=== PATIENT | male | born 1940 ===

== ENCOUNTER 2018-02-25 13:17 | Inpatient (IN) | payer MEDICARE ==
[2018-02-25 13:37] VITALS: BMI 25.8
[2018-02-25] MEDS ORDERED: Albuterol-Ipratrop 3 mg / 0.5 (3 ml) UD INH STA (13:43)
[2018-02-25] MEDS ORDERED: Albuterol-Ipratrop 3 mg / 0.5 (3 ml) UD ONE (14:00)
[2018-02-25 14:02] LABS: BASO # 0.1 K/uL (0.0-0.2); BASO % 0.4 % (0.0-2.0); HEMOGLOBIN 11.2 g/dL (12.0-18.0); LYMPH # 0.5 K/uL (1.0-4.3); LYMPH % 3.6 % (20.0-40.0); MEAN CELL VOLUME 93.2 fL (80.0-94.0); MEAN CORPUSCULAR HEMOGLOBIN 32.2 pg (27.0-31.0); MEAN CORPUSCULAR HGB CONC 34.5 g/dL (33.0-37.0); MEAN PLATELET VOLUME 11.2 fL (7.2-11.7); MONO # 0.9 K/uL (0.0-0.8); MONO % 5.8 % (0.0-10.0); NEUT # 13.3 K/uL (1.8-7.0); NEUT % 90.2 % (50.0-75.0); PLATELET COUNT 159 K/uL (130-400); RBC 3.47 Mil/uL (4.40-5.90); RED CELL DISTRIBUTION WIDTH 13.9 % (11.5-14.5); WHITE BLOOD COUNT 14.8 K/uL (4.8-10.8)
[2018-02-25] MEDS ORDERED: cefTRIAXone IV 1 gm in Dextros 50 ML IV ONE (14:08)
[2018-02-25] MEDS ORDERED: Azithromycin 500 MG in Sodium Chloride 0.9% 250 ML IV STA (14:08)
[2018-02-25 14:09] LABS: INR 1.4; PROTHROMBIN TIME 15.1 SECONDS (9.7-12.2)
--- NOTE | 2018-02-25 14:14 | RAD ---
PROCEDURE: CHEST RADIOGRAPH, 1 VIEW HISTORY: SOB COMPARISON: Chest radiograph dated 09/15/2016. FINDINGS: LUNGS: Clear. PLEURA: No pneumothorax or pleural fluid seen. CARDIOVASCULAR: Atherosclerotic aortic calcifications. Cardiomediastinal silhouette within normal it's. OSSEOUS STRUCTURES: Unchanged. VISUALIZED UPPER ABDOMEN: Normal. OTHER FINDINGS: None. IMPRESSION: No active disease.
--- NOTE | 2018-02-25 14:16 | C.PDOC ---
History Of Present Illness 77-year-old male, presents to the emergency department with complaints of cough and lethargy for the past seven days. No shortness of breath, chest pain, vomiting or diarrhea. Time Seen by Provider: 02/25/18 13:39 Chief Complaint (Nursing): Shortness Of Breath History Per: Patient History/Exam Limitations: no limitations Current Symptoms Are (Timing): Still Present Past Medical History Reviewed: Historical Data, Nursing Documentation, Vital Signs Vital Signs: Last Vital Signs Temp 98.0 F 02/25/18 16:32 Pulse 99 H 02/25/18 16:32 Resp 18 02/25/18 16:32 BP 115/50 L 02/25/18 16:32 Pulse Ox 96 02/25/18 16:32 - Medical History PMH: Anemia, Arthritis, HTN, Hyperlipidemia Surgical History: Endoscopy - [facility] Procedures EXCISION OF STOMACH, ENDO, DIAGN (06/02/16) OCCLUSION ESOPHAGEAL VEIN W EXTRALUM DEV, PERC ENDO (06/02/16) Family History: States: No Known Family Hx - Social History Hx Alcohol Use: No Hx Substance Use: No - Immunization History Hx Tetanus Toxoid Vaccination: No Hx Influenza Vaccination: No Hx Pneumococcal Vaccination: No Review Of Systems Constitutional: Positive for: Other (lethargy) Respiratory: Positive for: Cough Gastrointestinal: Positive for: Abdominal Pain Neurological: Negative for: Weakness, Numbness Physical Exam - Physical Exam Appears: Non-toxic, No Acute Distress Skin: Normal Color, Warm, Dry, No Rash Head: Normacephalic Eye(s): bilateral: PERRL Nose: Normal Oral Mucosa: Dry (oropharynx) Lips: Normal Appearing Neck: Normal ROM Cardiovascular: Rhythm Regular, No Murmur Respiratory: No Accessory Muscle Use, Other (increased breath sounds to lower lung areas.) Gastrointestinal/Abdominal: Soft, No Tenderness Extremity: No Pedal Edema, No Deformity, No Swelling Neurological/Psych: Oriented x3, Normal Speech ED Course And Treatment - Laboratory Results Result Diagrams: 02/25/18 13:58 02/25/18 13:58 Lab Interpretation: Abnormal ECG: Interpreted By De ECG Rhythm: Sinus Tachycardia, R BBB ECG Interpretation: Abnormal Rate From EC O2 Sat by Pulse Oximetry: 96 (RA) Pulse Ox Interpretation: Abnormal - Radiology CXR: Interpreted by Me CXR Interpretation: Yes: Infiltrates (+RLL) Progress Note: solumedrol, duoneb, azithro, rocephin Reevaluation Time: 14:15 Reassessment Condition: Improved - Physician Consult Information Outcome Of Conversation: 1415: d/w heriberto Sanchez to admit. Medical Decision Making Medical Decision Making: CAP Disposition Doctor Will See Patient In The: Hospital Counseled Patient/Family Regarding: Studies Performed, Diagnosis - Disposition Disposition: HOSPITALIZED Disposition Time: 14:16 Condition: GOOD - Clinical Impression Clinical Impression: Pneumonia - Scribe Statement The provider has reviewed the documentation as recorded by the Scribe (Addis Lang) All medical record entries made by the Scribe were at my direction and personally dictated by me. I have reviewed the chart and agree that the record accurately reflects my personal performance of the history, physical exam, medical decision making, and the department course for this patient. I have also personally directed, reviewed, and agree with the discharge instructions and disposition.
[2018-02-25] MEDS ORDERED: cefTRIAXone IV 1 gm in Dextros 50 ML IVPB ONE (14:20)
[2018-02-25 14:36] LABS: ALB/GLOB RATIO 0.8 (1.0-2.1); ALBUMIN 3.3 g/dL (3.5-5.0); ALT/SGPT 8 U/L (21-72); AST/SGOT 56 U/L (17-59); BLOOD UREA NITROGEN 18 mg/dL (9-20); CALCIUM 8.1 mg/dl (8.6-10.4); GFR AFRICAN-AMERICAN > 60; GFR NON-AFRICAN AMERICAN > 60
[2018-02-25 14:40] LABS: BANDS 5 % (0-2); LYMPHOCYTE 4 % (20-40); MONOCYTE 6 % (0-10); NEUTROPHIL 85 % (50-75); TOTAL CELLS COUNTED 100
[2018-02-25 14:41] LABS: PLATELET ESTIMATE NORMAL (NORMAL)
[2018-02-25 14:46] LABS: B-TYPE NATRIURETIC PEPTIDE 857 pg/mL (0-900)
[2018-02-25 17:39] VITALS: RESP 20
[2018-02-25] MEDS: (Novolin R) Insulin Human Regular 100 units/ml vial SC SCH (21:47)
[2018-02-25] MEDS: Ceftaroline 600 MG in Sodium Chloride 0.9% 100 ML IVPB SCH (21:48)
--- NOTE | 2018-02-25 23:40 | CP.PCM.CON ---
History of Present Illness - History of Present Illness History of Present Illness: INFECTIOUS DISEASE CONSULT; HPI; 77-year-old male with history of DM TYPE -2, hypertension, hyperlipidemia, anemia, arthritis who was admitted via the emergency room as patient states he has been having cough with scanty Beige colored sputum for the past 1 week or more. Patient states that he also had chills and subjective fevers though he never took his temperature. Patient states the cough is so bad that now he is experiencing abdominal pain on coughing. Patient also complains of diarrhea since last night. Patient denies any recent travel or any sick contacts. Patient is a nonsmoker, nonalcoholic. Patient denies hemoptysis or hematemesis or any melanotic stools. Denies loss of weight or night sweats. In the ER patient was found to have leukocytosis and was appropriately cultured and started on IV Rocephin and Zithromax. INFECTIOUS DISEASE CONSULT REQUESTED BY PMD DR BRIDGES FOR LEUKOCYTOSIS AND CAP. Patient also was found to have abnormal LFTs. Patient denies any nausea or vomiting. CHEST X-RAY ON ADMISSION WAS UNREMARKABLE and did not show acute infiltrates. PMH: Anemia, Arthritis, HTN, Hyperlipidemia Surgical History: Endoscopy - [facility] Procedures EXCISION OF STOMACH, ENDO, DIAGN (06/02/16) OCCLUSION ESOPHAGEAL VEIN W EXTRALUM DEV, PERC ENDO (06/02/16) Family History: States: No Known Family Hx - Social History Hx Alcohol Use: No Hx Substance Use: No - Immunization History Hx Tetanus Toxoid Vaccination: No Hx Influenza Vaccination: No Hx Pneumococcal Vaccination: No ALLERGY; NKA. Review of Systems - Constitutional Constitutional: Chills, Fever. absent: Night Sweats, Weight Loss - EENT Eyes: absent: Change in Vision Nose/Mouth/Throat: absent: Hoarsness, Mouth Lesions, Sore Throat - Cardiovascular Cardiovascular: absent: Chest Pain - Respiratory Respiratory: Cough, Change in Mucous Color, Pain with Coughing. absent: Hemoptysis - Gastrointestinal Gastrointestinal: Abdominal Pain, Diarrhea. absent: Nausea, Vomiting - Genitourinary Genitourinary: absent: Freq UTI, Hx Renal/Bladder Calculi - Musculoskeletal Musculoskeletal: absent: Arthralgias, Myalgias - Neurological Neurological: absent: Headaches - Hematologic/Lymphatic Hematologic: As Per HPI. absent: Lymphadenopathy Past Patient History - Past Medical History & Family History Past Medical History?: Yes - Past Social History Smoking Status: Never Smoked - CARDIAC Hx Cardiac Disorders: Yes Hx Hypercholesterolemia: Yes Hx Hypertension: Yes - PULMONARY Hx Respiratory Disorders: No - NEUROLOGICAL Hx Neurological Disorder: No Hx Transient Ischemic Attacks (TIA): No - HEENT Hx HEENT Problems: Yes Hx Deafness: Yes Other/Comment: left ear [place] - RENAL Hx Chronic Kidney Disease: No - ENDOCRINE/METABOLIC Hx Endocrine Disorders: Yes Hx Diabetes Mellitus Type 2: Yes - HEMATOLOGICAL/ONCOLOGICAL Hx Anemia: Yes - INTEGUMENTARY Hx Dermatological Problems: No - MUSCULOSKELETAL/RHEUMATOLOGICAL Hx Arthritis: Yes Hx Falls: Yes - GASTROINTESTINAL Hx Gastrointestinal Disorders: Yes Hx Esophageal Varices: Yes (BANDING DONE) Hx Ulcer: Yes Other/Comment: HX:IRREGULAR CONTOUR OF LIVER WITH CIRRRHOSIS. HX: H-PYLORI- TREATMENT DONE. HX: MELENA - GENITOURINARY/GYNECOLOGICAL Hx Genitourinary Disorders: Yes Hx Prostate Cancer: Yes - PSYCHIATRIC Hx Psychophysiologic Disorder: No Hx Substance Use: No - SURGICAL HISTORY Hx Surgeries: Yes Other/Comment: HX: ESOPHAGEAL VARICES-BANDING DONE - ANESTHESIA Hx Anesthesia: Yes Hx Anesthesia Reactions: No Hx Malignant Hyperthermia: No Meds Allergies/Adverse Reactions: Allergies Allergy/AdvReac Type Severity Reaction Status Date / Time No Known Allergies Allergy Verified 10/06/16 07:08 - Medications Medications: Current Medications Albuterol/Ipratropium (Duoneb 3 Mg/0.5 Mg (3 Ml) Ud) 3 ml INH RQ6 [facility] Budesonide (Pulmicort Respules) 0.25 mg INH RQ12 [facility] Enoxaparin Sodium (Lovenox) 40 mg SC DAILY [facility] Glipizide (Glucotrol) 5 mg PO DAILY [facility] Azithromycin 500 mg/ Sodium (Chloride) 250 mls @ 250 mls/hr IVPB Q24H [facility] PRN Reason: Protocol Ceftaroline Fosamil 600 mg/ (Sodium Chloride) 100 mls @ 100 mls/hr IVPB Q12 [facility] PRN Reason: Protocol Last Admin: 02/25/18 21:48 Dose: 100 mls/hr Insulin Human Regular (Novolin R) 0 unit SC ACHS [facility] PRN Reason: Protocol Last Admin: 02/25/18 21:47 Dose: 2 unit Lisinopril (Zestril) 10 mg PO DAILY [facility] Metformin HCl (Glucophage) 1,000 mg PO BID [facility] Physical Exam - Constitutional Appears: No Acute Distress - Head Exam Head Exam: NORMAL INSPECTION - Eye Exam Eye Exam: EOMI, PERRL, Scleral icterus - ENT Exam ENT Exam: Normal Oropharynx - Neck Exam Neck exam: Positive for: Normal Inspection. Negative for: Lymphadenopathy - Respiratory Exam Respiratory Exam: Prolonged Expiratory Phase, Rhonchi (BILATERAL RHONCHI) - Cardiovascular Exam Cardiovascular Exam: REGULAR RHYTHM, +S1, +S2 - GI/Abdominal Exam GI & Abdominal Exam: Normal Bowel Sounds, Soft, Tenderness (GENERALIZED). absent: Distended, Guarding - Extremities Exam Extremities exam: Positive for: pedal pulses present. Negative for: calf tenderness, pedal edema - Neurological Exam Neurological exam: Alert, CN II-XII Intact, Oriented x3, Reflexes Normal - Skin Skin Exam: Normal Color, Warm Results - Vital Signs Recent Vital Signs: Last Vital Signs Temp 98.2 F 02/25/18 17:30 Pulse 94 H 02/25/18 17:30 Resp 20 02/25/18 17:30 BP 100/68 02/25/18 17:30 Pulse Ox 96 02/25/18 17:30 - Labs Result Diagrams: 02/25/18 13:58 02/25/18 13:58 Labs: Laboratory Results - last 24 hr 02/25/18 02/25/18 02/25/18 13:58 13:58 13:58 WBC 14.8 H D RBC 3.47 L Hgb 11.2 L Hct 32.4 L MCV 93.2 D MCH 32.2 H MCHC 34.5 RDW 13.9 Plt Count 159 MPV 11.2 Neut % (Auto) 90.2 H Lymph % (Auto) 3.6 L [place] % (Auto) 5.8 Eos % (Auto) 0.0 Baso % (Auto) 0.4 Neut # (Auto) 13.3 H Lymph # (Auto) 0.5 L [place] # (Auto) 0.9 H Eos # (Auto) 0.0 Baso # (Auto) 0.1 Neutrophils % (Manual) 85 H Band Neutrophils % 5 H Lymphocytes % (Manual) 4 L Monocytes % (Manual) 6 Platelet Estimate Normal RBC Morphology Normal PT 15.1 H INR 1.4 APTT 34 Sodium Potassium Chloride Carbon Dioxide Anion Gap BUN Creatinine Est GFR ( Amer) Est GFR (Non-Af Amer) POC Glucose (mg/dL) Random Glucose Calcium Total Bilirubin AST ALT Alkaline Phosphatase Troponin I NT-Pro-B Natriuret Pep Total Protein Albumin Globulin Albumin/Globulin Ratio Influenza Typ A,B (EIA) Negative for flu a/b 02/25/18 02/25/18 02/25/18 13:58 18:49 21:26 WBC RBC Hgb Hct MCV MCH MCHC RDW Plt Count MPV Neut % (Auto) Lymph % (Auto) [place] % (Auto) Eos % (Auto) Baso % (Auto) Neut # (Auto) Lymph # (Auto) [place] # (Auto) Eos # (Auto) Baso # (Auto) Neutrophils % (Manual) Band Neutrophils % Lymphocytes % (Manual) Monocytes % (Manual) Platelet Estimate RBC Morphology PT INR APTT Sodium 132 Potassium 4.7 Chloride 96 L Carbon Dioxide 18 L Anion Gap 23 H BUN 18 Creatinine 0.9 Est GFR ( Amer) > 60 Est GFR (Non-Af Amer) > 60 POC Glucose (mg/dL) 259 H 391 H Random Glucose 281 H Calcium 8.1 L Total Bilirubin 2.9 H AST 56 ALT 8 L D Alkaline Phosphatase 309 H Troponin I < 0.0120 NT-Pro-B Natriuret Pep 857 Total Protein 7.5 Albumin 3.3 L Globulin 4.2 H Albumin/Globulin Ratio 0.8 L Influenza Typ A,B (EIA) - Imaging and Cardiology Chest x-ray Status: Report reviewed by me (no active disease.) Assessment & Plan (1) Leukocytosis (leucocytosis) Assessment and Plan: PANCULTURE ESR CRP ATYPICAL TITERS. COLD AGGLUTININS. SPUTUM GRAM STAIN AND CULTURE DC IV ROCEPHIN IN VIEW OF ABNORMAL LFTS SINCE CEFTRIAXONE HAS A HEPATIC METABOLISM. START IV TEFLARO 600MG IVPB Q 12HRLY 02/25/18. CONTINUE IV ZITHROMAX 500MG IV Q 24HRLY. 02/26/18 F/U CULTURES TO ADJUST ABX Status: Acute (2) Pneumonia Status: Acute (3) Diarrhea Assessment and Plan: stool for occult blood. stool for c.difficile toxin. Status: Acute (4) Cough Assessment and Plan: patient has persistent cough. Scanty expectorant. Complains of pain abdomen on coughing. Will check CT chest rule out endobronchial or pleuritic etiology. Pulmonary consult for evaluation of PFTs. Status: Acute
[2018-02-26] MEDS: Albuterol-Ipratrop 3 mg / 0.5 (3 ml) UD INH SCH ×4 (02:41→20:32)
[2018-02-26] MEDS: Budesonide 0.25 mg/2 ml Inhal Susp UD INH SCH ×2 (08:00→20:32)
[2018-02-26] MEDS: (Novolin R) Insulin Human Regular 100 units/ml vial SC SCH ×4 (08:07→21:10)
[2018-02-26] MEDS: Enoxaparin 40 mg Syringe SC SCH (09:53)
[2018-02-26] MEDS: Ceftaroline 600 MG in Sodium Chloride 0.9% 100 ML IVPB SCH ×2 (09:53→21:10)
[2018-02-26 12:16] LABS: MYCOPLASMA PNEUMONIAE IGM NEGATIVE (NEGATIVE)
[2018-02-26] MEDS: Azithromycin 500 MG in Sodium Chloride 0.9% 250 ML IVPB SCH (13:41)
[2018-02-26] MEDS ORDERED: cefTRIAXone IV 1 gm in Dextros 50 ML IVPB SCH (14:00)
--- NOTE | 2018-02-26 15:12 | CARD ---
APPROVED REPORT EKG Measurement Heart [id number] <Conclusion> Sinus tachycardia Low voltage QRS Incomplete right bundle branch block Borderline ECG
--- NOTE | 2018-02-26 16:53 | CP.PCM.CON ---
History of Present Illness - History of Present Illness History of Present Illness: reason for consultation: shortness of breath and cough 77-year-old male with hypertension, diabetes, hyperlipidemia, anemia who presented to emergency room with cough, shortness of breath and chills. Patient states he is having cough for the past 1 week productive of yellowish phlegm and associated with chills and diarrhea. chest x-ray done in the emergency room showed no infiltrate. PMH: Anemia, Arthritis, HTN, Hyperlipidemia Review of Systems - Review of Systems All systems: reviewed and no additional remarkable complaints except (cough, chills and shortness of breath) Past Patient History - Past Medical History & Family History Past Medical History?: Yes - Past Social History Smoking Status: Never Smoked - CARDIAC Hx Cardiac Disorders: Yes Hx Hypercholesterolemia: Yes Hx Hypertension: Yes - PULMONARY Hx Respiratory Disorders: No - NEUROLOGICAL Hx Neurological Disorder: No Hx Transient Ischemic Attacks (TIA): No - HEENT Hx HEENT Problems: Yes Hx Deafness: Yes Other/Comment: left ear [place] - RENAL Hx Chronic Kidney Disease: No - ENDOCRINE/METABOLIC Hx Diabetes Mellitus Type 2: Yes - HEMATOLOGICAL/ONCOLOGICAL Hx Anemia: Yes - INTEGUMENTARY Hx Dermatological Problems: No - MUSCULOSKELETAL/RHEUMATOLOGICAL Hx Arthritis: Yes (KNEES) - GASTROINTESTINAL Hx Gastrointestinal Disorders: Yes Hx Esophageal Varices: Yes (BANDING DONE) Hx Ulcer: Yes Other/Comment: HX:IRREGULAR CONTOUR OF LIVER WITH CIRRRHOSIS. HX: H-PYLORI- TREATMENT DONE. HX: MELENA - GENITOURINARY/GYNECOLOGICAL Hx Genitourinary Disorders: Yes Hx Prostate Cancer: Yes - PSYCHIATRIC Hx Psychophysiologic Disorder: No Hx Substance Use: No - SURGICAL HISTORY Hx Surgeries: Yes Other/Comment: HX: ESOPHAGEAL VARICES-BANDING DONE - ANESTHESIA Hx Anesthesia: Yes Hx Anesthesia Reactions: No Hx Malignant Hyperthermia: No Meds Allergies/Adverse Reactions: Allergies Allergy/AdvReac Type Severity Reaction Status Date / Time No Known Allergies Allergy Verified 10/06/16 07:08 - Medications Medications: Current Medications Albuterol/Ipratropium (Duoneb 3 Mg/0.5 Mg (3 Ml) Ud) 3 ml INH RQ6 [facility] Last Admin: 02/26/18 13:19 Dose: 3 ml Budesonide (Pulmicort Respules) 0.25 mg INH RQ12 [facility] Last Admin: 02/26/18 08:00 Dose: 0.25 mg Enoxaparin Sodium (Lovenox) 40 mg SC DAILY [facility] Last Admin: 02/26/18 09:53 Dose: 40 mg Glipizide (Glucotrol) 5 mg PO DAILY [facility] Last Admin: 02/26/18 09:53 Dose: 5 mg Azithromycin 500 mg/ Sodium (Chloride) 250 mls @ 250 mls/hr IVPB Q24H [facility] PRN Reason: Protocol Last Admin: 02/26/18 13:41 Dose: 250 mls/hr Ceftaroline Fosamil 600 mg/ (Sodium Chloride) 100 mls @ 100 mls/hr IVPB Q12 [facility] PRN Reason: Protocol Last Admin: 02/26/18 09:53 Dose: 100 mls/hr Insulin Human Regular (Novolin R) 0 unit SC ACHS [facility] PRN Reason: Protocol Last Admin: 02/26/18 11:59 Dose: 6 unit Lisinopril (Zestril) 10 mg PO DAILY [facility] Last Admin: 02/26/18 09:53 Dose: 10 mg Metformin HCl (Glucophage) 1,000 mg PO BID [facility] Last Admin: 02/26/18 09:53 Dose: 1,000 mg Physical Exam - Head Exam Head Exam: ATRAUMATIC, NORMOCEPHALIC - Eye Exam Eye Exam: Normal appearance - ENT Exam ENT Exam: Mucous Membranes Moist - Neck Exam Neck exam: Positive for: Normal Inspection - Respiratory Exam Respiratory Exam: Rhonchi - Cardiovascular Exam Cardiovascular Exam: REGULAR RHYTHM - GI/Abdominal Exam GI & Abdominal Exam: Normal Bowel Sounds, Soft - Extremities Exam Extremities exam: Positive for: normal inspection - Neurological Exam Neurological exam: Alert, Oriented x3 Results - Vital Signs Recent Vital Signs: Last Vital Signs Temp 97.7 F 02/26/18 16:00 Pulse 105 H 02/26/18 16:00 Resp 20 02/26/18 16:00 BP 134/87 02/26/18 07:47 Pulse Ox 96 02/26/18 16:00 - Labs Result Diagrams: 02/27/18 07:19 02/27/18 07:19 Labs: Laboratory Results - last 24 hr 02/25/18 02/25/18 02/25/18 18:49 21:02 21:26 POC Glucose (mg/dL) 259 H 391 H Ur L.pneumophila Ag Negative Mycoplasma pneumon IgM 02/26/18 02/26/18 02/26/18 02:33 07:23 07:29 POC Glucose (mg/dL) 401 H* 368 H Ur L.pneumophila Ag Mycoplasma pneumon IgM Negative 02/26/18 02/26/18 02/26/18 11:02 16:34 16:36 POC Glucose (mg/dL) 491 H* 476 H* 449 H* Ur L.pneumophila Ag Mycoplasma pneumon IgM Assessment & Plan (1) Pneumonia Status: Acute Comment: cough productive of yellowish phlegm associated with chills an elevated white count. CAT scan of the chest showed left lower lung infiltrate. Continue antibiotics. Continue nebulizer treatment (2) Cough Status: Acute (3) Leukocytosis (leucocytosis) Status: Acute
[2018-02-26] MEDS ORDERED: Iodixanol 320 MG/ML 100 ML BOTTLE IV ONE (17:52)
--- NOTE | 2018-02-26 20:35 | CT ---
EXAM: CT Chest With Intravenous Contrast EXAM DATE/TIME: Exam ordered 02/26/2018 4:26 PM CLINICAL HISTORY: 77 years old, male; Signs and symptoms; Cough; Symptoms not specified; Additional info: Chronic cough TECHNIQUE: Axial computed tomography images of the chest with intravenous contrast. All CT scans at this facility use one or more dose reduction techniques, viz.: automated exposure control; ma/kV adjustment per patient size (including targeted exams where dose is matched to indication; i.e. head); or iterative reconstruction technique. Coronal and sagittal reformatted images were created and reviewed. CONTRAST: 100 mL of visipaque 320 administered intravenously. COMPARISON: No relevant prior studies available. FINDINGS: Lungs: Scattered areas of subsegmental atelectasis/consolidation are noted at the right lung base. There is an area of consolidation involving the medial basal segment of the left lower lobe patchy consolidation extending into the superior segment of left lower lobe. Patchy consolidation is also noted in the posterior subsegment of the left upper lobe. There is a small sliding hiatal hernia. There is an air distended esophagus. Pleural space: Unremarkable. No pneumothorax. No significant effusion. Heart: There is coronary artery calcification. No significant pericardial effusion. Bones/joints: Unremarkable. No acute fracture. No dislocation. Soft tissues: There is a recanalized umbilical vein. Vasculature: Azygos vein is distended measuring 2.5 cm in diameter Lymph nodes: Unremarkable. No enlarged lymph nodes. Liver: The liver surface is nodular. Kidneys and ureters: A 2.9 cm cyst is noted posterior to the kidney. Left kidney is not imaged entirely. On previous studies this has been described as a renal cyst. Intraperitoneal space: There is small amount of intra-abdominal ascites. Hazy density is noted in the mesenteric fat. IMPRESSION: 1. 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 2. Consolidation of the medial basal segment of the left lower lobe. Patchy consolidation in the left upper lobe as well. 3. Scattered areas of subsegmental atelectasis in the right lung. 4. Small sliding hiatal hernia. 5. Left renal cyst. See above.
--- NOTE | 2018-02-26 23:29 | CP.PCM.PN ---
Subjective - Date & Time of Evaluation Date of Evaluation: 02/26/18 Time of Evaluation: 23:29 - Subjective Subjective: CHIEF COMPLAINTS TODAY : AFEBRILE, C/O COUGH. SCANTY EXPECTORANT. WENT FOR CT CHEST . ROS. HEENT : N. Resp : No cough, wheezing ,pleuritic CP ,or hemoptysis Cardio : No anginal CP, PND, orthopnea, palpitation GI : No abd.pain, n/v ,diarrhea or GI bleeding . NOISE TESTER : No headache, vertigo, focal deficit. Musculoskel : No joint swelling , Derm : No rash Psych : Normal affect. Ext : No swelling ,calf pain PE. Pt. is alert awake in no distress. V.S As noted in the chart Head ,ear nose,throat and eyes : Normal. Neck : Supple with normal carotids. Lungs: B/L RHONCHI LT > RT. Heart : S1 & S2 normal , SINUS TACHYCARDIA HR 105/MIN. Abd : Soft non tender with normal bowel sounds. Neuro : Moves all ext. with no localized deficit. Ext : No edema with intact pulses.Non tender calves Derm : No rashes or decubitus ulcer. LABS/RADIOLOGY: CXR -VE ASSESSMENT. LEUKOCYTOSIS R/O SEPSIS COUGH PNEUMONIA. NEW ONSET DIARRHOEA ABN LFTS DM -TYPE2 /PLAN : CONTINUE IV ANTIBIOTIC S F/U CT CHEST PULM TOILET. Objective - Vital Signs/Intake and Output Vital Signs (last 24 hours): Temp Pulse Resp BP Pulse Ox 97.7 F 105 H 20 134/87 96 02/26/18 16:00 02/26/18 16:00 02/26/18 16:00 02/26/18 07:47 02/26/18 16:00 Intake and Output: 02/26/18 02/27/18 18:59 06:59 Intake Total 820 400 Output Total 500 Balance 320 400 - Medications Medications: Current Medications Albuterol/Ipratropium (Duoneb 3 Mg/0.5 Mg (3 Ml) Ud) 3 ml INH RQ6 [facility] Last Admin: 02/26/18 20:32 Dose: 3 ml Budesonide (Pulmicort Respules) 0.25 mg INH RQ12 [facility] Last Admin: 02/26/18 20:32 Dose: 0.25 mg Enoxaparin Sodium (Lovenox) 40 mg SC DAILY [facility] Last Admin: 02/26/18 09:53 Dose: 40 mg Glipizide (Glucotrol) 5 mg PO DAILY [facility] Last Admin: 02/26/18 09:53 Dose: 5 mg Azithromycin 500 mg/ Sodium (Chloride) 250 mls @ 250 mls/hr IVPB Q24H [facility] PRN Reason: Protocol Last Admin: 02/26/18 13:41 Dose: 250 mls/hr Ceftaroline Fosamil 600 mg/ (Sodium Chloride) 100 mls @ 100 mls/hr IVPB Q12 [facility] PRN Reason: Protocol Last Admin: 02/26/18 21:10 Dose: 100 mls/hr Insulin Human Regular (Novolin R) 0 unit SC ACHS [facility] PRN Reason: Protocol Last Admin: 02/26/18 21:10 Dose: 2 unit Lisinopril (Zestril) 10 mg PO DAILY [facility] Last Admin: 02/26/18 09:53 Dose: 10 mg Metformin HCl (Glucophage) 1,000 mg PO BID [facility] Last Admin: 02/26/18 17:09 Dose: 1,000 mg - Labs Labs: 02/25/18 13:58 02/25/18 13:58 PT 15.1 SECONDS (9.7-12.2) H 02/25/18 13:58 INR 1.4 02/25/18 13:58 APTT 34 SECONDS (21-34) 02/25/18 13:58 Assessment and Plan (1) Pneumonia Status: Acute (2) Cough Status: Acute (3) Leukocytosis (leucocytosis) Status: Acute (4) Diarrhea Status: Acute
[2018-02-27] MEDS: Albuterol-Ipratrop 3 mg / 0.5 (3 ml) UD INH SCH ×4 (01:27→20:10)
[2018-02-27 07:31] LABS: HEMOGLOBIN 9.3 g/dL (12.0-18.0); MEAN CELL VOLUME 92.5 fL (80.0-94.0); MEAN CORPUSCULAR HEMOGLOBIN 31.9 pg (27.0-31.0); MEAN CORPUSCULAR HGB CONC 34.5 g/dL (33.0-37.0); RBC 2.91 Mil/uL (4.40-5.90); RED CELL DISTRIBUTION WIDTH 13.8 % (11.5-14.5); WHITE BLOOD COUNT 12.4 K/uL (4.8-10.8)
[2018-02-27] MEDS: Budesonide 0.25 mg/2 ml Inhal Susp UD INH SCH (07:40)
[2018-02-27 07:47] LABS: ALB/GLOB RATIO 0.7 (1.0-2.1); ALBUMIN 2.6 g/dL (3.5-5.0); ALT/SGPT 8 U/L (21-72); AST/SGOT 38 U/L (17-59); BILIRUBIN,DIRECT 0.8 mg/dL (0.0-0.4); BLOOD UREA NITROGEN 39 mg/dL (9-20); CALCIUM 8.1 mg/dl (8.6-10.4); GFR AFRICAN-AMERICAN > 60; GFR NON-AFRICAN AMERICAN 59
[2018-02-27] MEDS: (Novolin R) Insulin Human Regular 100 units/ml vial SC SCH ×4 (07:50→21:28)
[2018-02-27 09:31] LABS: COLD AGGLUTININ NEGATIVE (NEGATIVE)
[2018-02-27] MEDS: Ceftaroline 600 MG in Sodium Chloride 0.9% 100 ML IVPB SCH ×2 (10:11→21:21)
[2018-02-27] MEDS: Enoxaparin 40 mg Syringe SC SCH (10:11)
--- NOTE | 2018-02-27 10:56 | HP ---
CHIEF COMPLAINT: Coughing, shortness of breath, and feeling lethargic. HISTORY OF PRESENT ILLNESS: Mr. Rickey Ochoa is a 77-year-old male who came to the emergency room department complaining of cough, lethargy, shortness of breath from the past 7 days. No chest pain. No nausea, vomiting, or diarrhea. No fever. No chills. No headache or dizziness. PAST MEDICAL HISTORY: Anemia, arthritis, hypertension, hypercholesterolemia, and history of endoscopy. FAMILY HISTORY: Father and mother, noncontributory. HABITS: No smoking. No drugs. No ethanol. ALLERGIES: THE PATIENT IS NOT ALLERGIC WITH ANY MEDICATIONS. REVIEW OF SYSTEMS: The patient seen and examined at the bedside in his room. was standing on the bedside also. No nausea, vomiting, or diarrhea. No hematuria or hematochezia. No swelling of the legs. No chest pain. No palpitation. Coughing is better. Shortness of breath is better. PHYSICAL EXAMINATION: VITAL SIGNS: Temperature 97.7, pulse 105, respiratory rate 20, and blood pressure 137/87. HEENT: Head: Normocephalic, atraumatic. Eyes: PERRLA, extraocular movements intact, conjunctivae clear. Nose: Patent. Mucous membranes moist. NECK: Supple. No carotid bruits. No JVD or thyromegaly. CHEST: Bilaterally symmetrical. HEART: S1 and S2 positive. LUNGS: Clear to auscultation. ABDOMEN: Soft. Bowel sounds positive. No organomegaly. EXTREMITIES: No edema, no cyanosis. NEUROLOGIC: The patient is awake and alert, moving all 4 extremities. No focal deficits. LABORATORY DATA: White blood cells 14.8, hemoglobin 11.3, hematocrit 32.4, platelets 159. Glucose 397, 438, 449. Sodium 132, potassium 4.7, BUN 18, creatinine 0.9, glucose 281, calcium 8.1. ASSESSMENT AND PLAN: Mr. Rickey Ochoa is a 77-year-old male with leukocytosis, anemia, uncontrolled diabetes mellitus, hyperglycemia, hypocalcemia, abnormal liver function test. Influenza type A and B is negative. Urine Legionella pneumophila antigen, mycoplasma pneumoniae, immunoglobulin M negative. Patient is seen by Dr. Nicole Schuler of Infectious Disease. Leukocytosis, pneumonia, diarrhea, cough, seen by Dr. Twin Fields, textile engineer. CAT scan of the chest and chest x-ray done, reviewed by me. The patient has a history of hypertension, hypercholesterolemia, arthritis. The patient has abnormal liver function test. cultures were done. Sputum Gram stain and cultures were done. Because of abnormal liver function tests, Dr. Nicole Schuler discontinued Rocephin. Since ceftriaxone has hepatic metabolism, started on 600 IV every 8 hours on 02/25/2018. Continue Zithromax. Follow up culture to adjust the antibiotics. Now cough is getting better with scanty expectorants. We will check CT to rule out endobronchial and pleuritic etiology. Discussion done with the and patient. Continue present treatment. We will repeat labs. Alysia Colon MD [facility]
--- NOTE | 2018-02-27 14:30 | CP.PCM.PN ---
Subjective - Date & Time of Evaluation Date of Evaluation: 02/27/18 Time of Evaluation: 13:00 - Subjective Subjective: patient seen and examined Patient states cough is much better Afebrile No chest pain Objective - Vital Signs/Intake and Output Vital Signs (last 24 hours): Temp Pulse Resp BP Pulse Ox 98.4 F 97 H 20 160/72 H 97 02/27/18 07:44 02/27/18 07:44 02/27/18 07:44 02/27/18 07:44 02/27/18 07:44 Intake and Output: 02/27/18 02/27/18 06:59 18:59 Intake Total 400 Balance 400 - Medications Medications: Current Medications Albuterol/Ipratropium (Duoneb 3 Mg/0.5 Mg (3 Ml) Ud) 3 ml INH RQ6 [facility] Last Admin: 02/27/18 13:56 Dose: 3 ml Budesonide (Pulmicort Respules) 0.25 mg INH RQ12 [facility] Last Admin: 02/27/18 07:40 Dose: 0.25 mg Enoxaparin Sodium (Lovenox) 40 mg SC DAILY [facility] Last Admin: 02/27/18 10:11 Dose: 40 mg Famotidine (Pepcid) 40 mg PO DAILY [facility] Last Admin: 02/27/18 10:14 Dose: Not Given Glipizide (Glucotrol) 5 mg PO DAILY [facility] Last Admin: 02/27/18 10:10 Dose: 5 mg Azithromycin 500 mg/ Sodium (Chloride) 250 mls @ 250 mls/hr IVPB Q24H [facility] PRN Reason: Protocol Last Admin: 02/26/18 13:41 Dose: 250 mls/hr Ceftaroline Fosamil 600 mg/ (Sodium Chloride) 100 mls @ 100 mls/hr IVPB Q12 [facility] PRN Reason: Protocol Last Admin: 02/27/18 10:11 Dose: 100 mls/hr Sodium Chloride (Sodium Chloride 0.9%) 1,000 mls @ 100 mls/hr IV .Q10H [facility] Insulin Human Regular (Novolin R) 0 unit SC ACHS [facility] PRN Reason: Protocol Last Admin: 02/27/18 12:03 Dose: 5 unit Lisinopril (Zestril) 10 mg PO DAILY [facility] Last Admin: 02/27/18 10:10 Dose: 10 mg Metformin HCl (Glucophage) 1,000 mg PO BID [facility] Last Admin: 02/27/18 10:11 Dose: 1,000 mg Sitagliptin Phosphate (Januvia) 100 mg PO DAILY [facility] Last Admin: 02/27/18 10:10 Dose: 100 mg - Labs Labs: 02/27/18 07:19 02/27/18 07:19 PT 15.1 SECONDS (9.7-12.2) H 02/25/18 13:58 INR 1.4 02/25/18 13:58 APTT 34 SECONDS (21-34) 02/25/18 13:58 - Head Exam Head Exam: ATRAUMATIC, NORMOCEPHALIC - Eye Exam Eye Exam: Normal appearance - ENT Exam ENT Exam: Mucous Membranes Moist - Neck Exam Neck Exam: Normal Inspection - Respiratory Exam Respiratory Exam: Rales - Cardiovascular Exam Cardiovascular Exam: REGULAR RHYTHM - GI/Abdominal Exam GI & Abdominal Exam: Soft, Normal Bowel Sounds - Extremities Exam Extremities Exam: Full ROM, Normal Inspection - Neurological Exam Neurological Exam: Alert, Oriented x3 Assessment and Plan (1) Pneumonia Assessment & Plan: continue antibiotics per infectious disease Follow-up culture and sensitivity clinically much improved Status: Acute (2) Cough Status: Acute (3) Leukocytosis (leucocytosis) Status: Acute
[2018-02-27] MEDS: Azithromycin 500 MG in Sodium Chloride 0.9% 250 ML IVPB SCH (15:00)
--- NOTE | 2018-02-27 19:38 | CP.PCM.PN ---
Subjective - Date & Time of Evaluation Date of Evaluation: 02/27/18 Time of Evaluation: 19:38 - Subjective Subjective: CHIEF COMPLAINTS TODAY : AFEBRILE, FEELING BETTER SCANTY EXPECTORANT. ROS. HEENT : N. Resp : +VE COUGH, NO wheezing ,pleuritic CP ,or hemoptysis Cardio : No anginal CP, PND, orthopnea, palpitation GI : No abd.pain, n/v ,diarrhea or GI bleeding . GLAZIER MET[employer] FURNITURE : No headache, vertigo, focal deficit. Musculoskel : No joint swelling , Derm : No rash Psych : Normal affect. Ext : No swelling ,calf pain PE. Pt. is alert awake in no distress. V.S As noted in the chart Head ,ear nose,throat and eyes : Normal. Neck : Supple with normal carotids. Lungs: B/L RHONCHI LT > RT. Heart : S1 & S2 normal , SINUS TACHYCARDIA HR 105/MIN. Abd : Soft non tender with normal bowel sounds. Neuro : Moves all ext. with no localized deficit. Ext : No edema with intact pulses.Non tender calves Derm : No rashes or decubitus ulcer. LABS/RADIOLOGY: CXR -VE CT CHESTWITH iv CONTRAST +VE consolidation left lower lobe/patchy consolidation left upper lobe. Cirrhosis/+ve ascites/ mesenteric varices. ( see full report ) STOOLS c. DIFFICILE NEGATIVE. ASSESSMENT. ELIZABETH/LLL PNEUMONIA LEUKOCYTOSIS R/O SEPSIS NEW ONSET DIARRHOEA ABN LFTS - CIRRHOSIS AND ASCITES DM -TYPE2 /PLAN : CONTINUE IV tEFLARO 600 MG iv PIGGYBACK EVERY 12 HOURLY. CONTINUE IVZITHROMAX 500MG iv PIGGYBACK ONCE A DAY DAILY SEEN BY PULMONARY AND NOTED. HEPATITIS A,B C SCREEN. PULM TOILET. Objective - Vital Signs/Intake and Output Vital Signs (last 24 hours): Temp Pulse Resp BP Pulse Ox 98.2 F 97 H 20 115/63 96 02/27/18 15:00 02/27/18 15:00 02/27/18 15:00 02/27/18 15:00 02/27/18 15:00 - Medications Medications: Current Medications Albuterol/Ipratropium (Duoneb 3 Mg/0.5 Mg (3 Ml) Ud) 3 ml INH RQ6 [facility] Last Admin: 02/27/18 13:56 Dose: 3 ml Enoxaparin Sodium (Lovenox) 40 mg SC DAILY [facility] Last Admin: 02/27/18 10:11 Dose: 40 mg Famotidine (Pepcid) 40 mg PO DAILY [facility] Last Admin: 02/27/18 10:14 Dose: Not Given Glipizide (Glucotrol) 5 mg PO DAILY [facility] Last Admin: 02/27/18 10:10 Dose: 5 mg Azithromycin 500 mg/ Sodium (Chloride) 250 mls @ 250 mls/hr IVPB Q24H [facility] PRN Reason: Protocol Last Admin: 02/27/18 15:00 Dose: 250 mls/hr Ceftaroline Fosamil 600 mg/ (Sodium Chloride) 100 mls @ 100 mls/hr IVPB Q12 [facility] PRN Reason: Protocol Last Admin: 02/27/18 10:11 Dose: 100 mls/hr Sodium Chloride (Sodium Chloride 0.9%) 1,000 mls @ 100 mls/hr IV .Q10H [facility] Insulin Human Regular (Novolin R) 0 unit SC ACHS [facility] PRN Reason: Protocol Last Admin: 02/27/18 17:34 Dose: 3 unit Lisinopril (Zestril) 10 mg PO DAILY [facility] Last Admin: 02/27/18 10:10 Dose: 10 mg Metformin HCl (Glucophage) 1,000 mg PO BID [facility] Last Admin: 02/27/18 17:34 Dose: 1,000 mg Sitagliptin Phosphate (Januvia) 100 mg PO DAILY [facility] Last Admin: 02/27/18 10:10 Dose: 100 mg - Labs Labs: 02/27/18 07:19 02/27/18 07:19 PT 15.1 SECONDS (9.7-12.2) H 02/25/18 13:58 INR 1.4 02/25/18 13:58 APTT 34 SECONDS (21-34) 02/25/18 13:58 Assessment and Plan (1) Pneumonia Status: Acute (2) Cough Status: Acute (3) Leukocytosis (leucocytosis) Status: Acute (4) Diarrhea Status: Acute
[2018-02-27 21:04] LABS: IRON 41 ug/dL (49-181)
[2018-02-27 21:13] LABS: % IRON SATURATION 16 (20-55); TOTAL IRON BINDING CAPACITY 262 ug/dL (250-450)
[2018-02-27] MEDS: Sodium Chloride 0.9% 1,000 ML IV SCH (21:22)
[2018-02-28] MEDS: Albuterol-Ipratrop 3 mg / 0.5 (3 ml) UD INH SCH ×4 (01:12→20:13)
[2018-02-28] MEDS: Sodium Chloride 0.9% 1,000 ML IV SCH ×3 (04:07→17:38)
--- NOTE | 2018-02-28 04:35 | PN ---
DATE: SUBJECTIVE: The patient is a 77-year-old male. The patient is seen and examined at the bedside, looking comfortable. No nausea, vomiting or diarrhea. No hematuria or hematochezia. No swelling of the legs. No chest pain, no palpitation. No headache or dizziness. Shortness of breath is better. Daughter and son-in-law are on the bedside. Getting IV fluids, sodium was low. Afebrile. PHYSICAL EXAMINATION: VITAL SIGNS: Temperature 98.4, pulse 97, respiratory rate 20, blood pressure 115/74, pulse oximetry 97. HEENT: Head normocephalic, atraumatic. Eyes, PERRLA. Extraocular muscles intact. Conjunctivae clear. Nose patent. Mucous membranes moist. NECK: Supple. No carotid bruits. No JVD or thyromegaly. CHEST: Bilaterally symmetrical. HEART: S1 and S2 positive. LUNGS: Clear to auscultation. ABDOMEN: Soft. Bowel sounds present. No organomegaly. EXTREMITIES: No edema, no cyanosis. NEUROLOGICAL: The patient is awake and alert, moving all 4 extremities. No focal deficits. MEDICATIONS: DuoNeb, Pulmicort, Lovenox, Pepcid, Glucotrol, sodium chloride, insulin, Zestril, Glucophage, Januvia. LABORATORY DATA: White blood cell 12.4, hemoglobin 9.3, hematocrit 26.9, platelets 151, sodium 130, potassium 4, BUN 39, creatinine 1, glucose 328. ASSESSMENT AND PLAN: Mr. Don Lang is a 77 years old male with leukocytosis, anemia, hyponatremia, increased BUN, hyperglycemia, came with cough, shortness of breath, found to have pneumonia. Antibiotics given. Continue antibiotics as per Infectious Disease. Follow up culture and sensitivity. Clinically, the patient is improving and is stable. Cough is getting better and leukocytosis is improving. Hyponatremia, started the patient on IV fluid. Out of bed, physical therapy. Discussion done with the patient's daughter and son-in-law. All questions answered. The patient had left upper lobe/left lower lobe pneumonia, new onset of diarrhea, history of cirrhosis and ascites. Continue Teflaro piggy bag as per Infectious Disease and Zithromax. Hepatitis B, C and A screening ordered. We will follow up. Alysia Colon MD
[2018-02-28 07:53] LABS: HEPATITIS B SURFACE AG Negative (NEGATIVE)
[2018-02-28 07:59] LABS: HEPATITIS B CORE AB NEGATIVE (NEGATIVE)
[2018-02-28] MEDS: (Novolin R) Insulin Human Regular 100 units/ml vial SC SCH ×4 (07:59→22:47)
[2018-02-28 08:10] LABS: HEPATITIS C ANTIBODY NEGATIVE (NEGATIVE)
[2018-02-28 08:58] LABS: HEPATITIS A IGM NEGATIVE (NEGATIVE)
[2018-02-28] MEDS: Ceftaroline 600 MG in Sodium Chloride 0.9% 100 ML IVPB SCH ×2 (10:30→21:33)
[2018-02-28] MEDS: Enoxaparin 40 mg Syringe SC SCH (10:37)
--- NOTE | 2018-02-28 12:29 | CP.PCM.PN ---
Subjective - Date & Time of Evaluation Date of Evaluation: 02/28/18 Time of Evaluation: 10:00 - Subjective Subjective: The patient seen and examined Complaining of productive cough Less shortness of breath Afebrile Objective - Vital Signs/Intake and Output Vital Signs (last 24 hours): Temp Pulse Resp BP Pulse Ox 98.8 F 92 H 20 138/74 95 02/28/18 07:44 02/28/18 07:44 02/28/18 07:44 02/28/18 07:44 02/28/18 07:44 Intake and Output: 02/28/18 02/28/18 06:59 18:59 Intake Total 1000 1040 Balance 1000 1040 - Medications Medications: Current Medications Albuterol/Ipratropium (Duoneb 3 Mg/0.5 Mg (3 Ml) Ud) 3 ml INH RQ6 [facility] Last Admin: 02/28/18 08:08 Dose: 3 ml Enoxaparin Sodium (Lovenox) 40 mg SC DAILY [facility] Last Admin: 02/28/18 10:37 Dose: 40 mg Famotidine (Pepcid) 20 mg PO DAILY [facility] Last Admin: 02/28/18 11:39 Dose: 20 mg Glipizide (Glucotrol) 5 mg PO DAILY [facility] Last Admin: 02/28/18 10:36 Dose: 5 mg Azithromycin 500 mg/ Sodium (Chloride) 250 mls @ 250 mls/hr IVPB Q24H [facility] PRN Reason: Protocol Last Admin: 02/27/18 15:00 Dose: 250 mls/hr Ceftaroline Fosamil 600 mg/ (Sodium Chloride) 100 mls @ 100 mls/hr IVPB Q12 [facility] PRN Reason: Protocol Last Admin: 02/28/18 10:30 Dose: 100 mls/hr Sodium Chloride (Sodium Chloride 0.9%) 1,000 mls @ 100 mls/hr IV .Q10H [facility] Last Admin: 02/28/18 08:00 Dose: Not Given Insulin Human Regular (Novolin R) 0 unit SC ACHS [facility] PRN Reason: Protocol Last Admin: 02/28/18 07:59 Dose: Not Given Lisinopril (Zestril) 10 mg PO DAILY [facility] Last Admin: 02/28/18 10:35 Dose: 10 mg Metformin HCl (Glucophage) 1,000 mg PO BID [facility] Last Admin: 02/28/18 10:35 Dose: 1,000 mg Sitagliptin Phosphate (Januvia) 100 mg PO DAILY [facility] Last Admin: 02/28/18 10:36 Dose: Not Given - Labs Labs: 02/27/18 07:19 02/27/18 07:19 PT 15.1 SECONDS (9.7-12.2) H 02/25/18 13:58 INR 1.4 02/25/18 13:58 APTT 34 SECONDS (21-34) 02/25/18 13:58 - Head Exam Head Exam: ATRAUMATIC, NORMOCEPHALIC - Eye Exam Eye Exam: Normal appearance - ENT Exam ENT Exam: Mucous Membranes Moist - Neck Exam Neck Exam: Normal Inspection - Respiratory Exam Respiratory Exam: Rales - Cardiovascular Exam Cardiovascular Exam: REGULAR RHYTHM - GI/Abdominal Exam GI & Abdominal Exam: Soft, Normal Bowel Sounds - Extremities Exam Extremities Exam: Full ROM - Neurological Exam Neurological Exam: Alert, Oriented x3 Assessment and Plan (1) Pneumonia Assessment & Plan: Continue antibiotics for now Antitussive Followup chest x-ray Status: Acute (2) Cough Status: Acute (3) Leukocytosis (leucocytosis) Status: Acute
[2018-02-28] MEDS: Azithromycin 500 MG in Sodium Chloride 0.9% 250 ML IVPB SCH (14:09)
--- NOTE | 2018-02-28 17:11 | CP.PCM.PN ---
Subjective - Date & Time of Evaluation Date of Evaluation: 02/28/18 Time of Evaluation: 17:10 Objective - Vital Signs/Intake and Output Vital Signs (last 24 hours): Temp Pulse Resp BP Pulse Ox 98.8 F 92 H 20 138/74 95 02/28/18 07:44 02/28/18 07:44 02/28/18 07:44 02/28/18 07:44 02/28/18 07:44 Intake and Output: 02/28/18 02/28/18 06:59 18:59 Intake Total 1000 2190 Output Total 2 Balance 1000 2188 - Medications Medications: Current Medications Albuterol/Ipratropium (Duoneb 3 Mg/0.5 Mg (3 Ml) Ud) 3 ml INH RQ6 [facility] Last Admin: 02/28/18 13:31 Dose: Not Given Enoxaparin Sodium (Lovenox) 40 mg SC DAILY [facility] Last Admin: 02/28/18 10:37 Dose: 40 mg Famotidine (Pepcid) 20 mg PO DAILY [facility] Last Admin: 02/28/18 11:39 Dose: 20 mg Glipizide (Glucotrol) 5 mg PO DAILY [facility] Last Admin: 02/28/18 10:36 Dose: 5 mg Azithromycin 500 mg/ Sodium (Chloride) 250 mls @ 250 mls/hr IVPB Q24H [facility] PRN Reason: Protocol Last Admin: 02/28/18 14:09 Dose: 250 mls/hr Ceftaroline Fosamil 600 mg/ (Sodium Chloride) 100 mls @ 100 mls/hr IVPB Q12 [facility] PRN Reason: Protocol Last Admin: 02/28/18 10:30 Dose: 100 mls/hr Sodium Chloride (Sodium Chloride 0.9%) 1,000 mls @ 100 mls/hr IV .Q10H [facility] Last Admin: 02/28/18 08:00 Dose: Not Given Insulin Human Regular (Novolin R) 0 unit SC ACHS [facility] PRN Reason: Protocol Last Admin: 02/28/18 17:10 Dose: Not Given Lisinopril (Zestril) 10 mg PO DAILY [facility] Last Admin: 02/28/18 10:35 Dose: 10 mg Metformin HCl (Glucophage) 1,000 mg PO BID [facility] Last Admin: 02/28/18 10:35 Dose: 1,000 mg Sitagliptin Phosphate (Januvia) 100 mg PO DAILY [facility] Last Admin: 02/28/18 10:36 Dose: Not Given - Labs Labs: 02/27/18 07:19 02/27/18 07:19 PT 15.1 SECONDS (9.7-12.2) H 02/25/18 13:58 INR 1.4 02/25/18 13:58 APTT 34 SECONDS (21-34) 02/25/18 13:58 Assessment and Plan (1) Pneumonia Status: Acute (2) Cough Status: Acute (3) Leukocytosis (leucocytosis) Status: Acute (4) Diarrhea Status: Acute
[2018-03-01] MEDS: Albuterol-Ipratrop 3 mg / 0.5 (3 ml) UD INH SCH ×3 (01:35→14:45)
--- NOTE | 2018-03-01 01:53 | PN ---
DATE: SUBJECTIVE: The patient was seen and examined at the bedside. Looking comfortable. No nausea, vomiting, diarrhea. No hematuria or hematochezia. No swelling of the legs. No chest pain. No palpitation. No headache. No dizziness. PHYSICAL EXAMINATION: VITAL SIGNS: Temperature 98.6, pulse 92, respiratory rate 20, blood pressure 138/74, pulse oximetry 95. HEENT: Head: Normocephalic, atraumatic. Eyes: PERRLA. Extraocular muscles intact. Conjunctivae clear. Nose patent. Mucous membranes moist. NECK: Supple. No carotid bruits. No JVD or thyromegaly. CHEST: Bilaterally symmetrical. HEART: S1 and S2 positive. LUNGS: Clear to auscultation. ABDOMEN: Soft. Bowel sounds present. No organomegaly. EXTREMITIES: No edema, no cyanosis. NEUROLOGICAL: The patient is awake and alert, moving all 4 extremities. No focal deficits. MEDICATIONS: DuoNeb, Lovenox, Pepcid, Glucotrol, azithromycin, ceftriaxone, sodium chloride, insulin, Zestril, Glucophage, Januvia. LABORATORY DATA: White blood cell 12.4, hemoglobin 9.3, hematocrit 26.9, platelets 151, sodium 130, potassium 4, BUN 39, creatinine 1.2, glucose 328. ASSESSMENT AND PLAN: Mr. Rickey Ochoa is a 77-year-old male with leukocytosis, anemia, hyponatremia, renal insufficiency, hyperglycemia, pneumonia. Coughing is improving. Diarrhea is improving. ID is on the case. Getting antibiotics as per Infectious Disease. Dr. Donnie Murcia, vault clerk, is on the case also. Continue IV inhaled bronchodilators. Shortness of breath and cough are improving. Patient was given antitussive. Gastrointestinal and deep venous thrombosis prophylaxis. Repeat labs. We will follow up. Alysia Colon MD
[2018-03-01] MEDS: Sodium Chloride 0.9% 1,000 ML IV SCH (03:17)
[2018-03-01] MEDS: (Novolin R) Insulin Human Regular 100 units/ml vial SC SCH ×2 (08:03→12:22)
[2018-03-01] MEDS: Ceftaroline 600 MG in Sodium Chloride 0.9% 100 ML IVPB SCH (10:56)
[2018-03-01] MEDS: Enoxaparin 40 mg Syringe SC SCH (10:56)
[2018-03-01] MEDS ORDERED: guaiFENesin 200 mg/10 ml Syrup UD PO PRN (11:03)
--- NOTE | 2018-03-01 14:02 | CP.PCM.PN ---
Subjective - Date & Time of Evaluation Date of Evaluation: 03/01/18 Time of Evaluation: 14:01 - Subjective Subjective: PATIENT IS AAOX3/ DENIES ANY SOB / NAUSEA OR VOMITING ON ROOM AIR O2 AND NO SIGN OF DISTRESS NOTED Objective - Vital Signs/Intake and Output Vital Signs (last 24 hours): Temp Pulse Resp BP Pulse Ox 98.4 F 83 20 163/81 H 97 03/01/18 08:00 03/01/18 08:00 03/01/18 08:00 03/01/18 08:00 03/01/18 08:00 Intake and Output: 03/01/18 03/01/18 06:59 18:59 Intake Total 960 Balance 960 - Medications Medications: Current Medications Albuterol/Ipratropium (Duoneb 3 Mg/0.5 Mg (3 Ml) Ud) 3 ml INH RQ6 [facility] Last Admin: 03/01/18 08:42 Dose: 3 ml Enoxaparin Sodium (Lovenox) 40 mg SC DAILY [facility] Last Admin: 03/01/18 10:56 Dose: 40 mg Famotidine (Pepcid) 20 mg PO DAILY [facility] Last Admin: 03/01/18 10:55 Dose: 20 mg Glipizide (Glucotrol) 5 mg PO DAILY [facility] Last Admin: 03/01/18 10:55 Dose: 5 mg Guaifenesin (Robitussin) 200 mg PO Q4H [facility] PRN Reason: Cough and congestion Last Admin: 03/01/18 12:26 Dose: 200 mg Azithromycin 500 mg/ Sodium (Chloride) 250 mls @ 250 mls/hr IVPB Q24H [facility] PRN Reason: Protocol Last Admin: 02/28/18 14:09 Dose: 250 mls/hr Ceftaroline Fosamil 600 mg/ (Sodium Chloride) 100 mls @ 100 mls/hr IVPB Q12 [facility] PRN Reason: Protocol Last Admin: 03/01/18 10:56 Dose: 100 mls/hr Insulin Human Regular (Novolin R) 0 unit SC ACHS [facility] PRN Reason: Protocol Last Admin: 03/01/18 12:22 Dose: 1 unit Lisinopril (Zestril) 10 mg PO DAILY [facility] Last Admin: 03/01/18 10:55 Dose: 10 mg Metformin HCl (Glucophage) 1,000 mg PO BID [facility] Last Admin: 03/01/18 10:56 Dose: 1,000 mg Sitagliptin Phosphate (Januvia) 100 mg PO DAILY [facility] Last Admin: 03/01/18 10:57 Dose: Not Given - Labs Labs: 02/27/18 07:19 02/27/18 07:19 PT 15.1 SECONDS (9.7-12.2) H 02/25/18 13:58 INR 1.4 02/25/18 13:58 APTT 34 SECONDS (21-34) 02/25/18 13:58 Assessment and Plan - Assessment and Plan (Free Text) Assessment: PATIENT SEEN AND EXAMINED AT THE BEDSIDE LUNG SOUND IMPROVE BEING TX FOR PNA ON PO ABX AFEBRILE/ WBC IS WNL DISCUSS WITH PMD WHO CLEAR FOR DC FOLLOW UP WITH DR BRIDGES IN 1 WEEK AT HER OFFICE --CALL FOR APPOINTMENT CONTINUE ALL YOUR HOME MEDICATION NEW PRESCRIPTION GIVEN ZITHROMAX 500 MG PO DIALY FOR 5 DAYS ACTIVITY TOLERATED HOME PHYSICAL THERAPY RAJ CALL DR BRIDGES OR GO TO THE EMERGENCY ROOM IF SYMPTOMS RETURN OR WORSENING DISCUSS WITH PATIENT WHO AGREE AND VERBALIZED UNDERSTANDING
--- NOTE | 2018-03-01 14:49 | CP.PCM.PN ---
Subjective - Date & Time of Evaluation Date of Evaluation: 03/01/18 Time of Evaluation: 10:30 - Subjective Subjective: Patient seen and examined still complaining of cough but feeling much better Afebrile Denies shortness of breath Being treated for pneumonia Objective - Vital Signs/Intake and Output Vital Signs (last 24 hours): Temp Pulse Resp BP Pulse Ox 98.4 F 83 20 163/81 H 97 03/01/18 08:00 03/01/18 08:00 03/01/18 08:00 03/01/18 08:00 03/01/18 08:00 Intake and Output: 03/01/18 03/01/18 06:59 18:59 Intake Total 960 Balance 960 - Medications Medications: Current Medications Albuterol/Ipratropium (Duoneb 3 Mg/0.5 Mg (3 Ml) Ud) 3 ml INH RQ6 [facility] Last Admin: 03/01/18 14:45 Dose: 3 ml Enoxaparin Sodium (Lovenox) 40 mg SC DAILY [facility] Last Admin: 03/01/18 10:56 Dose: 40 mg Famotidine (Pepcid) 20 mg PO DAILY [facility] Last Admin: 03/01/18 10:55 Dose: 20 mg Glipizide (Glucotrol) 5 mg PO DAILY [facility] Last Admin: 03/01/18 10:55 Dose: 5 mg Guaifenesin (Robitussin) 200 mg PO Q4H PRN PRN Reason: Cough and congestion Last Admin: 03/01/18 12:26 Dose: 200 mg Azithromycin 500 mg/ Sodium (Chloride) 250 mls @ 250 mls/hr IVPB Q24H [facility] PRN Reason: Protocol Last Admin: 02/28/18 14:09 Dose: 250 mls/hr Ceftaroline Fosamil 600 mg/ (Sodium Chloride) 100 mls @ 100 mls/hr IVPB Q12 [facility] PRN Reason: Protocol Last Admin: 03/01/18 10:56 Dose: 100 mls/hr Insulin Human Regular (Novolin R) 0 unit SC ACHS [facility] PRN Reason: Protocol Last Admin: 03/01/18 12:22 Dose: 1 unit Lisinopril (Zestril) 10 mg PO DAILY [facility] Last Admin: 03/01/18 10:55 Dose: 10 mg Metformin HCl (Glucophage) 1,000 mg PO BID [facility] Last Admin: 03/01/18 10:56 Dose: 1,000 mg Sitagliptin Phosphate (Januvia) 100 mg PO DAILY [facility] Last Admin: 03/01/18 10:57 Dose: Not Given - Labs Labs: 02/27/18 07:19 02/27/18 07:19 PT 15.1 SECONDS (9.7-12.2) H 02/25/18 13:58 INR 1.4 02/25/18 13:58 APTT 34 SECONDS (21-34) 02/25/18 13:58 - Head Exam Head Exam: ATRAUMATIC, NORMOCEPHALIC - Eye Exam Eye Exam: Normal appearance - ENT Exam ENT Exam: Mucous Membranes Moist - Neck Exam Neck Exam: Normal Inspection - Respiratory Exam Respiratory Exam: Rales - Cardiovascular Exam Cardiovascular Exam: REGULAR RHYTHM - GI/Abdominal Exam GI & Abdominal Exam: Soft Assessment and Plan (1) Pneumonia Assessment & Plan: Switch to by mouth antibiotics Continue nebulizer treatment Status: Acute (2) Cough Status: Acute (3) Leukocytosis (leucocytosis) Status: Acute
[2018-03-01] MEDS: Azithromycin 500 MG in Sodium Chloride 0.9% 250 ML IVPB SCH (15:10)
[2018-03-01 15:54] VITALS: BP 155/71; PULSE 91; TEMP 98; O2SAT 95
[2018-03-03 20:29] LABS: FHA IGA 225 IU/mL; FHA IGG 156 IU/mL; PT IGG 74 IU/mL
== END 2018-03-01 18:15 | disposition home or self-care (01) | DRG 194 ==
LOC: C.ER 13:17 → C.9E 14:10 → C.3T 16:27
PROVIDERS: ADMIT Internal Medicine; ATTEND Internal Medicine
DX: J18.9 Pneumonia, unspecified organism (principal); E87.1 Hypo-osmolality and hyponatremia; I10 Essential (primary) hypertension; E83.51 Hypocalcemia; E11.65 Type 2 diabetes mellitus with hyperglycemia; D64.9 Anemia, unspecified; K74.60 Unspecified cirrhosis of liver; N28.9 Disorder of kidney and ureter, unspecified; D72.829 Elevated white blood cell count, unspecified; E78.5 Hyperlipidemia, unspecified; E78.00 Pure hypercholesterolemia, unspecified; H91.90 Unspecified hearing loss, unspecified ear; Z85.46 Personal history of malignant neoplasm of prostate

== ENCOUNTER 2018-05-22 06:50 | Inpatient (IN) | payer MEDICARE ==
[2018-05-22 06:51] VITALS: BMI 25.8
[2018-05-22 07:56] LABS: BASO % 0.2 % (0.0-2.0); EOS % 0.1 % (0.0-4.0); HEMOGLOBIN 9.4 g/dL (12.0-18.0); LYMPH # 0.9 K/uL (1.0-4.3); LYMPH % 7.6 % (20.0-40.0); MEAN CELL VOLUME 94.1 fL (80.0-94.0); MEAN CORPUSCULAR HEMOGLOBIN 31.3 pg (27.0-31.0); MEAN CORPUSCULAR HGB CONC 33.2 g/dL (33.0-37.0); MEAN PLATELET VOLUME 12.8 fL (7.2-11.7); MONO # 0.8 K/uL (0.0-0.8); MONO % 6.8 % (0.0-10.0); NEUT # 9.6 K/uL (1.8-7.0); NEUT % 85.3 % (50.0-75.0); NRBC % 0.3 % (0.0-2.0); PLATELET COUNT 179 K/uL (130-400); RBC 3.01 Mil/uL (4.40-5.90); RED CELL DISTRIBUTION WIDTH 13.9 % (11.5-14.5); WHITE BLOOD COUNT 11.3 K/uL (4.8-10.8)
[2018-05-22 08:11] LABS: INR 1.2; PROTHROMBIN TIME 13.1 SECONDS (9.7-12.2)
[2018-05-22 08:22] LABS: ALB/GLOB RATIO 1.1 (1.0-2.1); ALBUMIN 3.3 g/dL (3.5-5.0); ALT/SGPT 25 U/L (21-72); BLOOD UREA NITROGEN 29 mg/dL (9-20); CALCIUM 8.5 mg/dl (8.6-10.4); GFR AFRICAN-AMERICAN 51; GFR NON-AFRICAN AMERICAN 42
[2018-05-22 08:39] LABS: BANDS 1 % (0-2); LYMPHOCYTE 2 % (20-40); MONOCYTE 7 % (0-10); NEUTROPHIL 90 % (50-75); TOTAL CELLS COUNTED 100
[2018-05-22 08:40] LABS: PLATELET ESTIMATE NORMAL (NORMAL)
--- NOTE | 2018-05-22 08:41 | C.PDOC ---
History Of Present Illness 77 y/o male presents to ED s/p fall yesterday from ladder with complaints of left hip and left shoulder pain. Patient states he has been able to ambulate since injury and denies loc, chest pain,sob, head injury or any other complaints at this time. - HPI Time Seen by Provider: 05/22/18 07:28 Chief Complaint (Nursing): Trauma History Per: Patient History/Exam Limitations: no limitations Onset/Duration Of Symptoms: Days Past Medical History Reviewed: Historical Data, Nursing Documentation, Vital Signs Vital Signs: Last Vital Signs Temp 98.1 F 05/22/18 06:55 Pulse 88 05/22/18 07:39 Resp 17 05/22/18 07:39 BP 102/49 L 05/22/18 07:39 Pulse Ox 100 05/22/18 08:41 - Medical History PMH: Anemia, Arthritis (KNEES), HTN, Hypercholesterolemia, Hyperlipidemia Surgical History: Endoscopy - [facility] Procedures EXCISION OF STOMACH, ENDO, DIAGN (06/02/16) OCCLUSION ESOPHAGEAL VEIN W EXTRALUM DEV, PERC ENDO (06/02/16) Family History: States: No Known Family Hx - Social History Hx Alcohol Use: No Hx Substance Use: No - Immunization History Hx Tetanus Toxoid Vaccination: No Hx Influenza Vaccination: No Hx Pneumococcal Vaccination: No Review Of Systems Except As Marked, All Systems Reviewed And Found Negative. Musculoskeletal: Positive for: Shoulder Pain, Other (hip pain) Physical Exam - Physical Exam Appears: Non-toxic, No Acute Distress Skin: Warm, Dry Head: Atraumatic, Normacephalic Oral Mucosa: Moist Neck: Supple Cardiovascular: Rhythm Regular Respiratory: Normal Breath Sounds, No Rales, No Rhonchi, No Wheezing Gastrointestinal/Abdominal: Soft, No Tenderness, No Guarding, No Rebound Extremity: Tenderness (to left anterior shoulder), Swelling (to left anterior shoulder), Other (left leg externally rotated and short) Pulses: Left Radial: Normal, Left Dorsalis Pedis: Normal Neurological/Psych: Oriented x3, Normal Motor, Normal Sensation ED Course And Treatment - Laboratory Results Result Diagrams: 05/22/18 07:48 05/22/18 07:48 ECG: Interpreted By Me, Viewed By Me ECG Rhythm: Sinus Rhythm ECG Interpretation: Normal Rate From EC (BPM) O2 Sat by Pulse Oximetry: 100 (RA) Pulse Ox Interpretation: Normal Medical Decision Making Medical Decision Making: Assessment: Shoulder and hip pain Progress: Admitted to Dr. Colon with Dr. Evans as consult Disposition Discussed With .: Alysia Colon Doctor Will See Patient In The: Hospital Counseled Patient/Family Regarding: Studies Performed, Diagnosis - Disposition Referrals: Ce Evans MD [Staff Provider] - Disposition: HOSPITALIZED Disposition Time: 08:40 Condition: FAIR Forms: [facility] (Kazakh) - Clinical Impression Clinical Impression: Hip fracture, Shoulder fracture, left - Scribe Statement The provider has reviewed the documentation as recorded by the Stephyibkaya May All medical record entries made by the Stephyibkaya were at my direction and personally dictated by me. I have reviewed the chart and agree that the record accurately reflects my personal performance of the history, physical exam, medical decision making, and the department course for this patient. I have also personally directed, reviewed, and agree with the discharge instructions and disposition.
[2018-05-22 08:48] LABS: AST/SGOT 73 U/L (17-59)
--- NOTE | 2018-05-22 10:01 | RAD ---
Date of service: 05/22/2018 PROCEDURE: Bilateral femur HISTORY: fall COMPARISON: Not available TECHNIQUE: Multiple views of the right and left femur are submitted FINDINGS: Multiple views of the right and left femur indicate comminuted oblique displaced fracture of the proximal left femur including an intertrochanteric fracture as well as minimally displaced fracture of the lesser trochanter. There is no femoral neck fracture appreciated. There is no other fracture identified in either the left or right femur. There is no pelvic fracture appreciated. IMPRESSION: Comminuted oblique displaced fracture of the proximal left femur.
--- NOTE | 2018-05-22 10:06 | RAD ---
PROCEDURE: Left Hip X-ray Radiographs. HISTORY: fall COMPARISON: None. FINDINGS: BONES: Comminuted displaced proximal left femoral fracture including an intertrochanteric component as well as fracture of the lesser trochanter. No sharita pelvic fracture identified. JOINTS: Normal. SOFT TISSUES: Normal. OTHER FINDINGS: None. IMPRESSION: Comminuted displaced fracture proximal left femur. Otherwise unremarkable.
--- NOTE | 2018-05-22 10:08 | RAD ---
Date of service: 05/22/2018 PROCEDURE: CHEST RADIOGRAPH, 1 VIEW HISTORY: fall COMPARISON: Chest radiograph 02/25/2018. FINDINGS: LUNGS: No acute infiltrate bilaterally. Limited calcified granulomata are seen the bilateral apices once again PLEURA: . Diaphragm diaphragm elevation appears minimal. CARDIOVASCULAR: Normal. OSSEOUS STRUCTURES: No significant abnormalities. VISUALIZED UPPER ABDOMEN: Normal. OTHER FINDINGS: None. IMPRESSION: Minimal left hemidiaphragm elevation. No acute infiltrate pleural effusion or pneumothorax.
--- NOTE | 2018-05-22 10:10 | RAD ---
Date of service: 05/22/2018 PROCEDURE: Radiographs of the Left Shoulder HISTORY: fall COMPARISON: No prior. FINDINGS: BONES: Comminuted nondisplaced mildly impacted left femoral neck fracture with nondisplaced fracture of the greater tuberosity. There is angulation at the fracture. There is no other fracture identified. JOINTS: Normal. Glenohumeral and acromioclavicular joints preserved. No osteoarthritis. SOFT TISSUES: Normal. OTHER FINDINGS: None. IMPRESSION: Comminuted nondisplaced mildly impacted angulated left humeral neck fracture with nondisplaced fracture of the greater tuberosity.
--- NOTE | 2018-05-22 15:20 | CP.PCM.CON ---
History of Present Illness - History of Present Illness History of Present Illness: Orthopedic Consult Patient is a 77 y/o RHD male with PMH of NIDDM, HTN, esophageal varices and prostate CA who c/o left shoulder and left hip pain. Dr. Evans was consulted for orthopedic evaluation, Dr. Kuo is currently covering for him. He describes falling off a ladder last night in his home while trying to put up curtains, landing on his left side. He immediately experienced pain in her left shoulder and left hip. He denies LOC or dizziness. Currently his pain is moderate to both body parts and is described as dull and intermittent. The pain is worsened with activity and alleviated with rest. The pain is associated with swelling to both hip and shoulder and there is deformity of his LLE. He denies radiation of pain, numbness and tingling. He also denies CP/SOB/N/V/D/fever/ALDRIDGE/ dysuria/melena. Review of Systems - Review of Systems All systems: reviewed and no additional remarkable complaints except Review of Systems: as per HPI Past Patient History - Infectious Disease Hx of Infectious Diseases: None - Past Medical History & Family History Past Medical History?: Yes Past Family History: Reviewed and not pertinent - Past Social History Smoking Status: Never Smoked Alcohol: None Drugs: Denies - CARDIAC Hx Hypercholesterolemia: Yes Hx Hypertension: Yes - PULMONARY Hx Respiratory Disorders: No - NEUROLOGICAL Hx Transient Ischemic Attacks (TIA): No - HEENT Hx HEENT Problems: Yes Hx Deafness: Yes Other/Comment: left ear [place] - RENAL Hx Chronic Kidney Disease: No - ENDOCRINE/METABOLIC Hx Diabetes Mellitus Type 2: Yes - HEMATOLOGICAL/ONCOLOGICAL Hx Anemia: Yes - INTEGUMENTARY Hx Dermatological Problems: No - MUSCULOSKELETAL/RHEUMATOLOGICAL Hx Arthritis: Yes (KNEES) - GASTROINTESTINAL Hx Gastrointestinal Disorders: Yes Hx Esophageal Varices: Yes (BANDING DONE) Hx Ulcer: Yes Other/Comment: HX:IRREGULAR CONTOUR OF LIVER WITH CIRRRHOSIS. HX: H-PYLORI- TREATMENT DONE. HX: MELENA - GENITOURINARY/GYNECOLOGICAL Hx Genitourinary Disorders: Yes Hx Prostate Cancer: Yes - PSYCHIATRIC Hx Substance Use: No - SURGICAL HISTORY Hx Surgeries: Yes Other/Comment: HX: ESOPHAGEAL VARICES-BANDING DONE - ANESTHESIA Hx Anesthesia: Yes Hx Anesthesia Reactions: No Hx Malignant Hyperthermia: No Meds Allergies/Adverse Reactions: Allergies Allergy/AdvReac Type Severity Reaction Status Date / Time No Known Allergies Allergy Verified 05/22/18 07:32 - Medications Medications: Current Medications Acetaminophen (Tylenol 325mg Tab) 650 mg PO Q4H PRN PRN Reason: pain fever Famotidine (Pepcid) 20 mg PO DAILY [facility] Last Admin: 05/22/18 11:22 Dose: 20 mg Furosemide (Lasix) 40 mg PO DAILY [facility] Last Admin: 05/22/18 11:22 Dose: 40 mg Glipizide (Glucotrol) 5 mg PO DAILY [facility] Last Admin: 05/22/18 11:22 Dose: 5 mg Hydromorphone HCl (Dilaudid) 0.5 mg IVP Q4H PRN PRN Reason: Pain, Mild (1-3) Lisinopril (Zestril) 10 mg PO DAILY [facility] Last Admin: 05/22/18 11:22 Dose: 10 mg Loratadine (Claritin) 10 mg PO DAILY PRN PRN Reason: ALLERGY SYMPTOMS Metformin HCl (Glucophage) 1,000 mg PO BID [facility] Last Admin: 05/22/18 11:22 Dose: 1,000 mg Thiamine HCl (Vitamin B1 Tab) 100 mg PO DAILY [facility] Last Admin: 05/22/18 11:22 Dose: 100 mg Physical Exam - Constitutional Appears: Well, No Acute Distress - Head Exam Head Exam: ATRAUMATIC, NORMOCEPHALIC - Eye Exam Eye Exam: EOMI, Normal appearance, PERRL - ENT Exam ENT Exam: Mucous Membranes Moist - Respiratory Exam Respiratory Exam: Clear to Auscultation Bilateral, NORMAL BREATHING PATTERN - Cardiovascular Exam Cardiovascular Exam: +S1, +S2 - GI/Abdominal Exam GI & Abdominal Exam: Normal Bowel Sounds, Soft - Extremities Exam Additional comments: L shoulder: + swelling, + diffuse tenderness, no lesion ROM restricted due to fracture sensation intact AXN/MN/UN/RN motor intact MN/UN/RN radial pulse intact R shoulder: no swelling, no tenderness, no lesions FROM sensation intact AXN/MN/UN/RN motor intact MN/UN/RN radial pulse intact LLE: + externally rotated and shortened, + swelling at hip tenderness lateral hip and groin ROM restricted sensation intact SP/DP/TN motor intact EHl/FHL/TA/G pedal pulses intact comps soft NT RLE: no deformity no tenderness sensation intact SP/DP/TN motor intact EHl/FHL/TA/G pedal pulses intact comps soft NT - Neurological Exam Neurological exam: Alert, Oriented x3 - Psychiatric Exam Psychiatric exam: Normal Affect, Normal Mood - Skin Skin Exam: Normal Color, Warm Results - Vital Signs Recent Vital Signs: Last Vital Signs Temp 98.1 F 05/22/18 06:55 Pulse 99 H 05/22/18 11:11 Resp 17 05/22/18 11:11 BP 130/54 L 05/22/18 11:22 Pulse Ox 99 05/22/18 11:11 - Labs Result Diagrams: 05/22/18 07:48 05/22/18 07:48 Labs: Laboratory Results - last 24 hr 05/22/18 05/22/18 05/22/18 07:48 07:48 07:48 WBC 11.3 H RBC 3.01 L Hgb 9.4 L Hct 28.3 L MCV 94.1 H MCH 31.3 H MCHC 33.2 RDW 13.9 Plt Count 179 MPV 12.8 H Neut % (Auto) 85.3 H Lymph % (Auto) 7.6 L Chase % (Auto) 6.8 Eos % (Auto) 0.1 Baso % (Auto) 0.2 Neut # (Auto) 9.6 H Lymph # (Auto) 0.9 L Chase # (Auto) 0.8 Eos # (Auto) 0.0 Baso # (Auto) 0.0 Neutrophils % (Manual) 90 H Band Neutrophils % 1 Lymphocytes % (Manual) 2 L Monocytes % (Manual) 7 Platelet Estimate Normal RBC Morphology Normal PT 13.1 H INR 1.2 APTT 34 Sodium 134 Potassium 6.1 H Chloride 104 Carbon Dioxide 14 L Anion Gap 22 H BUN 29 H Creatinine 1.6 H Est GFR ( Amer) 51 Est GFR (Non-Af Amer) 42 POC Glucose (mg/dL) Random Glucose 373 H Calcium 8.5 L Total Bilirubin 1.1 AST 73 H D ALT 25 Alkaline Phosphatase 237 H Total Creatine Kinase 737 H Troponin I < 0.0120 Total Protein 6.4 Albumin 3.3 L D Globulin 3.1 Albumin/Globulin Ratio 1.1 05/22/18 11:17 WBC RBC Hgb Hct MCV MCH MCHC RDW Plt Count MPV Neut % (Auto) Lymph % (Auto) Chase % (Auto) Eos % (Auto) Baso % (Auto) Neut # (Auto) Lymph # (Auto) Chase # (Auto) Eos # (Auto) Baso # (Auto) Neutrophils % (Manual) Band Neutrophils % Lymphocytes % (Manual) Monocytes % (Manual) Platelet Estimate RBC Morphology PT INR APTT Sodium Potassium Chloride Carbon Dioxide Anion Gap BUN Creatinine Est GFR ( Amer) Est GFR (Non-Af Amer) POC Glucose (mg/dL) 358 H Random Glucose Calcium Total Bilirubin AST ALT Alkaline Phosphatase Total Creatine Kinase Troponin I Total Protein Albumin Globulin Albumin/Globulin Ratio Assessment & Plan (1) Fracture, intertrochanteric, left femur Assessment and Plan: -Dr. Dilshad Kuo recommends surgical management with L hip ORIF with intermedullary nail for tomorrow -medical/cardiac clearance -CT L hip -NPO pMN -T&S -above d/w Dr. Kuo in agreement Status: Acute (2) Closed fracture of left proximal humerus Assessment and Plan: Left humeral neck and greater tuberosity fracture -Dr. Kuo recommends non-operative management for now with sling immobilization -pain control -NWB LUE, no ROM -Ice frequently -above d/w Dr. Kuo in agreement Status: Acute Radiology Interpretation - Notes: Notes:: Accession No. : [id number] Patient Name / ID : JESSICA GALLEGOS / [id number] Exam Date : 05/22/2018 08:16:15 ( Approved ) Study Comment : Sex / Age : M / 77Y Creator : Brad Rand MD Dictator : Brad Rand MD [employer] : Salvage Worker : Brad Rand MD Approver2 : Report Date : 05/22/2018 10:04:19 My Comment : PROCEDURE: Left Hip X-ray Radiographs. HISTORY: fall COMPARISON: None. FINDINGS: BONES: Comminuted displaced proximal left femoral fracture including an intertrochanteric component as well as fracture of the lesser trochanter. No sharita pelvic fracture identified. JOINTS: Normal. SOFT TISSUES: Normal. OTHER FINDINGS: None. IMPRESSION: Comminuted displaced fracture proximal left femur. Otherwise unremarkable. - Radiology Interpretation #2 Interpretation: Accession No. : [id number] Patient Name / ID : JESSICA GALLEGOS / [id number] Exam Date : 05/22/2018 08:10:33 ( Approved ) Study Comment : Sex / Age : M / 77Y Creator : Brad Rand MD Dictator : Brad Rand MD [employer] : Salvage Worker : Brad Rand MD Approver2 : Report Date : 05/22/2018 10:09:04 My Comment : Date of service: 05/22/2018 PROCEDURE: Radiographs of the Left Shoulder HISTORY: fall COMPARISON: No prior. FINDINGS: BONES: Comminuted nondisplaced mildly impacted left femoral neck fracture with nondisplaced fracture of the greater tuberosity. There is angulation at the fracture. There is no other fracture identified. JOINTS: Normal. Glenohumeral and acromioclavicular joints preserved. No osteoarthritis. SOFT TISSUES: Normal. OTHER FINDINGS: None. IMPRESSION: Comminuted nondisplaced mildly impacted angulated left humeral neck fracture with nondisplaced fracture of the greater tuberosity. - Radiology Interpretation #3 Interpretation: Accession No. : [id number] Patient Name / ID : JESSICA GALLEGOS / [id number] Exam Date : 05/22/2018 16:19:06 ( Approved ) Study Comment : Sex / Age : M / 77Y Creator : Sada Flores Dictator : Brad aRnd MD [employer] : Salvage Worker : Brad Rand MD Approver2 : Report Date : 05/22/2018 16:33:33 My Comment : Date of service: 05/22/2018 PROCEDURE: CT left hip HISTORY: Left hip fracture COMPARISON: Not available TECHNIQUE: 2.5 mm contiguous axial sections were acquired through the left hip. Sagittal and coronal images were reformatted from the axial scan. FINDINGS: There is a comminuted, impacted oblique fracture of the proximal left femur including a greater trochanteric fracture and lesser trochanteric fracture. There is no angulation. The oblique fracture extends just beneath the intertrochanteric aspect of the femur. The femoral neck is intact. There is no intra-articular fracture. The acetabulum is intact. No other fracture is seen throughout the visualized portions of the left hemipelvis. There is no appreciable hematoma seen about the fracture. Soft tissue structures of the pelvis are grossly unremarkable. Radiation seed implants are seen in the prostate bed. There is no evidence of ascites. IMPRESSION: Comminuted oblique fracture of the proximal left femur with impaction. Fracture of the greater and lesser trochanters.
[2018-05-22] MEDS: HYDROmorphone 0.5 mg/0.5 ml ISec IVP PRN (15:21)
[2018-05-22 16:19] LABS: URINE BACTERIA RARE (<OCC); URINE BILIRUBIN NEGATIVE (NEGATIVE); URINE BLOOD NEGATIVE (NEGATIVE); URINE CLARITY Hazy (Clear); URINE COLOR Amber (YELLOW); URINE GLUCOSE (UA) 2+ mg/dL (Normal); URINE LEUKOCYTE ESTERASE NEG Leu/uL (Negative); URINE PROTEIN 1+ mg/dL (NEGATIVE); URINE UROBILINOGEN NORMAL mg/dL (0.2-1.0)
--- NOTE | 2018-05-22 16:52 | CT ---
Date of service: 05/22/2018 PROCEDURE: CT left hip HISTORY: Left hip fracture COMPARISON: Not available TECHNIQUE: 2.5 mm contiguous axial sections were acquired through the left hip. Sagittal and coronal images were reformatted from the axial scan. FINDINGS: There is a comminuted, impacted oblique fracture of the proximal left femur including a greater trochanteric fracture and lesser trochanteric fracture. There is no angulation. The oblique fracture extends just beneath the intertrochanteric aspect of the femur. The femoral neck is intact. There is no intra-articular fracture. The acetabulum is intact. No other fracture is seen throughout the visualized portions of the left hemipelvis. There is no appreciable hematoma seen about the fracture. Soft tissue structures of the pelvis are grossly unremarkable. Radiation seed implants are seen in the prostate bed. There is no evidence of ascites. IMPRESSION: Comminuted oblique fracture of the proximal left femur with impaction. Fracture of the greater and lesser trochanters.
[2018-05-22] MEDS ORDERED: (Novolin R) Insulin Human Regular 100 units/ml vial SC ONE (18:41)
[2018-05-22] MEDS ORDERED: (Novolin R) Insulin Human Regular 100 units/ml vial ONE (18:48)
[2018-05-22] MEDS: (Novolin R) Insulin Human Regular 100 units/ml vial SC SCH (22:31)
[2018-05-23] MEDS ORDERED: Sodium Chloride 0.9% 500 ML IV ONE ×2 (01:10→02:28)
[2018-05-23] MEDS ORDERED: Sodium Chloride 0.9% 1,000 ML IV SCH (02:00)
[2018-05-23] MEDS ORDERED: Vancomycin 1 gm/NS 200 ml 1 GM/200 ML BAG IVPB STA (03:08)
[2018-05-23] MEDS ORDERED: Piperacill/Tazo 2.25gm in Dex 2.25 GM/50 ML BAG IVPB ONE (04:00)
[2018-05-23] MEDS: Sodium Chloride 0.9% 1,000 ML IV SCH ×3 (04:27→13:53)
[2018-05-23 05:20] LABS: BASO % 0.5 % (0.0-2.0); EOS # 0.2 K/uL (0.0-0.7); EOS % 2.2 % (0.0-4.0); HEMOGLOBIN 7.2 g/dL (12.0-18.0); LYMPH % 23.1 % (20.0-40.0); MEAN CELL VOLUME 93.4 fL (80.0-94.0); MEAN CORPUSCULAR HEMOGLOBIN 30.9 pg (27.0-31.0); MEAN CORPUSCULAR HGB CONC 33.1 g/dL (33.0-37.0); MEAN PLATELET VOLUME 10.9 fL (7.2-11.7); MONO # 1.2 K/uL (0.0-0.8); MONO % 14.5 % (0.0-10.0); NEUT # 5.1 K/uL (1.8-7.0); NEUT % 59.7 % (50.0-75.0); RBC 2.32 Mil/uL (4.40-5.90); RED CELL DISTRIBUTION WIDTH 13.9 % (11.5-14.5); WHITE BLOOD COUNT 8.6 K/uL (4.8-10.8)
[2018-05-23 05:39] LABS: INR 1.2; PROTHROMBIN TIME 13.4 SECONDS (9.7-12.2)
[2018-05-23 05:42] LABS: ALB/GLOB RATIO 0.9 (1.0-2.1); ALBUMIN 2.5 g/dL (3.5-5.0); ALT/SGPT 31 U/L (21-72); AST/SGOT 49 U/L (17-59); BLOOD UREA NITROGEN 39 mg/dL (9-20); CALCIUM 7.4 mg/dl (8.6-10.4); GFR AFRICAN-AMERICAN > 60; GFR NON-AFRICAN AMERICAN 54
--- NOTE | 2018-05-23 07:02 | CP.PCM.PN ---
Subjective - Date & Time of Evaluation Date of Evaluation: 05/23/18 Time of Evaluation: 05:30 - Subjective Subjective: Evaluated patient upon request of nurse and resident, patient with femur shaft fracture, shoulder fracture with hypotension around mid night, had elevated lactate, later labs ddimer also elevated. Upon evaluation confirmed above, patient alert and oriented, spo2 100% on RA, not sob. On exam significant swelling in left thigh and left shoulder, all ext warm, peripheral pulses felt b /l, chest clear b/l, abd soft, nt. At this time patient has finished 2 lit boluses. BP 80/45, hr 90/min, RR 18/min, repeat lactate has improved, patient voided 400ml urine. PMD has been notified by nursing and resident from mid night to my eval. Clinical impression was of blood loss in the thigh. CBC showed hemoglobin 7.2 form 9.4 and albumin 2.4, maintained PT/PTT. Spoke to the nurse to transfuse prbc 1st unit as rapid, and second as standard, bolus fluid mean while. D/w nursing to inform the primary physician including ortho and pmd. Objective - Vital Signs/Intake and Output Vital Signs (last 24 hours): Temp Pulse Resp BP Pulse Ox 97.7 F 93 H 20 84/56 L 95 05/22/18 20:15 05/23/18 04:30 05/22/18 20:15 05/23/18 04:30 05/23/18 03:30 - Medications Medications: Current Medications Acetaminophen (Tylenol 325mg Tab) 650 mg PO Q4H PRN PRN Reason: pain fever Last Admin: 05/22/18 22:26 Dose: 650 mg Famotidine (Pepcid) 20 mg PO DAILY [facility] Last Admin: 05/22/18 11:22 Dose: 20 mg Furosemide (Lasix) 40 mg PO DAILY [facility] Last Admin: 05/22/18 11:22 Dose: 40 mg Glipizide (Glucotrol) 5 mg PO DAILY [facility] Last Admin: 05/22/18 11:22 Dose: 5 mg Hydromorphone HCl (Dilaudid) 0.5 mg IVP Q4H PRN PRN Reason: Pain, Mild (1-3) Last Admin: 05/22/18 15:21 Dose: 0.5 mg Sodium Chloride (Sodium Chloride 0.9%) 1,000 mls @ 1,000 mls/hr IV .Q1H [facility] Last Admin: 05/23/18 05:42 Dose: 1,000 mls/hr Insulin Human Regular (Novolin R) 0 unit SC ACHS [facility] PRN Reason: Protocol Last Admin: 05/22/18 22:31 Dose: Not Given Lisinopril (Zestril) 10 mg PO DAILY [facility] Last Admin: 05/22/18 11:22 Dose: 10 mg Loratadine (Claritin) 10 mg PO DAILY PRN PRN Reason: ALLERGY SYMPTOMS Metformin HCl (Glucophage) 1,000 mg PO BID [facility] Last Admin: 05/22/18 19:24 Dose: 1,000 mg Thiamine HCl (Vitamin B1 Tab) 100 mg PO DAILY [facility] Last Admin: 05/22/18 11:22 Dose: 100 mg - Labs Labs: 05/23/18 05:17 05/23/18 05:17 PT 13.4 SECONDS (9.7-12.2) H 05/23/18 05:17 INR 1.2 05/23/18 05:17 APTT 30 SECONDS (21-34) 05/23/18 05:17
[2018-05-23] MEDS: (Novolin R) Insulin Human Regular 100 units/ml vial SC SCH ×4 (08:27→22:12)
[2018-05-23] MEDS ORDERED: Sod Polystyrene Sulf 15 gm/60 ml Susp PO ONE (10:00)
--- NOTE | 2018-05-23 10:47 | HP ---
Copied To: Alysia Colon MD Attending MD: Alysia Colon MD CHIEF COMPLAINT: Fall, left hip pain and left shoulder pain. HISTORY OF PRESENT ILLNESS: Mr. Don Lang is a 77-year-old male, came to the [facility] Emergency Room status post fall yesterday from ladder with complaints of left hip and left shoulder pain. Ambulance brought the patient to the emergency room. No chest pain. No shortness of breath. No head injury or any other complaints at this time. The patient has history of trauma. GI and DVT prophylaxis, repeat labs. We will follow up. PAST MEDICAL HISTORY: History of anemia, arthritis, hypertension, hypercholesteremia, hyperlipidemia, and endoscopy. HABITS: No smoking. No drug. No ethanol. ALLERGIES: THE PATIENT IS NOT ALLERGIC WITH ANY MEDICATIONS. HOME MEDICATIONS: Reviewed by me. REVIEW OF SYSTEMS: The patient was seen and examined at the bedside, looking comfortable. Daughter and the son were present around. I saw the patient in the emergency room. PHYSICAL EXAMINATION: VITAL SIGNS: Temperature 98.6, pulse 80, respiratory rate 18, blood pressure 120/80. HEENT: Head normocephalic and atraumatic. Eyes, PERRLA. Extraocular muscles intact. Conjunctivae clear. Nose patent. Mucous membrane moist. NECK: Supple. No carotid bruits. No JVD or thyromegaly. CHEST: Bilaterally symmetrical. HEART: S1 and S2 positive. LUNGS: Clear to auscultation. ABDOMEN: Soft. Bowel sounds present. No organomegaly. EXTREMITIES: No edema. No cyanosis. NEUROLOGIC: Range of motion decreased of left upper extremity and left lower extremity. LABORATORY DATA: White blood cell is 11.3, hemoglobin 9.5, hematocrit 28.3, and platelets 179. Sodium 134, potassium 6.1, BUN 25, creatinine 1, glucose 317. ASSESSMENT AND PLAN: Mr. Don Lang is a 77-year-old male with leukocytosis, anemia, hypokalemia, hyperchloremia and hyperglycemia. Gastrointestinal and deep venous thrombosis prophylaxis. Repeat labs. We will follow up. Alysia Colon MD [facility] # [id number]
--- NOTE | 2018-05-23 12:41 | CP.PCM.CON ---
History of Present Illness - History of Present Illness History of Present Illness: 77-year-old gentleman with prior history of type 2 diabetes and hypertension. 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 He was admitted after he sustained a fall with closed fracture of the hip and humerus. After he was seen by the orthopedic service, it's decided for open reduction and internal fixation for the hip in addition to conservative management for the humerus. His EKGs and normal sinus rhythm and was on Lasix. He developed asymptomatic hypotension that responded to IV fluid. The echocardiogram was with normal left ventricular contractility, no aortic stenosis and no pericardial disease. He carries an acceptable risk for cardiac complication from the surgery that is rather urgent for early ambulation. Review of Systems - Review of Systems Systems not reviewed;Unavailable: Acuity of Condition - Constitutional Constitutional: Anorexia, Weakness - EENT Eyes: absent: Discharge Ears: absent: Ear Discharge, Dizziness Nose/Mouth/Throat: absent: Epistaxis, Mouth Pain - Cardiovascular Cardiovascular: absent: Acrocyanosis, Chest Pain, Claudication, Diaphoresis, Dyspnea, Palpitations, Pedal Edema - Respiratory Respiratory: Hemoptysis. absent: Cough, Dyspnea - Gastrointestinal Gastrointestinal: absent: Abdominal Pain, Diarrhea, Vomiting - Genitourinary Genitourinary: absent: Change in Urinary Stream Past Patient History - Infectious Disease Hx of Infectious Diseases: None - Past Medical History & Family History Past Medical History?: Yes - Past Social History Smoking Status: Never Smoked - CARDIAC Hx Hypercholesterolemia: Yes Hx Hypertension: Yes - PULMONARY Hx Respiratory Disorders: No - NEUROLOGICAL Hx Transient Ischemic Attacks (TIA): No - HEENT Hx HEENT Problems: Yes Hx Deafness: Yes Other/Comment: left ear [place] - RENAL Hx Chronic Kidney Disease: No - ENDOCRINE/METABOLIC Hx Diabetes Mellitus Type 2: Yes - HEMATOLOGICAL/ONCOLOGICAL Hx Anemia: Yes - INTEGUMENTARY Hx Dermatological Problems: No - MUSCULOSKELETAL/RHEUMATOLOGICAL Hx Arthritis: Yes (KNEES) Hx Falls: No - GASTROINTESTINAL Hx Gastrointestinal Disorders: Yes Hx Esophageal Varices: Yes (BANDING DONE) Hx Ulcer: Yes Other/Comment: HX:IRREGULAR CONTOUR OF LIVER WITH CIRRRHOSIS. HX: H-PYLORI- TREATMENT DONE. HX: MELENA - GENITOURINARY/GYNECOLOGICAL Hx Genitourinary Disorders: Yes Hx Prostate Cancer: Yes - PSYCHIATRIC Hx Substance Use: No - SURGICAL HISTORY Hx Surgeries: Yes Other/Comment: HX: ESOPHAGEAL VARICES-BANDING DONE - ANESTHESIA Hx Anesthesia: Yes Hx Anesthesia Reactions: No Hx Malignant Hyperthermia: No Meds Allergies/Adverse Reactions: Allergies Allergy/AdvReac Type Severity Reaction Status Date / Time No Known Allergies Allergy Verified 05/22/18 07:32 - Medications Medications: Current Medications Acetaminophen (Tylenol 325mg Tab) 650 mg PO Q4H PRN PRN Reason: pain fever Last Admin: 05/23/18 08:18 Dose: 650 mg Famotidine (Pepcid) 20 mg PO DAILY [facility] Last Admin: 05/23/18 12:26 Dose: 20 mg Glipizide (Glucotrol) 5 mg PO DAILY [facility] Last Admin: 05/23/18 10:35 Dose: 5 mg Hydromorphone HCl (Dilaudid) 0.5 mg IVP Q4H PRN PRN Reason: Pain, Mild (1-3) Last Admin: 05/22/18 15:21 Dose: 0.5 mg Sodium Chloride (Sodium Chloride 0.9%) 1,000 mls @ 1,000 mls/hr IV .Q1H [facility] Last Admin: 05/23/18 05:42 Dose: 1,000 mls/hr Insulin Human Regular (Novolin R) 0 unit SC ACHS [facility] PRN Reason: Protocol Last Admin: 05/23/18 12:26 Dose: 2 unit Lisinopril (Zestril) 10 mg PO DAILY [facility] Last Admin: 05/22/18 11:22 Dose: 10 mg Loratadine (Claritin) 10 mg PO DAILY PRN PRN Reason: ALLERGY SYMPTOMS Metformin HCl (Glucophage) 1,000 mg PO BID [facility] Last Admin: 05/22/18 19:24 Dose: 1,000 mg Thiamine HCl (Vitamin B1 Tab) 100 mg PO DAILY [facility] Last Admin: 05/23/18 10:35 Dose: 100 mg Physical Exam - Constitutional Appears: Non-toxic - Head Exam Head Exam: ATRAUMATIC - Eye Exam Eye Exam: EOMI - ENT Exam ENT Exam: Mucous Membranes Moist - Neck Exam Neck exam: Negative for: Lymphadenopathy, Thyromegaly - Respiratory Exam Respiratory Exam: Clear to Auscultation Bilateral. absent: Rales - Cardiovascular Exam Cardiovascular Exam: REGULAR RHYTHM, Systolic Murmur - GI/Abdominal Exam GI & Abdominal Exam: Normal Bowel Sounds. absent: Organomegaly - Rectal Exam Rectal Exam: Deferred - Extremities Exam Extremities exam: Negative for: calf tenderness Additional comments: deformity of L thigh and arm, with pain - Neurological Exam Neurological exam: Alert, Oriented x3 - Psychiatric Exam Psychiatric exam: Anxious - Skin Skin Exam: Dry Results - Vital Signs Recent Vital Signs: Last Vital Signs Temp 98.0 F 05/23/18 10:30 Pulse 99 H 05/23/18 10:30 Resp 20 05/23/18 10:30 BP 78/55 L 05/23/18 10:30 Pulse Ox 99 05/23/18 08:45 - Labs Result Diagrams: 05/23/18 05:17 05/23/18 05:17 Labs: Laboratory Results - last 24 hr 05/22/18 05/22/18 05/22/18 16:05 16:59 17:05 WBC RBC Hgb Hct MCV MCH MCHC RDW Plt Count MPV Neut % (Auto) Lymph % (Auto) [place] % (Auto) Eos % (Auto) Baso % (Auto) Neut # (Auto) Lymph # (Auto) [place] # (Auto) Eos # (Auto) Baso # (Auto) PT INR APTT D-Dimer, Quantitative Sodium Potassium Chloride Carbon Dioxide Anion Gap BUN Creatinine Est GFR ( Amer) Est GFR (Non-Af Amer) POC Glucose (mg/dL) 324 H Random Glucose Lactic Acid Calcium Phosphorus Magnesium Total Bilirubin AST ALT Alkaline Phosphatase Total Protein Albumin Globulin Albumin/Globulin Ratio Urine Color [place]ell Urine Clarity Hazy Urine pH 5.0 Ur Specific [place] 1.018 Urine Protein 1+ H Urine Glucose (UA) 2+ H Urine Ketones Negative Urine Blood Negative Urine Nitrate Negative Urine Bilirubin Negative Urine Urobilinogen Normal Ur Leukocyte Esterase Neg Urine WBC (Auto) < 1 Urine Bacteria Rare Blood Type O POSITIVE Antibody Screen Negative 05/22/18 05/22/18 05/23/18 18:40 21:34 01:13 WBC RBC Hgb Hct MCV MCH MCHC RDW Plt Count MPV Neut % (Auto) Lymph % (Auto) [place] % (Auto) Eos % (Auto) Baso % (Auto) Neut # (Auto) Lymph # (Auto) [place] # (Auto) Eos # (Auto) Baso # (Auto) PT INR APTT D-Dimer, Quantitative Sodium Potassium Chloride Carbon Dioxide Anion Gap BUN Creatinine Est GFR ( Amer) Est GFR (Non-Af Amer) POC Glucose (mg/dL) 310 H 346 H Random Glucose Lactic Acid 6.5 H* Calcium Phosphorus Magnesium Total Bilirubin AST ALT Alkaline Phosphatase Total Protein Albumin Globulin Albumin/Globulin Ratio Urine Color Urine Clarity Urine pH Ur Specific [place] Urine Protein Urine Glucose (UA) Urine Ketones Urine Blood Urine Nitrate Urine Bilirubin Urine Urobilinogen Ur Leukocyte Esterase Urine WBC (Auto) Urine Bacteria Blood Type Antibody Screen 05/23/18 05/23/18 05/23/18 03:21 04:25 05:17 WBC 8.6 RBC 2.32 L Hgb 7.2 L D Hct 21.7 L MCV 93.4 MCH 30.9 MCHC 33.1 RDW 13.9 Plt Count 129 L D MPV 10.9 Neut % (Auto) 59.7 Lymph % (Auto) 23.1 [place] % (Auto) 14.5 H Eos % (Auto) 2.2 Baso % (Auto) 0.5 Neut # (Auto) 5.1 Lymph # (Auto) 2.0 [place] # (Auto) 1.2 H Eos # (Auto) 0.2 Baso # (Auto) 0.0 PT INR APTT D-Dimer, Quantitative 2493 H Sodium Potassium Chloride Carbon Dioxide Anion Gap BUN Creatinine Est GFR ( Amer) Est GFR (Non-Af Amer) POC Glucose (mg/dL) Random Glucose Lactic Acid 3.9 H Calcium Phosphorus Magnesium Total Bilirubin AST ALT Alkaline Phosphatase Total Protein Albumin Globulin Albumin/Globulin Ratio Urine Color Urine Clarity Urine pH Ur Specific [place] Urine Protein Urine Glucose (UA) Urine Ketones Urine Blood Urine Nitrate Urine Bilirubin Urine Urobilinogen Ur Leukocyte Esterase Urine WBC (Auto) Urine Bacteria Blood Type Antibody Screen 05/23/18 05/23/18 05/23/18 05:17 05:17 06:26 WBC RBC Hgb Hct MCV MCH MCHC RDW Plt Count MPV Neut % (Auto) Lymph % (Auto) [place] % (Auto) Eos % (Auto) Baso % (Auto) Neut # (Auto) Lymph # (Auto) [place] # (Auto) Eos # (Auto) Baso # (Auto) PT 13.4 H INR 1.2 APTT 30 D-Dimer, Quantitative Sodium 136 Potassium 5.3 H Chloride 109 H Carbon Dioxide 16 L Anion Gap 17 BUN 39 H Creatinine 1.3 Est GFR ( Amer) > 60 Est GFR (Non-Af Amer) 54 POC Glucose (mg/dL) 269 H Random Glucose 270 H Lactic Acid Calcium 7.4 L Phosphorus 3.4 Magnesium 1.7 Total Bilirubin 0.7 AST 49 ALT 31 Alkaline Phosphatase 163 H D Total Protein 5.4 L Albumin 2.5 L D Globulin 2.8 Albumin/Globulin Ratio 0.9 L Urine Color Urine Clarity Urine pH Ur Specific [place] Urine Protein Urine Glucose (UA) Urine Ketones Urine Blood Urine Nitrate Urine Bilirubin Urine Urobilinogen Ur Leukocyte Esterase Urine WBC (Auto) Urine Bacteria Blood Type Antibody Screen 05/23/18 11:47 WBC RBC Hgb Hct MCV MCH MCHC RDW Plt Count MPV Neut % (Auto) Lymph % (Auto) [place] % (Auto) Eos % (Auto) Baso % (Auto) Neut # (Auto) Lymph # (Auto) [place] # (Auto) Eos # (Auto) Baso # (Auto) PT INR APTT D-Dimer, Quantitative Sodium Potassium Chloride Carbon Dioxide Anion Gap BUN Creatinine Est GFR ( Amer) Est GFR (Non-Af Amer) POC Glucose (mg/dL) 245 H Random Glucose Lactic Acid Calcium Phosphorus Magnesium Total Bilirubin AST ALT Alkaline Phosphatase Total Protein Albumin Globulin Albumin/Globulin Ratio Urine Color Urine Clarity Urine pH Ur Specific [place] Urine Protein Urine Glucose (UA) Urine Ketones Urine Blood Urine Nitrate Urine Bilirubin Urine Urobilinogen Ur Leukocyte Esterase Urine WBC (Auto) Urine Bacteria Blood Type Antibody Screen Assessment & Plan (1) Pre-procedural laboratory examination Status: Acute Comment: Acceptable risk for cardiac complication from surgery, the surgery is a rather urgent for early ambulation (2) Cirrhosis of liver Status: Acute (3) Diabetes 1.5, managed as type 2 Status: Acute (4) Hypertension Status: Acute (5) Fracture, intertrochanteric, left femur Status: Acute
--- NOTE | 2018-05-23 13:38 | CP.PCM.PN ---
Subjective - Date & Time of Evaluation Date of Evaluation: 05/23/18 Time of Evaluation: 13:30 - Subjective Subjective: Patient seen and examined at bedside comfortable. Pain is well controlled. Anemic this AM, receiving 2nd unit PRBC's. No acute events overnight. Objective - Vital Signs/Intake and Output Vital Signs (last 24 hours): Temp Pulse Resp BP Pulse Ox 98.7 F 87 20 104/71 99 05/23/18 13:03 05/23/18 13:03 05/23/18 13:03 05/23/18 13:03 05/23/18 08:45 Intake and Output: 05/23/18 05/23/18 06:59 18:59 Intake Total 325 Balance 325 - Medications Medications: Current Medications Acetaminophen (Tylenol 325mg Tab) 650 mg PO Q4H PRN PRN Reason: pain fever Last Admin: 05/23/18 08:18 Dose: 650 mg Famotidine (Pepcid) 20 mg PO DAILY [facility] Last Admin: 05/23/18 12:26 Dose: 20 mg Glipizide (Glucotrol) 5 mg PO DAILY [facility] Last Admin: 05/23/18 10:35 Dose: 5 mg Hydromorphone HCl (Dilaudid) 0.5 mg IVP Q4H PRN PRN Reason: Pain, Mild (1-3) Last Admin: 05/22/18 15:21 Dose: 0.5 mg Sodium Chloride (Sodium Chloride 0.9%) 1,000 mls @ 1,000 mls/hr IV .Q1H [facility] Last Admin: 05/23/18 05:42 Dose: 1,000 mls/hr Insulin Human Regular (Novolin R) 0 unit SC ACHS [facility] PRN Reason: Protocol Last Admin: 05/23/18 12:26 Dose: 2 unit Lisinopril (Zestril) 10 mg PO DAILY [facility] Last Admin: 05/22/18 11:22 Dose: 10 mg Loratadine (Claritin) 10 mg PO DAILY PRN PRN Reason: ALLERGY SYMPTOMS Metformin HCl (Glucophage) 1,000 mg PO BID [facility] Last Admin: 05/22/18 19:24 Dose: 1,000 mg Thiamine HCl (Vitamin B1 Tab) 100 mg PO DAILY [facility] Last Admin: 05/23/18 10:35 Dose: 100 mg - Labs Labs: 05/23/18 05:17 05/23/18 05:17 PT 13.4 SECONDS (9.7-12.2) H 05/23/18 05:17 INR 1.2 05/23/18 05:17 APTT 30 SECONDS (21-34) 05/23/18 05:17 - Extremities Exam Additional comments: L shoulder: + swelling, + diffuse tenderness, no lesion Sling intact, ROM restricted due to fracture sensation intact AXN/MN/UN/RN motor intact MN/UN/RN radial pulse intact LLE: + externally rotated and shortened, + swelling at hip tenderness lateral hip and groin ROM restricted sensation intact SP/DP/TN motor intact EHl/FHL/TA/G pedal pulses intact comps soft NT Assessment and Plan (1) Fracture, intertrochanteric, left femur Assessment & Plan: -Surgical management with L hip ORIF with intermedullary nail for tomorrow -Cardiac clearance obtained, medical pending -NPO pMN -above d/w Dr. Kuo in agreement Status: Acute (2) Closed fracture of left proximal humerus Assessment & Plan: -Continue non-operative management with sling immobilization -pain control -NWB LUE, no ROM -Ice frequently -above d/w Dr. Kuo in agreement Status: Acute
[2018-05-23] MEDS ORDERED: Sodium Chloride 0.9% 1,000 ML IV ONE (13:43)
[2018-05-23] MEDS: HYDROmorphone 0.5 mg/0.5 ml ISec IVP PRN (13:53)
[2018-05-24] MEDS: Sodium Chloride 0.9% 1,000 ML IV SCH ×2 (01:44→11:17)
[2018-05-24] MEDS: HYDROmorphone 0.5 mg/0.5 ml ISec IVP PRN ×3 (06:23→22:25)
--- NOTE | 2018-05-24 06:35 | PN ---
Copied To: Alysia Colon MD Attending MD: Alysia Colon MD DATE: 05/23/2018 SUBJECTIVE: The patient is seen and examined at bedside, looking comfortable. He still has pain in the left shoulder and left hip. Morning event noted. Receiving second unit of packed RBC, that moment not in acute distress. Trying to eat food. No fever. No chills. No hematuria. No hematochezia. PHYSICAL EXAMINATION: VITAL SIGNS: Temperature 98.7, pulse 87, respiratory rate 20, blood pressure 104/71, pulse oximetry 99%. HEENT: Head is normocephalic and atraumatic. Eyes, PERRLA. Extraocular muscles intact. Conjunctivae clear. Nose patent. Mucous membrane moist. NECK: Supple. No carotid bruit. No JVD or thyromegaly. CHEST: Bilaterally symmetrical. HEART: S1 and S2 positive. LUNGS: Clear to auscultation. ABDOMEN: Soft. Bowel sounds present. No organomegaly. EXTREMITIES: Right upper and lower extremity: No edema. No cyanosis. Left upper and lower extremity: Range of motion is 0. NEUROLOGIC: The patient is awake, alert. Follows simple commands. Oriented x3. MEDICATIONS: Pepcid, Glucotrol, Dilaudid, insulin, Zestril, Claritin, Glucophage, vitamin B1. LABORATORY DATA: White blood cell 8.6, hemoglobin 7.2, hematocrit 21.7, platelets 129. Sodium 136, potassium 5.3, BUN 39, creatinine 1.2, glucose 270. ASSESSMENT AND PLAN: Don Lang is a 77-year-old male with anemia, now status post two units of packed red blood cells, thrombocytopenia, hyperkalemia, renal insufficiency, hyperglycemia, hyperchloremia, history of hypotension, left shoulder and left hip fractures, intertrochanteric and left femur fracture. Surgical management with left hip open reduction and internal fixation with intramedullary nail for tomorrow. Cardiac clearance obtained. Medically pt is cleare with modrate risks, n.p.o. after midnight. proximal humerus. Continue nonoperative management with sling immobilization, pain management. The patient is seen by the Orthopedics. [employer], Maryann Krishna on the case. History of cirrhosis of the liver, diabetes mellitus, hypertension. According to Dr. Moussa acceptable risk for cardiac complications from surgery. Surgery is rather urgent for early mobilization and to prevent the complications. GI and DVT prophylaxis. Repeat labs. Discussion done with the patient's nurse and on-call team. police detective, there was rapid response for this patient for hypotension. The patient got dose of vancomycin and Zosyn, and due to the elevated lactate, 2 L of fluid given, then blood pressure got controlled. Continue present treatment. We will follow up. Alysia Colon MD MTDTrino
[2018-05-24 07:50] LABS: MEAN CELL VOLUME 92.5 fL (80.0-94.0); MEAN CORPUSCULAR HGB CONC 34.6 g/dL (33.0-37.0); MEAN PLATELET VOLUME 10.5 fL (7.2-11.7); RBC 2.93 Mil/uL (4.40-5.90); RED CELL DISTRIBUTION WIDTH 14.2 % (11.5-14.5); WHITE BLOOD COUNT 7.1 K/uL (4.8-10.8)
[2018-05-24 08:03] LABS: BLOOD UREA NITROGEN 20 mg/dL (9-20); CALCIUM 6.8 mg/dl (8.6-10.4); GFR AFRICAN-AMERICAN > 60; GFR NON-AFRICAN AMERICAN > 60
[2018-05-24 08:07] LABS: HEMOGLOBIN 9.4 g/dL (12.0-18.0)
[2018-05-24] MEDS: (Novolin R) Insulin Human Regular 100 units/ml vial SC SCH ×4 (08:41→22:09)
--- NOTE | 2018-05-24 13:15 | CP.PCM.PN ---
Subjective - Date & Time of Evaluation Date of Evaluation: 05/24/18 Time of Evaluation: 12:00 - Subjective Subjective: In bed with pain, blood pressure is stable now after blood transfusion and off Lasix. Acceptable risk for cardiac complication from the proposed surgery. Objective - Vital Signs/Intake and Output Vital Signs (last 24 hours): Temp Pulse Resp BP Pulse Ox 98.1 F 94 H 20 151/77 H 98 05/24/18 07:00 05/24/18 07:00 05/24/18 07:00 05/24/18 07:00 05/24/18 07:00 Intake and Output: 05/24/18 05/24/18 06:59 18:59 Intake Total 1880 Output Total 1800 Balance 80 - Medications Medications: Current Medications Acetaminophen (Tylenol 325mg Tab) 650 mg PO Q4H PRN PRN Reason: pain fever Last Admin: 05/23/18 08:18 Dose: 650 mg Albuterol/Ipratropium (Duoneb 3 Mg/0.5 Mg (3 Ml) Ud) 3 ml INH RQ6 PRN PRN Reason: Cough and congestion Famotidine (Pepcid) 20 mg PO DAILY [facility] Last Admin: 05/24/18 09:57 Dose: Not Given Glipizide (Glucotrol) 5 mg PO DAILY [facility] Last Admin: 05/24/18 09:57 Dose: Not Given Hydromorphone HCl (Dilaudid) 0.5 mg IVP Q4H PRN PRN Reason: Pain, Mild (1-3) Last Admin: 05/24/18 06:23 Dose: 0.5 mg Sodium Chloride (Sodium Chloride 0.9%) 1,000 mls @ 100 mls/hr IV .Q10H [facility] Last Admin: 05/24/18 11:17 Dose: 100 mls/hr Insulin Human Regular (Novolin R) 0 unit SC ACHS [facility] PRN Reason: Protocol Last Admin: 05/24/18 08:41 Dose: Not Given Lisinopril (Zestril) 10 mg PO DAILY [facility] Last Admin: 05/22/18 11:22 Dose: 10 mg Loratadine (Claritin) 10 mg PO DAILY PRN PRN Reason: ALLERGY SYMPTOMS Metformin HCl (Glucophage) 1,000 mg PO BID [facility] Last Admin: 05/22/18 19:24 Dose: 1,000 mg Thiamine HCl (Vitamin B1 Tab) 100 mg PO DAILY [facility] Last Admin: 05/24/18 09:57 Dose: Not Given - Labs Labs: 05/24/18 07:41 05/24/18 07:41 PT 13.4 SECONDS (9.7-12.2) H 05/23/18 05:17 INR 1.2 05/23/18 05:17 APTT 30 SECONDS (21-34) 05/23/18 05:17 - Constitutional Appears: Non-toxic - Head Exam Head Exam: ATRAUMATIC - Eye Exam Eye Exam: EOMI - ENT Exam ENT Exam: Mucous Membranes Moist - Neck Exam Neck Exam: absent: Lymphadenopathy, Thyromegaly - Respiratory Exam Respiratory Exam: Clear to Ausculation Bilateral. absent: Rales - Cardiovascular Exam Cardiovascular Exam: REGULAR RHYTHM, Murmur - GI/Abdominal Exam GI & Abdominal Exam: Normal Bowel Sounds. absent: Organomegaly - Rectal Exam Rectal Exam: Deferred - Extremities Exam Extremities Exam: Normal Capillary Refill. absent: Calf Tenderness - Neurological Exam Neurological Exam: Alert, Oriented x3 - Psychiatric Exam Psychiatric exam: Normal Mood - Skin Skin Exam: Dry Assessment and Plan (1) Pre-procedural laboratory examination Status: Acute (2) Cirrhosis of liver Status: Acute (3) Diabetes 1.5, managed as type 2 Status: Acute (4) Hypertension Status: Acute (5) Fracture, intertrochanteric, left femur Status: Acute
[2018-05-24] MEDS ORDERED: Succinylcholine Chloride 20 mg/ml Syr (5 ml) IV ONE (17:49)
[2018-05-24] MEDS ORDERED: Rocuronium 10 mg/ml (5 ml) ONE ×2 (17:49→19:37)
[2018-05-24] MEDS ORDERED: ceFAZolin 1 gm FROZEN Premix 2 GM/100 ML ML IVPB ONE (17:52)
[2018-05-24] MEDS ORDERED: Etomidate 20 mg/10ml Inj IV ONE (17:54)
[2018-05-24] MEDS ORDERED: Propofol 10 mg/ml Inj (20 ML) ONE ×2 (17:57→21:00)
[2018-05-24] MEDS ORDERED: ePHEDrine 50 mg/ml Inj ONE (19:31)
[2018-05-24] MEDS ORDERED: Esmolol 100 mg/10ml Inj IV ONE (19:35)
[2018-05-24] MEDS ORDERED: Neostigmine Methylsulfate 3mg/3ml Syringe IV ONE (20:02)
[2018-05-24] MEDS ORDERED: Lidocaine Hydrochloride 20 ML INJ ONE (21:06)
[2018-05-24] MEDS ORDERED: Bupivacaine 0.25% 20 ML INJ IJ ONE (21:07)
--- NOTE | 2018-05-24 21:22 | PCM.SURG1 ---
Surgeon's Initial Post Op Note - Surgeon's Notes Surgeon: bambi Counter Attendant: pod Type of Anesthesia: General Endo Pre-Operative Diagnosis: left femur fx Operative Findings: see dictation Post-Operative Diagnosis: same Operation Performed: open reduction, IM nail fixation Specimen/Specimens Removed: none Estimated Blood Loss: EBL {In ML}: 500 Date of Surgery/Procedure: 05/24/18 Time of Surgery/Procedure: 18:30
[2018-05-24] MEDS ORDERED: Sodium Chloride 0.9% 500 ML IV ONE (21:27)
[2018-05-24] MEDS: Albuterol-Ipratrop 3 mg / 0.5 (3 ml) UD INH PRN (22:10)
[2018-05-24] MEDS ORDERED: Lactated Ringer's 1,000 ML IV ONE (22:50)
--- NOTE | 2018-05-25 06:19 | PN ---
Copied To: Alysia Colon MD Attending MD: Alysia Colon MD DATE: 05/24/2018 SUBJECTIVE: The patient is a 77-year-old male. The patient is seen and examined at the bedside early in the morning, 05/24/2018. The patient is seen on the bedside, looking comfortable. Status post blood transfusion. Off the Lasix. No nausea, vomiting, or diarrhea. No hematuria or hematochezia. No headache or dizziness. The patient is cleared for surgery by the exercise physiologist. According to the exercise physiologist, there is acceptable risk per cardiac complication from the proposed surgery. PHYSICAL EXAMINATION: VITAL SIGNS: Temperature 98.1, pulse 94, respiratory rate 20, blood pressure 150/77, pulse oximetry 98. HEENT: Head is normocephalic and atraumatic. Eyes PERRLA. Extraocular muscles are intact. Conjunctivae clear. Nose patent. NECK: Supple. No carotid bruits, JVD, or thyromegaly. CHEST: Bilaterally symmetrical. HEART: S1 and S2 are positive. LUNGS: Clear to auscultation. ABDOMEN: Soft. Bowel sounds present. No organomegaly. EXTREMITIES: No edema. No cyanosis. NEUROLOGIC: The patient is awake, alert. Moving all four extremities. No focal deficits. MEDICATIONS: DuoNeb, Pepcid, Glucotrol, Dilaudid, NS, Novolin, Zestril, Claritin, Glucophage, vitamins. LABORATORY DATA: White blood cells 7.1, hemoglobin 9.4, hematocrit 27.1, platelets 97. Sodium 140, potassium 3.6, BUN 20, creatinine 0.7, glucose 239. ASSESSMENT AND PLAN: Mr. Don Lang is a 77-year-old male with anemia, thrombocytopenia, hyperchloremia, hyperglycemia, preprocedural laboratory examination, cirrhosis of the liver, diabetes type 2, hypertension, fracture of the intertrochanteric and left femur. Going for surgery. Cleared by Dr. Maryann Peña. Gastrointestinal and deep venous thrombosis prophylaxis. Repeat labs. We will follow up. Alysia Colon MD [facility] # [id number]
[2018-05-25] MEDS: Sodium Chloride 0.9% 1,000 ML IV SCH ×2 (06:46→16:38)
[2018-05-25] MEDS: (Novolin R) Insulin Human Regular 100 units/ml vial SC SCH ×4 (08:10→21:42)
[2018-05-25] MEDS: HYDROmorphone 0.5 mg/0.5 ml ISec IVP PRN ×2 (08:10→21:09)
[2018-05-25 08:48] LABS: HEMOGLOBIN 8.3 g/dL (12.0-18.0); MEAN CELL VOLUME 93.5 fL (80.0-94.0); MEAN CORPUSCULAR HEMOGLOBIN 31.8 pg (27.0-31.0); MEAN PLATELET VOLUME 10.2 fL (7.2-11.7); RBC 2.59 Mil/uL (4.40-5.90); RED CELL DISTRIBUTION WIDTH 14.2 % (11.5-14.5); WHITE BLOOD COUNT 9.3 K/uL (4.8-10.8)
[2018-05-25 09:06] LABS: BLOOD UREA NITROGEN 24 mg/dL (9-20); GFR AFRICAN-AMERICAN > 60; GFR NON-AFRICAN AMERICAN > 60
--- NOTE | 2018-05-25 20:24 | CP.PCM.PN ---
Subjective - Date & Time of Evaluation Date of Evaluation: 05/25/18 Time of Evaluation: 18:00 - Subjective Subjective: had surgery did well, observe with ortho Objective - Vital Signs/Intake and Output Vital Signs (last 24 hours): Temp Pulse Resp BP Pulse Ox 98.8 F 93 H 20 99/66 L 98 05/25/18 15:26 05/25/18 16:53 05/25/18 15:26 05/25/18 15:26 05/25/18 15:26 Intake and Output: 05/25/18 05/26/18 18:59 06:59 Intake Total 1200 Output Total 700 Balance 500 - Medications Medications: Current Medications Acetaminophen (Tylenol 325mg Tab) 650 mg PO Q4H PRN PRN Reason: pain fever Last Admin: 05/25/18 12:40 Dose: 650 mg Albuterol/Ipratropium (Duoneb 3 Mg/0.5 Mg (3 Ml) Ud) 3 ml INH RQ6 PRN PRN Reason: Cough and congestion Last Admin: 05/24/18 22:10 Dose: 3 ml Famotidine (Pepcid) 20 mg PO DAILY [facility] Last Admin: 05/25/18 10:07 Dose: 20 mg Glipizide (Glucotrol) 5 mg PO DAILY [facility] Last Admin: 05/25/18 10:07 Dose: 5 mg Hydromorphone HCl (Dilaudid) 0.5 mg IVP Q4H PRN PRN Reason: Pain, Mild (1-3) Last Admin: 05/25/18 08:10 Dose: 0.5 mg Sodium Chloride (Sodium Chloride 0.9%) 1,000 mls @ 100 mls/hr IV .Q10H [facility] Last Admin: 05/25/18 16:38 Dose: 100 mls/hr Insulin Human Regular (Novolin R) 0 unit SC ACHS [facility] PRN Reason: Protocol Last Admin: 05/25/18 17:54 Dose: 6 unit Lisinopril (Zestril) 10 mg PO DAILY [facility] Last Admin: 05/22/18 11:22 Dose: 10 mg Loratadine (Claritin) 10 mg PO DAILY PRN PRN Reason: ALLERGY SYMPTOMS Metformin HCl (Glucophage) 1,000 mg PO BID [facility] Last Admin: 05/22/18 19:24 Dose: 1,000 mg Thiamine HCl (Vitamin B1 Tab) 100 mg PO DAILY [facility] Last Admin: 05/25/18 10:07 Dose: 100 mg - Labs Labs: 05/25/18 08:43 05/25/18 08:43 PT 13.4 SECONDS (9.7-12.2) H 05/23/18 05:17 INR 1.2 05/23/18 05:17 APTT 30 SECONDS (21-34) 05/23/18 05:17 - Constitutional Appears: Well - Head Exam Head Exam: ATRAUMATIC - Eye Exam Eye Exam: EOMI - ENT Exam ENT Exam: Mucous Membranes Moist - Neck Exam Neck Exam: absent: Lymphadenopathy, Thyromegaly - Respiratory Exam Respiratory Exam: Clear to Ausculation Bilateral. absent: Rales - Cardiovascular Exam Cardiovascular Exam: REGULAR RHYTHM, Murmur - GI/Abdominal Exam GI & Abdominal Exam: Normal Bowel Sounds. absent: Organomegaly - Rectal Exam Rectal Exam: Deferred - Extremities Exam Extremities Exam: Normal Capillary Refill. absent: Calf Tenderness - Neurological Exam Neurological Exam: Alert, Oriented x3 - Psychiatric Exam Psychiatric exam: Normal Mood - Skin Skin Exam: Dry Assessment and Plan (1) Pre-procedural laboratory examination Status: Acute (2) Cirrhosis of liver Status: Acute (3) Diabetes 1.5, managed as type 2 Status: Acute (4) Hypertension Status: Acute (5) Fracture, intertrochanteric, left femur Status: Deleted
--- NOTE | 2018-05-25 22:12 | RAD ---
Date of service: 05/24/2018 PROCEDURE: X-ray of the left femur HISTORY: post op COMPARISON: Comparison is made to the previous study dated 05/22/2018 TECHNIQUE: AP view of the left femur and hip was obtained. FINDINGS: Status post internal fixation of the previously seen left femur fracture there is normal alignment of the left femur at the site of the fracture. The hardware is seen at appropriate position. IMPRESSION: Status post internal fixation of the previously seen left femur fracture.
--- NOTE | 2018-05-26 01:21 | OP ---
Copied To: Dilshad Kuo MD Attending MD: Dilshad Kuo MD PROCEDURE DATE: 05/24/2018 PREOPERATIVE DIAGNOSIS: Displaced left subtrochanteric femoral shaft fracture. POSTOPERATIVE DIAGNOSIS: Displaced left subtrochanteric femoral shaft fracture. PROCEDURE: Left femur open reduction and internal fixation with intramedullary long TFN nail (synthes). [id number] SURGEON: Dilshad Kuo MD ANESTHESIA: General. ESTIMATED BLOOD LOSS: 500 mL COMPLICATIONS: None. DISPOSITION: Stable to recovery room. INDICATION: This is a 77-year-old male with multiple medical comorbidities who sustained a slip and fall and was diagnosed with a displaced left subtrochanteric femoral shaft fracture. He is indicated for the above surgery. The patient was seen in the [facility], admitted for preoperative clearance and surgery. DESCRIPTION OF PROCEDURE: The patient was brought to the operating room and placed supine on operating room traction table. After general anesthesia was given, the left lower extremity was placed into a traction. The left lower extremity was then prepped and draped in a standard surgical fashion. A time-out was performed. Closed reduction was attempted with traction adduction internal rotation. Fluoroscopic images of closed reduction was seen and reviewed and showed still displaced subtrochanteric reverse oblique fracture. At this time, we decided to do an open reduction. An incision over the lateral subtrochanteric femur was drawn out. Incision was made through the skin only. All superficial veins were cauterized. Dissection was carried down to identify the IT band which was incised longitudinally. The vastus lateralis was then elevated off the bone and the fracture fragments were identified. There was a long oblique spike fracture of the proximal femur. This was openly reduced with traction and rotation and held in place by reduction clamp. Fluoroscopic images confirmed the anatomic alignment and reduction of the femur fracture. Next work was begun on placing the intramedullary nail. A 3-cm incision was outlined over the proximal greater trochanteric area. The incision was made through the skin only, carried down to identify the gluteus muscle and split in line with tendons. Dissection was then carried down to identify the starting point of the greater trochanter. A guidewire was placed over the starting point and confirmed both on AP and lateral fluoroscopic images. Guidewire was advanced after which an opening reamer was placed over the guidewire opening the medullary canal. Next, a long-tip guidewire was placed into the medullary canal and advanced through the traction site and down to the epiphyseal fold of the knee. The guidewire was measured for appropriate size nail. Next, sequential reaming was done over the guidewire to 13 mm reamer for a 11-mm nail. The long Synthes TFN nail was selected and assembled on the back table. Next the nail was advanced into the medullary canal of the femur and seated. Fluoroscopic images confirmed both well aligned and reduced femur fracture with good placement of the nail. Next work was begun on placing a Helical locking blade. The trocar for the blade was placed into the aiming guide on the lateral side of the femur. The guidewire was advanced. Prior to this, the long-tip guidewire was removed. The femoral neck guidewire was then placed in appropriate position and measured for an appropriate size Helical blade. Opening reamer was used to open the medullary canal, and the correct Helical blade was selected, assembled, and placed into the femoral neck. The blade was locked proximally to the nail. The aiming guide was then removed. Work was then begun on locking the nail distally. Perfect tunica-biloxi technique with fluoroscopic image was used to place two cortical screws of appropriate size into the distal locking holes. Fluoroscopic images confirmed well aligned and good placement of hardware. The wounds were then copiously irrigated. Deep layers of IT band was closed with 0 Vicryl followed by 2-0 Vicryl for subcuticular layer followed by joe for skin. Sterile dressing was applied. The patient tolerated the procedure well and was taken out of traction, extubated, and returned to the recovery room in excellent condition. Dilshad Kuo MD KAVITA
[2018-05-26] MEDS: Sodium Chloride 0.9% 1,000 ML IV SCH (02:42)
[2018-05-26 07:41] LABS: HEMOGLOBIN 7.5 g/dL (12.0-18.0); MEAN CELL VOLUME 93.6 fL (80.0-94.0); MEAN CORPUSCULAR HEMOGLOBIN 32.4 pg (27.0-31.0); MEAN CORPUSCULAR HGB CONC 34.6 g/dL (33.0-37.0); MEAN PLATELET VOLUME 10.6 fL (7.2-11.7); RBC 2.31 Mil/uL (4.40-5.90); RED CELL DISTRIBUTION WIDTH 14.4 % (11.5-14.5); WHITE BLOOD COUNT 7.5 K/uL (4.8-10.8)
[2018-05-26 07:59] LABS: BLOOD UREA NITROGEN 26 mg/dL (9-20); GFR AFRICAN-AMERICAN > 60; GFR NON-AFRICAN AMERICAN > 60
[2018-05-26] MEDS: (Novolin R) Insulin Human Regular 100 units/ml vial SC SCH ×4 (08:10→21:32)
[2018-05-26] MEDS: HYDROmorphone 0.5 mg/0.5 ml ISec IVP PRN ×2 (08:10→17:26)
[2018-05-26] MEDS: Oxycodone/Acetaminophen 5/325 mg Tab PO PRN ×2 (12:59→19:04)
[2018-05-26] MEDS: Albuterol-Ipratrop 3 mg / 0.5 (3 ml) UD INH PRN (13:12)
--- NOTE | 2018-05-26 17:33 | RAD ---
Date of service: 05/24/2018 PROCEDURE: Fluoroscopic guidance during internal fixation of left hip fracture HISTORY: LT. HIP FX. COMPARISON: Comparison is made with the previous x-ray of the left hip TECHNIQUE: Fluoroscopic guidance was provided Ing in the OR during internal fixation of previously noted left hip fracture P FINDINGS: Fluoroscopic guidance. Total dose is of radiation is 29.4 mGy IMPRESSION: Fluoroscopic guidance was provided.
--- NOTE | 2018-05-26 22:30 | CARD ---
APPROVED REPORT Date of service: 05/23/2018 EXAM: Two-dimensional and M-mode echocardiogram with Doppler and color Doppler. INDICATION LV Function:SystolicDiastolic 2D DIMENSIONS IVSd1.0 (0.7-1.1cm)LVDd3.4 (3.9-5.9cm) PWd1.2 (0.7-1.1cm)LVDs2.0 (2.5-4.0cm) FS (%) 41.9 %LVEF (%)74.1 (>50%) M-Mode DIMENSIONS Left Atrium (MM)3.77 (2.5-4.0cm)IVSd1.24 (0.7-1.1cm) Aortic Root3.09 (2.2-3.7cm)LVDd5.24 (4.0-5.6cm) Aortic Cusp Exc.1.79 (1.5-2.0cm)PWd1.17 (0.7-1.1cm) FS (%) 40 %LVDs3.12 (2.0-3.8cm) LVEF (%)71 (>50%) Mitral Valve MV E Yuvqczyn45.2cm/sMV A Hbdsmelx951.0cm/sE/A ratio0.6 TDI E/Lateral E'0.0E/Medial E'0.0 Tricuspid Valve TR Peak [id number]/sTR Peak Gr.99rzZbYDRE78ocMg <Conclusion> Suboptimal study Left ventricle: thickness: normal; size: normal; overall ejection fraction: 65%: diastolic filling pressures: normal Mitral valve: annulus: normal: leaflets: normal: excursion: normal; no significant trans-mitral gradient: no significant incompetence: left atrium: normal Aortic valve: leaflets: normal: excursion: normal; no significant trans-aortic gradient: No significant incompetence: aortic root: normal Right sided Structures: Pulmonary valve: normal; no significant incompetence; Tricuspid valve: normal; no significant incompetence: Intra-cardiac hemodynamics: pulmonary systolic pressures: normal; central venous pressures: normal No pericardial effusion
--- NOTE | 2018-05-26 22:46 | CP.PCM.PN ---
Subjective - Date & Time of Evaluation Date of Evaluation: 05/26/18 Time of Evaluation: 15:00 - Subjective Subjective: stable vitals, with PT for PT Objective - Vital Signs/Intake and Output Vital Signs (last 24 hours): Temp Pulse Resp BP Pulse Ox 98.6 F 86 20 116/78 98 05/26/18 21:08 05/26/18 21:08 05/26/18 21:08 05/26/18 21:08 05/26/18 15:54 Intake and Output: 05/26/18 05/27/18 18:59 06:59 Intake Total 1125 625 Output Total 300 Balance 825 625 - Medications Medications: Current Medications Acetaminophen (Tylenol 325mg Tab) 650 mg PO Q4H PRN PRN Reason: pain fever Last Admin: 05/25/18 12:40 Dose: 650 mg Albuterol/Ipratropium (Duoneb 3 Mg/0.5 Mg (3 Ml) Ud) 3 ml INH RQ6 PRN PRN Reason: Cough and congestion Last Admin: 05/26/18 13:12 Dose: 3 ml Docusate Sodium (Colace) 100 mg PO DAILY [facility] Last Admin: 05/26/18 12:58 Dose: 100 mg Famotidine (Pepcid) 20 mg PO DAILY [facility] Last Admin: 05/26/18 10:47 Dose: 20 mg Glipizide (Glucotrol) 5 mg PO DAILY [facility] Last Admin: 05/26/18 10:47 Dose: 5 mg Hydromorphone HCl (Dilaudid) 0.5 mg IVP Q4H PRN PRN Reason: Pain, severe (8-10) Last Admin: 05/26/18 17:26 Dose: 0.5 mg Insulin Human Regular (Novolin R) 0 unit SC ACHS [facility] PRN Reason: Protocol Last Admin: 05/26/18 21:32 Dose: Not Given Loratadine (Claritin) 10 mg PO DAILY PRN PRN Reason: ALLERGY SYMPTOMS Metformin HCl (Glucophage) 1,000 mg PO BID [facility] Last Admin: 05/22/18 19:24 Dose: 1,000 mg Oxycodone/Acetaminophen (Percocet 5/325 Mg Tab) 1 tab PO Q6H PRN PRN Reason: Pain, Mild (1-3) Stop: 05/29/18 12:19 Last Admin: 05/26/18 19:04 Dose: 1 tab Thiamine HCl (Vitamin B1 Tab) 100 mg PO DAILY [facility] Last Admin: 05/26/18 10:47 Dose: 100 mg - Labs Labs: 05/26/18 07:27 05/26/18 07:27 PT 13.4 SECONDS (9.7-12.2) H 05/23/18 05:17 INR 1.2 05/23/18 05:17 APTT 30 SECONDS (21-34) 05/23/18 05:17 - Constitutional Appears: Non-toxic - Head Exam Head Exam: ATRAUMATIC - Eye Exam Eye Exam: EOMI - ENT Exam ENT Exam: Mucous Membranes Moist - Neck Exam Neck Exam: absent: Lymphadenopathy, Thyromegaly - Cardiovascular Exam Cardiovascular Exam: REGULAR RHYTHM, Murmur - GI/Abdominal Exam GI & Abdominal Exam: Normal Bowel Sounds. absent: Organomegaly - Rectal Exam Rectal Exam: Deferred - Extremities Exam Extremities Exam: Normal Capillary Refill. absent: Calf Tenderness - Neurological Exam Neurological Exam: Alert, Oriented x3 - Psychiatric Exam Psychiatric exam: Normal Mood - Skin Skin Exam: Dry Assessment and Plan (1) Pre-procedural laboratory examination Status: Acute (2) Cirrhosis of liver Status: Acute (3) Diabetes 1.5, managed as type 2 Status: Acute (4) Hypertension Status: Acute (5) Fracture, intertrochanteric, left femur Status: Deleted
--- NOTE | 2018-05-26 23:36 | PN ---
Copied To: Alysia Colon MD Attending MD: Alysia Colon MD DATE: 05/26/2018 SUBJECTIVE: The patient is a 77-year-old male. The patient is seen and examined at the bedside. Daughter and son-in-law were on the bedside, and the patient's nurse was also there. The patient is complaining of generalized swelling of the body, retaining water. No bowel movements since admission. Still has pain in the left upper extremity and lower extremity. No fever. No chills. No nausea, vomiting or diarrhea. PHYSICAL EXAMINATION: VITAL SIGNS: Temperature 98.1, pulse 86, blood pressure 120/80, respiratory rate 20. HEENT: Head is normocephalic and atraumatic. Eyes PERRLA. Extraocular muscles are intact. Conjunctivae clear. Nose patent. Mucous membranes moist. NECK: Supple. No carotid bruits, JVD, or thyromegaly. CHEST: Bilaterally symmetrical. HEART: S1 and S2 are positive. LUNGS: Clear to auscultation. ABDOMEN: Soft. Bowel sounds present. No organomegaly. EXTREMITIES: Positive edema. NEUROLOGIC: The patient is awake, alert. Follows simple commands. Cannot move left upper and lower extremities. MEDICATIONS: Claritin, Colace, Dilaudid, DuoNeb, Glucophage, Glucotrol, insulin, Pepcid, thiamine. LABORATORY DATA: White blood cells 7.5, hemoglobin 7.5, hematocrit 21.6, platelets 116. Sodium 135, potassium 4, BUN 26, creatinine 0.8, glucose 317. ASSESSMENT AND PLAN: Mr. Don Lang is a 77-year-old male with anemia. I gave order of two units of packed red blood cells transfusion, type and crossmatch. Hyperchloremia, hyperglycemia, hypocalcemia, proteinuria, glucosuria. Discontinue Slater catheter. One dose of Colace given. If it will not work, then we will give Dulcolax suppositories. History of uncontrolled diabetes mellitus. Gave one dose of Lasix, but blood pressure is not very high, cannot give too much Lasix. Preprocedural laboratory examination, cirrhosis of the liver, hypertension, fracture of intertrochanteric and left femur, status post surgery by Dr. Dilshad uKo. Out of bed. Physical therapy. Pain management. Discussion done with the patient's daughter and patient's nurse. Orders given. According to the patient, only Dilaudid is not holding pain. For breakthrough pain, I gave Percocet. We will follow up. Alysia Colon MD [facility]ITA
--- NOTE | 2018-05-27 00:24 | CARD ---
APPROVED REPORT Date of service: 05/22/2018 EKG Measurement Heart [id number] [place] P-5 [id number] <Conclusion> Atrial flutter with variable AV block with premature ventricular or aberrantly conducted complexes Low voltage QRS Incomplete right bundle branch block Nonspecific T wave abnormality Abnormal ECG
[2018-05-27] MEDS: Oxycodone/Acetaminophen 5/325 mg Tab PO PRN ×2 (01:53→19:02)
[2018-05-27 07:32] LABS: MEAN CORPUSCULAR HEMOGLOBIN 31.7 pg (27.0-31.0); MEAN CORPUSCULAR HGB CONC 34.9 g/dL (33.0-37.0); MEAN PLATELET VOLUME 9.6 fL (7.2-11.7); RED CELL DISTRIBUTION WIDTH 15.2 % (11.5-14.5); WHITE BLOOD COUNT 6.3 K/uL (4.8-10.8)
[2018-05-27 07:46] LABS: HEMOGLOBIN 9.5 g/dL (12.0-18.0); MEAN CELL VOLUME 90.7 fL (80.0-94.0)
[2018-05-27 07:52] LABS: BLOOD UREA NITROGEN 22 mg/dL (9-20); CALCIUM 6.9 mg/dl (8.6-10.4); GFR AFRICAN-AMERICAN > 60; GFR NON-AFRICAN AMERICAN > 60
[2018-05-27] MEDS: (Novolin R) Insulin Human Regular 100 units/ml vial SC SCH ×4 (08:09→21:24)
--- NOTE | 2018-05-27 08:58 | PN ---
Copied To: Alysia Colon MD Attending MD: Alysia Colon MD DATE: 05/25/2018 SUBJECTIVE: Patient is a 77-year-old male. Patient is seen and examined on the bedside. Had surgery, did well. His family is around. No fever. No chills. No nausea, vomiting, or diarrhea. No headache. No dizziness. PHYSICAL EXAMINATION: VITAL SIGNS: Temperature 98.8, pulse 93, respiratory rate 20, blood pressure 99/66, pulse oximetry 98%. HEENT: Head: Normocephalic, atraumatic. Eyes: PERRLA. Extraocular muscles intact. Conjunctivae clear. Nose patent. Mucous membrane moist. NECK: Supple. No carotid bruit. No JVD or thyromegaly. CHEST: Bilaterally symmetrical. HEART: S1 and S2 positive. LUNGS: Clear to auscultation. ABDOMEN: Soft. Bowel sounds present. No organomegaly. EXTREMITIES: Positive edema. No cyanosis. NEUROLOGIC: Patient is awake, alert, oriented x3. MEDICATIONS: Pepcid, Glucotrol, Dilaudid, sodium chloride, Novolin, Zestril, Claritin, Glucophage, vitamin B1. LABORATORY DATA: White blood cells 9.3, hemoglobin 8.3, hematocrit 24.3, platelets 122. Sodium 139, potassium 4.3, BUN 24, creatinine 0.8, glucose 335. ASSESSMENT AND PLAN: a 77-year-old male with anemia; thrombocytopenia; hyperchloremia; renal insufficiency; hyperglycemia; has cirrhosis of the liver; diabetes mellitus type 2, insulin requiring; hypertension; fracture of intertrochanteric and left femur, status post surgery. Doing well. We will continue present treatment. GI and deep vein thrombosis prophylaxis. Repeat labs. We will follow up. Alysia Colon MD KAVITA
[2018-05-27] MEDS: HYDROmorphone 0.5 mg/0.5 ml ISec IVP PRN ×2 (09:39→14:46)
[2018-05-27] MEDS: Ergocalciferol 50,000 Intl Units Cap PO SCH (16:25)
--- NOTE | 2018-05-27 16:25 | CP.PCM.PN ---
Subjective - Date & Time of Evaluation Date of Evaluation: 05/27/18 Time of Evaluation: 16:21 - Subjective Subjective: Patient states he has pain in left shoulder> hip. He has not been out of bed and he says he isn't moving because of his injuries. Explained to patient he will be starting PT/OT and his expected ot be out of bed daily,a nd that he needs to move his wrist/fingers and ankle/toes all the time. Denies CP/SOB/ dizziness/palpitations. Objective - Vital Signs/Intake and Output Vital Signs (last 24 hours): Temp Pulse Resp BP Pulse Ox 97.6 F 84 20 109/67 95 05/27/18 07:00 05/27/18 07:00 05/27/18 07:00 05/27/18 07:00 05/27/18 07:00 Intake and Output: 05/27/18 05/27/18 06:59 18:59 Intake Total 625 Balance 625 - Medications Medications: Current Medications Acetaminophen (Tylenol 325mg Tab) 650 mg PO Q4H PRN PRN Reason: pain fever Last Admin: 05/25/18 12:40 Dose: 650 mg Albuterol/Ipratropium (Duoneb 3 Mg/0.5 Mg (3 Ml) Ud) 3 ml INH RQ6 PRN PRN Reason: Cough and congestion Last Admin: 05/26/18 13:12 Dose: 3 ml Calcium Carbonate (Oscal) 500 mg PO DAILY [facility] Docusate Sodium (Colace) 100 mg PO DAILY [facility] Last Admin: 05/27/18 09:38 Dose: 100 mg Enoxaparin Sodium (Lovenox) 40 mg SC Q24H [facility] Ergocalciferol (Drisdol 50,000 Intl Units Cap) 1 cap PO Q7D [facility] Famotidine (Pepcid) 20 mg PO DAILY [facility] Last Admin: 05/27/18 09:38 Dose: 20 mg Furosemide (Lasix) 40 mg PO DAILY [facility] Glipizide (Glucotrol) 5 mg PO DAILY [facility] Last Admin: 05/27/18 09:38 Dose: 5 mg Hydromorphone HCl (Dilaudid) 0.5 mg IVP Q4H PRN PRN Reason: Pain, severe (8-10) Last Admin: 05/27/18 14:46 Dose: 0.5 mg Insulin Human Regular (Novolin R) 0 unit SC ACHS [facility] PRN Reason: Protocol Last Admin: 05/27/18 12:30 Dose: 2 unit Loratadine (Claritin) 10 mg PO DAILY PRN PRN Reason: ALLERGY SYMPTOMS Metformin HCl (Glucophage) 1,000 mg PO BID [facility] Last Admin: 05/22/18 19:24 Dose: 1,000 mg Oxycodone/Acetaminophen (Percocet 5/325 Mg Tab) 1 tab PO Q6H PRN PRN Reason: Pain, Mild (1-3) Stop: 05/29/18 12:19 Last Admin: 05/27/18 01:53 Dose: 1 tab Thiamine HCl (Vitamin B1 Tab) 100 mg PO DAILY [facility] Last Admin: 05/27/18 09:38 Dose: 100 mg - Labs Labs: 05/27/18 07:28 05/27/18 07:28 PT 13.4 SECONDS (9.7-12.2) H 05/23/18 05:17 INR 1.2 05/23/18 05:17 APTT 30 SECONDS (21-34) 05/23/18 05:17 - Constitutional Appears: Well, No Acute Distress - Respiratory Exam Respiratory Exam: NORMAL BREATHING PATTERN - Cardiovascular Exam Additional comments: +Dp/PT pulses +radial pulse - Extremities Exam Additional comments: left LE: 3+pitting edema to LLE. Large amount of serous drainage from incision sites, likely due to edema. Noted lesser edema to right leg. +ROM guerita/toes, but reluctant to move. Sensation intact, calves swollen, NT neg homans. Dressings changed. LUE: sling off. APplied and adjusted. Hand elevated. noted edema to left arm as well. Sensation intact, +ROM fingers, wrist. Assessment and Plan (1) Closed left subtrochanteric femur fracture Assessment & Plan: POD#2 s/p long IM nailing significant peripheral edema, s/p one dose lasix yesterday restart lasix ancef due to increased risk of infection with large amount of drainage stat dopplers, advised RN to call to have dopplers done today lovenox ordered PT/OT ordered encourage AROM ice elevation dressing changes to keep dry krishnamurthy/urology consultation pending I&Os d/w Dr. Kuo, agrees with above labs in am Status: Acute (2) Closed fracture of left proximal humerus Assessment & Plan: non op sling ice pain meds Status: Acute (3) Vitamin D deficiency Assessment & Plan: supp ordered Status: Acute (4) Acute blood loss anemia Assessment & Plan: stable Status: Acute
[2018-05-27] MEDS: Enoxaparin 40 mg Syringe SC SCH (17:11)
--- NOTE | 2018-05-27 17:13 | CP.PCM.PN ---
Subjective - Date & Time of Evaluation Date of Evaluation: 05/27/18 Time of Evaluation: 13:00 - Subjective Subjective: Arm pain, cough, moved his bowel, stable hemodynamically Objective - Vital Signs/Intake and Output Vital Signs (last 24 hours): Temp Pulse Resp BP Pulse Ox 98.2 F 84 22 100/67 97 05/27/18 16:00 05/27/18 16:00 05/27/18 16:00 05/27/18 16:26 05/27/18 16:00 Intake and Output: 05/27/18 05/27/18 06:59 18:59 Intake Total 625 Balance 625 - Medications Medications: Current Medications Acetaminophen (Tylenol 325mg Tab) 650 mg PO Q4H PRN PRN Reason: pain fever Last Admin: 05/25/18 12:40 Dose: 650 mg Albuterol/Ipratropium (Duoneb 3 Mg/0.5 Mg (3 Ml) Ud) 3 ml INH RQ6 PRN PRN Reason: Cough and congestion Last Admin: 05/26/18 13:12 Dose: 3 ml Calcium Carbonate (Oscal) 500 mg PO DAILY [facility] Last Admin: 05/27/18 16:25 Dose: 500 mg Docusate Sodium (Colace) 100 mg PO DAILY [facility] Last Admin: 05/27/18 09:38 Dose: 100 mg Enoxaparin Sodium (Lovenox) 40 mg SC Q24H [facility] Ergocalciferol (Drisdol 50,000 Intl Units Cap) 1 cap PO Q7D [facility] Last Admin: 05/27/18 16:25 Dose: 1 cap Famotidine (Pepcid) 20 mg PO DAILY [facility] Last Admin: 05/27/18 09:38 Dose: 20 mg Furosemide (Lasix) 40 mg PO DAILY [facility] Glipizide (Glucotrol) 5 mg PO DAILY [facility] Last Admin: 05/27/18 09:38 Dose: 5 mg Hydromorphone HCl (Dilaudid) 0.5 mg IVP Q4H PRN PRN Reason: Pain, severe (8-10) Last Admin: 05/27/18 14:46 Dose: 0.5 mg Insulin Human Regular (Novolin R) 0 unit SC ACHS [facility] PRN Reason: Protocol Last Admin: 05/27/18 12:30 Dose: 2 unit Loratadine (Claritin) 10 mg PO DAILY PRN PRN Reason: ALLERGY SYMPTOMS Metformin HCl (Glucophage) 1,000 mg PO BID [facility] Last Admin: 05/22/18 19:24 Dose: 1,000 mg Oxycodone/Acetaminophen (Percocet 5/325 Mg Tab) 1 tab PO Q6H PRN PRN Reason: Pain, Mild (1-3) Stop: 05/29/18 12:19 Last Admin: 05/27/18 01:53 Dose: 1 tab Thiamine HCl (Vitamin B1 Tab) 100 mg PO DAILY [facility] Last Admin: 05/27/18 09:38 Dose: 100 mg - Labs Labs: 05/27/18 07:28 05/27/18 07:28 PT 13.4 SECONDS (9.7-12.2) H 05/23/18 05:17 INR 1.2 05/23/18 05:17 APTT 30 SECONDS (21-34) 05/23/18 05:17 - Constitutional Appears: Non-toxic - Head Exam Head Exam: ATRAUMATIC - Eye Exam Eye Exam: EOMI - ENT Exam ENT Exam: Mucous Membranes Moist - Neck Exam Neck Exam: absent: Lymphadenopathy, Thyromegaly - Respiratory Exam Respiratory Exam: Clear to Ausculation Bilateral. absent: Rales - Cardiovascular Exam Cardiovascular Exam: REGULAR RHYTHM, Murmur - GI/Abdominal Exam GI & Abdominal Exam: Normal Bowel Sounds. absent: Organomegaly - Rectal Exam Rectal Exam: Deferred - Extremities Exam Extremities Exam: Normal Capillary Refill. absent: Calf Tenderness - Neurological Exam Neurological Exam: Alert, Oriented x3 - Psychiatric Exam Psychiatric exam: Normal Mood Assessment and Plan (1) Pre-procedural laboratory examination Status: Acute (2) Cirrhosis of liver Status: Acute (3) Diabetes 1.5, managed as type 2 Status: Acute (4) Hypertension Status: Acute (5) Fracture, intertrochanteric, left femur Status: Deleted
[2018-05-28] MEDS: ceFAZolin IV 1 gm in Dextrose 1 GM/50 ML BAG IVPB SCH ×3 (01:49→18:10)
[2018-05-28] MEDS: Oxycodone/Acetaminophen 5/325 mg Tab PO PRN ×2 (06:32→20:05)
--- NOTE | 2018-05-28 06:33 | CP.PCM.PN ---
Subjective - Date & Time of Evaluation Date of Evaluation: 05/28/18 Time of Evaluation: 06:31 - Subjective Subjective: Patient complaining of left shoulder pain and left leg pain. V oided overnight. Complaining of left knee pain during dressing change Objective - Vital Signs/Intake and Output Vital Signs (last 24 hours): Temp Pulse Resp BP Pulse Ox 98.5 F 76 20 90/63 L 97 05/27/18 23:40 05/28/18 03:30 05/27/18 23:40 05/27/18 23:40 05/27/18 23:40 Intake and Output: 05/27/18 05/28/18 18:59 06:59 Intake Total 300 Balance 300 - Medications Medications: Current Medications Acetaminophen (Tylenol 325mg Tab) 650 mg PO Q4H PRN PRN Reason: pain fever Last Admin: 05/25/18 12:40 Dose: 650 mg Albuterol/Ipratropium (Duoneb 3 Mg/0.5 Mg (3 Ml) Ud) 3 ml INH RQ6 PRN PRN Reason: Cough and congestion Last Admin: 05/26/18 13:12 Dose: 3 ml Calcium Carbonate (Oscal) 500 mg PO DAILY [facility] Last Admin: 05/27/18 16:25 Dose: 500 mg Docusate Sodium (Colace) 100 mg PO DAILY [facility] Last Admin: 05/27/18 09:38 Dose: 100 mg Enoxaparin Sodium (Lovenox) 40 mg SC Q24H [facility] Last Admin: 05/27/18 17:11 Dose: 40 mg Ergocalciferol (Drisdol 50,000 Intl Units Cap) 1 cap PO Q7D [facility] Last Admin: 05/27/18 16:25 Dose: 1 cap Famotidine (Pepcid) 20 mg PO DAILY [facility] Last Admin: 05/27/18 09:38 Dose: 20 mg Furosemide (Lasix) 40 mg PO DAILY [facility] Glipizide (Glucotrol) 5 mg PO DAILY [facility] Last Admin: 05/27/18 09:38 Dose: 5 mg Hydromorphone HCl (Dilaudid) 0.5 mg IVP Q4H PRN PRN Reason: Pain, severe (8-10) Last Admin: 05/27/18 14:46 Dose: 0.5 mg Cefazolin Sodium/Dextrose (Ancef Iv 1 Gm Duplex) 1 gm in 50 mls @ 100 mls/hr IVPB Q8H [facility] PRN Reason: Protocol Last Admin: 05/28/18 01:49 Dose: 100 mls/hr Insulin Human Regular (Novolin R) 0 unit SC ACHS [facility] PRN Reason: Protocol Last Admin: 05/27/18 21:24 Dose: Not Given Loratadine (Claritin) 10 mg PO DAILY PRN PRN Reason: ALLERGY SYMPTOMS Metformin HCl (Glucophage) 1,000 mg PO BID [facility] Last Admin: 05/22/18 19:24 Dose: 1,000 mg Oxycodone/Acetaminophen (Percocet 5/325 Mg Tab) 1 tab PO Q6H PRN PRN Reason: Pain, Mild (1-3) Stop: 05/29/18 12:19 Last Admin: 05/27/18 19:02 Dose: 1 tab Thiamine HCl (Vitamin B1 Tab) 100 mg PO DAILY [facility] Last Admin: 05/27/18 09:38 Dose: 100 mg - Labs Labs: 05/27/18 07:28 05/27/18 07:28 PT 13.4 SECONDS (9.7-12.2) H 05/23/18 05:17 INR 1.2 05/23/18 05:17 APTT 30 SECONDS (21-34) 05/23/18 05:17 - Extremities Exam Additional comments: Left hip: dressings changed. moderate serous drainage. No erythema. Incisions intact. noted mild ecchymosis to knee. all extremities edematous, left leg still most edematous, no worsening overnight. +ROM ankle/toes, sensation intact , calves swollen, neg neg homans TTP to knee, no laxity to varus/valgus/ventura LUE: sling adjusted, hand elevated, swelling slightly improved, encourage ROM, fingers, NVID Assessment and Plan (1) Closed left subtrochanteric femur fracture Assessment & Plan: POD#3 s/p IM nailing elevate legs encourage AROM PT/OT today edema likely due to fluid overload, tricia transfusion f/u labs dopplers to be done this am (not completed yesterday) cont diuresis d/w Dr. Kuo, agrees with above will continue ancef until drainage slows Status: Acute (2) Closed fracture of left proximal humerus Assessment & Plan: non operative sling ice NWB PT/OT Status: Acute (3) Vitamin D deficiency Status: Acute (4) Acute blood loss anemia Assessment & Plan: f/u labs Status: Acute
--- NOTE | 2018-05-28 08:06 | PN ---
Copied To: Alysia Colon MD Attending MD: Alysia Colon MD DATE: 05/27/2018 SUBJECTIVE: The patient is seen and examined at the bedside. Looking comfortable. Complaining about pain in the left shoulder and left hip. Range of motion is 0 on those extremities. Had swelling of the legs and retaining urine. I ordered Slater catheter, and for the urology consult. No nausea or vomiting. Denies chest pain, shortness of breath, dizziness, or palpitations. PHYSICAL EXAMINATION: VITAL SIGNS: Temperature 97.6, pulse 84, respiratory rate 20, blood pressure 109/67, pulse oximetry 95%. HEENT: Head is normocephalic and atraumatic. Eyes PERRLA. Extraocular muscles are intact. Conjunctivae clear. Nose patent. Mucous membranes moist. NECK: Supple. No carotid bruits or thyromegaly. CHEST: Bilaterally symmetrical. HEART: S1 and S2 positive. LUNGS: Clear to auscultation. ABDOMEN: Soft. Bowel sounds present. No organomegaly. EXTREMITIES: Positive edema. No cyanosis. NEUROLOGIC: The patient is awake, alert. Follow simple commands. MEDICATIONS: Tylenol, DuoNeb, Os-Chetan, Colace, Lovenox, Pepcid, Lasix, Glucotrol, Dilaudid, Novolin, Claritin, Glucophage, Percocet, thiamine. LABORATORY DATA: White blood cell 6.3, hemoglobin 9.5, hematocrit 27.2, platelets 92. Sodium 135, potassium 3.8, BUN 22, creatinine 0.7, glucose 172. ASSESSMENT AND PLAN: Mr. Rickey Ochoa is a 77-year-old female with anemia, thrombocytopenia, hyperglycemia, renal insufficiency, closed femur fracture, recent peripheral edema as one dose of Lasix yesterday given, but now started on regular Lasix because the patient's body is swollen, but on the other hand, blood pressure is not very high. Ancef due to increased risk of infection and due to large amount of drainage. ____ Doppler. Lovenox was started also but physical therapy and current range of motion. Ice, elevation of the extremities, dressing change to keep it dry. The patient has urinary retention, a Slater catheter ordered. Urology consult called and is pending. I appreciated Dr. Peña's input. There was fracture of the left proximal humerus, nonoperative sling, ice, pain medicines; vitamin D deficiency, replaced that; acute blood loss, anemia, got 2 units of packed RBC. Seen by the machine lacer Dr. Peña. Cirrhosis of the liver, diabetes mellitus, hypertension, gastrointestinal and deep venous thrombosis prophylaxis and repeat labs. We will follow up. Alysia Colon MD
[2018-05-28] MEDS: (Novolin R) Insulin Human Regular 100 units/ml vial SC SCH ×4 (08:14→21:53)
[2018-05-28 08:20] LABS: HEMOGLOBIN 10.4 g/dL (12.0-18.0); MEAN CELL VOLUME 91.3 fL (80.0-94.0); MEAN CORPUSCULAR HEMOGLOBIN 31.7 pg (27.0-31.0); MEAN CORPUSCULAR HGB CONC 34.7 g/dL (33.0-37.0); MEAN PLATELET VOLUME 9.8 fL (7.2-11.7); RBC 3.28 Mil/uL (4.40-5.90); RED CELL DISTRIBUTION WIDTH 15.2 % (11.5-14.5); WHITE BLOOD COUNT 7.9 K/uL (4.8-10.8)
[2018-05-28 08:44] LABS: BLOOD UREA NITROGEN 19 mg/dL (9-20); CALCIUM 7.3 mg/dl (8.6-10.4); GFR AFRICAN-AMERICAN > 60; GFR NON-AFRICAN AMERICAN > 60
--- NOTE | 2018-05-28 09:41 | RAD ---
Date of service: 05/28/2018 PROCEDURE: Left Knee Radiographs. HISTORY: Pain. COMPARISON: None. FINDINGS: BONES: No acute fracture appreciated. A femoral intramedullary corey with distal to horizontal screws are present -the proximal the intramedullary corey is not visualized. The horizontal screws project beyond the medial femoral cortex. JOINTS: Advanced osteoarthritis. JOINT EFFUSION: Present OTHER FINDINGS: Vascular calcifications posterior medial thigh IMPRESSION: Lateral skin sutures suggested. Circumferential subcutaneous reticulated edema Intramedullary corey with distal screws as detailed above. Advanced osteoarthrosis medial femoral tibial compartment most notable. Atherosclerotic vascular calcifications.
[2018-05-28] MEDS: HYDROmorphone 0.5 mg/0.5 ml ISec IVP PRN (10:00)
--- NOTE | 2018-05-28 13:11 | VASCLAB ---
Date of service: 05/28/2018 PROCEDURE: Lower Extremity Venous Duplex Exam. HISTORY: BLE swelling r/o DVT PRIORS: None. TECHNIQUE: Bilateral common femoral, femoral, popliteal and posterior tibial, peroneal and great saphenous veins were evaluated. Flow was assessed with color Doppler, compressibility, assessment of phasic flow and augmentation response. Report prepared by Vladimir Paulino, BS, RVT FINDINGS: RIGHT: 1. Common Femoral Vein: 1.1. Compressibility - Fully compressible: Thrombus - None : Flow - Phasic: Augmentation -Normal: Reflux - None. 2. Femoral Vein: 2.1. Compressibility - Fully compressible: Thrombus - None : Flow - Phasic: Augmentation -Normal: Reflux - None. 3. Popliteal Vein: 3.1. Compressibility - Fully compressible: Thrombus - None : Flow - Phasic: Augmentation -Normal: Reflux - None. 4. Posterior Tibial Vein: 4.1. Compressibility - Fully compressible: Thrombus - None: Flow - Phasic: Augmentation -Normal: Reflux - None. 5. Peroneal Vein: 5.1. Compressibility - Fully compressible: Thrombus - None: Flow - Phasic: Augmentation -Normal: Reflux - None. 6. Great Saphenous Vein: 6.1. Compressibility - Fully compressible: Thrombus - None: Flow - Phasic: Augmentation - Normal: Reflux - None. LEFT: 1. Common Femoral Vein: 1.1. Compressibility - Fully compressible: Thrombus - None: Flow - Phasic: Augmentation -Normal: Reflux - None. 2. Femoral Vein: 2.1. Compressibility - Fully compressible: Thrombus - None: Flow - Phasic: Augmentation -Normal: Reflux - None. 3. Popliteal Vein: 3.1. Compressibility - Fully compressible: Thrombus - None : Flow - Phasic: Augmentation -Normal: Reflux - None. 4. Posterior Tibial Vein: 4.1. Compressibility - Fully compressible: Thrombus - None: Flow - Phasic: Augmentation -Normal: Reflux - None. 5. Peroneal Vein: 5.1. Compressibility - Fully compressible: Thrombus - None: Flow - Phasic: Augmentation -Normal: Reflux - None. 6. Great Saphenous Vein: 6.1. Compressibility - Fully compressible: Thrombus - None: Flow - Phasic: Augmentation - Normal: Reflux - None. OTHER FINDINGS: Technically difficult study due to severe swelling. IMPRESSION: Right: No evidence of deep or superficial vein thrombosis of the right lower extremity. Normal valve function noted of the right side. Left: No evidence of deep or superficial vein thrombosis of the left lower extremity. Normal valve function noted of the left side.
[2018-05-28] MEDS: Enoxaparin 40 mg Syringe SC SCH (16:27)
--- NOTE | 2018-05-28 19:21 | CP.PCM.PN ---
Subjective - Date & Time of Evaluation Date of Evaluation: 05/28/18 Time of Evaluation: 12:00 - Subjective Subjective: was on telemetry, was stopped with pain for ambulation Objective - Vital Signs/Intake and Output Vital Signs (last 24 hours): Temp Pulse Resp BP Pulse Ox 98.2 F 88 20 96/60 L 99 05/28/18 15:55 05/28/18 15:55 05/28/18 15:55 05/28/18 15:55 05/28/18 15:55 Intake and Output: 05/28/18 05/29/18 18:59 06:59 Intake Total 450 Output Total 600 Balance -150 - Medications Medications: Current Medications Acetaminophen (Tylenol 325mg Tab) 650 mg PO Q4H PRN PRN Reason: pain fever Last Admin: 05/25/18 12:40 Dose: 650 mg Albuterol/Ipratropium (Duoneb 3 Mg/0.5 Mg (3 Ml) Ud) 3 ml INH RQ6 PRN PRN Reason: Cough and congestion Last Admin: 05/26/18 13:12 Dose: 3 ml Calcium Carbonate (Oscal) 500 mg PO DAILY [facility] Last Admin: 05/28/18 09:50 Dose: 500 mg Docusate Sodium (Colace) 100 mg PO DAILY [facility] Last Admin: 05/28/18 09:50 Dose: 100 mg Enoxaparin Sodium (Lovenox) 40 mg SC Q24H [facility] Last Admin: 05/28/18 16:27 Dose: 40 mg Ergocalciferol (Drisdol 50,000 Intl Units Cap) 1 cap PO Q7D [facility] Last Admin: 05/27/18 16:25 Dose: 1 cap Famotidine (Pepcid) 20 mg PO DAILY [facility] Last Admin: 05/28/18 09:50 Dose: 20 mg Furosemide (Lasix) 40 mg PO DAILY [facility] Last Admin: 05/28/18 09:50 Dose: 40 mg Glipizide (Glucotrol) 5 mg PO DAILY [facility] Last Admin: 05/28/18 09:50 Dose: 5 mg Hydromorphone HCl (Dilaudid) 0.5 mg IVP Q4H PRN PRN Reason: Pain, severe (8-10) Last Admin: 05/28/18 10:00 Dose: 0.5 mg Cefazolin Sodium/Dextrose (Ancef Iv 1 Gm Duplex) 1 gm in 50 mls @ 100 mls/hr IVPB Q8H [facility] PRN Reason: Protocol Last Admin: 05/28/18 18:10 Dose: 100 mls/hr Insulin Human Regular (Novolin R) 0 unit SC ACHS [facility] PRN Reason: Protocol Last Admin: 05/28/18 17:30 Dose: 2 unit Loratadine (Claritin) 10 mg PO DAILY PRN PRN Reason: ALLERGY SYMPTOMS Metformin HCl (Glucophage) 1,000 mg PO BID [facility] Last Admin: 05/22/18 19:24 Dose: 1,000 mg Oxycodone/Acetaminophen (Percocet 5/325 Mg Tab) 1 tab PO Q6H PRN PRN Reason: Pain, Mild (1-3) Stop: 05/29/18 12:19 Last Admin: 05/28/18 06:32 Dose: 1 tab Thiamine HCl (Vitamin B1 Tab) 100 mg PO DAILY [facility] Last Admin: 05/28/18 09:50 Dose: 100 mg - Labs Labs: 05/28/18 08:15 05/28/18 08:15 PT 13.4 SECONDS (9.7-12.2) H 05/23/18 05:17 INR 1.2 05/23/18 05:17 APTT 30 SECONDS (21-34) 05/23/18 05:17 - Constitutional Appears: Non-toxic - Head Exam Head Exam: ATRAUMATIC - Eye Exam Eye Exam: EOMI - ENT Exam ENT Exam: Mucous Membranes Moist - Neck Exam Neck Exam: absent: Lymphadenopathy, Thyromegaly - Respiratory Exam Respiratory Exam: Clear to Ausculation Bilateral. absent: Rales - Cardiovascular Exam Cardiovascular Exam: REGULAR RHYTHM, Murmur - GI/Abdominal Exam GI & Abdominal Exam: Normal Bowel Sounds. absent: Organomegaly - Rectal Exam Rectal Exam: Deferred - Extremities Exam Extremities Exam: Normal Capillary Refill. absent: Calf Tenderness - Neurological Exam Neurological Exam: Alert, Oriented x3 - Psychiatric Exam Psychiatric exam: Normal Mood - Skin Skin Exam: Dry Assessment and Plan (1) Pre-procedural laboratory examination Status: Acute (2) Cirrhosis of liver Status: Acute (3) Diabetes 1.5, managed as type 2 Status: Acute (4) Hypertension Status: Acute (5) Fracture, intertrochanteric, left femur Status: Deleted
[2018-05-29] MEDS: ceFAZolin IV 1 gm in Dextrose 1 GM/50 ML BAG IVPB SCH (02:21)
--- NOTE | 2018-05-29 02:56 | PN ---
Copied To: Alysia Colon MD Attending MD: Alysia Colon MD DATE: 05/28/2018 SUBJECTIVE: The patient was sitting on the chair, was sitting on the bedside. Still complaining of pain in the left shoulder and left leg having urinating, complaining of left knee, especially during the dressing change. Right upper extremity has also bruises with IV lines. The patient had bowel movement two days ago. PHYSICAL EXAMINATION: VITAL SIGNS: Temperature 98.5, pulse 76, respirations 20, blood pressure 90/66, pulse oximetry 97. HEENT: Head normocephalic and atraumatic. Eyes PERRLA. Extraocular muscles intact. Conjunctivae clear. Nose patent. Mucous membrane moist. NECK: Supple. No carotid bruits, JVD, or thyromegaly. CHEST: Bilaterally symmetrical. HEART: S1, S2 positive. LUNGS: Clear to auscultation. ABDOMEN: Soft. Bowel sounds present. No organomegaly. EXTREMITIES: Left upper and lower extremity movement is 0. Right upper extremity has bruises. Left lower extremity has swelling. MEDICATIONS: DuoNeb, Os-Chetan, Colace, Lovenox, vitamin D, Pepcid, Lasix, Dilaudid, Ancef, Novolin, Claritin, Glucophage, Percocet, thiamine. LABORATORY DATA: White blood cells 6.3, hemoglobin 9.5, hematocrit 27.2, platelets 92. Sodium 135, potassium 3.8, BUN 22, creatinine 0.7, glucose 172. ASSESSMENT AND PLAN: Mr. Rickey Ochoa is a 77-year-old male with renal insufficiency, hyperglycemia, anemia, thrombocytopenia, has a closed left subtrochanteric femur fracture. ____ nailing, elevate legs, encouraged range of motion, physical therapy and occupational therapy, edema due to fluid overload, status post blood transfusions, ____ is done. Closed fracture of the left proximal humerus, vitamin D deficiency, acute blood loss, status post blood transfusion, two pack RBCs, seen by test and turn up technician. Duplex scan lower extremity done. Gastrointestinal and deep venous thrombosis prophylaxis. Continue pain medication. Out of bed physical therapy. We will follow. Alysia Colon MD
[2018-05-29] MEDS: Oxycodone/Acetaminophen 5/325 mg Tab PO PRN (06:58)
[2018-05-29] MEDS: (Novolin R) Insulin Human Regular 100 units/ml vial SC SCH ×4 (08:33→21:31)
[2018-05-29] MEDS: Calcium-Vit D 250 mg-125 Units Tab UD PO SCH (10:01)
--- NOTE | 2018-05-29 11:34 | CP.PCM.PN ---
Subjective - Date & Time of Evaluation Date of Evaluation: 05/29/18 Time of Evaluation: 11:31 - Subjective Subjective: Patient states he is having pain in his arm and leg. Denies CP/SOB/dizziness. Objective - Vital Signs/Intake and Output Vital Signs (last 24 hours): Temp Pulse Resp BP Pulse Ox 98.3 F 89 20 92/60 L 97 05/29/18 07:00 05/29/18 10:00 05/29/18 07:00 05/29/18 10:58 05/29/18 07:00 Intake and Output: 05/29/18 05/29/18 06:59 18:59 Intake Total 410 250 Output Total 750 Balance -340 250 - Medications Medications: Current Medications Acetaminophen (Tylenol 325mg Tab) 650 mg PO Q4H PRN PRN Reason: pain fever Last Admin: 05/25/18 12:40 Dose: 650 mg Albuterol/Ipratropium (Duoneb 3 Mg/0.5 Mg (3 Ml) Ud) 3 ml INH RQ6 PRN PRN Reason: Cough and congestion Last Admin: 05/26/18 13:12 Dose: 3 ml Calcium/Vitamin D (Oscal-D 250 Mg-125 Units Tab) 1 tab PO DAILY [facility] Last Admin: 05/29/18 10:01 Dose: 1 tab Docusate Sodium (Colace) 100 mg PO DAILY [facility] Last Admin: 05/29/18 10:02 Dose: 100 mg Enoxaparin Sodium (Lovenox) 40 mg SC Q24H [facility] Last Admin: 05/28/18 16:27 Dose: 40 mg Ergocalciferol (Drisdol 50,000 Intl Units Cap) 1 cap PO Q7D [facility] Last Admin: 05/27/18 16:25 Dose: 1 cap Famotidine (Pepcid) 20 mg PO DAILY [facility] Last Admin: 05/29/18 10:01 Dose: 20 mg Furosemide (Lasix) 40 mg PO DAILY [facility] Last Admin: 05/29/18 10:58 Dose: Not Given Glipizide (Glucotrol) 5 mg PO DAILY [facility] Last Admin: 05/29/18 10:02 Dose: 5 mg Hydromorphone HCl (Dilaudid) 0.5 mg IVP Q4H PRN PRN Reason: Pain, severe (8-10) Last Admin: 05/28/18 10:00 Dose: 0.5 mg Insulin Human Regular (Novolin R) 0 unit SC ACHS [facility] PRN Reason: Protocol Last Admin: 05/29/18 08:33 Dose: 1 unit Loratadine (Claritin) 10 mg PO DAILY PRN PRN Reason: ALLERGY SYMPTOMS Metformin HCl (Glucophage) 1,000 mg PO BID [facility] Last Admin: 05/22/18 19:24 Dose: 1,000 mg Oxycodone/Acetaminophen (Percocet 5/325 Mg Tab) 1 tab PO Q6H PRN PRN Reason: Pain, Mild (1-3) Stop: 05/29/18 12:19 Last Admin: 05/29/18 06:58 Dose: 1 tab Thiamine HCl (Vitamin B1 Tab) 100 mg PO DAILY [facility] Last Admin: 05/29/18 10:02 Dose: 100 mg - Labs Labs: 05/28/18 08:15 05/28/18 08:15 PT 13.4 SECONDS (9.7-12.2) H 05/23/18 05:17 INR 1.2 05/23/18 05:17 APTT 30 SECONDS (21-34) 05/23/18 05:17 - Extremities Exam Additional comments: Left hip: moderate drainage from all incisions sites. Still with BLE pitting edema. +ROM ankle/toes, sensation intact, calves NT neg homans dopplers neg for DVT LUE: removes sling, readjusted and encouraged, encourage ROM fingers/toes, sensationintact, +radial pulse no change in swelling overnight Assessment and Plan (1) Closed left subtrochanteric femur fracture Assessment & Plan: POD#4 s/p ORIF left hip PT/OT OOB AROM needs continued diuresis, still remarkable edema to extremities (and scrotum as well) as per Dr. Jorgensen for further mgmt elevation d/c planning continue ancef while significant drainage Status: Acute (2) Closed fracture of left proximal humerus Assessment & Plan: non op sling NWB Status: Acute (3) Vitamin D deficiency Status: Acute (4) Acute blood loss anemia Status: Acute
--- NOTE | 2018-05-29 13:45 | CP.PCM.CON ---
Past Patient History - Infectious Disease Hx of Infectious Diseases: None - Past Medical History & Family History Past Medical History?: Yes - Past Social History Smoking Status: Never Smoked - CARDIAC Hx Hypercholesterolemia: Yes Hx Hypertension: Yes - PULMONARY Hx Respiratory Disorders: No - NEUROLOGICAL Hx Transient Ischemic Attacks (TIA): No - HEENT Hx HEENT Problems: Yes Hx Deafness: Yes Other/Comment: left ear MINTO - RENAL Hx Chronic Kidney Disease: No - ENDOCRINE/METABOLIC Hx Diabetes Mellitus Type 2: Yes - HEMATOLOGICAL/ONCOLOGICAL Hx Anemia: Yes - INTEGUMENTARY Hx Dermatological Problems: No - MUSCULOSKELETAL/RHEUMATOLOGICAL Hx Arthritis: Yes - GASTROINTESTINAL Hx Gastrointestinal Disorders: Yes Hx Esophageal Varices: Yes (BANDING DONE) Hx Ulcer: Yes Other/Comment: HX:IRREGULAR CONTOUR OF LIVER WITH CIRRRHOSIS. HX: H-PYLORI- TREATMENT DONE. HX: MELENA - GENITOURINARY/GYNECOLOGICAL Hx Genitourinary Disorders: Yes Hx Prostate Cancer: Yes - PSYCHIATRIC Hx Substance Use: No - SURGICAL HISTORY Hx Surgeries: Yes Other/Comment: HX: ESOPHAGEAL VARICES-BANDING DONE - ANESTHESIA Hx Anesthesia: Yes Hx Anesthesia Reactions: No Hx Malignant Hyperthermia: No Meds Allergies/Adverse Reactions: Allergies Allergy/AdvReac Type Severity Reaction Status Date / Time No Known Allergies Allergy Verified 05/22/18 07:32 - Medications Medications: Current Medications Acetaminophen (Tylenol 325mg Tab) 650 mg PO Q4H PRN PRN Reason: pain fever Last Admin: 05/25/18 12:40 Dose: 650 mg Albuterol/Ipratropium (Duoneb 3 Mg/0.5 Mg (3 Ml) Ud) 3 ml INH RQ6 PRN PRN Reason: Cough and congestion Last Admin: 05/26/18 13:12 Dose: 3 ml Calcium/Vitamin D (Oscal-D 250 Mg-125 Units Tab) 1 tab PO DAILY [facility] Last Admin: 05/29/18 10:01 Dose: 1 tab Docusate Sodium (Colace) 100 mg PO DAILY [facility] Last Admin: 05/29/18 10:02 Dose: 100 mg Enoxaparin Sodium (Lovenox) 40 mg SC Q24H [facility] Last Admin: 05/28/18 16:27 Dose: 40 mg Ergocalciferol (Drisdol 50,000 Intl Units Cap) 1 cap PO Q7D [facility] Last Admin: 05/27/18 16:25 Dose: 1 cap Famotidine (Pepcid) 20 mg PO DAILY [facility] Last Admin: 05/29/18 10:01 Dose: 20 mg Furosemide (Lasix) 40 mg PO DAILY [facility] Last Admin: 05/29/18 10:58 Dose: Not Given Glipizide (Glucotrol) 5 mg PO DAILY [facility] Last Admin: 05/29/18 10:02 Dose: 5 mg Hydromorphone HCl (Dilaudid) 0.5 mg IVP Q4H PRN PRN Reason: Pain, severe (8-10) Last Admin: 05/28/18 10:00 Dose: 0.5 mg Insulin Human Regular (Novolin R) 0 unit SC ACHS [facility] PRN Reason: Protocol Last Admin: 05/29/18 12:24 Dose: 1 unit Loratadine (Claritin) 10 mg PO DAILY PRN PRN Reason: ALLERGY SYMPTOMS Metformin HCl (Glucophage) 1,000 mg PO BID [facility] Last Admin: 05/22/18 19:24 Dose: 1,000 mg Thiamine HCl (Vitamin B1 Tab) 100 mg PO DAILY [facility] Last Admin: 05/29/18 10:02 Dose: 100 mg Results - Vital Signs Recent Vital Signs: Last Vital Signs Temp 98.3 F 05/29/18 07:00 Pulse 89 05/29/18 10:00 Resp 20 05/29/18 07:00 BP 92/60 L 05/29/18 10:58 Pulse Ox 97 05/29/18 07:00 - Labs Result Diagrams: 05/28/18 08:15 05/28/18 08:15 Labs: Laboratory Results - last 24 hr 05/28/18 05/28/18 05/29/18 16:49 21:24 06:21 POC Glucose (mg/dL) 231 H 172 H 164 H 05/29/18 11:44 POC Glucose (mg/dL) 170 H Assessment & Plan - Assessment and Plan (Free Text) Assessment: Imp: Edema of genitalia Fx of LLE/hip Fx of L shoulder Full note tbd YS - Date & Time Date: 05/29/18 Time: 13:45
[2018-05-29] MEDS: HYDROmorphone 0.5 mg/0.5 ml ISec IVP PRN ×2 (15:07→21:07)
[2018-05-29] MEDS: Enoxaparin 40 mg Syringe SC SCH (16:21)
[2018-05-30] MEDS: HYDROmorphone 0.5 mg/0.5 ml ISec IVP PRN (05:57)
[2018-05-30 06:24] LABS: MEAN CELL VOLUME 92.1 fL (80.0-94.0); MEAN CORPUSCULAR HEMOGLOBIN 31.7 pg (27.0-31.0); MEAN CORPUSCULAR HGB CONC 34.5 g/dL (33.0-37.0); MEAN PLATELET VOLUME 10.4 fL (7.2-11.7); RBC 3.17 Mil/uL (4.40-5.90); RED CELL DISTRIBUTION WIDTH 15.8 % (11.5-14.5); WHITE BLOOD COUNT 8.3 K/uL (4.8-10.8)
[2018-05-30 06:48] LABS: BLOOD UREA NITROGEN 20 mg/dL (9-20); CALCIUM 7.3 mg/dl (8.6-10.4); GFR AFRICAN-AMERICAN > 60; GFR NON-AFRICAN AMERICAN > 60
--- NOTE | 2018-05-30 07:42 | CP.PCM.PN ---
Subjective - Date & Time of Evaluation Date of Evaluation: 05/30/18 Time of Evaluation: 07:39 - Subjective Subjective: Patient with poor PT participation. No new complaints. Encouraged ROM ankles/ fingers/wrist at all times while in bed. Objective - Vital Signs/Intake and Output Vital Signs (last 24 hours): Temp Pulse Resp BP Pulse Ox 98.4 F 88 18 108/75 98 05/29/18 23:40 05/29/18 23:40 05/29/18 23:40 05/29/18 23:40 05/29/18 23:40 - Medications Medications: Current Medications Acetaminophen (Tylenol 325mg Tab) 650 mg PO Q4H PRN PRN Reason: pain fever Last Admin: 05/25/18 12:40 Dose: 650 mg Albuterol/Ipratropium (Duoneb 3 Mg/0.5 Mg (3 Ml) Ud) 3 ml INH RQ6 PRN PRN Reason: Cough and congestion Last Admin: 05/26/18 13:12 Dose: 3 ml Calcium/Vitamin D (Oscal-D 250 Mg-125 Units Tab) 1 tab PO DAILY [facility] Last Admin: 05/29/18 10:01 Dose: 1 tab Docusate Sodium (Colace) 100 mg PO DAILY [facility] Last Admin: 05/29/18 10:02 Dose: 100 mg Enoxaparin Sodium (Lovenox) 40 mg SC Q24H [facility] Last Admin: 05/29/18 16:21 Dose: 40 mg Ergocalciferol (Drisdol 50,000 Intl Units Cap) 1 cap PO Q7D [facility] Last Admin: 05/27/18 16:25 Dose: 1 cap Famotidine (Pepcid) 20 mg PO DAILY [facility] Last Admin: 05/29/18 10:01 Dose: 20 mg Furosemide (Lasix) 40 mg PO DAILY [facility] Last Admin: 05/29/18 10:58 Dose: Not Given Glipizide (Glucotrol) 5 mg PO DAILY [facility] Last Admin: 05/29/18 10:02 Dose: 5 mg Hydromorphone HCl (Dilaudid) 0.5 mg IVP Q4H PRN PRN Reason: Pain, severe (8-10) Last Admin: 05/30/18 05:57 Dose: 0.5 mg Insulin Human Regular (Novolin R) 0 unit SC ACHS [facility] PRN Reason: Protocol Last Admin: 05/29/18 21:31 Dose: Not Given Loratadine (Claritin) 10 mg PO DAILY PRN PRN Reason: ALLERGY SYMPTOMS Metformin HCl (Glucophage) 1,000 mg PO BID [facility] Last Admin: 05/22/18 19:24 Dose: 1,000 mg Thiamine HCl (Vitamin B1 Tab) 100 mg PO DAILY [facility] Last Admin: 05/29/18 10:02 Dose: 100 mg - Labs Labs: 05/30/18 06:13 05/30/18 06:13 PT 13.4 SECONDS (9.7-12.2) H 05/23/18 05:17 INR 1.2 05/23/18 05:17 APTT 30 SECONDS (21-34) 05/23/18 05:17 - Extremities Exam Additional comments: Left hip: dressing changed by RN, prior dressing with somewhat less serous drainage.. Still noted swelling to BLE, L>R. sensation intact, calves NT neg homans, still swollen. +ROM ankle/toes, reluctant to move knee or hip LUE: sling intact, +ROM wrist, fingers, sensation intact +radial pulse, still swelling to hand/upper extremity Assessment and Plan (1) Closed left subtrochanteric femur fracture Assessment & Plan: dressing changes legs elevated lasix not given yesterday due to hypotension still significant peripheral swelling, defer to Dr. Colon PT/OT cont ancef until drainage slows d/w Dr. Kuo, agrees with above Status: Acute (2) Closed fracture of left proximal humerus Assessment & Plan: non op sling NWB PT/OT Status: Acute (3) Vitamin D deficiency Status: Acute (4) Acute blood loss anemia Status: Acute
[2018-05-30] MEDS: (Novolin R) Insulin Human Regular 100 units/ml vial SC SCH ×4 (08:10→21:37)
[2018-05-30] MEDS: Calcium-Vit D 250 mg-125 Units Tab UD PO SCH (10:00)
[2018-05-30] MEDS: Albumin Human 25% (12.5 gm/50 ml) IV SCH ×2 (11:13→11:36)
[2018-05-30 11:43] LABS: IRON 27 ug/dL (49-181)
[2018-05-30 11:52] LABS: % IRON SATURATION 11 (20-55); TOTAL IRON BINDING CAPACITY 245 ug/dL (250-450)
[2018-05-30] MEDS ORDERED: Albumin Human 25% (12.5 gm/50 ml) IV SCH (12:00)
[2018-05-30 14:05] LABS: FOLATE 7.7 ng/mL
--- NOTE | 2018-05-30 14:26 | PN ---
Copied To: Alysia Colon MD Attending MD: Alysia Colon MD DATE: 05/29/2018 SUBJECTIVE: The patient is a 77-year-old male. The patient is complaining about pain in his left upper extremity and left lower extremity. Body is swollen but getting hypotension. Credit Analyst is on the case to rule out congestive heart failure. No hematuria. No hematochezia. Genitalia is swollen. Urologist is on the case. Orthopedic is taking care of fracture. PHYSICAL EXAMINATION: VITAL SIGNS: Temperature 98.3, pulse 89, respiratory rate 20, blood pressure 92/60, pulse oximetry 97%. HEENT: Head: Normocephalic and atraumatic. Eyes: PERRLA. Extraocular muscles are intact. Conjunctivae clear. Nose patent. Mucous membranes moist. NECK: Supple. No carotid bruits, JVD, or thyromegaly. CHEST: Bilaterally symmetric. HEART: S1 and S2 are positive. LUNGS: Clear to auscultation. ABDOMEN: Soft. Bowel sounds present. No organomegaly. EXTREMITIES: Positive edema. Range of motion on the left upper and lower extremity is zero. NEUROLOGIC: The patient is awake, alert. Follows simple commands. Oriented x3. MEDICATIONS: Tylenol, DuoNeb, Os-Chetan, Colace, Lovenox, vitamin D, Pepcid, Lasix, Glucotrol, Dilaudid, Novolin, Claritin, Glucophage, oxycodone, and vitamin D1. LABORATORY DATA: White blood cell 7.9, hemoglobin 10.4, hematocrit 30, platelets 101,000. Sodium 131, potassium 4.1, BUN 19, creatinine 0.7, glucose 180. ASSESSMENT AND PLAN: Mr. Don Lang is a 77-year-old male with anemia, thrombocytopenia, hyponatremia, hyperglycemia, left hip moderate drainage from all incision sites, still with pitting edema, positive range of ankle and toes, sensation intact. Calf is not tender. Doppler negative for deep venous thrombosis. Left upper extremity, removed sling, readjusted, and encouraged range of motion. Fingers' sensorium intact. No change in the swelling overnight. Closed left subtrochanteric femur fracture. Postoperative day 4, status post open reduction and internal fixation left hip, need good physical therapy, out of bed. We will continue diuresis, but the patient has hypotension. Closed fracture of left proximal humerus. No operation sling. Medical treatment as per orthopedic. Vitamin D deficiency replaced. Anemia of acute blood loss mainly due to fracture. We will call Nephrology consult to manage electrolytes. Dr. Peña is government guard, rule out congestive heart failure. We will do BNP, repeat labs. We will follow up. Alysia Colon MD MTDTrino
--- NOTE | 2018-05-30 14:55 | CP.PCM.CON ---
History of Present Illness - History of Present Illness History of Present Illness: Nephrology Consultation Note: Assessment: stable KRISS: resolved Hyponatremia edema with scrotal edema ? ascites and due to Cirrhosis DM, HTN, cirrhosis with portal HTN and esophageal varices, hypoalbuminemia anemia of acute blood loss Vit D def Fall s/p left femur fracture and ORIF Plan no acute need for renal replacement therapy. Maintain hemodynamics stable. Avoid hypotension. Patient not on ACEI/ARB due to low BP. will give IV albumin and add aldactone. Monitor Input/Output, daily weights and renal function with basic metabolic panel supplement lytes as needed continue with weekly Vit D. added iron supplement and MVI avoid correction in serum Na >6-8 meq/24 hrs work up for hyponatremia as ordered check CT abdomen/pelvis as well Dose meds/antibiotics for improved GFR>60. Avoid nephrotoxins/NSAIDs Glycemic control Further work up/management as per primary team Thanks for allowing me to participate in care of your patient. Will follow patient with you. Please call if any Qs. had d/w team and with pt permission. Dr Kp Romo Office: [phone] Reason for consult: Hyponatremia CC: abdomen and scrotal swelling HPI: Pt is a 77 M with hx of diabetes Mellitus hypertension, cirrhosis with portal HTN and esophageal varices, ex smoker and ex etoh presented with complaints of fall and found to have left femur fracture s/o ORIF. also with anemia s/p PRBC. renal consult for hyponatremia. pt with leg swelling, being diuresed. also with scrotal swelling. had KRISS initially which had resolved. Denies OTC/herbal meds or NSAIDs No recent IV iodinated contrast exposure. Noted obvious episodes of low BP. ROS: Cardiovascular: No chest pain. Pulmonary: No shortness of breath Gastrointestinal: denies abdominal pain no nausea.no vomiting. c/o abdomen distension Genitourinary: No pain while urinating. Denies blood in urine. now urinating All other negative except as mentioned in HPI. c/o left thigh pain Physical Examination: General Appearance: comfortable, in no acute respiratory distress, co- operative. ill appearing Vitals reviewed and noted as below Head; Atraumatic, normocephalic ENT: no ulcers no thrush. Tongue is midline. Oropharynx: no rash or ulcers. hard of hearing EYES: Pupils are equal, round and reactive to light accommodation. Eye muscles and extraocular movement intact. Sclera is anicteric. Neck; supple no lymphadenopathy, no thyromegaly or bruit Lungs: Normal respiratory rate/effort. Breath sounds bilateral equal and clear anteriorly Heart: Normal rate. s1s2 normal. No rub or gallop. Extremities: 2+ edema. No varicose veins Neurological: Patient is alert, awake and oriented to person, place and time. No focal deficit. Strength bilateral appropriate and equal. Skin: Warm and dry. Normal turgor. No rash. Palpitation: Normal elasticity for age. echymoses uper b/l upper extremity Abdomen: Abdomen is soft. Bowel sounds +. There is no abdominal tenderness, no guarding/rigidity no organomegaly. distended, somewhat tense to palpate Psych: normal insight and normal affect/mood MSK: Digits and nails normal, no deformity : kidney or bladder not palpable. scrotal edema + with superficial echymose + Labs/imaging reviewed. Past medical history, past surgical history, family history, social history, allergy reviewed and noted as below Family hx: no hx of CKD. Rest non-contributory normal LVEF n echo Past Patient History - Infectious Disease Hx of Infectious Diseases: None - Past Medical History & Family History Past Medical History?: Yes - Past Social History Smoking Status: Never Smoked - CARDIAC Hx Hypercholesterolemia: Yes Hx Hypertension: Yes - PULMONARY Hx Respiratory Disorders: No - NEUROLOGICAL Hx Transient Ischemic Attacks (TIA): No - HEENT Hx HEENT Problems: Yes Hx Deafness: Yes Other/Comment: left ear [place] - RENAL Hx Chronic Kidney Disease: No - ENDOCRINE/METABOLIC Hx Diabetes Mellitus Type 2: Yes - HEMATOLOGICAL/ONCOLOGICAL Hx Anemia: Yes - INTEGUMENTARY Hx Dermatological Problems: No - MUSCULOSKELETAL/RHEUMATOLOGICAL Hx Arthritis: Yes - GASTROINTESTINAL Hx Gastrointestinal Disorders: Yes Hx Esophageal Varices: Yes (BANDING DONE) Hx Ulcer: Yes Other/Comment: HX:IRREGULAR CONTOUR OF LIVER WITH CIRRRHOSIS. HX: H-PYLORI- TREATMENT DONE. HX: MELENA - GENITOURINARY/GYNECOLOGICAL Hx Genitourinary Disorders: Yes Hx Prostate Cancer: Yes - PSYCHIATRIC Hx Substance Use: No - SURGICAL HISTORY Hx Surgeries: Yes Other/Comment: HX: ESOPHAGEAL VARICES-BANDING DONE - ANESTHESIA Hx Anesthesia: Yes Hx Anesthesia Reactions: No Hx Malignant Hyperthermia: No Meds Allergies/Adverse Reactions: Allergies Allergy/AdvReac Type Severity Reaction Status Date / Time No Known Allergies Allergy Verified 05/22/18 07:32 - Medications Medications: Current Medications Acetaminophen (Tylenol 325mg Tab) 650 mg PO Q4H PRN PRN Reason: pain fever Last Admin: 05/25/18 12:40 Dose: 650 mg Albumin Human (Albumin Human 25% (12.5 Gm/50 Ml)) 12.5 gm IV Q6 [facility] Stop: 05/30/18 18:01 Albuterol/Ipratropium (Duoneb 3 Mg/0.5 Mg (3 Ml) Ud) 3 ml INH RQ6 PRN PRN Reason: Cough and congestion Last Admin: 05/26/18 13:12 Dose: 3 ml Calcium/Vitamin D (Oscal-D 250 Mg-125 Units Tab) 1 tab PO DAILY [facility] Last Admin: 05/30/18 10:00 Dose: 1 tab Docusate Sodium (Colace) 100 mg PO DAILY [facility] Last Admin: 05/30/18 10:00 Dose: 100 mg Enoxaparin Sodium (Lovenox) 40 mg SC Q24H [facility] Last Admin: 05/29/18 16:21 Dose: 40 mg Ergocalciferol (Drisdol 50,000 Intl Units Cap) 1 cap PO Q7D [facility] Last Admin: 05/27/18 16:25 Dose: 1 cap Famotidine (Pepcid) 20 mg PO DAILY [facility] Last Admin: 05/30/18 10:00 Dose: 20 mg Ferrous Gluconate (Fergon) 324 mg PO TID [facility] Last Admin: 05/30/18 11:11 Dose: 324 mg Furosemide (Lasix) 40 mg PO DAILY [facility] Last Admin: 05/30/18 10:37 Dose: Not Given Glipizide (Glucotrol) 5 mg PO DAILY [facility] Last Admin: 05/30/18 10:00 Dose: 5 mg Hydromorphone HCl (Dilaudid) 0.5 mg IVP Q4H PRN PRN Reason: Pain, severe (8-10) Last Admin: 05/30/18 05:57 Dose: 0.5 mg Insulin Human Regular (Novolin R) 0 unit SC ACHS [facility] PRN Reason: Protocol Last Admin: 05/30/18 12:06 Dose: 1 unit Loratadine (Claritin) 10 mg PO DAILY PRN PRN Reason: ALLERGY SYMPTOMS Metformin HCl (Glucophage) 1,000 mg PO BID [facility] Last Admin: 05/22/18 19:24 Dose: 1,000 mg Spironolactone (Aldactone) 50 mg PO DAILY [facility] Last Admin: 05/30/18 11:11 Dose: 50 mg Thiamine HCl (Vitamin B1 Tab) 100 mg PO DAILY [facility] Last Admin: 05/30/18 10:00 Dose: 100 mg Vitamin B Complex/Vit C/Folic Acid (Nephro-Mai) 1 tab PO 0800 [facility] Results - Vital Signs Recent Vital Signs: Last Vital Signs Temp 98.6 F 05/30/18 07:35 Pulse 88 05/30/18 11:35 Resp 20 05/30/18 07:35 BP 84/61 L 05/30/18 11:35 Pulse Ox 96 05/30/18 07:35 - Labs Result Diagrams: 05/30/18 06:13 05/30/18 06:13 Labs: Laboratory Results - last 24 hr 05/29/18 05/29/18 05/30/18 16:59 21:14 06:13 WBC 8.3 RBC 3.17 L Hgb 10.0 L Hct 29.1 L MCV 92.1 MCH 31.7 H MCHC 34.5 RDW 15.8 H Plt Count 122 L D MPV 10.4 Sodium Potassium Chloride Carbon Dioxide Anion Gap BUN Creatinine Est GFR ( Amer) Est GFR (Non-Af Amer) POC Glucose (mg/dL) 178 H 154 H Random Glucose Serum Osmolality Calcium Iron TIBC % Saturation NT-Pro-B Natriuret Pep Vitamin B12 Folate 05/30/18 05/30/18 05/30/18 06:13 06:23 11:27 WBC RBC Hgb Hct MCV MCH MCHC RDW Plt Count MPV Sodium 131 L Potassium 4.0 Chloride 101 Carbon Dioxide 22 Anion Gap 12 BUN 20 Creatinine 0.7 L Est GFR ( Amer) > 60 Est GFR (Non-Af Amer) > 60 POC Glucose (mg/dL) 140 H Random Glucose 141 H Serum Osmolality Calcium 7.3 L Iron TIBC % Saturation NT-Pro-B Natriuret Pep 128 Vitamin B12 613 Folate 7.7 05/30/18 05/30/18 05/30/18 11:27 11:30 11:51 WBC RBC Hgb Hct MCV MCH MCHC RDW Plt Count MPV Sodium Potassium Chloride Carbon Dioxide Anion Gap BUN Creatinine Est GFR ( Amer) Est GFR (Non-Af Amer) POC Glucose (mg/dL) 176 H Random Glucose Serum Osmolality 285 Calcium Iron 27 L TIBC 245 L % Saturation 11 L NT-Pro-B Natriuret Pep Vitamin B12 Folate
[2018-05-30 16:31] LABS: SQUAMOUS EPITHIAL < 1 /hpf (0-5); URINE BILIRUBIN NEGATIVE (NEGATIVE); URINE BLOOD NEGATIVE (NEGATIVE); URINE CLARITY Clear (Clear); URINE COLOR Yellow (YELLOW); URINE GLUCOSE (UA) NORMAL (Normal); URINE LEUKOCYTE ESTERASE NEG Leu/uL (Negative); URINE PROTEIN NEGATIVE (NEGATIVE); URINE UROBILINOGEN NORMAL mg/dL (0.2-1.0)
[2018-05-30 16:33] LABS: OSMOLALITY,URINE 450 mosm/kg (300-1000)
[2018-05-30] MEDS: Enoxaparin 40 mg Syringe SC SCH (17:15)
--- NOTE | 2018-05-30 17:15 | CT ---
Date of service: 05/30/2018 PROCEDURE: CT Abdomen and Pelvis without intravenous contrast HISTORY: abdomen distension, scrotal swelling fall re- cannulization cirrhosis COMPARISON: Comparison made with prior CT scan of the abdomen pelvis dated 08/08/2016. TECHNIQUE: Contiguous helical/ transaxial sections of the abdomen pelvis performed without oral or intravenous contrast material. Radiation dose: Total exam DLP = 1148.90 mGy-cm. This CT exam was performed using one or more of the following dose reduction techniques: Automated exposure control, adjustment of the mA and/or kV according to patient size, and/or use of iterative reconstruction technique. FINDINGS: LOWER THORAX: Heart appears enlarged. No significant pericardial effusion. There is a tiny hiatal hernia. Mild passive/dependent type atelectasis both posterior lung alarcon. There also appears to be some mild linear atelectasis and or scarring middle lobe and lingular regions. LIVER: Liver is diminutive in overall size with nodular surface contour. Abdominal ascites is present most notably surrounding liver with small amount of pelvic ascites as well. Suspect of re- cannulization of the umbilical vein. GALLBLADDER AND BILE DUCTS: Gallbladder is physiologically distended. No evidence of intraluminal gallbladder calculi. PANCREAS: Unremarkable. No gross lesion or ductal dilatation. SPLEEN: Spleen exhibits relatively normal size. No splenic mass or collection. ADRENALS: No adrenal lesions KIDNEYS AND URETERS: Kidneys demonstrate relatively symmetric size. There is a complex appearing cyst anterior mid to lower pole left kidney with incomplete linear peripheral calcification. There are also noted at least 2 with 3 partially exophytic cysts posterior aspect midpole left kidney. VASCULATURE: Unremarkable. No aortic aneurysm. BOWEL: Evaluation of the bowel is somewhat limited due to the lack of oral contrast material. The stomach is incompletely distended with some food debris liquid and air. There is secondary on wall thickening of the stomach which is likely due to incomplete distention however gastritis or other intrinsic/ invasive wall lesion not excluded. Visualized loops of small bowel exhibit normal contour and caliber. No evidence of acute mechanical small bowel obstruction. Stool and air seen throughout the large bowel suggesting mild fecal retention/ constipation. APPENDIX: Normal-appearing appendix of best seen on axial image number [id number]. PERITONEUM: As above. No free air. There appears to be mild infiltration -edema changes within the subcutaneous tissues suggesting mild anasarca. . In the subcutaneous infiltration extends into the upper thighs bilaterally left greater than right LYMPH NODES: Unremarkable. No enlarged lymph nodes. BLADDER: Urinary bladder is physiologically distended. Small amount of air is present within the urinary bladder which could be secondary to recent instrumentation however correlation with urinalysis recommended to exclude the possibility of infection with gas-forming organism. REPRODUCTIVE: Two tiny on linear metallic densities are seen in the prostate gland of uncertain etiology. Rule out on radiation implant seeds. BONES: Mild multilevel degenerative spondylosis of the lower thoracic and lumbar spine. Chronic appearing anterior wedge deformity of the L3 segment. ORIF changes left hip OTHER FINDINGS: The scrotum is enlarged -distended apparently with fluid (possibly representing ascites fluid) however the possibility of a cellulitis or other inflammatory process not excluded. IMPRESSION: Findings consistent with cirrhosis and portal hypertension with suspected recanalization of the umbilical vein. Abdominal ascites. Left renal cysts 1 of which is complex in appearance. Followup interval recommended. Air is present within the urinary bladder possibly due to recent instrumentation however correlation with urinalysis to exclude infection with gas-forming organism. Markedly enlarged fluid-filled apparent fluid-filled scrotum on possibly due to ascites fluid however cellulitis or other inflammatory process not excluded. Findings consistent with anasarca. See above discussion for additional details and findings.
[2018-05-30 17:27] LABS: ALBUMIN 2.3 g/dL (3.5-5.0); URIC ACID 4.7 mg/dL (3.5-8.5)
[2018-05-30 18:03] LABS: FERRITIN 99.9 ng/mL
--- NOTE | 2018-05-31 07:45 | CON ---
Copied To: Romi Genao MD Attending MD: Romi Genao MD DATE: 05/30/2018 UROLOGY CONSULTATION REQUESTED BY: Alysia Colon MD. Urology consultation is filled by Dr. Romi Genao. REASON FOR CONSULTATION: Edema of genitalia. The patient is 77-year-old male with edema of genitalia. The patient is in otherwise fair health. The patient fell from the bottom step of a ladder last week. The patient sustained a fracture to his left hip and to his left shoulder. The patient underwent left hip surgery during his hospitalization. The patient had a Slater catheter perioperatively. Slater catheter has been subsequently removed. The patient has been voiding with good stream and good control. The patient reports no hematuria. For the past several days, the patient has had progressive edema of the genitalia. The patient has had edema of the penis and scrotum. The patient also has had edema of lower extremities. The patient reports that he is having shoulder pain. He reports that his hip feels comfortable. There has been no hematuria. No flank pain. No history of urolithiasis. The patient reports good appetite. The patient reports normal bowel movements. PHYSICAL EXAMINATION: GENERAL: The patient is a well-developed, well-nourished elderly male. The patient is awake and alert. Family is in attendance. ABDOMEN: Soft, nontender, mildly distended. BACK: No CVA tenderness. GENITALIA: The patient has marked edema of the penis and scrotum. The patient is uncircumcised. There was ecchymosis of the scrotum and perineum as well. IMPRESSION: Edema of genitalia. Etiology edema may be due to fluid overload, as the patient also has edema of the lower extremities. There was apparently no trauma to the scrotum. According to the patient's history, he did not develop the edema of the scrotum until the past 2 days while in the hospital. RECOMMENDATIONS AND PLAN: Elevation of the genitalia. Monitor clinical course. Further therapy to follow according to the patient's clinical course. Thank you for recommending this patient for urology consultation. Romi Genao MD cc: Alysia Colon MD
[2018-05-31] MEDS: (Novolin R) Insulin Human Regular 100 units/ml vial SC SCH ×4 (08:19→21:54)
[2018-05-31] MEDS: Multivitamin Vitamin B Complex (Nephro-Vite) Tab PO SCH (08:19)
[2018-05-31] MEDS: HYDROmorphone 0.5 mg/0.5 ml ISec IVP PRN (08:20)
[2018-05-31 08:32] LABS: HEMOGLOBIN 10.4 g/dL (12.0-18.0); MEAN CORPUSCULAR HEMOGLOBIN 31.9 pg (27.0-31.0); MEAN CORPUSCULAR HGB CONC 34.7 g/dL (33.0-37.0); MEAN PLATELET VOLUME 9.9 fL (7.2-11.7); RBC 3.24 Mil/uL (4.40-5.90); RED CELL DISTRIBUTION WIDTH 15.5 % (11.5-14.5); WHITE BLOOD COUNT 8.4 K/uL (4.8-10.8)
[2018-05-31 08:47] LABS: ALB/GLOB RATIO 0.9 (1.0-2.1); ALBUMIN 2.7 g/dL (3.5-5.0); ALT/SGPT 31 U/L (21-72); AST/SGOT 45 U/L (17-59); BLOOD UREA NITROGEN 18 mg/dL (9-20); GFR AFRICAN-AMERICAN > 60; GFR NON-AFRICAN AMERICAN > 60
[2018-05-31] MEDS: Calcium-Vit D 250 mg-125 Units Tab UD PO SCH (10:18)
--- NOTE | 2018-05-31 10:48 | CP.PCM.PN ---
Subjective - Date & Time of Evaluation Date of Evaluation: 05/31/18 Time of Evaluation: 10:45 - Subjective Subjective: Patient states he has too much pain and can't move around. Dneies CP/SOB/ dizzines Objective - Vital Signs/Intake and Output Vital Signs (last 24 hours): Temp Pulse Resp BP Pulse Ox 98.4 F 80 20 108/73 94 L 05/31/18 07:25 05/31/18 07:25 05/31/18 07:25 05/31/18 10:18 05/31/18 07:25 Intake and Output: 05/31/18 05/31/18 06:59 18:59 Intake Total 300 Balance 300 - Medications Medications: Current Medications Acetaminophen (Tylenol 325mg Tab) 650 mg PO Q4H PRN PRN Reason: pain fever Last Admin: 05/25/18 12:40 Dose: 650 mg Albuterol/Ipratropium (Duoneb 3 Mg/0.5 Mg (3 Ml) Ud) 3 ml INH RQ6 PRN PRN Reason: Cough and congestion Last Admin: 05/26/18 13:12 Dose: 3 ml Calcium/Vitamin D (Oscal-D 250 Mg-125 Units Tab) 1 tab PO DAILY [facility] Last Admin: 05/31/18 10:18 Dose: 1 tab Docusate Sodium (Colace) 100 mg PO DAILY [facility] Last Admin: 05/31/18 10:18 Dose: 100 mg Enoxaparin Sodium (Lovenox) 40 mg SC Q24H [facility] Last Admin: 05/30/18 17:15 Dose: 40 mg Ergocalciferol (Drisdol 50,000 Intl Units Cap) 1 cap PO Q7D [facility] Last Admin: 05/27/18 16:25 Dose: 1 cap Famotidine (Pepcid) 20 mg PO DAILY [facility] Last Admin: 05/31/18 10:18 Dose: 20 mg Ferrous Gluconate (Fergon) 324 mg PO TID [facility] Last Admin: 05/31/18 10:22 Dose: 324 mg Furosemide (Lasix) 40 mg PO DAILY [facility] Last Admin: 05/31/18 10:18 Dose: 40 mg Glipizide (Glucotrol) 5 mg PO DAILY [facility] Last Admin: 05/31/18 10:18 Dose: 5 mg Hydromorphone HCl (Dilaudid) 0.5 mg IVP Q4H PRN PRN Reason: Pain, severe (8-10) Last Admin: 05/31/18 08:20 Dose: 0.5 mg Insulin Human Regular (Novolin R) 0 unit SC ACHS [facility] PRN Reason: Protocol Last Admin: 05/31/18 08:19 Dose: 1 unit Loratadine (Claritin) 10 mg PO DAILY PRN PRN Reason: ALLERGY SYMPTOMS Metformin HCl (Glucophage) 1,000 mg PO BID [facility] Last Admin: 05/22/18 19:24 Dose: 1,000 mg Spironolactone (Aldactone) 50 mg PO DAILY [facility] Last Admin: 05/31/18 10:19 Dose: 50 mg Thiamine HCl (Vitamin B1 Tab) 100 mg PO DAILY [facility] Last Admin: 05/31/18 10:18 Dose: 100 mg Vitamin B Complex/Vit C/Folic Acid (Nephro-Mai) 1 tab PO 0800 [facility] Last Admin: 05/31/18 08:19 Dose: 1 tab - Labs Labs: 05/31/18 08:18 05/31/18 08:18 PT 13.4 SECONDS (9.7-12.2) H 05/23/18 05:17 INR 1.2 05/23/18 05:17 APTT 30 SECONDS (21-34) 05/23/18 05:17 - Extremities Exam Additional comments: severe left hip drainage. Not changed overnight. Prevena dressing applied increased peripheral swelling +ROM ankle/toes, sensation intact calves NT neg homans Assessment and Plan (1) Closed left subtrochanteric femur fracture Assessment & Plan: PO#6 s/p left hip IM nail ORIF severe wound serous drainage due to peripheral edema GI consult appreciated incrased risk of infection due to wound drainage, will try wound vac dressing ancef continued hypotension d/w Dr. Kuo, agrees with above needs out of bed elevate legs Status: Acute (2) Vitamin D deficiency Assessment & Plan: non op sling encourage ROM fingers Status: Acute (3) Closed fracture of left proximal humerus Status: Acute (4) Acute blood loss anemia Status: Acute
[2018-05-31] MEDS ORDERED: Lidocaine 2% Jelly (Uro-Jet) TOP ONE (10:51)
--- NOTE | 2018-05-31 14:13 | CP.PCM.PN ---
Subjective - Date & Time of Evaluation Date of Evaluation: 05/31/18 Time of Evaluation: 14:12 - Subjective Subjective: Nephrology Consultation Note: Assessment: stable KRISS: resolved Hyponatremia edema with scrotal edema ? ascites and due to Cirrhosis DM, HTN, cirrhosis with portal HTN and esophageal varices, hypoalbuminemia anemia of acute blood loss Vit D def Fall s/p left femur fracture and ORIF Plan no acute need for renal replacement therapy. Maintain hemodynamics stable. Avoid hypotension. Patient not on ACEI/ARB due to low BP. s/p IV albumin and added aldactone. continue with lasix as tolerated by BP Monitor Input/Output, daily weights and renal function with basic metabolic panel supplement lytes as needed continue with weekly Vit D. added iron supplement and MVI avoid correction in serum Na >6-8 meq/24 hrs consider GI eval for cirrhosis and portal HTN management. Dose meds/antibiotics for improved GFR>60. Avoid nephrotoxins/NSAIDs Glycemic control Further work up/management as per primary team Thanks for allowing me to participate in care of your patient. Will follow patient with you. Please call if any Qs. had d/w team and with pt permission. Dr Kp Romo Office: [phone] Reason for consult: Hyponatremia CC: abdomen and scrotal swelling HPI: Pt is a 77 M with hx of diabetes Mellitus hypertension, cirrhosis with portal HTN and esophageal varices, ex smoker and ex etoh presented with complaints of fall and found to have left femur fracture s/o ORIF. also with anemia s/p PRBC. renal consult for hyponatremia. pt with leg swelling, being diuresed. also with scrotal swelling. had KRISS initially which had resolved. Denies OTC/herbal meds or NSAIDs No recent IV iodinated contrast exposure. Noted obvious episodes of low BP. ROS: Cardiovascular: No chest pain. Pulmonary: No shortness of breath Gastrointestinal: denies abdominal pain no nausea.no vomiting. c/o abdomen distension Genitourinary: No pain while urinating. Denies blood in urine. now urinating All other negative except as mentioned in HPI. c/o left thigh pain Physical Examination: General Appearance: comfortable, in no acute respiratory distress, co- operative. stable appearing Vitals reviewed and noted as below Head; Atraumatic, normocephalic ENT: no ulcers no thrush. Tongue is midline. Oropharynx: no rash or ulcers. hard of hearing EYES: Pupils are equal, round and reactive to light accommodation. Eye muscles and extraocular movement intact. Sclera is anicteric. Neck; supple no lymphadenopathy, no thyromegaly or bruit Lungs: Normal respiratory rate/effort. Breath sounds bilateral equal and clear anteriorly Heart: Normal rate. s1s2 normal. No rub or gallop. Extremities: 2+ edema. No varicose veins Neurological: Patient is alert, awake and oriented to person, place and time. No focal deficit. Strength bilateral appropriate and equal. Skin: Warm and dry. Normal turgor. No rash. Palpitation: Normal elasticity for age. echymoses uper b/l upper extremity Abdomen: Abdomen is soft. Bowel sounds +. There is no abdominal tenderness, no guarding/rigidity no organomegaly. distended, Psych: normal insight and normal affect/mood MSK: Digits and nails normal, no deformity : kidney or bladder not palpable. scrotal edema + with superficial echymose + Labs/imaging reviewed. Past medical history, past surgical history, family history, social history, allergy reviewed and noted as below Family hx: no hx of CKD. Rest non-contributory normal LVEF n echo Objective - Vital Signs/Intake and Output Vital Signs (last 24 hours): Temp Pulse Resp BP Pulse Ox 98.4 F 86 20 105/69 94 L 05/31/18 07:25 05/31/18 12:02 05/31/18 07:25 05/31/18 12:02 05/31/18 07:25 Intake and Output: 05/31/18 05/31/18 06:59 18:59 Intake Total 300 Balance 300 - Medications Medications: Current Medications Acetaminophen (Tylenol 325mg Tab) 650 mg PO Q4H PRN PRN Reason: pain fever Last Admin: 05/25/18 12:40 Dose: 650 mg Albuterol/Ipratropium (Duoneb 3 Mg/0.5 Mg (3 Ml) Ud) 3 ml INH RQ6 PRN PRN Reason: Cough and congestion Last Admin: 05/26/18 13:12 Dose: 3 ml Calcium/Vitamin D (Oscal-D 250 Mg-125 Units Tab) 1 tab PO DAILY [facility] Last Admin: 05/31/18 10:18 Dose: 1 tab Docusate Sodium (Colace) 100 mg PO DAILY [facility] Last Admin: 05/31/18 10:18 Dose: 100 mg Enoxaparin Sodium (Lovenox) 40 mg SC Q24H [facility] Last Admin: 05/30/18 17:15 Dose: 40 mg Ergocalciferol (Drisdol 50,000 Intl Units Cap) 1 cap PO Q7D [facility] Last Admin: 05/27/18 16:25 Dose: 1 cap Famotidine (Pepcid) 20 mg PO DAILY [facility] Last Admin: 05/31/18 10:18 Dose: 20 mg Ferrous Gluconate (Fergon) 324 mg PO TID [facility] Last Admin: 05/31/18 13:41 Dose: 324 mg Furosemide (Lasix) 40 mg PO DAILY [facility] Last Admin: 05/31/18 10:18 Dose: 40 mg Glipizide (Glucotrol) 5 mg PO DAILY [facility] Last Admin: 05/31/18 10:18 Dose: 5 mg Hydromorphone HCl (Dilaudid) 0.5 mg IVP Q4H PRN PRN Reason: Pain, severe (8-10) Last Admin: 05/31/18 08:20 Dose: 0.5 mg Insulin Human Regular (Novolin R) 0 unit SC ACHS [facility] PRN Reason: Protocol Last Admin: 05/31/18 12:05 Dose: 1 unit Loratadine (Claritin) 10 mg PO DAILY PRN PRN Reason: ALLERGY SYMPTOMS Metformin HCl (Glucophage) 1,000 mg PO BID [facility] Last Admin: 05/22/18 19:24 Dose: 1,000 mg Sodium Phosphate (Fleet Enema) 135 ml [place] ONCE PRN PRN Reason: Constipation Spironolactone (Aldactone) 50 mg PO DAILY [facility] Last Admin: 05/31/18 10:19 Dose: 50 mg Thiamine HCl (Vitamin B1 Tab) 100 mg PO DAILY [facility] Last Admin: 05/31/18 10:18 Dose: 100 mg Vitamin B Complex/Vit C/Folic Acid (Nephro-Mai) 1 tab PO 0800 [facility] Last Admin: 05/31/18 08:19 Dose: 1 tab - Labs Labs: 05/31/18 08:18 05/31/18 08:18 PT 13.4 SECONDS (9.7-12.2) H 05/23/18 05:17 INR 1.2 05/23/18 05:17 APTT 30 SECONDS (21-34) 05/23/18 05:17
[2018-05-31] MEDS: Enoxaparin 40 mg Syringe SC SCH (16:25)
[2018-05-31 21:01] LABS: URINE BILIRUBIN NEGATIVE (NEGATIVE); URINE BLOOD NEGATIVE (NEGATIVE); URINE CLARITY Clear (Clear); URINE COLOR Yellow (YELLOW); URINE GLUCOSE (UA) 1+ mg/dL (Normal); URINE LEUKOCYTE ESTERASE NEG Leu/uL (Negative); URINE PROTEIN NEGATIVE (NEGATIVE)
--- NOTE | 2018-06-01 05:08 | PN ---
Copied To: Alysia Colon MD Attending MD: Alysia Colon MD DATE: 05/31/2018 SUBJECTIVE: The patient is a 77-year-old male. The patient was seen and examined at bedside. The patient was sleepy. and grandson were sitting on the bedside. No chest pain or shortness of breath. No fever. No chills. No nausea, vomiting, or diarrhea. The patient has not had bowel movement from three days and needed more laxatives. Swelling of the legs are getting better. Seen by after school coordinator who suggested albumin infusion and GI consult for cirrhosis of the liver. PHYSICAL EXAMINATION: VITAL SIGNS: Temperature 98.4, pulse 80, respiratory rate 20, blood pressure 108/73, pulse oximetry 94. HEENT: Head is normocephalic and atraumatic. Eyes PERRLA. Extraocular movements intact. Conjunctivae clear. Nose patent. Mucous membranes moist. NECK: Supple. No carotid bruits, JVD, or thyromegaly. CHEST: Bilaterally symmetrical. HEART: S1 and S2 positive. LUNGS: Clear to auscultation. ABDOMEN: Soft. Bowel sounds present. No organomegaly. EXTREMITIES: Positive edema. NEUROLOGIC: The patient is awake, alert, oriented x3. MEDICATIONS: Tylenol, DuoNeb, Os-Chetan, Colace, Lovenox, Pepcid, iron, Lasix, Glucotrol, Dilaudid, Novolin, Claritin, Glucophage, Aldactone, vitamin B1, B complex. LABORATORY DATA: White blood cell is 8.4, hemoglobin 10.4, hematocrit 29.8, platelets 138. Sodium 134, potassium 4.4, BUN 18, creatinine 0.7, glucose 180. ASSESSMENT AND PLAN: Mr. Rickey Ochoa is a 77-year-old male with anemia, hyponatremia, hyperglycemia, has closed left subtrochanteric femur fracture, postoperative day 6 after left hip intramedullary nail open reduction and internal fixation, severe wound and severe discharge due to peripheral edema, increased drain suction due to wound drainage. We will try wound vacuum-assisted closure dressing and [place]. Continue treatment for hypertension. Vitamin B deficiency, replaced. Closed fracture of the left proximal humerus, medical treatment. Acute blood loss. Constipation. Seen by Dr. Kp Romo, after school coordinator. Hypoalbuminemia. He was transfused two units of albumin. Cirrhosis of the liver. We will call oncology consult and gastroenterology consult. Acute kidney injury, resolved.Sacral edema and ascites due to cirrhosis. Hypertension associated with portal hypertension associated with hypoalbuminemia. Anemia of acute blood loss. Fall. No acute need for renal replacement therapy. Maintain hemodynamically stable. Avoid hypotension medications. The patient is not on angiotensin-converting enzyme inhibitor or angiotensin receptor sukhdeep due to low blood pressure. Aldactone. Continue with Lasix. Monitor the blood pressure. Monitor input and output, supplement electrolytes as needed. Continue weekly vitamin D. Gastrointestinal and deep venous thrombosis prophylaxis. Repeat labs. We will followup. Alysia Colon MD MTDTrino
--- NOTE | 2018-06-01 05:17 | PN ---
Copied To: Alysia Colon MD Attending MD: Alysia Colon MD DATE: 05/30/2018 SUBJECTIVE: The patient is a 77-year-old male. The patient is seen and examined at the bedside. Having swelling of the legs and body. He is in pain even he is getting pain medication. No nausea or vomiting. Still has constipation. No fevers. No chills. Denied any dizziness. PHYSICAL EXAMINATION: VITAL SIGNS: Temperature 98.6, pulse 88, respiratory rate 20, blood pressure 84/61, pulse oximetry 96%. HEENT: Head is normocephalic and atraumatic. Eyes: PERRLA. Extraocular muscles are intact. Conjunctivae clear. Nose patent. NECK: Supple. No carotid bruits. No JVD or thyromegaly. CHEST: Bilaterally symmetrical. HEART: S1 and S2 positive. LUNGS: Clear to auscultation. ABDOMEN: Soft. Bowel sounds present. No organomegaly. EXTREMITIES: Positive edema. No cyanosis. NEUROLOGIC: The patient is awake and alert. Follows simple commands. LABORATORY DATA: White blood cell 8.3, hemoglobin 10.1, hematocrit 30.1, platelets 122. Sodium 131, potassium 4, BUN 20, creatinine 0.7, glucose 117. MEDICATIONS: Vitamin D, Pepcid, iron, Lasix, Glucotrol, Dilaudid, insulin, Claritin, Glucophage, Aldactone, and B1. ASSESSMENT AND PLAN: Mr. Don Lang is a 77-year-old male with anemia; thrombocytopenia; hyponatremia; hyperglycemia; acute kidney injury, resolving; hyponatremia, edema with scrotal swelling, ascites due to cirrhosis, diabetes mellitus, h/o hypertension , hyperglycemia, anemia of acute blood loss, vitamin D deficiency, fall with left femur fracture and open reduction and internal fixation, and left shoulder fracture and on medical treatment. PLAN: We will maintain hemodynamically stable. Avoid hypotension. Discussion done with Dr. Kp Romo and the patient's family. IV albumin and add Aldactone. Monitoring input and output. Daily weight with renal function , metabolic panel. Supplement electrolytes as needed. GI and DVT prophylaxis. Repeat labs. We will follow up. Alysia Colon MD MTDTrino
[2018-06-01 07:07] LABS: HEMOGLOBIN 9.6 g/dL (12.0-18.0); MEAN CELL VOLUME 92.7 fL (80.0-94.0); MEAN CORPUSCULAR HEMOGLOBIN 31.5 pg (27.0-31.0); MEAN CORPUSCULAR HGB CONC 33.9 g/dL (33.0-37.0); MEAN PLATELET VOLUME 11.1 fL (7.2-11.7); RBC 3.06 Mil/uL (4.40-5.90); RED CELL DISTRIBUTION WIDTH 15.8 % (11.5-14.5)
[2018-06-01 07:33] LABS: BLOOD UREA NITROGEN 18 mg/dL (9-20); CALCIUM 7.6 mg/dl (8.6-10.4); GFR AFRICAN-AMERICAN > 60; GFR NON-AFRICAN AMERICAN > 60
[2018-06-01] MEDS: Multivitamin Vitamin B Complex (Nephro-Vite) Tab PO SCH (07:52)
[2018-06-01] MEDS: (Novolin R) Insulin Human Regular 100 units/ml vial SC SCH ×4 (08:06→21:43)
[2018-06-01] MEDS: Calcium-Vit D 250 mg-125 Units Tab UD PO SCH (10:02)
[2018-06-01] MEDS: HYDROmorphone 0.5 mg/0.5 ml ISec IVP PRN (12:33)
--- NOTE | 2018-06-01 13:30 | CP.PCM.PN ---
Subjective - Date & Time of Evaluation Date of Evaluation: 06/01/18 Time of Evaluation: 13:28 - Subjective Subjective: Nephrology Consultation Note: Assessment: stable KRISS: resolved Hyponatremia edema with scrotal edema ? ascites and due to Cirrhosis DM, HTN, cirrhosis with portal HTN and esophageal varices, hypoalbuminemia anemia of acute blood loss Vit D def Fall s/p left femur fracture and ORIF Plan no acute need for renal replacement therapy. Maintain hemodynamics stable. Avoid hypotension. Avoiding Gaston/arb on enio continue with lasix as tolerated by BP Monitor Input/Output, daily weights and renal function with basic metabolic panel lytes stable continue with weekly Vit D. added iron supplement and MVI avoid correction in serum Na >6-8 meq/24 hrs na stable today consider GI eval for cirrhosis and portal HTN management. S: seen and examined no complaints today Physical Examination: General Appearance: comfortable, in no acute respiratory distress, co- operative. stable appearing Vitals reviewed and noted as below Head; Atraumatic, normocephalic ENT: no ulcers no thrush. Tongue is midline. Oropharynx: no rash or ulcers. hard of hearing EYES: Pupils are equal, round and reactive to light accommodation. Eye muscles and extraocular movement intact. Sclera is anicteric. Neck; supple no lymphadenopathy, no thyromegaly or bruit Lungs: Normal respiratory rate/effort. Breath sounds bilateral equal and clear anteriorly Heart: Normal rate. s1s2 normal. No rub or gallop. Extremities: 2+ edema. No varicose veins Neurological: Patient is alert, awake and oriented to person, place and time. No focal deficit. Strength bilateral appropriate and equal. Skin: Warm and dry. Normal turgor. No rash. Palpitation: Normal elasticity for age. scattered bruising Abdomen: Abdomen is soft. Bowel sounds +. There is no abdominal tenderness, no guarding/rigidity no organomegaly. distended, Psych: normal insight and normal affect/mood MSK: Digits and nails normal, no deformity : kidney or bladder not palpable. scrotal edema + with superficial ecchymoses+ Objective - Vital Signs/Intake and Output Vital Signs (last 24 hours): Temp Pulse Resp BP Pulse Ox 97.3 F L 80 20 90/60 L 97 06/01/18 07:35 06/01/18 07:35 06/01/18 07:35 06/01/18 10:04 06/01/18 07:35 Intake and Output: 06/01/18 06/01/18 06:59 18:59 Output Total 1300 Balance -1300 - Medications Medications: Current Medications Acetaminophen (Tylenol 325mg Tab) 650 mg PO Q4H PRN PRN Reason: pain fever Last Admin: 05/25/18 12:40 Dose: 650 mg Albuterol/Ipratropium (Duoneb 3 Mg/0.5 Mg (3 Ml) Ud) 3 ml INH RQ6 PRN PRN Reason: Cough and congestion Last Admin: 05/26/18 13:12 Dose: 3 ml Calcium/Vitamin D (Oscal-D 250 Mg-125 Units Tab) 1 tab PO DAILY [facility] Last Admin: 06/01/18 10:02 Dose: 1 tab Docusate Sodium (Colace) 200 mg PO DAILY [facility] Last Admin: 06/01/18 10:03 Dose: 200 mg Enoxaparin Sodium (Lovenox) 40 mg SC Q24H [facility] Last Admin: 05/31/18 16:25 Dose: 40 mg Ergocalciferol (Drisdol 50,000 Intl Units Cap) 1 cap PO Q7D [facility] Last Admin: 05/27/18 16:25 Dose: 1 cap Famotidine (Pepcid) 20 mg PO DAILY [facility] Last Admin: 06/01/18 10:02 Dose: 20 mg Ferrous Gluconate (Fergon) 324 mg PO TID [facility] Last Admin: 06/01/18 10:03 Dose: 324 mg Furosemide (Lasix) 40 mg PO DAILY [facility] Last Admin: 06/01/18 10:04 Dose: Not Given Glipizide (Glucotrol) 5 mg PO DAILY [facility] Last Admin: 06/01/18 10:03 Dose: 5 mg Hydromorphone HCl (Dilaudid) 0.5 mg IVP Q4H PRN PRN Reason: Pain, severe (8-10) Last Admin: 06/01/18 12:33 Dose: 0.5 mg Insulin Human Regular (Novolin R) 0 unit SC ACHS [facility] PRN Reason: Protocol Last Admin: 06/01/18 12:30 Dose: 1 unit Lactulose (Enulose) 30 gm PO DAILY [facility] Last Admin: 06/01/18 10:02 Dose: 30 gm Loratadine (Claritin) 10 mg PO DAILY PRN PRN Reason: ALLERGY SYMPTOMS Metformin HCl (Glucophage) 1,000 mg PO BID [facility] Last Admin: 05/22/18 19:24 Dose: 1,000 mg Sodium Phosphate (Fleet Enema) 135 ml [place] ONCE PRN PRN Reason: Constipation Spironolactone (Aldactone) 50 mg PO DAILY [facility] Last Admin: 06/01/18 10:03 Dose: 50 mg Thiamine HCl (Vitamin B1 Tab) 100 mg PO DAILY [facility] Last Admin: 06/01/18 10:02 Dose: 100 mg Vitamin B Complex/Vit C/Folic Acid (Nephro-Mai) 1 tab PO 0800 [facility] Last Admin: 06/01/18 07:52 Dose: 1 tab - Labs Labs: 06/01/18 06:59 06/01/18 06:59 PT 13.4 SECONDS (9.7-12.2) H 05/23/18 05:17 INR 1.2 05/23/18 05:17 APTT 30 SECONDS (21-34) 05/23/18 05:17
[2018-06-01] MEDS ORDERED: Albumin Human 5% (12.5 gm/250 ml) IV ONE (16:55)
--- NOTE | 2018-06-01 16:58 | CP.PCM.CON ---
<Augusta Gordon - Last Filed: 06/01/18 17:33> History of Present Illness - History of Present Illness History of Present Illness: GI FEllow pGy5 Consult Note This is a 75 year old male with h/o HTN, HL, prostate ca s/p seeds with radiation therapy, cirrhosis from etoh abuse in the past who presents to hospital s/p fall and hip fracture. Pt underwent surgical repair of hip fracture and received blood transfusions. Pt has otherwise been stable but complaining of constipation and rectal pain. He had a colonosocpy in 2015 and found to have diverticulosis, polyp in descending colon and internal hemorrhoids. He had an initial EGD 05/2016 and found to have a ulcer and large varices s/p banding. Repeat EGD 07/30 with varices and banding. EGD 08/30 with no further varices, gastritis, and duodenitis. GI was consulted during tis admission for low albumin. CT imaging 05/30/18 without contrast showed cirrhosis with recannulization of umbilical vein and ascites. CT Liver from 2015 showed cirrhosis, neg HCC, patent PV. ROS: A 12pt ROS was negative except as above PmHx: As stated above PSHx: Hip surgery s/p repair FHx: Neg for colon cancer SHx: Prior etoh abuse, neg tobacco, drugs Past Patient History - Infectious Disease Hx of Infectious Diseases: None - Past Medical History & Family History Past Medical History?: Yes - Past Social History Smoking Status: Never Smoked - CARDIAC Hx Hypercholesterolemia: Yes Hx Hypertension: Yes - PULMONARY Hx Respiratory Disorders: No - NEUROLOGICAL Hx Transient Ischemic Attacks (TIA): No - HEENT Hx HEENT Problems: Yes Hx Deafness: Yes Other/Comment: left ear [place] - RENAL Hx Chronic Kidney Disease: No - ENDOCRINE/METABOLIC Hx Diabetes Mellitus Type 2: Yes - HEMATOLOGICAL/ONCOLOGICAL Hx Anemia: Yes - INTEGUMENTARY Hx Dermatological Problems: No - MUSCULOSKELETAL/RHEUMATOLOGICAL Hx Arthritis: Yes - GASTROINTESTINAL Hx Gastrointestinal Disorders: Yes Hx Esophageal Varices: Yes (BANDING DONE) Hx Ulcer: Yes Other/Comment: HX:IRREGULAR CONTOUR OF LIVER WITH CIRRRHOSIS. HX: H-PYLORI- TREATMENT DONE. HX: MELENA - GENITOURINARY/GYNECOLOGICAL Hx Genitourinary Disorders: Yes Hx Prostate Cancer: Yes - PSYCHIATRIC Hx Substance Use: No - SURGICAL HISTORY Hx Surgeries: Yes Other/Comment: HX: ESOPHAGEAL VARICES-BANDING DONE - ANESTHESIA Hx Anesthesia: Yes Hx Anesthesia Reactions: No Hx Malignant Hyperthermia: No Meds Allergies/Adverse Reactions: Allergies Allergy/AdvReac Type Severity Reaction Status Date / Time No Known Allergies Allergy Verified 05/22/18 07:32 - Medications Medications: Current Medications Acetaminophen (Tylenol 325mg Tab) 650 mg PO Q4H PRN PRN Reason: pain fever Last Admin: 05/25/18 12:40 Dose: 650 mg Albumin Human (Albumin Human 5% (12.5 Gm/250 Ml)) 12.5 gm IV ONCE ONE Stop: 06/01/18 16:56 Albuterol/Ipratropium (Duoneb 3 Mg/0.5 Mg (3 Ml) Ud) 3 ml INH RQ6 PRN PRN Reason: Cough and congestion Last Admin: 05/26/18 13:12 Dose: 3 ml Calcium/Vitamin D (Oscal-D 250 Mg-125 Units Tab) 1 tab PO DAILY [facility] Last Admin: 06/01/18 10:02 Dose: 1 tab Docusate Sodium (Colace) 200 mg PO DAILY [facility] Last Admin: 06/01/18 10:03 Dose: 200 mg Enoxaparin Sodium (Lovenox) 40 mg SC Q24H [facility] Last Admin: 05/31/18 16:25 Dose: 40 mg Ergocalciferol (Drisdol 50,000 Intl Units Cap) 1 cap PO Q7D [facility] Last Admin: 05/27/18 16:25 Dose: 1 cap Famotidine (Pepcid) 20 mg PO DAILY [facility] Last Admin: 06/01/18 10:02 Dose: 20 mg Ferrous Gluconate (Fergon) 324 mg PO TID [facility] Last Admin: 06/01/18 13:43 Dose: 324 mg Furosemide (Lasix) 40 mg PO DAILY [facility] Last Admin: 06/01/18 10:04 Dose: Not Given Glipizide (Glucotrol) 5 mg PO DAILY [facility] Last Admin: 06/01/18 10:03 Dose: 5 mg Hydromorphone HCl (Dilaudid) 0.5 mg IVP Q4H PRN PRN Reason: Pain, severe (8-10) Last Admin: 06/01/18 12:33 Dose: 0.5 mg Insulin Human Regular (Novolin R) 0 unit SC ACHS [facility] PRN Reason: Protocol Last Admin: 06/01/18 12:30 Dose: 1 unit Lactulose (Enulose) 30 gm PO DAILY [facility] Last Admin: 06/01/18 10:02 Dose: 30 gm Loratadine (Claritin) 10 mg PO DAILY PRN PRN Reason: ALLERGY SYMPTOMS Metformin HCl (Glucophage) 1,000 mg PO BID [facility] Last Admin: 05/22/18 19:24 Dose: 1,000 mg Sodium Phosphate (Fleet Enema) 135 ml [place] ONCE PRN PRN Reason: Constipation Spironolactone (Aldactone) 50 mg PO DAILY [facility] Last Admin: 06/01/18 10:03 Dose: 50 mg Thiamine HCl (Vitamin B1 Tab) 100 mg PO DAILY [facility] Last Admin: 06/01/18 10:02 Dose: 100 mg Vitamin B Complex/Vit C/Folic Acid (Nephro-Mai) 1 tab PO 0800 [facility] Last Admin: 06/01/18 07:52 Dose: 1 tab Physical Exam - Constitutional Appears: Non-toxic, No Acute Distress - Head Exam Head Exam: ATRAUMATIC, NORMAL INSPECTION, NORMOCEPHALIC - Eye Exam Eye Exam: EOMI, Normal appearance, PERRL Pupil Exam: PERRL - ENT Exam ENT Exam: Mucous Membranes Moist - Neck Exam Neck exam: Positive for: Full Rom, Normal Inspection - Respiratory Exam Respiratory Exam: Clear to Auscultation Bilateral, NORMAL BREATHING PATTERN - Cardiovascular Exam Cardiovascular Exam: RRR, +S1, +S2 - GI/Abdominal Exam GI & Abdominal Exam: Normal Bowel Sounds, Soft. absent: Distended, Guarding, Organomegaly, Rigid, Tenderness - Rectal Exam Rectal Exam: absent: Deferred - Extremities Exam Extremities exam: Positive for: full ROM, pedal edema - Neurological Exam Neurological exam: Alert, Oriented x3 - Psychiatric Exam Psychiatric exam: Flat Affect - Skin Skin Exam: Dry, Intact, Normal Color, Warm Results - Vital Signs Recent Vital Signs: Last Vital Signs Temp 97.3 F L 06/01/18 07:35 Pulse 87 06/01/18 14:02 Resp 20 06/01/18 07:35 BP 103/73 06/01/18 14:02 Pulse Ox 97 06/01/18 07:35 - Labs Result Diagrams: 06/01/18 06:59 06/01/18 06:59 Labs: Laboratory Results - last 24 hr 08/05/30/18 05/31/18 16:19 16:19 20:39 WBC RBC Hgb Hct MCV MCH MCHC RDW Plt Count MPV Sodium Potassium Chloride Carbon Dioxide Anion Gap BUN Creatinine Est GFR ( Amer) Est GFR (Non-Af Amer) Random Glucose Calcium Urine Color Yellow Urine Clarity Clear Urine pH 5.0 Ur Specific [place] 1.011 Urine Protein Negative Urine Glucose (UA) 1+ H Urine Ketones Negative Urine Blood Negative Urine Nitrate Negative Urine Bilirubin Negative Urine Urobilinogen 2.0 Ur Leukocyte Esterase Neg Urine WBC (Auto) 1 Urine RBC (Auto) 4 H Ur Random Creatinine 108 U Random Total Protein 96 Urine Total Volume 0.9 Microalb/Creat Ratio 8 06/01/18 06/01/18 06:59 06:59 WBC 8.0 RBC 3.06 L Hgb 9.6 L Hct 28.4 L MCV 92.7 MCH 31.5 H MCHC 33.9 RDW 15.8 H Plt Count 123 L MPV 11.1 Sodium 130 L Potassium 4.4 Chloride 103 Carbon Dioxide 23 Anion Gap 8 L BUN 18 Creatinine 0.7 L Est GFR ( Amer) > 60 Est GFR (Non-Af Amer) > 60 Random Glucose 141 H Calcium 7.6 L Urine Color Urine Clarity Urine pH Ur Specific [place] Urine Protein Urine Glucose (UA) Urine Ketones Urine Blood Urine Nitrate Urine Bilirubin Urine Urobilinogen Ur Leukocyte Esterase Urine WBC (Auto) Urine RBC (Auto) Ur Random Creatinine U Random Total Protein Urine Total Volume Microalb/Creat Ratio Assessment & Plan - Assessment and Plan (Free Text) Assessment: This is a 77yM s/p fall and hip fracture. 1. Cirrhosis 2. Ascites 3. Hip fracture s/p repair 4. KRISS 5. Hypoalbuminemia 6. Constipation Plan: -Continue supportive care -Pt stable, H/H stable with no overt GI bleeding -No plan for endoscopic evaluation -Continue diuretics per nephro -Increase lactulose for BM -CT imaging with ascites and Umbilical vein recannulization -Order Abd US with doppler to evaluate portal vein patency -IR cs for paracentesis, fluid analysis ordered -IV albumin one time dose -Order nutritional cs -Will need oupt EGD for variceal screening and further workup on cirrhosis <Obi Butler - Last Filed: 06/01/18 18:02> Meds - Medications Medications: Current Medications Acetaminophen (Tylenol 325mg Tab) 650 mg PO Q4H PRN PRN Reason: pain fever Last Admin: 05/25/18 12:40 Dose: 650 mg Albuterol/Ipratropium (Duoneb 3 Mg/0.5 Mg (3 Ml) Ud) 3 ml INH RQ6 PRN PRN Reason: Cough and congestion Last Admin: 05/26/18 13:12 Dose: 3 ml Calcium/Vitamin D (Oscal-D 250 Mg-125 Units Tab) 1 tab PO DAILY [facility] Last Admin: 06/01/18 10:02 Dose: 1 tab Docusate Sodium (Colace) 200 mg PO DAILY [facility] Last Admin: 06/01/18 10:03 Dose: 200 mg Enoxaparin Sodium (Lovenox) 40 mg SC Q24H [facility] Last Admin: 06/01/18 17:52 Dose: 40 mg Ergocalciferol (Drisdol 50,000 Intl Units Cap) 1 cap PO Q7D [facility] Last Admin: 05/27/18 16:25 Dose: 1 cap Famotidine (Pepcid) 20 mg PO DAILY [facility] Last Admin: 06/01/18 10:02 Dose: 20 mg Ferrous Gluconate (Fergon) 324 mg PO TID [facility] Last Admin: 06/01/18 13:43 Dose: 324 mg Furosemide (Lasix) 40 mg PO DAILY [facility] Last Admin: 06/01/18 10:04 Dose: Not Given Glipizide (Glucotrol) 5 mg PO DAILY [facility] Last Admin: 06/01/18 10:03 Dose: 5 mg Hydromorphone HCl (Dilaudid) 0.5 mg IVP Q4H PRN PRN Reason: Pain, severe (8-10) Last Admin: 06/01/18 12:33 Dose: 0.5 mg Insulin Human Regular (Novolin R) 0 unit SC ACHS [facility] PRN Reason: Protocol Last Admin: 06/01/18 17:54 Dose: 1 unit Lactulose (Enulose) 30 gm PO BID [facility] Loratadine (Claritin) 10 mg PO DAILY PRN PRN Reason: ALLERGY SYMPTOMS Metformin HCl (Glucophage) 1,000 mg PO BID [facility] Last Admin: 05/22/18 19:24 Dose: 1,000 mg Sodium Phosphate (Fleet Enema) 135 ml [place] ONCE PRN PRN Reason: Constipation Spironolactone (Aldactone) 50 mg PO DAILY [facility] Last Admin: 06/01/18 10:03 Dose: 50 mg Thiamine HCl (Vitamin B1 Tab) 100 mg PO DAILY [facility] Last Admin: 06/01/18 10:02 Dose: 100 mg Vitamin B Complex/Vit C/Folic Acid (Nephro-Mai) 1 tab PO 0800 [facility] Last Admin: 06/01/18 07:52 Dose: 1 tab Results - Vital Signs Recent Vital Signs: Last Vital Signs Temp 98.4 F 06/01/18 15:00 Pulse 91 H 06/01/18 15:00 Resp 20 06/01/18 15:00 BP 94/61 L 06/01/18 15:00 Pulse Ox 96 06/01/18 15:00 - Labs Result Diagrams: 06/01/18 06:59 06/01/18 06:59 Labs: Laboratory Results - last 24 hr 05/30/18 05/30/18 05/31/18 16:19 16:19 20:39 WBC RBC Hgb Hct MCV MCH MCHC RDW Plt Count MPV Sodium Potassium Chloride Carbon Dioxide Anion Gap BUN Creatinine Est GFR ( Amer) Est GFR (Non-Af Amer) Random Glucose Calcium Urine Color Yellow Urine Clarity Clear Urine pH 5.0 Ur Specific [place] 1.011 Urine Protein Negative Urine Glucose (UA) 1+ H Urine Ketones Negative Urine Blood Negative Urine Nitrate Negative Urine Bilirubin Negative Urine Urobilinogen 2.0 Ur Leukocyte Esterase Neg Urine WBC (Auto) 1 Urine RBC (Auto) 4 H Ur Random Creatinine 108 U Random Total Protein 96 Urine Total Volume 0.9 Microalb/Creat Ratio 8 06/01/18 06/01/18 06:59 06:59 WBC 8.0 RBC 3.06 L Hgb 9.6 L Hct 28.4 L MCV 92.7 MCH 31.5 H MCHC 33.9 RDW 15.8 H Plt Count 123 L MPV 11.1 Sodium 130 L Potassium 4.4 Chloride 103 Carbon Dioxide 23 Anion Gap 8 L BUN 18 Creatinine 0.7 L Est GFR ( Amer) > 60 Est GFR (Non-Af Amer) > 60 Random Glucose 141 H Calcium 7.6 L Urine Color Urine Clarity Urine pH Ur Specific [place] Urine Protein Urine Glucose (UA) Urine Ketones Urine Blood Urine Nitrate Urine Bilirubin Urine Urobilinogen Ur Leukocyte Esterase Urine WBC (Auto) Urine RBC (Auto) Ur Random Creatinine U Random Total Protein Urine Total Volume Microalb/Creat Ratio Attending/Attestation - Attestation I have personally seen and examined this patient.: Yes I have fully participated in the care of the patient.: Yes I have reviewed all pertinent clinical information: Yes Notes (Text): 06/01/18 18:01 The case was discussed with Dr. Dey. Agree with the assessment and plan as outlined above. Titrate lactulose to 2-3 bms/day.
[2018-06-01] MEDS: Enoxaparin 40 mg Syringe SC SCH (17:52)
--- NOTE | 2018-06-02 00:51 | PN ---
Copied To: Alysia Colon MD Attending MD: Alysia Colon MD DATE: 06/01/2018 SUBJECTIVE: The patient is a 77-year-old male. The patient was seen and examined at the bedside. Looking comfortable. Family was around. No nausea or vomiting. No headache or dizziness. No chest pain or palpitations. Still has pain in the left lower and upper extremities. PHYSICAL EXAMINATION: VITAL SIGNS: Temperature 97.3, pulse 80, respiratory rate 20, blood pressure 90/50, pulse oximetry 97. HEENT: Head is normocephalic and atraumatic. Eyes PERRLA. Extraocular muscles are intact. Conjunctivae clear. Nose patent. Mucous membranes moist. NECK: Supple. No carotid bruits, JVD, or thyromegaly. CHEST: Bilaterally symmetrical. HEART: S1 and S2 positive. LUNGS: Clear to auscultation. ABDOMEN: Soft. Bowel sounds present. No organomegaly. EXTREMITIES: Left upper and lower extremities, the patient cannot move, but no cyanosis. NEUROLOGIC: The patient is awake, alert, oriented x3. MEDICATIONS: Tylenol, DuoNeb, Os-Chetan, Lovenox, Pepcid, Fergon, Lasix, Glucotrol, Novolin, Claritin, Aldactone, vitamin B1. LABORATORY DATA: White blood cell is 8, hemoglobin 9.6, hematocrit 28.9, platelets 123. Sodium 130, potassium 4.4, BUN 18, creatinine 0.7, glucose 141. ASSESSMENT AND PLAN: Mr. Don Lang is a 77-year-old male with anemia; thrombocytopenia; hyponatremia; diabetes mellitus; acute kidney injury, resolved; edema with scrotal and body swelling; ascites due to cirrhosis; hypertension; cirrhosis with portal hypertension and associated varices; hypoalbuminemia; anemia of acute blood loss; vitamin D deficiency; fall; left femur fracture, open reduction and internal fixation; and left shoulder fracture. No acute need of renal replacement therapy. Maintain hemodynamically stable. Avoid hypotension. Continue with the Lasix. Continue with weekly vitamin D. Gastroenterology consult called. Waiting for the input. Seen by urologist and security guard supervisor. Repeat labs. Need good physical therapy. . We will follow. Alysia Colon MD [facility] # [phone]
[2018-06-02] MEDS: HYDROmorphone 0.5 mg/0.5 ml ISec IVP PRN (06:00)
[2018-06-02] MEDS: (Novolin R) Insulin Human Regular 100 units/ml vial SC SCH ×4 (07:54→22:45)
[2018-06-02] MEDS: Multivitamin Vitamin B Complex (Nephro-Vite) Tab PO SCH (07:54)
[2018-06-02 08:11] LABS: HEMOGLOBIN 10.2 g/dL (12.0-18.0); MEAN CELL VOLUME 93.2 fL (80.0-94.0); MEAN CORPUSCULAR HGB CONC 34.4 g/dL (33.0-37.0); MEAN PLATELET VOLUME 10.1 fL (7.2-11.7); RBC 3.19 Mil/uL (4.40-5.90); RED CELL DISTRIBUTION WIDTH 16.2 % (11.5-14.5); WHITE BLOOD COUNT 7.7 K/uL (4.8-10.8)
[2018-06-02 08:13] LABS: INR 1.2
[2018-06-02 08:26] LABS: ALB/GLOB RATIO 0.8 (1.0-2.1); ALBUMIN 2.3 g/dL (3.5-5.0); ALT/SGPT 29 U/L (21-72); AST/SGOT 46 U/L (17-59); BLOOD UREA NITROGEN 18 mg/dL (9-20); CALCIUM 7.8 mg/dl (8.6-10.4); GFR AFRICAN-AMERICAN > 60; GFR NON-AFRICAN AMERICAN > 60
[2018-06-02] MEDS: Calcium-Vit D 250 mg-125 Units Tab UD PO SCH (10:54)
--- NOTE | 2018-06-02 12:09 | CP.PCM.PN ---
<Augusta Gordon - Last Filed: 06/02/18 12:06> Subjective - Date & Time of Evaluation Date of Evaluation: 06/02/18 Time of Evaluation: 10:30 - Subjective Subjective: GI Fellow PGY5 Progress Note Pt seen and evaluated at bedside, pt doing well with no complaints. Tolerating diet and no abdominal pain. +BM yesterday small. ROS: A 12pt ROS was negative except above. Objective - Vital Signs/Intake and Output Vital Signs (last 24 hours): Temp Pulse Resp BP Pulse Ox 98.5 F 88 20 114/73 96 06/02/18 08:54 06/02/18 12:02 06/02/18 08:54 06/02/18 12:02 06/02/18 08:54 Intake and Output: 06/02/18 06/02/18 06:59 18:59 Intake Total 750 Output Total 350 50 Balance 400 -50 - Medications Medications: Current Medications Acetaminophen (Tylenol 325mg Tab) 650 mg PO Q4H PRN PRN Reason: pain fever Last Admin: 05/25/18 12:40 Dose: 650 mg Albuterol/Ipratropium (Duoneb 3 Mg/0.5 Mg (3 Ml) Ud) 3 ml INH RQ6 PRN PRN Reason: Cough and congestion Last Admin: 05/26/18 13:12 Dose: 3 ml Calcium/Vitamin D (Oscal-D 250 Mg-125 Units Tab) 1 tab PO DAILY [facility] Last Admin: 06/02/18 10:54 Dose: 1 tab Docusate Sodium (Colace) 200 mg PO DAILY [facility] Last Admin: 06/02/18 10:54 Dose: 200 mg Enoxaparin Sodium (Lovenox) 40 mg SC Q24H [facility] Last Admin: 06/01/18 17:52 Dose: 40 mg Ergocalciferol (Drisdol 50,000 Intl Units Cap) 1 cap PO Q7D [facility] Last Admin: 05/27/18 16:25 Dose: 1 cap Famotidine (Pepcid) 20 mg PO DAILY [facility] Last Admin: 06/02/18 10:55 Dose: 20 mg Ferrous Gluconate (Fergon) 324 mg PO TID [facility] Last Admin: 06/02/18 10:54 Dose: 324 mg Furosemide (Lasix) 40 mg PO DAILY [facility] Last Admin: 06/02/18 10:57 Dose: Not Given Glipizide (Glucotrol) 5 mg PO DAILY [facility] Last Admin: 06/02/18 10:55 Dose: 5 mg Hydromorphone HCl (Dilaudid) 0.5 mg IVP Q4H PRN PRN Reason: Pain, severe (8-10) Last Admin: 06/02/18 06:00 Dose: 0.5 mg Insulin Human Regular (Novolin R) 0 unit SC ACHS [facility] PRN Reason: Protocol Last Admin: 06/02/18 12:01 Dose: 1 unit Lactulose (Enulose) 30 gm PO BID [facility] Last Admin: 06/02/18 10:54 Dose: 30 gm Loratadine (Claritin) 10 mg PO DAILY PRN PRN Reason: ALLERGY SYMPTOMS Metformin HCl (Glucophage) 1,000 mg PO BID [facility] Last Admin: 05/22/18 19:24 Dose: 1,000 mg Sodium Phosphate (Fleet Enema) 135 ml [place] ONCE PRN PRN Reason: Constipation Spironolactone (Aldactone) 50 mg PO DAILY [facility] Last Admin: 06/02/18 10:54 Dose: 50 mg Thiamine HCl (Vitamin B1 Tab) 100 mg PO DAILY [facility] Last Admin: 06/02/18 10:58 Dose: 100 mg Vitamin B Complex/Vit C/Folic Acid (Nephro-Mai) 1 tab PO 0800 [facility] Last Admin: 06/02/18 07:54 Dose: 1 tab - Labs Labs: 06/02/18 07:58 06/02/18 07:58 PT 13.0 SECONDS (9.7-12.2) H 06/02/18 07:58 INR 1.2 06/02/18 07:58 APTT 30 SECONDS (21-34) 05/23/18 05:17 - Constitutional Appears: Non-toxic, No Acute Distress - Head Exam Head Exam: ATRAUMATIC, NORMAL INSPECTION, NORMOCEPHALIC - Eye Exam Eye Exam: EOMI, Normal appearance, PERRL Pupil Exam: PERRL - ENT Exam ENT Exam: Mucous Membranes Moist - Neck Exam Neck Exam: Full ROM - Respiratory Exam Respiratory Exam: Clear to Ausculation Bilateral, NORMAL BREATHING PATTERN - Cardiovascular Exam Cardiovascular Exam: RRR, +S1, +S2 - GI/Abdominal Exam GI & Abdominal Exam: Soft, Normal Bowel Sounds. absent: Distended, Firm, Guarding, Tenderness, Organomegaly - Extremities Exam Extremities Exam: Full ROM, Pedal Edema - Neurological Exam Neurological Exam: Alert, Awake, Oriented x3 - Psychiatric Exam Psychiatric exam: Normal Affect, Normal Mood - Skin Skin Exam: Dry, Intact, Normal Color, Warm Assessment and Plan - Assessment and Plan (Free Text) Assessment: This is a 77yM s/p fall and hip fracture. 1. Cirrhosis 2. Ascites 3. Hip fracture s/p repair 4. KRISS 5. Hypoalbuminemia 6. Constipation Plan: -Continue supportive care -Pt stable, H/H stable with no overt GI bleeding -No plan for endoscopic evaluation -Continue diuretics per nephro -Increase lactulose for 2-3BM daily -CT imaging with ascites and Umbilical vein recannulization -Order Abd US with doppler to evaluate portal vein patency -IR cs for paracentesis, fluid analysis ordered -Ordered nutritional cs -Will need oupt EGD for variceal screening and further workup on cirrhosis -Will continue to follow closely <Obi Butler - Last Filed: 06/02/18 19:00> Objective - Vital Signs/Intake and Output Vital Signs (last 24 hours): Temp Pulse Resp BP Pulse Ox 98.1 F 79 20 95/60 L 97 06/02/18 16:00 06/02/18 16:00 06/02/18 16:00 06/02/18 16:00 06/02/18 16:00 Intake and Output: 06/02/18 06/02/18 06:59 18:59 Intake Total 750 Output Total 350 50 Balance 400 -50 - Medications Medications: Current Medications Acetaminophen (Tylenol 325mg Tab) 650 mg PO Q4H PRN PRN Reason: pain fever Last Admin: 05/25/18 12:40 Dose: 650 mg Albuterol/Ipratropium (Duoneb 3 Mg/0.5 Mg (3 Ml) Ud) 3 ml INH RQ6 PRN PRN Reason: Cough and congestion Last Admin: 05/26/18 13:12 Dose: 3 ml Calcium/Vitamin D (Oscal-D 250 Mg-125 Units Tab) 1 tab PO DAILY [facility] Last Admin: 06/02/18 10:54 Dose: 1 tab Docusate Sodium (Colace) 200 mg PO DAILY [facility] Last Admin: 06/02/18 10:54 Dose: 200 mg Enoxaparin Sodium (Lovenox) 40 mg SC Q24H [facility] Last Admin: 06/02/18 18:10 Dose: 40 mg Ergocalciferol (Drisdol 50,000 Intl Units Cap) 1 cap PO Q7D [facility] Last Admin: 05/27/18 16:25 Dose: 1 cap Famotidine (Pepcid) 20 mg PO DAILY [facility] Last Admin: 06/02/18 10:55 Dose: 20 mg Ferrous Gluconate (Fergon) 324 mg PO TID [facility] Last Admin: 06/02/18 18:10 Dose: 324 mg Furosemide (Lasix) 40 mg PO DAILY [facility] Last Admin: 06/02/18 10:57 Dose: Not Given Glipizide (Glucotrol) 5 mg PO DAILY [facility] Last Admin: 06/02/18 10:55 Dose: 5 mg Hydromorphone HCl (Dilaudid) 0.5 mg IVP Q4H PRN PRN Reason: Pain, severe (8-10) Last Admin: 06/02/18 06:00 Dose: 0.5 mg Insulin Human Regular (Novolin R) [address] [facility] PRN Reason: Protocol Last Admin: 06/02/18 18:10 Dose: 2 unit Lactulose (Enulose) 30 gm PO Q8H [facility] Loratadine (Claritin) 10 mg PO DAILY PRN PRN Reason: ALLERGY SYMPTOMS Metformin HCl (Glucophage) 1,000 mg PO BID [facility] Last Admin: 05/22/18 19:24 Dose: 1,000 mg Sodium Phosphate (Fleet Enema) 135 ml [place] ONCE PRN PRN Reason: Constipation Spironolactone (Aldactone) 50 mg PO DAILY [facility] Last Admin: 06/02/18 10:54 Dose: 50 mg Thiamine HCl (Vitamin B1 Tab) 100 mg PO DAILY [facility] Last Admin: 06/02/18 10:58 Dose: 100 mg Vitamin B Complex/Vit C/Folic Acid (Nephro-Mai) 1 tab PO 0800 [facility] Last Admin: 06/02/18 07:54 Dose: 1 tab - Labs Labs: 06/02/18 07:58 06/02/18 07:58 PT 13.0 SECONDS (9.7-12.2) H 06/02/18 07:58 INR 1.2 06/02/18 07:58 APTT 30 SECONDS (21-34) 05/23/18 05:17 Attending/Attestation - Attestation I have personally seen and examined this patient.: Yes I have fully participated in the care of the patient.: Yes I have reviewed all pertinent clinical information, including history, physical exam and plan: Yes Notes (Text): 06/02/18 19:00 Chart reviewed. Events noted. Discussed with Dr. Smart and pt's nurse, and pt's family. Agree with the assessment and plan as outlined above.
--- NOTE | 2018-06-02 16:24 | US ---
Abdominal ultrasound History: Cirrhosis. Portal vein patency. Comparison: CT dated 05/30/2018 Technique: Real-time sonography was performed through the abdomen. Findings: Liver: 14.9 centimeters in length. Increased echogenicity of the hepatic parenchymal cortex suggestive for fatty infiltration versus hepatic parenchymal disease. Nodular and cirrhotic contour of the liver. Perihepatic ascites. Gallbladder: No calculi or sludge. Normal wall thickness of 2.7 millimeters. Negative sonographic Weber's sign. Common bile duct measures 4.0 millimeters, within normal limits. Pancreas not well visualized. Perisplenic ascites noted. Prominent spleen measuring up to 12.8 centimeters. Limited visualization of the aorta and IVC. Right kidney: 11.0 x 4.8 x 5.8 centimeters. No calculi or hydronephrosis. Left kidney: 13.3 x 6.3 x 5.9 centimeters. No calculi or hydronephrosis. Lower pole hypoechoic lesion measuring 4.5 x 3.9 x 4.7 centimeters with associated internal cystic foci as well as additional curvilinear foci of increased echogenicity. Additional lower pole hypoechoic cyst measuring 3.5 x 2.2 x 3.0 centimeters. Impression: 1. Nodular and cirrhotic contour of the liver with associated diffuse increased echogenicity of the hepatic parenchymal cortex suggestive for fatty infiltration versus hepatic parenchymal disease. Clinical correlation. 2. Portal vein appears patent demonstrating hepatopetal flow. Perihepatic ascites. 3. Pancreas not well visualized. 4. Perisplenic ascites. Prominent spleen. 5. Aorta and IVC not well visualized. 6. 4.7 centimeter complex cystic lesion in the left kidney. Correlation with contrast-enhanced multiphasic CT or MR for further evaluation maybe helpful if clinically indicated. Additional adjacent left renal lower pole cyst measuring up 3.5 centimeters.
[2018-06-02] MEDS: Enoxaparin 40 mg Syringe SC SCH (18:10)
--- NOTE | 2018-06-03 07:04 | PN ---
Copied To: Alysia Colon MD Attending MD: Alysia Colon MD DATE: 06/02/2018 SUBJECTIVE: The patient is a 77-year-old male. The patient was seen in his room. His daughter and son-in-law were sitting in the room. No nausea, vomiting, or diarrhea. Swelling of the leg is getting better. The patient got albumin. Still has Slater catheter. No fever. No chills. No headaches. No dizziness. Range of motion of left upper and lower extremities was zero. PHYSICAL EXAMINATION: VITAL SIGNS: Temperature 98.5, pulse 80, respiratory rate 20, blood pressure 114/73. . HEENT: Head is normocephalic and atraumatic. Eyes PERRLA. Extraocular movements are intact. Conjunctivae clear. Nose patent. NECK: Supple. No carotid bruits, JVD, or thyromegaly. CHEST: Bilaterally symmetrical. HEART: S1 and S2 positive. LUNGS: Clear to auscultation. ABDOMEN: Soft. Bowel sounds present. No organomegaly. EXTREMITIES: Left upper and lower extremity range of motion is zero. NEUROLOGIC: The patient is awake, alert, oriented x3. Follows simple commands. MEDICATIONS: Tylenol, DuoNeb, Os-Chetan, Colace, Lovenox, vitamin D, Pepcid, ferrous sulphate, Lasix, Glucotrol, Dilaudid, NovoLog, lactulose, Claritin, Glucophage, Aldactone. LABORATORY DATA: White blood cell 7.7, hemoglobin 10.2, hematocrit 29.8, platelets 108. Sodium 130, potassium 4.5, BUN 18, creatinine 0.8, and glucose 155. ASSESSMENT AND PLAN: Mr. Don Lang is a 77-year-old male with anemia, hyponatremia, hyperglycemia. Has cirrhosis of the liver, ascites. Needs paracentesis. Hip fracture as we repaired. Acute kidney injury, hypoalbuminemia, constipation, left shoulder fracture. Medical treatment as per Orthopedic. Continue supportive care. The patient is stable. The patient is seen by Gastroenterology. No plan of endoscopic evaluation. Continue diuretic as per Nephrology. lactulose, two to three bowel movements daily. CT images with ascites and umbilical vein recanalization. Order abdominal ultrasound with a Doppler to evaluate portal vein . Need outpatient esophagogastroduodenoscopy to see further workup on cirrhosis. Appreciate Gastroenterology input. The patient is seen by the Orthopedic also and dental coordinator. Out of bed. Physical therapy. Repeat laboratories. Alysia Colon MD
--- NOTE | 2018-06-03 08:20 | CP.PCM.PN ---
<RoyceGraeme hooksagus - Last Filed: 06/03/18 15:15> Subjective - Date & Time of Evaluation Date of Evaluation: 06/03/18 Time of Evaluation: 07:00 - Subjective Subjective: PGY-4 GI Fellow Prog Note Pt lying in bed, at bedside when seen this AM. States that had another BM overnight which was "normal." Denied abd pain, n/v. 5 point ROS negative other than stated above Objective - Vital Signs/Intake and Output Vital Signs (last 24 hours): Temp Pulse Resp BP Pulse Ox 98.1 F 84 20 105/66 96 06/03/18 04:12 06/03/18 04:12 06/03/18 04:12 06/03/18 04:12 06/03/18 04:12 Intake and Output: 06/03/18 06/03/18 06:59 18:59 Intake Total 600 Output Total 1750 Balance -1150 - Medications Medications: Current Medications Acetaminophen (Tylenol 325mg Tab) 650 mg PO Q4H PRN PRN Reason: pain fever Last Admin: 05/25/18 12:40 Dose: 650 mg Albuterol/Ipratropium (Duoneb 3 Mg/0.5 Mg (3 Ml) Ud) 3 ml INH RQ6 PRN PRN Reason: Cough and congestion Last Admin: 05/26/18 13:12 Dose: 3 ml Calcium/Vitamin D (Oscal-D 250 Mg-125 Units Tab) 1 tab PO DAILY COUNTS [facility]CLUDE 234 BEDS AT [facility] Last Admin: 06/02/18 10:54 Dose: 1 tab Docusate Sodium (Colace) 200 mg PO DAILY COUNTS INCLUDE 234 BEDS AT [facility] Last Admin: 06/02/18 10:54 Dose: 200 mg Enoxaparin Sodium (Lovenox) 40 mg SC Q24H COUNTS INCLUDE 234 BEDS AT THE [facility] Last Admin: 06/02/18 18:10 Dose: 40 mg Ergocalciferol (Drisdol 50,000 Intl Units Cap) 1 cap PO Q7D COUNTS INCLUDE 234 BEDS AT THE [facility] Last Admin: 05/27/18 16:25 Dose: 1 cap Famotidine (Pepcid) 20 mg PO DAILY COUNTS INCLUDE 234 BEDS AT [facility] Last Admin: 06/02/18 10:55 Dose: 20 mg Ferrous Gluconate (Fergon) 324 mg PO TID COUNTS INCLUDE 234 BEDS AT THE [facility] Last Admin: 06/02/18 18:10 Dose: 324 mg Furosemide (Lasix) 40 mg PO DAILY COUNTS INCLUDE 234 BEDS AT [facility] Last Admin: 06/02/18 10:57 Dose: Not Given Glipizide (Glucotrol) 5 mg PO DAILY COUNTS INCLUDE 234 BEDS AT [facility] Last Admin: 06/02/18 10:55 Dose: 5 mg Hydromorphone HCl (Dilaudid) 0.5 mg IVP Q4H PRN PRN Reason: Pain, severe (8-10) Last Admin: 06/02/18 06:00 Dose: 0.5 mg Insulin Human Regular (Novolin R) 0 unit SC ACHS COUNTS INCLUDE 234 BEDS AT [facility] PRN Reason: Protocol Last Admin: 06/02/18 22:45 Dose: Not Given Lactulose (Enulose) 30 gm PO Q8H COUNTS INCLUDE 234 BEDS AT [facility] Last Admin: 06/03/18 00:33 Dose: 30 gm Loratadine (Claritin) 10 mg PO DAILY PRN PRN Reason: ALLERGY SYMPTOMS Metformin HCl (Glucophage) 1,000 mg PO BID COUNTS INCLUDE 234 BEDS AT [facility] Last Admin: 05/22/18 19:24 Dose: 1,000 mg Sodium Phosphate (Fleet Enema) 135 ml [place] ONCE PRN PRN Reason: Constipation Spironolactone (Aldactone) 50 mg PO DAILY COUNTS INCLUDE 234 BEDS AT [facility] Last Admin: 06/02/18 10:54 Dose: 50 mg Thiamine HCl (Vitamin B1 Tab) 100 mg PO DAILY COUNTS INCLUDE 234 BEDS AT [facility] Last Admin: 06/02/18 10:58 Dose: 100 mg Vitamin B Complex/Vit C/Folic Acid (Nephro-Mai) 1 tab PO 0800 COUNTS INCLUDE 234 BEDS AT [facility] Last Admin: 06/02/18 07:54 Dose: 1 tab - Labs Labs: 06/02/18 07:58 06/02/18 07:58 PT 13.0 SECONDS (9.7-12.2) H 06/02/18 07:58 INR 1.2 06/02/18 07:58 APTT 30 SECONDS (21-34) 05/23/18 05:17 - Constitutional Appears: No Acute Distress, Chronically Ill - Head Exam Head Exam: ATRAUMATIC, NORMAL INSPECTION - Eye Exam Eye Exam: Conjunctival injection, EOMI. absent: Scleral icterus - ENT Exam ENT Exam: Mucous Membranes Dry, Normal External Ear Exam. absent: Mucous Membranes Moist - Respiratory Exam Respiratory Exam: Clear to Ausculation Bilateral, NORMAL BREATHING PATTERN. absent: Accessory Muscle Use, Wheezes - Cardiovascular Exam Cardiovascular Exam: REGULAR RHYTHM, RRR - GI/Abdominal Exam GI & Abdominal Exam: Distended (mildly), Soft, Normal Bowel Sounds. absent: Firm, Guarding, Rigid, Tenderness, Mass Assessment and Plan - Assessment and Plan (Free Text) Assessment: 77yM s/p fall and hip fracture. # Cirrhosis: Due to h/o EtOH abuse. Sober since . - Ascites: Abd US with Para ordered. Diuretics per Nephro. CT imaging with ascites and Umbilical vein recannulization. Abd Doppler Negative for PVT - EV: Needs EGD as OP - HCC: Needs screening - HE: None overt, but started on lactulose to help move bowels # Hip fracture s/p repair: Original presenting complaint # KRISS, Hypoalb: Resolved, Due to hypovolemia, cirrhosis and some component of malnutrion in elderly? # Constipation: Resolved. Plan: -Continue supportive care -Pt stable, H/H stable with no overt GI bleeding -No plan for endoscopic evaluation -Continue diuretics per Nephro -Lactulose for 2-3BM daily -No Paracentesis due to minimal/lack of fluid -Ordered nutritional Consult -Will need OP EGD for variceal screening and further workup on cirrhosis -AFP in AM Pt seen and examined with Dr. Foss. <Walter Foss - Last Filed: 06/03/18 15:47> Objective - Vital Signs/Intake and Output Vital Signs (last 24 hours): Temp Pulse Resp BP Pulse Ox 98.7 F 78 18 95/63 L 97 06/03/18 07:40 06/03/18 07:40 06/03/18 07:40 06/03/18 09:57 06/03/18 07:40 Intake and Output: 06/03/18 06/03/18 06:59 18:59 Intake Total 600 Output Total 1750 Balance -1150 - Medications Medications: Current Medications Acetaminophen (Tylenol 325mg Tab) 650 mg PO Q4H PRN PRN Reason: pain fever Last Admin: 05/25/18 12:40 Dose: 650 mg Albuterol/Ipratropium (Duoneb 3 Mg/0.5 Mg (3 Ml) Ud) 3 ml INH RQ6 PRN PRN Reason: Cough and congestion Last Admin: 05/26/18 13:12 Dose: 3 ml Calcium/Vitamin D (Oscal-D 250 Mg-125 Units Tab) 1 tab PO DAILY [facility] Last Admin: 08/20/18 09:56 Dose: 1 tab Docusate Sodium (Colace) 200 mg PO DAILY COUNTS INCLUDE 234 BEDS AT [facility] Last Admin: 06/03/18 09:56 Dose: 200 mg Enoxaparin Sodium (Lovenox) 40 mg SC Q24H COUNTS INCLUDE 234 BEDS AT [facility] Last Admin: 06/02/18 18:10 Dose: 40 mg Ergocalciferol (Drisdol 50,000 Intl Units Cap) 1 cap PO Q7D COUNTS INCLUDE 234 BEDS AT [facility] Last Admin: 05/27/18 16:25 Dose: 1 cap Famotidine (Pepcid) 20 mg PO DAILY COUNTS INCLUDE 234 BEDS AT [facility] Last Admin: 06/03/18 09:56 Dose: 20 mg Ferrous Gluconate (Fergon) 324 mg PO TID COUNTS INCLUDE 234 BEDS AT [facility] Last Admin: 06/03/18 13:30 Dose: 324 mg Furosemide (Lasix) 40 mg PO DAILY COUNTS INCLUDE 234 BEDS AT [facility] Last Admin: 06/03/18 09:57 Dose: Not Given Glipizide (Glucotrol) 5 mg PO DAILY COUNTS INCLUDE 234 BEDS AT [facility] Last Admin: 06/03/18 09:56 Dose: 5 mg Hydromorphone HCl (Dilaudid) 0.5 mg IVP Q4H PRN PRN Reason: Pain, severe (8-10) Last Admin: 06/02/18 06:00 Dose: 0.5 mg Insulin Human Regular (Novolin R) 0 unit SC ACHS COUNTS INCLUDE 234 BEDS AT [facility] PRN Reason: Protocol Last Admin: 06/03/18 12:22 Dose: 1 unit Lactulose (Enulose) 30 gm PO Q8H COUNTS INCLUDE 234 BEDS AT [facility] Last Admin: 06/03/18 11:50 Dose: Not Given Loratadine (Claritin) 10 mg PO DAILY PRN PRN Reason: ALLERGY SYMPTOMS Metformin HCl (Glucophage) 1,000 mg PO BID COUNTS INCLUDE 234 BEDS AT [facility] Last Admin: 05/22/18 19:24 Dose: 1,000 mg Sodium Phosphate (Fleet Enema) 135 ml [place] ONCE PRN PRN Reason: Constipation Spironolactone (Aldactone) 50 mg PO DAILY COUNTS INCLUDE 234 BEDS AT [facility] Last Admin: 06/03/18 09:56 Dose: 50 mg Thiamine HCl (Vitamin B1 Tab) 100 mg PO DAILY COUNTS INCLUDE 234 BEDS AT [facility] Last Admin: 06/03/18 09:56 Dose: 100 mg Vitamin B Complex/Vit C/Folic Acid (Nephro-Mai) 1 tab PO 0800 COUNTS INCLUDE 234 BEDS AT [facility] Last Admin: 06/03/18 09:56 Dose: 1 tab - Labs Labs: 06/02/18 07:58 06/02/18 07:58 PT 13.0 SECONDS (9.7-12.2) H 06/02/18 07:58 INR 1.2 06/02/18 07:58 APTT 30 SECONDS (21-34) 05/23/18 05:17 Attending/Attestation - Attestation I have personally seen and examined this patient.: Yes I have fully participated in the care of the patient.: Yes I have reviewed all pertinent clinical information, including history, physical exam and plan: Yes Notes (Text): 06/03/18 15:44 I have seen and examined patient with GI fellow. No acute events overnight, he is seen resting in bed comfortably. He denies abdominal pain, nausea, vomiting , fever/chills. Tolerating PO diet without difficulty. Review of vitals from today are normal. Decompensated ETOH cirrhosis s/p recent fall with hip fracture - Low sodium diet as tolerated - Abdominal US reviewed by me, insufficient ascitic fluid for paracentesis - Continue with diuretics, monitor electrolytes - Continue with lactulose for HE prevention - Obtain AFP - Patient would benefit from elective outpatient EGD evaluation for variceal screening and additional liver follow up with consideration of referral to transplant center, though patient advanced age would likely preclude consideration of OLT. No further planned GI intervention, will sign off case. Please reconsult as necessary, thank you.
--- NOTE | 2018-06-03 09:24 | PCM.IRP ---
Chief Complaint: US performed for paracentesis. There is insufficient fluid for paracenteiss. Objective - Vital Signs/Intake and Output Vital Signs (last 24 hours): Vital Signs - 24 hr 06/02/18 06/02/18 06/02/18 10:57 12:02 16:00 Temperature 98.1 F Pulse Rate 88 79 Respiratory 20 Rate Blood Pressure 87/61 L 114/73 95/60 L O2 Sat by Pulse 97 Oximetry 06/02/18 06/03/18 06/03/18 23:35 04:12 07:40 Temperature 98.4 F 98.1 F 98.7 F Pulse Rate 88 84 78 Respiratory 20 20 18 Rate Blood Pressure 154/68 H 105/66 96/65 L O2 Sat by Pulse 96 96 97 Oximetry Intake and Output (last 12 hours): Intake & Output 06/02/18 06/03/18 06/03/18 18:59 06:59 18:59 Intake Total 600 Output Total 50 1750 Balance -50 -1150 Intake: Oral 600 Output: Drainage 50 50 left upper thigh 50 50 Urine 1700 Urethral (Slater) 1400 Urine, Voided 300 - Medications Medications: Current Medications Acetaminophen (Tylenol 325mg Tab) 650 mg PO Q4H PRN PRN Reason: pain fever Last Admin: 05/25/18 12:40 Dose: 650 mg Albuterol/Ipratropium (Duoneb 3 Mg/0.5 Mg (3 Ml) Ud) 3 ml INH RQ6 PRN PRN Reason: Cough and congestion Last Admin: 05/26/18 13:12 Dose: 3 ml Calcium/Vitamin D (Oscal-D 250 Mg-125 Units Tab) 1 tab PO DAILY [facility] Last Admin: 06/02/18 10:54 Dose: 1 tab Docusate Sodium (Colace) 200 mg PO DAILY [facility] Last Admin: 06/02/18 10:54 Dose: 200 mg Enoxaparin Sodium (Lovenox) 40 mg SC Q24H [facility] Last Admin: 06/02/18 18:10 Dose: 40 mg Ergocalciferol (Drisdol 50,000 Intl Units Cap) 1 cap PO Q7D [facility] Last Admin: 05/27/18 16:25 Dose: 1 cap Famotidine (Pepcid) 20 mg PO DAILY [facility] Last Admin: 06/02/18 10:55 Dose: 20 mg Ferrous Gluconate (Fergon) 324 mg PO TID [facility] Last Admin: 06/02/18 18:10 Dose: 324 mg Furosemide (Lasix) 40 mg PO DAILY [facility] Last Admin: 06/02/18 10:57 Dose: Not Given Glipizide (Glucotrol) 5 mg PO DAILY [facility] Last Admin: 06/02/18 10:55 Dose: 5 mg Hydromorphone HCl (Dilaudid) 0.5 mg IVP Q4H PRN PRN Reason: Pain, severe (8-10) Last Admin: 06/02/18 06:00 Dose: 0.5 mg Insulin Human Regular (Novolin R) 0 unit SC [facility] PRN Reason: Protocol Last Admin: 06/02/18 22:45 Dose: Not Given Lactulose (Enulose) 30 gm PO Q8H [facility] Last Admin: 06/03/18 00:33 Dose: 30 gm Loratadine (Claritin) 10 mg PO DAILY PRN PRN Reason: ALLERGY SYMPTOMS Metformin HCl (Glucophage) 1,000 mg PO BID [facility] Last Admin: 05/22/18 19:24 Dose: 1,000 mg Sodium Phosphate (Fleet Enema) 135 ml [place] ONCE PRN PRN Reason: Constipation Spironolactone (Aldactone) 50 mg PO DAILY [facility] Last Admin: 06/02/18 10:54 Dose: 50 mg Thiamine HCl (Vitamin B1 Tab) 100 mg PO DAILY [facility] Last Admin: 06/02/18 10:58 Dose: 100 mg Vitamin B Complex/Vit C/Folic Acid (Nephro-Mai) 1 tab PO 0800 [facility] Last Admin: 06/02/18 07:54 Dose: 1 tab
[2018-06-03] MEDS: Multivitamin Vitamin B Complex (Nephro-Vite) Tab PO SCH (09:56)
[2018-06-03] MEDS: Calcium-Vit D 250 mg-125 Units Tab UD PO SCH (09:56)
[2018-06-03] MEDS: (Novolin R) Insulin Human Regular 100 units/ml vial SC SCH ×3 (09:57→17:28)
--- NOTE | 2018-06-03 10:51 | CP.PCM.PN ---
Subjective - Date & Time of Evaluation Date of Evaluation: 06/03/18 Time of Evaluation: 10:48 - Subjective Subjective: Patient offers no new complaints, still with hip and shoulder pain. Doesn't know where his sling is. Denies numbness/tingling. Objective - Vital Signs/Intake and Output Vital Signs (last 24 hours): Temp Pulse Resp BP Pulse Ox 98.7 F 78 18 95/63 L 97 06/03/18 07:40 06/03/18 07:40 06/03/18 07:40 06/03/18 09:57 06/03/18 07:40 Intake and Output: 06/03/18 06/03/18 06:59 18:59 Intake Total 600 Output Total 1750 Balance -1150 - Medications Medications: Current Medications Acetaminophen (Tylenol 325mg Tab) 650 mg PO Q4H PRN PRN Reason: pain fever Last Admin: 05/25/18 12:40 Dose: 650 mg Albuterol/Ipratropium (Duoneb 3 Mg/0.5 Mg (3 Ml) Ud) 3 ml INH RQ6 PRN PRN Reason: Cough and congestion Last Admin: 05/26/18 13:12 Dose: 3 ml Calcium/Vitamin D (Oscal-D 250 Mg-125 Units Tab) 1 tab PO DAILY [facility] Last Admin: 06/03/18 09:56 Dose: 1 tab Docusate Sodium (Colace) 200 mg PO DAILY [facility] Last Admin: 06/03/18 09:56 Dose: 200 mg Enoxaparin Sodium (Lovenox) 40 mg SC Q24H [facility] Last Admin: 06/02/18 18:10 Dose: 40 mg Ergocalciferol (Drisdol 50,000 Intl Units Cap) 1 cap PO Q7D [facility] Last Admin: 05/27/18 16:25 Dose: 1 cap Famotidine (Pepcid) 20 mg PO DAILY [facility] Last Admin: 06/03/18 09:56 Dose: 20 mg Ferrous Gluconate (Fergon) 324 mg PO TID [facility] Last Admin: 06/03/18 09:56 Dose: 324 mg Furosemide (Lasix) 40 mg PO DAILY [facility] Last Admin: 06/03/18 09:57 Dose: Not Given Glipizide (Glucotrol) 5 mg PO DAILY [facility] Last Admin: 06/03/18 09:56 Dose: 5 mg Hydromorphone HCl (Dilaudid) 0.5 mg IVP Q4H PRN PRN Reason: Pain, severe (8-10) Last Admin: 06/02/18 06:00 Dose: 0.5 mg Insulin Human Regular (Novolin R) 0 unit SC ACHS [facility] PRN Reason: Protocol Last Admin: 06/03/18 09:57 Dose: 1 unit Lactulose (Enulose) 30 gm PO Q8H [facility] Last Admin: 06/03/18 00:33 Dose: 30 gm Loratadine (Claritin) 10 mg PO DAILY PRN PRN Reason: ALLERGY SYMPTOMS Metformin HCl (Glucophage) 1,000 mg PO BID [facility] Last Admin: 05/22/18 19:24 Dose: 1,000 mg Sodium Phosphate (Fleet Enema) 135 ml [place] ONCE PRN PRN Reason: Constipation Spironolactone (Aldactone) 50 mg PO DAILY [facility] Last Admin: 06/03/18 09:56 Dose: 50 mg Thiamine HCl (Vitamin B1 Tab) 100 mg PO DAILY [facility] Last Admin: 06/03/18 09:56 Dose: 100 mg Vitamin B Complex/Vit C/Folic Acid (Nephro-Mai) 1 tab PO 0800 [facility] Last Admin: 06/03/18 09:56 Dose: 1 tab - Labs Labs: 06/02/18 07:58 06/02/18 07:58 PT 13.0 SECONDS (9.7-12.2) H 06/02/18 07:58 INR 1.2 06/02/18 07:58 APTT 30 SECONDS (21-34) 05/23/18 05:17 - Extremities Exam Additional comments: left leg: distal incision dressing saturated with serous drainage, unclear if changed over weekend as was ordered prevena dressing intact, 250cc in canister from sunday when applied swelling to extremities stable, no obvious change +ROM ankle/toes, sensation intact, +DF/PF ankle, +DP pulse Left hand swelling slightly improved, sling applied +Radial pulse, sensatio nintact +ROM fingers/wrist Assessment and Plan (1) Closed left subtrochanteric femur fracture Assessment & Plan: POD#10 s/p left hip ORIF prevena dressing for now, will monitor daily drainage dressing change to distal wound that is outsde of prevena q8h ancef until drainage slows PT/OT encourage OOB daily IR note appreciated, insufficient fluid for paracentesis d/w Dr. Kuo, agrees with above VTE proph encourage AROM ankle/toes/hand Status: Acute (2) Vitamin D deficiency Status: Acute (3) Closed fracture of left proximal humerus Assessment & Plan: non op sling NWB Status: Acute (4) Acute blood loss anemia Status: Acute
--- NOTE | 2018-06-03 13:55 | US ---
Date of Procedure: 06/03/2018 PROCEDURE: Limited abdominal ultrasound for paracentesis HISTORY: Ascites, TECHNIQUE: Limited abdominal ultrasound was performed in all 4 quadrants. There is trace free fluid. Insufficient ascites is present for paracentesis. IMPRESSION: Ultrasound of abdomen showed insufficient ascites for paracentesis.
--- NOTE | 2018-06-03 16:16 | CP.PCM.PN ---
Subjective - Date & Time of Evaluation Date of Evaluation: 06/03/18 Time of Evaluation: 16:15 - Subjective Subjective: Nephrology Consultation Note: Assessment: stable KRISS: resolved Hyponatremia edema with scrotal edema ? ascites and due to Cirrhosis DM, HTN, cirrhosis with portal HTN and esophageal varices, hypoalbuminemia anemia of acute blood loss Vit D def Fall s/p left femur fracture and ORIF Plan no acute need for renal replacement therapy. Maintain hemodynamics stable. Avoid hypotension. Patient not on ACEI/ARB due to low BP. added prn IV albumin and added aldactone. increase with lasix 40 mg bid as tolerated by BP Monitor Input/Output, daily weights and renal function/lytes with basic metabolic panel supplement lytes as needed continue with weekly Vit D. added iron supplement and MVI avoid correction in serum Na >6-8 meq/24 hrs appreciate GI eval Dose meds/antibiotics for improved GFR>60. Avoid nephrotoxins/NSAIDs Glycemic control Further work up/management as per primary team Thanks for allowing me to participate in care of your patient. Will follow patient with you. Please call if any Qs. had d/w team and with pt permission. Dr Kp Romo Office: [phone] Reason for consult: Hyponatremia CC: abdomen and scrotal swelling HPI: Pt is a 77 M with hx of diabetes Mellitus hypertension, cirrhosis with portal HTN and esophageal varices, ex smoker and ex etoh presented with complaints of fall and found to have left femur fracture s/o ORIF. also with anemia s/p PRBC. renal consult for hyponatremia. pt with leg swelling, being diuresed. also with scrotal swelling. had KRISS initially which had resolved. Denies OTC/herbal meds or NSAIDs No recent IV iodinated contrast exposure. Noted obvious episodes of low BP. ROS: Cardiovascular: No chest pain. Pulmonary: No shortness of breath Gastrointestinal: denies abdominal pain no nausea.no vomiting. c/o abdomen distension Genitourinary: No pain while urinating. Denies blood in urine. now urinating All other negative except as mentioned in HPI. Physical Examination: General Appearance: comfortable, in no acute respiratory distress, co- operative. stable appearing Vitals reviewed and noted as below Head; Atraumatic, normocephalic ENT: no ulcers no thrush. Tongue is midline. Oropharynx: no rash or ulcers. hard of hearing EYES: Pupils are equal, round and reactive to light accommodation. Eye muscles and extraocular movement intact. Sclera is anicteric. Neck; supple no lymphadenopathy, no thyromegaly or bruit Lungs: Normal respiratory rate/effort. Breath sounds bilateral equal and clear anteriorly Heart: Normal rate. s1s2 normal. No rub or gallop. Extremities: 2+ edema. No varicose veins Neurological: Patient is alert, awake and oriented to person, place and time. No focal deficit. Strength bilateral appropriate and equal. Skin: Warm and dry. Normal turgor. No rash. Palpitation: Normal elasticity for age. echymoses uper b/l upper extremity Abdomen: Abdomen is soft. Bowel sounds +. There is no abdominal tenderness, no guarding/rigidity no organomegaly. distended, Psych: normal insight and normal affect/mood MSK: Digits and nails normal, no deformity : kidney or bladder not palpable. scrotal edema + with superficial echymose + Labs/imaging reviewed. Past medical history, past surgical history, family history, social history, allergy reviewed and noted as below Family hx: no hx of CKD. Rest non-contributory normal LVEF n echo Objective - Vital Signs/Intake and Output Vital Signs (last 24 hours): Temp Pulse Resp BP Pulse Ox 98.7 F 78 18 95/63 L 97 06/03/18 07:40 06/03/18 07:40 06/03/18 07:40 06/03/18 09:57 06/03/18 07:40 Intake and Output: 06/03/18 06/03/18 06:59 18:59 Intake Total 600 Output Total 1750 Balance -1150 - Medications Medications: Current Medications Acetaminophen (Tylenol 325mg Tab) 650 mg PO Q4H PRN PRN Reason: pain fever Last Admin: 05/25/18 12:40 Dose: 650 mg Albumin Human (Albumin Human 25% (12.5 Gm/50 Ml)) 25 gm IV Q6 PRN PRN Reason: Other Albuterol/Ipratropium (Duoneb 3 Mg/0.5 Mg (3 Ml) Ud) 3 ml INH RQ6 PRN PRN Reason: Cough and congestion Last Admin: 05/26/18 13:12 Dose: 3 ml Calcium/Vitamin D (Oscal-D 250 Mg-125 Units Tab) 1 tab PO DAILY REPLACED BY [facility] Last Admin: 06/03/18 09:56 Dose: 1 tab Docusate Sodium (Colace) 200 mg PO DAILY REPLACED BY [facility] Last Admin: 06/03/18 09:56 Dose: 200 mg Enoxaparin Sodium (Lovenox) 40 mg SC Q24H REPLACED BY [facility] Last Admin: 06/02/18 18:10 Dose: 40 mg Ergocalciferol (Drisdol 50,000 Intl Units Cap) 1 cap PO Q7D REPLACED BY [facility] Last Admin: 18 16:25 Dose: 1 cap Famotidine (Pepcid) 20 mg PO DAILY REPLACED BY [facility] Last Admin: 06/03/18 09:56 Dose: 20 mg Ferrous Gluconate (Fergon) 324 mg PO TID REPLACED BY [facility] Last Admin: 06/03/18 13:30 Dose: 324 mg Furosemide (Lasix) 40 mg PO BID REPLACED BY [facility] Glipizide (Glucotrol) 5 mg PO DAILY REPLACED BY [facility] Last Admin: 06/03/18 09:56 Dose: 5 mg Hydromorphone HCl (Dilaudid) 0.5 mg IVP Q4H PRN PRN Reason: Pain, severe (8-10) Last Admin: 06/02/18 06:00 Dose: 0.5 mg Insulin Human Regular (Novolin R) 0 unit SC [facility] REPLACED BY [facility] PRN Reason: Protocol Last Admin: 06/03/18 12:22 Dose: 1 unit Lactulose (Enulose) 30 gm PO Q8H REPLACED BY [facility] Last Admin: 06/03/18 11:50 Dose: Not Given Loratadine (Claritin) 10 mg PO DAILY PRN PRN Reason: ALLERGY SYMPTOMS Metformin HCl (Glucophage) 1,000 mg PO BID REPLACED BY [facility] Last Admin: 05/22/18 19:24 Dose: 1,000 mg Sodium Phosphate (Fleet Enema) 135 ml [place] ONCE PRN PRN Reason: Constipation Spironolactone (Aldactone) 50 mg PO DAILY REPLACED BY [facility] Last Admin: 06/03/18 09:56 Dose: 50 mg Thiamine HCl (Vitamin B1 Tab) 100 mg PO DAILY REPLACED BY [facility] Last Admin: 06/03/18 09:56 Dose: 100 mg Vitamin B Complex/Vit C/Folic Acid (Nephro-Mai) 1 tab PO 0800 REPLACED BY [facility] Last Admin: 06/03/18 09:56 Dose: 1 tab - Labs Labs: 06/02/18 07:58 06/02/18 07:58 PT 13.0 SECONDS (9.7-12.2) H 06/02/18 07:58 INR 1.2 06/02/18 07:58 APTT 30 SECONDS (21-34) 05/23/18 05:17
[2018-06-03 16:17] VITALS: RESP 20
[2018-06-03] MEDS: Ergocalciferol 50,000 Intl Units Cap PO SCH (18:26)
[2018-06-03] MEDS: Enoxaparin 40 mg Syringe SC SCH ×2 (18:26→21:49)
[2018-06-04] MEDS: (Novolin R) Insulin Human Regular 100 units/ml vial SC SCH ×4 (07:23→21:39)
[2018-06-04 07:28] LABS: BLOOD UREA NITROGEN 14 mg/dL (9-20); CALCIUM 7.9 mg/dl (8.6-10.4); GFR AFRICAN-AMERICAN > 60; GFR NON-AFRICAN AMERICAN > 60
[2018-06-04 07:31] LABS: BASO % 0.6 % (0.0-2.0); EOS # 0.8 K/uL (0.0-0.7); EOS % 11.2 % (0.0-4.0); HEMOGLOBIN 10.2 g/dL (12.0-18.0); LYMPH # 1.1 K/uL (1.0-4.3); LYMPH % 15.1 % (20.0-40.0); MEAN CORPUSCULAR HEMOGLOBIN 31.8 pg (27.0-31.0); MEAN CORPUSCULAR HGB CONC 33.8 g/dL (33.0-37.0); MEAN PLATELET VOLUME 10.5 fL (7.2-11.7); MONO % 12.7 % (0.0-10.0); NEUT # 4.5 K/uL (1.8-7.0); NEUT % 60.4 % (50.0-75.0); NRBC % 0.1 % (0.0-2.0); RBC 3.22 Mil/uL (4.40-5.90); RED CELL DISTRIBUTION WIDTH 16.2 % (11.5-14.5); WHITE BLOOD COUNT 7.5 K/uL (4.8-10.8)
[2018-06-04] MEDS: Multivitamin Vitamin B Complex (Nephro-Vite) Tab PO SCH (08:45)
[2018-06-04] MEDS: ceFAZolin IV 1 gm in Dextrose 1 GM/50 ML BAG IVPB SCH ×2 (08:45→16:58)
[2018-06-04] MEDS: HYDROmorphone 0.5 mg/0.5 ml ISec IVP PRN ×2 (08:53→14:25)
[2018-06-04] MEDS: Calcium-Vit D 250 mg-125 Units Tab UD PO SCH (09:09)
[2018-06-04] MEDS: Enoxaparin 40 mg Syringe SC SCH (09:09)
--- NOTE | 2018-06-04 10:03 | CP.PCM.PN ---
Subjective - Date & Time of Evaluation Date of Evaluation: 06/04/18 Time of Evaluation: 10:01 - Subjective Subjective: patient without new complaints. Pain in left shoulder and leg. PT encouraged Objective - Vital Signs/Intake and Output Vital Signs (last 24 hours): Temp Pulse Resp BP Pulse Ox 98.2 F 86 20 128/69 97 06/04/18 07:00 06/04/18 09:00 06/04/18 07:00 06/04/18 09:09 06/04/18 07:00 Intake and Output: 06/04/18 06/04/18 06:59 18:59 Output Total 700 Balance -700 - Medications Medications: Current Medications Acetaminophen (Tylenol 325mg Tab) 650 mg PO Q4H PRN PRN Reason: pain fever Last Admin: 05/25/18 12:40 Dose: 650 mg Albumin Human (Albumin Human 25% (12.5 Gm/50 Ml)) 25 gm IV Q6 PRN PRN Reason: Other Albuterol/Ipratropium (Duoneb 3 Mg/0.5 Mg (3 Ml) Ud) 3 ml INH RQ6 PRN PRN Reason: Cough and congestion Last Admin: 05/26/18 13:12 Dose: 3 ml Calcium/Vitamin D (Oscal-D 250 Mg-125 Units Tab) 1 tab PO DAILY [facility] Last Admin: 06/04/18 09:09 Dose: 1 tab Docusate Sodium (Colace) 200 mg PO DAILY [facility] Last Admin: 06/04/18 09:08 Dose: 200 mg Enoxaparin Sodium (Lovenox) 40 mg SC DAILY [facility] Last Admin: 06/04/18 09:09 Dose: 40 mg Ergocalciferol (Drisdol 50,000 Intl Units Cap) 1 cap PO Q7D [facility] Last Admin: 06/03/18 18:26 Dose: 1 cap Famotidine (Pepcid) 20 mg PO DAILY [facility] Last Admin: 06/04/18 09:08 Dose: 20 mg Ferrous Gluconate (Fergon) 324 mg PO TID [facility] Last Admin: 06/04/18 09:09 Dose: 324 mg Furosemide (Lasix) 40 mg PO BID [facility] Last Admin: 06/04/18 09:09 Dose: 40 mg Glipizide (Glucotrol) 5 mg PO DAILY [facility] Last Admin: 06/04/18 09:08 Dose: 5 mg Hydromorphone HCl (Dilaudid) 0.5 mg IVP Q4H PRN PRN Reason: Pain, severe (8-10) Last Admin: 06/04/18 08:53 Dose: 0.5 mg Cefazolin Sodium/Dextrose (Ancef Iv 1 Gm Duplex) 1 gm in 50 mls @ 100 mls/hr IVPB Q8H [facility] PRN Reason: Protocol Last Admin: 06/04/18 08:45 Dose: 100 mls/hr Insulin Human Regular (Novolin R) 0 unit SC ACHS [facility] PRN Reason: Protocol Last Admin: 06/04/18 07:23 Dose: Not Given Lactulose (Enulose) 30 gm PO Q8H [facility] Last Admin: 06/04/18 08:45 Dose: 30 gm Loratadine (Claritin) 10 mg PO DAILY PRN PRN Reason: ALLERGY SYMPTOMS Metformin HCl (Glucophage) 1,000 mg PO BID [facility] Last Admin: 05/22/18 19:24 Dose: 1,000 mg Sodium Phosphate (Fleet Enema) 135 ml [place] ONCE PRN PRN Reason: Constipation Spironolactone (Aldactone) 50 mg PO DAILY [facility] Last Admin: 06/04/18 09:12 Dose: 50 mg Thiamine HCl (Vitamin B1 Tab) 100 mg PO DAILY [facility] Last Admin: 06/04/18 09:08 Dose: 100 mg Vitamin B Complex/Vit C/Folic Acid (Nephro-Mai) 1 tab PO 0800 [facility] Last Admin: 06/04/18 08:45 Dose: 1 tab - Labs Labs: 06/04/18 07:22 06/04/18 07:06 PT 13.0 SECONDS (9.7-12.2) H 06/02/18 07:58 INR 1.2 06/02/18 07:58 APTT 30 SECONDS (21-34) 05/23/18 05:17 - Extremities Exam Additional comments: wound vac <25cc overnight, less drainage from distal incision, still peripheral edema, +ROM ankle/toes, sensation intact calves NT neg homans LUE sling intact,senastion intact, +ROm , fingers and hand swelling improving Assessment and Plan (1) Closed left subtrochanteric femur fracture Assessment & Plan: POD#11 s/p left hip ORIF prevena dressing for now, will monitor daily drainage if no increased drainage overnight, will recommend DAIJA placement tomorrow will plan for either d/c prevena, or transfer to portable suction canister at that time dressing change to distal wound that is outsde of prevena q8h ancef until drainage slows, can be changed to PO at DAIJA, recommend cont abx until drainage stops PT/OT encourage OOB daily d/w Dr. Kuo, agrees with above VTE proph encourage AROM ankle/toes/hand Status: Acute (2) Vitamin D deficiency Status: Acute (3) Closed fracture of left proximal humerus Assessment & Plan: non op sling Status: Acute (4) Acute blood loss anemia Status: Acute
--- NOTE | 2018-06-04 11:09 | CP.PCM.PN ---
Subjective - Date & Time of Evaluation Date of Evaluation: 06/04/18 Time of Evaluation: 11:08 - Subjective Subjective: Nephrology Consultation Note: Assessment: stable KRISS: resolved Hyponatremia: improving edema with scrotal edema ? ascites and due to Cirrhosis DM, HTN, cirrhosis with portal HTN and esophageal varices, hypoalbuminemia anemia of acute blood loss Vit D def Fall s/p left femur fracture and ORIF Plan no acute need for renal replacement therapy. Maintain hemodynamics stable. Avoid hypotension. Patient not on ACEI/ARB due to low BP. added prn IV albumin and added aldactone. continue with lasix 40 mg bid as tolerated by BP Monitor Input/Output, daily weights and renal function/lytes with basic metabolic panel supplement lytes as needed continue with weekly Vit D. added iron supplement and MVI avoid correction in serum Na >6-8 meq/24 hrs appreciate GI eval Dose meds/antibiotics for improved GFR>60. Avoid nephrotoxins/NSAIDs Glycemic control Further work up/management as per primary team Thanks for allowing me to participate in care of your patient. Will follow patient with you. Please call if any Qs. had d/w team and with pt permission. Dr Kp Romo Office: [phone] Reason for consult: Hyponatremia CC: abdomen and scrotal swelling HPI: Pt is a 77 M with hx of diabetes Mellitus hypertension, cirrhosis with portal HTN and esophageal varices, ex smoker and ex etoh presented with complaints of fall and found to have left femur fracture s/o ORIF. also with anemia s/p PRBC. renal consult for hyponatremia. pt with leg swelling, being diuresed. also with scrotal swelling. had KRISS initially which had resolved. Denies OTC/herbal meds or NSAIDs No recent IV iodinated contrast exposure. Noted obvious episodes of low BP. ROS: c/o leg and scrotal swelling Cardiovascular: No chest pain. Pulmonary: No shortness of breath Gastrointestinal: denies abdominal pain no nausea.no vomiting Genitourinary: No pain while urinating. Denies blood in urine. now urinating All other negative except as mentioned in HPI. Physical Examination: General Appearance: comfortable, in no acute respiratory distress, co- operative. stable appearing Vitals reviewed and noted as below Head; Atraumatic, normocephalic ENT: no ulcers no thrush. Tongue is midline. Oropharynx: no rash or ulcers. hard of hearing EYES: Pupils are equal, round and reactive to light accommodation. Eye muscles and extraocular movement intact. Sclera is anicteric. Neck; supple no lymphadenopathy, no thyromegaly or bruit Lungs: Normal respiratory rate/effort. Breath sounds bilateral equal and clear anteriorly Heart: Normal rate. s1s2 normal. No rub or gallop. Extremities: 2+ edema. No varicose veins Neurological: Patient is alert, awake and oriented to person, place and time. No focal deficit. Strength bilateral appropriate and equal. Skin: Warm and dry. Normal turgor. No rash. Palpitation: Normal elasticity for age. echymoses uper b/l upper extremity Abdomen: Abdomen is softer. Bowel sounds +. There is no abdominal tenderness, no guarding/rigidity no organomegaly. distended, Psych: normal insight and normal affect/mood MSK: Digits and nails normal, no deformity : kidney or bladder not palpable. scrotal edema + Labs/imaging reviewed. Past medical history, past surgical history, family history, social history, allergy reviewed and noted as below Family hx: no hx of CKD. Rest non-contributory normal LVEF n echo Objective - Vital Signs/Intake and Output Vital Signs (last 24 hours): Temp Pulse Resp BP Pulse Ox 98.2 F 86 20 128/69 97 06/04/18 07:00 06/04/18 09:00 06/04/18 07:00 06/04/18 09:09 06/04/18 07:00 Intake and Output: 06/04/18 06/04/18 06:59 18:59 Output Total 700 Balance -700 - Medications Medications: Current Medications Acetaminophen (Tylenol 325mg Tab) 650 mg PO Q4H PRN PRN Reason: pain fever Last Admin: 05/25/18 12:40 Dose: 650 mg Albumin Human (Albumin Human 25% (12.5 Gm/50 Ml)) 25 gm IV Q6 PRN PRN Reason: Other - SEE DOSE INSTRUCTIONS Albuterol/Ipratropium (Duoneb 3 Mg/0.5 Mg (3 Ml) Ud) 3 ml INH RQ6 PRN PRN Reason: Cough and congestion Last Admin: 05/26/18 13:12 Dose: 3 ml Calcium/Vitamin D (Oscal-D 250 Mg-125 Units Tab) 1 tab PO DAILY [facility] Last Admin: 06/04/18 09:09 Dose: 1 tab Docusate Sodium (Colace) 200 mg PO DAILY [facility] Last Admin: 06/04/18 09:08 Dose: 200 mg Enoxaparin Sodium (Lovenox) 40 mg SC DAILY [facility] Last Admin: 06/04/18 09:09 Dose: 40 mg Ergocalciferol (Drisdol 50,000 Intl Units Cap) 1 cap PO Q7D [facility] Last Admin: 06/03/18 18:26 Dose: 1 cap Famotidine (Pepcid) 20 mg PO DAILY [facility] Last Admin: 06/04/18 09:08 Dose: 20 mg Ferrous Gluconate (Fergon) 324 mg PO TID [facility] Last Admin: 06/04/18 09:09 Dose: 324 mg Furosemide (Lasix) 40 mg PO BID [facility] Last Admin: 06/04/18 09:09 Dose: 40 mg Glipizide (Glucotrol) 5 mg PO DAILY [facility] Last Admin: 06/04/18 09:08 Dose: 5 mg Hydromorphone HCl (Dilaudid) 0.5 mg IVP Q4H PRN PRN Reason: Pain, severe (8-10) Last Admin: 06/04/18 08:53 Dose: 0.5 mg Cefazolin Sodium/Dextrose (Ancef Iv 1 Gm Duplex) 1 gm in 50 mls @ 100 mls/hr IVPB Q8H [facility] PRN Reason: Protocol Last Admin: 06/04/18 08:45 Dose: 100 mls/hr Insulin Human Regular (Novolin R) 0 unit SC [facility] PRN Reason: Protocol Last Admin: 06/04/18 07:23 Dose: Not Given Lactulose (Enulose) 30 gm PO Q8H [facility] Last Admin: 06/04/18 08:45 Dose: 30 gm Loratadine (Claritin) 10 mg PO DAILY PRN PRN Reason: ALLERGY SYMPTOMS Metformin HCl (Glucophage) 1,000 mg PO BID [facility] Last Admin: 05/22/18 19:24 Dose: 1,000 mg Sodium Phosphate (Fleet Enema) 135 ml [place] ONCE PRN PRN Reason: Constipation Spironolactone (Aldactone) 50 mg PO DAILY [facility] Last Admin: 06/04/18 09:12 Dose: 50 mg Thiamine HCl (Vitamin B1 Tab) 100 mg PO DAILY [facility] Last Admin: 06/04/18 09:08 Dose: 100 mg Vitamin B Complex/Vit C/Folic Acid (Nephro-Mai) 1 tab PO 0800 [facility] Last Admin: 06/04/18 08:45 Dose: 1 tab - Labs Labs: 06/04/18 07:22 06/04/18 07:06 PT 13.0 SECONDS (9.7-12.2) H 06/02/18 07:58 INR 1.2 06/02/18 07:58 APTT 30 SECONDS (21-34) 05/23/18 05:17
[2018-06-04] MEDS ORDERED: Albumin Human 25% (12.5 gm/50 ml) IV PRN (12:00)
--- NOTE | 2018-06-04 20:06 | PN ---
Copied To: Alysia Colon MD Attending MD: Alysia Colon MD DATE: 06/04/2018 SUBJECTIVE: The patient is a 77-year-old male. is sitting on the bedside, complaining about the pain in the legs and left shoulder. PT is working on the patient. Swelling of the body and anasarca is getting better, status post paracentesis. No fever. No chills. No hematuria or hematochezia. No headache or dizziness. PHYSICAL EXAMINATION VITAL SIGNS: Temperature is 98.3, pulse 86, respiratory rate 20, blood pressure 128/69, and pulse oximetry is 97. HEENT: Head is normocephalic, atraumatic. Eyes, PERRLA. Extraocular muscles are intact. Conjunctivae clear. Nose patent. Mucous membrane moist. NECK: Supple. No carotid bruit. No JVD or thyromegaly. CHEST: Bilaterally symmetrical. HEART: S1 and S2 positive. LUNGS: Clear to auscultation. ABDOMEN: Soft. Bowel sounds present. No organomegaly. EXTREMITIES: Positive edema. No cyanosis. Range of motion is decreased in the left upper and left lower extremities. MEDICATIONS: Albumin, DuoNeb, Os-Chetan, Colace, Lovenox, vitamin D, Pepcid, Fergon, Lasix, Dilaudid, Ancef, insulin, lactulose, Claritin, B1, and Aldactone. LABORATORY STUDIES: White blood cells 7.5, hemoglobin 10.2, hematocrit 30.2, and platelets 150. Sodium 136, potassium 4.6, BUN 14, creatinine 0.8, and glucose 125. ASSESSMENT AND PLAN: Mr. Don Lang is a 77-year-old male with anemia, hyperglycemia, has closed left subtrochanteric femur fracture, postoperative day #11, status post left hip open reduction and internal fixation. Does have Prevena dressing for now. Monitoring daily drainage. If increased drainage overnight, we recommended placement tomorrow. We will either discontinue Prevena or transfer to a portable suction catheter at that time that contained to distal wound that is outside of the Prevena every 8 hours. Ancef until drainage slows down, can be changed to p.o. at . Recommended to continue antibiotics until drainage stops. Encourage out of bed daily as per Orthopedic . Vitamin D deficiency replacing. Closed fracture of the left proximal humerus. Anemia of acute blood loss. History of cirrhosis of the liver, status post paracentesis for ascites. Acute kidney injury resolved. Hyponatremia, edema, anasarca, esophageal varices, active fall, left femur fracture, status post open reduction and internal fixation. Discussion done with patient and patient's . All questions answered. The patient's bowel movement is regular. Pain management is satisfactory. We will follow up. Alysia Colon MD
--- NOTE | 2018-06-04 21:35 | PN ---
Copied To: Alysia Colon MD Attending MD: Alysia Colon MD DATE: 06/03/2018 SUBJECTIVE: The patient is a 77-year-old male. The patient is seen and examined at the bedside, looking comfortable. Still cannot move his left upper extremity and left lower extremity. Does not know where his sling. Now denies numbness or tingling. No fever. No chest pain. No headache or dizziness. No hematuria or hematochezia. PHYSICAL EXAMINATION: VITAL SIGNS: Temperature 98.7, pulse 78, respiratory rate 18, blood pressure 95/63, and pulse oximetry 97. HEENT: Head is normocephalic and atraumatic. Eyes, PERRLA. Extraocular muscles are intact. Conjunctivae clear. Nose patent. Mucous membranes moist. NECK: Supple. No carotid bruit, JVD, or thyromegaly. CHEST: Bilaterally symmetrical. HEART: S1 and S2 positive. LUNGS: Clear to auscultation. ABDOMEN: Soft. Bowel sounds present. No organomegaly. EXTREMITIES: Positive edema. No cyanosis. MEDICATIONS: DuoNeb, Os-Chetan, Colace, Lovenox, vitamin D, Pepcid, Lasix, Glucotrol, Dilaudid, Aldactone, Fleet Enema, Claritin, Enulose, insulin. LABORATORY DATA: White blood cell 7.7, hemoglobin 10.2, hematocrit 29.8, platelets 148. Sodium 130, potassium 4.5, BUN 18, creatinine 0.8, and glucose 155. ASSESSMENT AND PLAN: Mr. Don Lang is a 77-year-old male with anemia, hyponatremia, hyperglycemia, closed subtrochanteric femur fracture, postoperative day-10, status post left hip open reduction and internal fixation. Prevena dressing for now. Monitor daily drainage. Dr. Kuo. The patient should get some physical therapy. Vitamin D deficiency replaced. Closed fracture of the left tibia. Acute blood loss. Gastrointestinal and deep vein thrombosis prophylaxes. Repeat labs. Discussion was done with the patient and family. We will follow. Alysia Colon MD [facility] # [id number]
[2018-06-05] MEDS: ceFAZolin IV 1 gm in Dextrose 1 GM/50 ML BAG IVPB SCH ×2 (00:44→08:16)
[2018-06-05] MEDS: (Novolin R) Insulin Human Regular 100 units/ml vial SC SCH ×3 (07:44→17:30)
[2018-06-05] MEDS: Multivitamin Vitamin B Complex (Nephro-Vite) Tab PO SCH (08:16)
[2018-06-05 09:58] VITALS: PULSE 80
[2018-06-05] MEDS: Calcium-Vit D 250 mg-125 Units Tab UD PO SCH (10:00)
[2018-06-05] MEDS: Enoxaparin 40 mg Syringe SC SCH (10:01)
--- NOTE | 2018-06-05 14:07 | CP.PCM.PN ---
Subjective - Date & Time of Evaluation Date of Evaluation: 06/05/18 Time of Evaluation: 15:57 - Subjective Subjective: Patient still complaining of hip and shoulder pain. PT and AROM encouraged. Denies CP/SOB/dizziness/numbness/tingling. Objective - Vital Signs/Intake and Output Vital Signs (last 24 hours): Temp Pulse Resp BP Pulse Ox 98 F 80 20 125/71 97 06/05/18 07:00 06/05/18 09:58 06/05/18 07:00 06/05/18 10:00 06/05/18 07:00 Intake and Output: 06/05/18 06/05/18 06:59 18:59 Intake Total 250 Output Total 1200 Balance -950 - Medications Medications: Current Medications Acetaminophen (Tylenol 325mg Tab) 650 mg PO Q4H PRN PRN Reason: pain fever Last Admin: 05/25/18 12:40 Dose: 650 mg Albumin Human (Albumin Human 25% (12.5 Gm/50 Ml)) 25 gm IV Q6 PRN PRN Reason: Other - SEE DOSE INSTRUCTIONS Albuterol/Ipratropium (Duoneb 3 Mg/0.5 Mg (3 Ml) Ud) 3 ml INH RQ6 PRN PRN Reason: Cough and congestion Last Admin: 05/26/18 13:12 Dose: 3 ml Calcium/Vitamin D (Oscal-D 250 Mg-125 Units Tab) 1 tab PO DAILY [facility] Last Admin: 06/05/18 10:00 Dose: 1 tab Docusate Sodium (Colace) 200 mg PO DAILY [facility] Last Admin: 06/05/18 10:00 Dose: 200 mg Enoxaparin Sodium (Lovenox) 40 mg SC DAILY [facility] Last Admin: 06/05/18 10:01 Dose: 40 mg Ergocalciferol (Drisdol 50,000 Intl Units Cap) 1 cap PO Q7D [facility] Last Admin: 06/03/18 18:26 Dose: 1 cap Famotidine (Pepcid) 20 mg PO DAILY [facility] Last Admin: 06/05/18 09:59 Dose: 20 mg Ferrous Gluconate (Fergon) 324 mg PO TID [facility] Last Admin: 06/05/18 10:00 Dose: 324 mg Furosemide (Lasix) 40 mg PO BID [facility] Last Admin: 06/05/18 10:00 Dose: 40 mg Glipizide (Glucotrol) 5 mg PO DAILY [facility] Last Admin: 06/05/18 09:59 Dose: 5 mg Hydromorphone HCl (Dilaudid) 0.5 mg IVP Q4H PRN PRN Reason: Pain, severe (8-10) Last Admin: 06/04/18 14:25 Dose: 0.5 mg Insulin Human Regular (Novolin R) 0 unit SC ACHS [facility] PRN Reason: Protocol Last Admin: 06/05/18 11:53 Dose: Not Given Lactulose (Enulose) 30 gm PO Q8H [facility] Last Admin: 06/04/18 08:45 Dose: 30 gm Loratadine (Claritin) 10 mg PO DAILY PRN PRN Reason: ALLERGY SYMPTOMS Metformin HCl (Glucophage) 1,000 mg PO BID [facility] Last Admin: 06/05/18 09:59 Dose: 1,000 mg Sodium Phosphate (Fleet Enema) 135 ml AL ONCE PRN PRN Reason: Constipation Spironolactone (Aldactone) 50 mg PO DAILY [facility] Last Admin: 06/05/18 10:00 Dose: 50 mg Thiamine HCl (Vitamin B1 Tab) 100 mg PO DAILY [facility] Last Admin: 06/05/18 10:00 Dose: 100 mg Vitamin B Complex/Vit C/Folic Acid (Nephro-Mai) 1 tab PO 0800 [facility] Last Admin: 06/05/18 08:16 Dose: 1 tab - Labs Labs: 06/04/18 07:22 06/04/18 07:06 PT 13.0 SECONDS (9.7-12.2) H 06/02/18 07:58 INR 1.2 06/02/18 07:58 APTT 30 SECONDS (21-34) 05/23/18 05:17 - Extremities Exam Additional comments: 20-25cc drainage each of last two days distal wound dressing changed, yellow serous. No odor, no erythema. legs elevated, edema stable in legs, encouraged AROM in bed LUE: sling intact, swelling to hand improving, patient doing more ROM of fingers. sensation itnact, swelling improving. Assessment and Plan (1) Closed left subtrochanteric femur fracture Assessment & Plan: POD#12 s/p left hip ORIF prevena dressing for now, will monitor daily drainage ortho stable for d/c to [facility] with portable prevena patient must follow up no more than 7 days for dressing change by Dr. Kuo call for appt [phone] dressing change to distal wound that is outsde of prevena q8h keflex until until drainage stops PT/OT encourage OOB daily d/w Dr. Kuo, agrees with above VTE proph encourage AROM ankle/toes/hand Status: Acute (2) Vitamin D deficiency Status: Acute (3) Closed fracture of left proximal humerus Assessment & Plan: non op sling NWB Status: Acute (4) Acute blood loss anemia Status: Acute
[2018-06-05 16:25] VITALS: TEMP 98.7; O2SAT 98
--- NOTE | 2018-06-05 16:25 | CP.PCM.PN ---
Subjective - Date & Time of Evaluation Date of Evaluation: 06/05/18 Time of Evaluation: 16:25 - Subjective Subjective: Nephrology Consultation Note: Assessment: stable KRISS: resolved Hyponatremia: improving edema with scrotal edema ? ascites and due to Cirrhosis DM, HTN, cirrhosis with portal HTN and esophageal varices, hypoalbuminemia anemia of acute blood loss Vit D def Fall s/p left femur fracture and ORIF Plan no acute need for renal replacement therapy. Maintain hemodynamics stable. Avoid hypotension. Patient not on ACEI/ARB due to low BP. added prn IV albumin and added aldactone. continue with lasix 40 mg bid as tolerated by BP Monitor Input/Output, daily weights and renal function/lytes with basic metabolic panel supplement lytes as needed continue with weekly Vit D. added iron supplement and MVI avoid correction in serum Na >6-8 meq/24 hrs appreciate GI eval Dose meds/antibiotics for improved GFR>60. Avoid nephrotoxins/NSAIDs Glycemic control Further work up/management as per primary team Thanks for allowing me to participate in care of your patient. Will follow patient with you. Please call if any Qs. had d/w team and with pt permission. Dr Kp Romo Office: [phone] Reason for consult: Hyponatremia CC: abdomen and scrotal swelling HPI: Pt is a 77 M with hx of diabetes Mellitus hypertension, cirrhosis with portal HTN and esophageal varices, ex smoker and ex etoh presented with complaints of fall and found to have left femur fracture s/o ORIF. also with anemia s/p PRBC. renal consult for hyponatremia. pt with leg swelling, being diuresed. also with scrotal swelling. had KRISS initially which had resolved. Denies OTC/herbal meds or NSAIDs No recent IV iodinated contrast exposure. Noted obvious episodes of low BP. ROS: c/o leg and scrotal swelling Cardiovascular: No chest pain. Pulmonary: No shortness of breath Gastrointestinal: denies abdominal pain no nausea.no vomiting Genitourinary: No pain while urinating. Denies blood in urine. now urinating All other negative except as mentioned in HPI. Physical Examination: General Appearance: comfortable, in no acute respiratory distress, co- operative. stable appearing Vitals reviewed and noted as below Head; Atraumatic, normocephalic ENT: no ulcers no thrush. Tongue is midline. Oropharynx: no rash or ulcers. hard of hearing EYES: Pupils are equal, round and reactive to light accommodation. Eye muscles and extraocular movement intact. Sclera is anicteric. Neck; supple no lymphadenopathy, no thyromegaly or bruit Lungs: Normal respiratory rate/effort. Breath sounds bilateral equal and clear anteriorly Heart: Normal rate. s1s2 normal. No rub or gallop. Extremities: 2+ edema. No varicose veins Neurological: Patient is alert, awake and oriented to person, place and time. No focal deficit. Strength bilateral appropriate and equal. Skin: Warm and dry. Normal turgor. No rash. Palpitation: Normal elasticity for age. echymoses uper b/l upper extremity Abdomen: Abdomen is softer. Bowel sounds +. There is no abdominal tenderness, no guarding/rigidity no organomegaly. distended, Psych: normal insight and normal affect/mood MSK: Digits and nails normal, no deformity : kidney or bladder not palpable. scrotal edema + Labs/imaging reviewed. Past medical history, past surgical history, family history, social history, allergy reviewed and noted as below Family hx: no hx of CKD. Rest non-contributory normal LVEF n echo Objective - Vital Signs/Intake and Output Vital Signs (last 24 hours): Temp Pulse Resp BP Pulse Ox 98.7 F 80 20 125/71 98 06/05/18 15:00 06/05/18 15:00 06/05/18 15:00 06/05/18 10:00 06/05/18 15:00 Intake and Output: 06/05/18 06/05/18 06:59 18:59 Intake Total 250 400 Output Total 1200 1700 Balance -950 -1300 - Medications Medications: Current Medications Acetaminophen (Tylenol 325mg Tab) 650 mg PO Q4H PRN PRN Reason: pain fever Last Admin: 05/25/18 12:40 Dose: 650 mg Albumin Human (Albumin Human 25% (12.5 Gm/50 Ml)) 25 gm IV Q6 PRN PRN Reason: Other - SEE DOSE INSTRUCTIONS Albuterol/Ipratropium (Duoneb 3 Mg/0.5 Mg (3 Ml) Ud) 3 ml INH RQ6 PRN PRN Reason: Cough and congestion Last Admin: 05/26/18 13:12 Dose: 3 ml Calcium/Vitamin D (Oscal-D 250 Mg-125 Units Tab) 1 tab PO DAILY [facility] Last Admin: 06/05/18 10:00 Dose: 1 tab Docusate Sodium (Colace) 200 mg PO DAILY [facility] Last Admin: 06/05/18 10:00 Dose: 200 mg Enoxaparin Sodium (Lovenox) 40 mg SC DAILY [facility] Last Admin: 06/05/18 10:01 Dose: 40 mg Ergocalciferol (Drisdol 50,000 Intl Units Cap) 1 cap PO Q7D [facility] Last Admin: 06/03/18 18:26 Dose: 1 cap Famotidine (Pepcid) 20 mg PO DAILY [facility] Last Admin: 06/05/18 09:59 Dose: 20 mg Ferrous Gluconate (Fergon) 324 mg PO TID [facility] Last Admin: 06/05/18 14:54 Dose: 324 mg Furosemide (Lasix) 40 mg PO BID [facility] Last Admin: 06/05/18 10:00 Dose: 40 mg Glipizide (Glucotrol) 5 mg PO DAILY [facility] Last Admin: 06/05/18 09:59 Dose: 5 mg Hydromorphone HCl (Dilaudid) 0.5 mg IVP Q4H PRN PRN Reason: Pain, severe (8-10) Last Admin: 06/04/18 14:25 Dose: 0.5 mg Insulin Human Regular (Novolin R) 0 unit SC [facility] PRN Reason: Protocol Last Admin: 06/05/18 11:53 Dose: Not Given Lactulose (Enulose) 30 gm PO Q8H [facility] Last Admin: 06/04/18 08:45 Dose: 30 gm Loratadine (Claritin) 10 mg PO DAILY PRN PRN Reason: ALLERGY SYMPTOMS Metformin HCl (Glucophage) 1,000 mg PO BID [facility] Last Admin: 06/05/18 09:59 Dose: 1,000 mg Sodium Phosphate (Fleet Enema) 135 ml [place] ONCE PRN PRN Reason: Constipation Spironolactone (Aldactone) 50 mg PO DAILY [facility] Last Admin: 06/05/18 10:00 Dose: 50 mg Thiamine HCl (Vitamin B1 Tab) 100 mg PO DAILY [facility] Last Admin: 06/05/18 10:00 Dose: 100 mg Vitamin B Complex/Vit C/Folic Acid (Nephro-Mai) 1 tab PO 0800 [facility] Last Admin: 06/05/18 08:16 Dose: 1 tab - Labs Labs: 06/04/18 07:22 06/04/18 07:06 PT 13.0 SECONDS (9.7-12.2) H 06/02/18 07:58 INR 1.2 06/02/18 07:58 APTT 30 SECONDS (21-34) 05/23/18 05:17
--- NOTE | 2018-06-05 16:28 | CP.PCM.PN ---
Subjective - Date & Time of Evaluation Date of Evaluation: 06/05/18 Time of Evaluation: 16:28 - Subjective Subjective: PT CLEARED FOR D/C TO [facility] TODAY PER ORTHO AND DR. BRIDGES. PT TO LEAVE WITH PORTABLE WOUND VAC ON AND MUST GO WITH RECHARGEABLE BATTERY. TO F/U WITH DR. MCCOY IN THE OFFICE WITHIN 7 DAYS MAX. SW TO ARRANGE TRANSPORTATION TO THE FACILITY. NO FURTHER ORDERS. -CONTACT DR. BRIDGES FOR ANY QUESTIONS REGARDING RECENT HOSPITALIZATION. -PLEASE ARRANGE FOR MR. LOPEZ TO FOLLOW UP WITH DR. MCCOY (ORTHO) IN THE OFFICE WITHIN 5-7 DAYS--NO LATER THAN 06/12/18. -CONTINUE WOUND VAC; PLEASE CHANGE DRESSING WITHIN 5-7 DAYS PER ORTHOPEDIC RECOMMENDATIONS. -CONTINUE ALL MEDICATIONS PER THE MED REC FORM. -PHYSICAL THERAPY TOLERATED. -GO CARE PER FACILITY PROTOCOL; REMOVE WHEN ORDERED BY ATTENDING. Objective - Vital Signs/Intake and Output Vital Signs (last 24 hours): Temp Pulse Resp BP Pulse Ox 98.7 F 80 20 125/71 98 06/05/18 15:00 06/05/18 15:00 06/05/18 15:00 06/05/18 10:00 06/05/18 15:00 Intake and Output: 06/05/18 06/05/18 06:59 18:59 Intake Total 250 400 Output Total 1200 1700 Balance -950 -1300 - Medications Medications: Current Medications Acetaminophen (Tylenol 325mg Tab) 650 mg PO Q4H PRN PRN Reason: pain fever Last Admin: 05/25/18 12:40 Dose: 650 mg Albumin Human (Albumin Human 25% (12.5 Gm/50 Ml)) 25 gm IV Q6 PRN PRN Reason: Other - SEE DOSE INSTRUCTIONS Albuterol/Ipratropium (Duoneb 3 Mg/0.5 Mg (3 Ml) Ud) 3 ml INH RQ6 PRN PRN Reason: Cough and congestion Last Admin: 05/26/18 13:12 Dose: 3 ml Calcium/Vitamin D (Oscal-D 250 Mg-125 Units Tab) 1 tab PO DAILY [facility] Last Admin: 06/05/18 10:00 Dose: 1 tab Docusate Sodium (Colace) 200 mg PO DAILY [facility] Last Admin: 06/05/18 10:00 Dose: 200 mg Enoxaparin Sodium (Lovenox) [address] [facility] Last Admin: 06/05/18 10:01 Dose: 40 mg Ergocalciferol (Drisdol 50,000 Intl Units Cap) [address] [facility] Last Admin: 06/03/18 18:26 Dose: 1 cap Famotidine (Pepcid) [address] [facility] Last Admin: 06/05/18 09:59 Dose: 20 mg Ferrous Gluconate (Fergon) [address] [facility] Last Admin: 06/05/18 14:54 Dose: 324 mg Furosemide (Lasix) [address] [facility] Last Admin: 06/05/18 10:00 Dose: 40 mg Glipizide (Glucotrol) [address] [facility] Last Admin: 06/05/18 09:59 Dose: 5 mg Hydromorphone HCl (Dilaudid) 0.5 mg IVP Q4H PRN PRN Reason: Pain, severe (8-10) Last Admin: 06/04/18 14:25 Dose: 0.5 mg Insulin Human Regular (Novolin R) 0 unit SC [facility] PRN Reason: Protocol Last Admin: 06/05/18 11:53 Dose: Not Given Lactulose (Enulose) [address] [facility] Last Admin: 06/04/18 08:45 Dose: 30 gm Loratadine (Claritin) 10 mg PO DAILY PRN PRN Reason: ALLERGY SYMPTOMS Metformin HCl (Glucophage) 1,[address] [facility] Last Admin: 06/05/18 09:59 Dose: 1,000 mg Sodium Phosphate (Fleet Enema) 135 ml [place] ONCE PRN PRN Reason: Constipation Spironolactone (Aldactone) [address] [facility] Last Admin: 06/05/18 10:00 Dose: 50 mg Thiamine HCl (Vitamin B1 Tab) [address] [facility] Last Admin: 06/05/18 10:00 Dose: 100 mg Vitamin B Complex/Vit C/Folic Acid (Nephro-Mai) [address] [facility] Last Admin: 06/05/18 08:16 Dose: 1 tab - Labs Labs: 06/04/18 07:22 06/04/18 07:06 PT 13.0 SECONDS (9.7-12.2) H 06/02/18 07:58 INR 1.2 06/02/18 07:58 APTT 30 SECONDS (21-34) 05/23/18 05:17
[2018-06-05 18:34] VITALS: BP 96/60
== END 2018-06-05 20:30 | DRG 481 ==
LOC: C.ER 06:50 → C.9E 08:39 → C.6T 19:01
PROVIDERS: ADMIT Internal Medicine; ATTEND Internal Medicine
PROC: 30233N1 Transfusion of Nonautologous Red Blood Cells into Peripheral Vein, Percutaneous Approach (ICD-10-PCS; 2018-05-24)
PROC: 0QS904Z Reposition Left Femoral Shaft with Internal Fixation Device, Open Approach (ICD-10-PCS; principal; 2018-05-24 16:30)
DX: S72.22XA Displaced subtrochanteric fracture of left femur, initial encounter for closed fracture (principal); S42.202A Unspecified fracture of upper end of left humerus, initial encounter for closed fracture; D62 Acute posthemorrhagic anemia; E87.1 Hypo-osmolality and hyponatremia; I85.10 Secondary esophageal varices without bleeding; K76.6 Portal hypertension; N17.9 Acute kidney failure, unspecified; D69.6 Thrombocytopenia, unspecified; D72.829 Elevated white blood cell count, unspecified; E11.65 Type 2 diabetes mellitus with hyperglycemia; E53.9 Vitamin B deficiency, unspecified; E87.6 Hypokalemia; E83.51 Hypocalcemia; E87.70 Fluid overload, unspecified; E88.09 Other disorders of plasma-protein metabolism, not elsewhere classified; I10 Essential (primary) hypertension; W11.XXXA Fall on and from ladder, initial encounter; K70.31 Alcoholic cirrhosis of liver with ascites; I95.9 Hypotension, unspecified; M17.0 Bilateral primary osteoarthritis of knee; E78.00 Pure hypercholesterolemia, unspecified; E78.5 Hyperlipidemia, unspecified; E55.9 Vitamin D deficiency, unspecified; K59.00 Constipation, unspecified; H91.92 Unspecified hearing loss, left ear; Z79.4 Long term (current) use of insulin; Z85.46 Personal history of malignant neoplasm of prostate; Z87.891 Personal history of nicotine dependence

== ENCOUNTER 2018-08-24 14:56 | Inpatient (IN) | payer MEDICARE ==
[2018-08-24 15:00] VITALS: BMI 29.9
--- NOTE | 2018-08-24 15:15 | C.PDOC ---
History Of Present Illness Patient spoke Albanian; communicated through Nurse Harris to translate: 77 y/o male pt with hx of DM brought to the ER by EMS with and daughter for c/o hypoglycemic at home. Prior to onset pt took his daily medication and was ea ting oatmeal. Patient later was slurring his words. Accuchek with EMS was 26, EMS administered Dextrose 50 and accuchek became 241. Slurring has improved in ER and accuchek is currently 129. notes pt fell and broke his left shoulder and hip a while ago. Pt denies chest pain, SOB, vomiting, fever, chills and nausea. Time Seen by Provider: 08/24/18 15:09 Chief Complaint (Nursing): Altered Mental Status History Per: Patient, Family, Other (nurse pritesh (surfboard maker)) History/Exam Limitations: None Onset/Duration Of Symptoms: Mins Current Symptoms Are (Timing): Gone Past Medical History Reviewed: Historical Data, Nursing Documentation, Vital Signs Vital Signs: Last Vital Signs Temp Pulse 81 08/24/18 15:06 Resp 20 08/24/18 15:06 BP 142/49 L 08/24/18 15:06 Pulse Ox 100 08/24/18 15:06 - Medical History PMH: Anemia, Arthritis, HTN, Hypercholesterolemia, Hyperlipidemia Surgical History: Endoscopy - [facility] Procedures EXCISION OF STOMACH, ENDO, DIAGN (06/02/16) OCCLUSION ESOPHAGEAL VEIN W EXTRALUM DEV, PERC ENDO (06/02/16) REPOSITION LEFT FEMORAL SHAFT WITH INT FIX, OPEN APPROACH (05/22/18) TRANSFUSE NONAUT RED BLOOD CELLS IN PERIPH VEIN, PERC (05/22/18) Family History: States: Unknown Family Hx - Social History Hx Alcohol Use: No Hx Substance Use: No - Immunization History Hx Tetanus Toxoid Vaccination: No Hx Influenza Vaccination: No Hx Pneumococcal Vaccination: No Review Of Systems Except As Marked, All Systems Reviewed And Found Negative. Constitutional: Positive for: Other (hypoglycemic ). Negative for: Fever, Chills Cardiovascular: Negative for: Chest Pain Respiratory: Negative for: Shortness of Breath Gastrointestinal: Negative for: Nausea, Vomiting Neurological: Positive for: Other (slurring words; now improved) Physical Exam - Physical Exam Appears: Well, Non-toxic, No Acute Distress Skin: Normal Color, Warm, Dry, No Rash Head: Atraumatic, Normacephalic, No Tenderness, No Swelling, Other (no facial symmetry ) Eye(s): bilateral: Normal Inspection, PERRL, EOMI Nose: Normal Oral Mucosa: Moist Tongue: Normal Appearing, Other (midline) Throat: Normal Neck: Normal ROM, Trachea Midline, Supple Chest: Symmetrical, No Deformity Cardiovascular: Other (intermittently tachycardic ) Respiratory: Normal Breath Sounds Gastrointestinal/Abdominal: Soft, No Tenderness, Distention (nml per ) Back: No CVA Tenderness Extremity: Normal ROM (x4), Pedal Edema (b/l 3+), Other (can lift leg but cannot leave keep it lifted) Extremity: Bilateral: Atraumatic, Normal Color And Temperature Pulses: Left Dorsalis Pedis: Normal, Right Dorsalis Pedis: Normal Neurological/Psych: Oriented x3, Normal Speech, Normal Cognition, Normal Motor, Normal Sensation, Normal Reflexes ED Course And Treatment - Laboratory Results Result Diagrams: 08/28/18 10:59 08/28/18 10:59 ECG: Interpreted By Me, Viewed By Me ECG Rhythm: Sinus Rhythm Interpretation Of ECG: incomplete RBBB, possible right ventricular hypertrophy, possible lateral infarct, abnormal EKG Rate From EC O2 Sat by Pulse Oximetry: 100 (RA) Pulse Ox Interpretation: Normal Progress Note: 94.1 rectal temperature. Medical Decision Making Medical Decision Making: Plans: -- EKG -- chem labs -- blood work -- CXR -- UA 15:38 hypothermic; FERNANDO hugger and blood cx ordered. 16:41 Pt and family states that the the PMD is not sure about the leg swelling and where it came from. Blood work was planned but PMD was not there, therefore pt is in the ER. Pt just urinated but has not been urinating a lot for a couple of days. 16:35 Dr. Colon was unavailable to accept pt and suggested Dr. Selvin Mooney. 16:36 Dr. Selvin Mooney was contacted and accepted the pt. Dr. Mooney wanted to give pt warm IV but it was not available. Normal saline is given/ Pt's blood pressure is currently normal. Disposition - Disposition Disposition: HOSPITALIZED Disposition Time: 16:35 Condition: STABLE - POA Present On Arrival: None - Clinical Impression Clinical Impression: Sepsis, KRISS (acute kidney injury), Hypoglycemia - Scribe Statement The provider has reviewed the documentation as recorded by the Scribkaya Bliss Do Provider Attestation: All medical record entries made by the Scribe were at my direction and personally dictated by me. I have reviewed the chart and agree that the record accurately reflects my personal performance of the history, physical exam, medical decision making, and the department course for this patient. I have also personally directed, reviewed, and agree with the discharge instructions and disposition.
[2018-08-24 15:45] LABS: BASO % 0.2 % (0.0-2.0); EOS # 0.1 K/uL (0.0-0.7); HEMOGLOBIN 10.5 g/dL (12.0-18.0); LYMPH # 0.7 K/uL (1.0-4.3); LYMPH % 11.3 % (20.0-40.0); MEAN CELL VOLUME 96.1 fL (80.0-94.0); MEAN CORPUSCULAR HEMOGLOBIN 32.6 pg (27.0-31.0); MEAN PLATELET VOLUME 12.4 fL (7.2-11.7); MONO # 0.6 K/uL (0.0-0.8); MONO % 9.6 % (0.0-10.0); NEUT # 4.5 K/uL (1.8-7.0); NEUT % 77.9 % (50.0-75.0); RBC 3.22 Mil/uL (4.40-5.90); RED CELL DISTRIBUTION WIDTH 14.8 % (11.5-14.5); WHITE BLOOD COUNT 5.8 K/uL (4.8-10.8)
[2018-08-24 15:53] LABS: ALB/GLOB RATIO 0.9 (1.0-2.1); ALBUMIN 3.2 g/dL (3.5-5.0); BLOOD UREA NITROGEN 39 mg/dL (9-20); GFR NON-AFRICAN AMERICAN 18
[2018-08-24 16:00] LABS: VENOUS BLOOD GAS BASE EXCESS -9.3 mmol/L (0.0-2.0); VENOUS BLOOD GAS PCO2 48 mmHg (40-60); VENOUS BLOOD GAS PO2 13 mm/Hg (30-55)
[2018-08-24 16:04] LABS: INR 1.1; PROTHROMBIN TIME 12.1 SECONDS (9.7-12.2)
[2018-08-24 16:04] LABS: B-TYPE NATRIURETIC PEPTIDE 1530 pg/mL (0-900)
[2018-08-24 16:07] LABS: ALT/SGPT 23 U/L (21-72); AST/SGOT 60 U/L (17-59)
[2018-08-24] MEDS ORDERED: Cefepime IV 2 gm in Dextrose 2 GM/100 ML BAG IVPB STA (16:31)
[2018-08-24 16:34] LABS: SQUAMOUS EPITHIAL 1 /hpf (0-5); URINE BACTERIA FEW (<OCC); URINE BILIRUBIN NEGATIVE (NEGATIVE); URINE BLOOD NEGATIVE (NEGATIVE); URINE CLARITY Clear (Clear); URINE COLOR Yellow (YELLOW); URINE GLUCOSE (UA) NORMAL (Normal); URINE LEUKOCYTE ESTERASE NEG Leu/uL (Negative); URINE PROTEIN 1+ mg/dL (NEGATIVE); URINE UROBILINOGEN NORMAL mg/dL (0.2-1.0)
--- NOTE | 2018-08-24 16:36 | RAD ---
Date of service: 08/24/2018 HISTORY: Diabetic COMPARISON: Comparison chest 05/22/2018 FINDINGS: LUNGS: Poor inspiration with low lung volumes, crowded bronchovascular markings and mild bibasilar atelectasis left greater than right. PLEURA: No significant pleural effusion identified, no pneumothorax apparent. CARDIOVASCULAR: Mild aortic atherosclerotic calcification present. Normal cardiac size. No pulmonary vascular congestion. OSSEOUS STRUCTURES: Old fracture deformity left humeral head/neck VISUALIZED UPPER ABDOMEN: Normal. OTHER FINDINGS: None. IMPRESSION: Poor inspiration with low lung volumes, crowded bronchovascular markings and mild bibasilar atelectasis left greater than right.
[2018-08-24] MEDS ORDERED: Sodium Chloride 0.9% 1,000 ML IV ONE (16:39)
[2018-08-24] MEDS ORDERED: Dextrose 50% SYRINGE Inj (50 ml) IV STA ×2 (17:38→17:40)
[2018-08-24] MEDS ORDERED: Dextrose 50% SYRINGE Inj (50 ml) ONE (17:39)
[2018-08-24 18:11] LABS: VENOUS BLOOD GAS BASE EXCESS -7.5 mmol/L (0.0-2.0); VENOUS BLOOD GAS PCO2 33 mmHg (40-60); VENOUS BLOOD GAS PO2 19 mm/Hg (30-55); VENOUS BLOOD PH 7.33 (7.32-7.43)
[2018-08-24] MEDS ORDERED: Magnesium Sulfate 1 gm in D5W 1 GM/100 ML BAG IVPB ONE ×2 (20:04→20:48)
[2018-08-24] MEDS: Magnesium Sulfate 1 gm in D5W 1 GM/100 ML BAG IVPB SCH ×2 (20:05→20:49)
[2018-08-24] MEDS: Sodium Chloride 0.9% 1,000 ML IV SCH (20:13)
[2018-08-24] MEDS ORDERED: Sodium Chloride 0.9% 1,000 ML ONE (20:17)
[2018-08-24] MEDS: (Novolin R) Insulin Human Regular 100 units/ml vial SC SCH (22:21)
[2018-08-25] MEDS: Sodium Chloride 0.9% 1,000 ML IV SCH ×3 (05:30→18:39)
[2018-08-25 09:27] LABS: HEMOGLOBIN 9.4 g/dL (12.0-18.0); MEAN CORPUSCULAR HEMOGLOBIN 32.9 pg (27.0-31.0); MEAN PLATELET VOLUME 12.3 fL (7.2-11.7); RBC 2.86 Mil/uL (4.40-5.90); RED CELL DISTRIBUTION WIDTH 14.6 % (11.5-14.5); WHITE BLOOD COUNT 5.8 K/uL (4.8-10.8)
[2018-08-25 09:47] LABS: ALB/GLOB RATIO 0.9 (1.0-2.1); ALBUMIN 2.5 g/dL (3.5-5.0); CALCIUM 7.1 mg/dl (8.6-10.4)
[2018-08-25] MEDS: (Novolin R) Insulin Human Regular 100 units/ml vial SC SCH ×4 (10:01→22:15)
--- NOTE | 2018-08-25 13:41 | CP.PCM.CON ---
History of Present Illness - History of Present Illness History of Present Illness: 77 yo male with pmh/o htn,dm hld, prostate carcinoma, s/p seed implants about 4 yrs ago, ex etoh and smoking abuse ,arthritis was admitted with slurred speach and hypoglycemia , accucheks 26 and sx imroved after D50, renal consult is requested for evaluation of KRISS. pt also c/o difficult to urinate for 4 days, occ ? dysuria, decreased uop. no cp, no palpitation, no nausea, no vomitings, no fever,cough,sob,abd. pain. + abd. distention. pt is is on aldactone, lisinopril, metformin. b/l le edema, s/p left femur ORIF, s/p fx left UE, unable to move left shoulder not more than 30-40 degrees Review of Systems - Review of Systems All systems: reviewed and no additional remarkable complaints except Review of Systems: AMS, slurred speach, hypoglycemia - Constitutional Constitutional: As Per HPI - EENT Eyes: As Per HPI Ears: As Per HPI Nose/Mouth/Throat: As Per HPI - Cardiovascular Cardiovascular: As Per HPI - Respiratory Respiratory: As Per HPI - Gastrointestinal Gastrointestinal: As Per HPI - Genitourinary Genitourinary: As Per HPI - Musculoskeletal Musculoskeletal: As Per HPI - Integumentary Integumentary: As Per HPI - Neurological Neurological: As Per HPI - Psychiatric Psychiatric: As Per HPI - Endocrine Endocrine: As Per HPI - Hematologic/Lymphatic Hematologic: As Per HPI Past Patient History - Infectious Disease Hx of Infectious Diseases: None - Past Medical History & Family History Past Medical History?: Yes - Past Social History Smoking Status: Never Smoked - CARDIAC Hx Cardiac Disorders: Yes Hx Cardia Arrhythmia: Yes Hx Hypercholesterolemia: Yes Hx Hypertension: Yes - PULMONARY Hx Respiratory Disorders: Yes Hx Pneumonia: Yes - NEUROLOGICAL Hx Neurological Disorder: No Hx Transient Ischemic Attacks (TIA): No - HEENT Hx HEENT Problems: Yes Hx Deafness: Yes Other/Comment: left ear [id number] - RENAL Hx Chronic Kidney Disease: No - ENDOCRINE/METABOLIC Hx Endocrine Disorders: Yes Hx Diabetes Mellitus Type 2: Yes - HEMATOLOGICAL/ONCOLOGICAL Hx Blood Disorders: Yes Hx Anemia: Yes - INTEGUMENTARY Hx Dermatological Problems: No - MUSCULOSKELETAL/RHEUMATOLOGICAL Hx Falls: Yes - GASTROINTESTINAL Hx Gastrointestinal Disorders: Yes Hx Esophageal Varices: Yes (BANDING DONE) Hx Ulcer: Yes Other/Comment: HX:IRREGULAR CONTOUR OF LIVER WITH CIRRRHOSIS. HX: [id number] DONE. HX: MELENA - GENITOURINARY/GYNECOLOGICAL Hx Genitourinary Disorders: Yes Hx Prostate Cancer: Yes - PSYCHIATRIC Hx Substance Use: No - SURGICAL HISTORY Hx Surgeries: Yes Hx Musculoskeletal Surgery: Yes (left hip, left shoulder, left knee) Other/Comment: HX: ESOPHAGEAL VARICES-BANDING DONE - ANESTHESIA Hx Anesthesia: Yes Hx Anesthesia Reactions: No Hx Malignant Hyperthermia: No Meds Allergies/Adverse Reactions: Allergies Allergy/AdvReac Type Severity Reaction Status Date / Time No Known Allergies Allergy Verified 05/22/18 07:32 - Medications Medications: Current Medications Heparin Sodium (Porcine) (Heparin) 5,000 units SC Q8 ANGEL Last Admin: 08/25/18 05:52 Dose: 5,000 units Cefepime HCl 1 gm/ Dextrose 50 mls @ 100 mls/hr IVPB Q12H ANGEL; Protocol Last Admin: 08/25/18 07:01 Dose: 100 mls/hr Sodium Chloride (Sodium Chloride 0.9%) 1,000 mls @ 100 mls/hr IV .Q10H ANGEL Last Admin: 08/25/18 05:30 Dose: 100 mls/hr Insulin Human Regular (Novolin R) 0 unit SC ACHS ANGEL; Protocol Last Admin: 08/25/18 12:38 Dose: 1 unit Montelukast Sodium (Singulair) 10 mg PO HS ANGEL Physical Exam - Constitutional Appears: Well, Non-toxic, No Acute Distress - Head Exam Head Exam: ATRAUMATIC, NORMAL INSPECTION, NORMOCEPHALIC - Eye Exam Eye Exam: EOMI, Normal appearance, PERRL Pupil Exam: NORMAL ACCOMODATION - ENT Exam ENT Exam: Mucous Membranes Moist - Neck Exam Neck exam: Positive for: Full Rom, Normal Inspection - Respiratory Exam Respiratory Exam: Clear to Auscultation Bilateral, NORMAL BREATHING PATTERN - Cardiovascular Exam Cardiovascular Exam: REGULAR RHYTHM, +S1, +S2 - GI/Abdominal Exam GI & Abdominal Exam: Distended, Normal Bowel Sounds, Soft Additional comments: no hepato spleenomegaly - Rectal Exam Rectal Exam: Deferred - Extremities Exam Additional comments: 2+ edema of legs, unable to lift left shoulder completely , only to 30-40 degrees - Neurological Exam Neurological exam: Alert, CN II-XII Intact, Oriented x3 - Psychiatric Exam Psychiatric exam: Normal Affect - Skin Skin Exam: Normal Color, Warm Results - Vital Signs Recent Vital Signs: Last Vital Signs Temp 98.3 F 08/25/18 07:00 Pulse 80 08/25/18 08:01 Resp 18 08/25/18 07:00 BP 104/62 08/25/18 07:00 Pulse Ox 98 08/25/18 07:00 - Labs Result Diagrams: 08/25/18 09:19 08/25/18 09:19 Labs: Laboratory Results - last 24 hr 08/24/18 08/24/18 08/24/18 15:36 15:36 15:50 WBC 5.8 RBC 3.22 L Hgb 10.5 L Hct 30.9 L MCV 96.1 H D MCH 32.6 H MCHC 34.0 RDW 14.8 H Plt Count 109 L D MPV 12.4 H Neut % (Auto) 77.9 H Lymph % (Auto) 11.3 L [place] % (Auto) 9.6 Eos % (Auto) 1.0 Baso % (Auto) 0.2 Neut # (Auto) 4.5 Lymph # (Auto) 0.7 L [place] # (Auto) 0.6 Eos # (Auto) 0.1 Baso # (Auto) 0.0 PT INR APTT pO2 13 L VBG pH 7.20 L VBG pCO2 48 VBG HCO3 15.3 VBG Total CO2 20.3 L VBG O2 Sat (Calc) 14.2 L VBG Base Excess -9.3 L VBG Potassium 5.3 H Glucose 89 Lactate 6.8 H* FiO2 21.0 Crit Value Called To Dr salgado Crit Value Called By [facility] Crit Value Read Back Y Blood Gas Notified Time 1600 Sodium 134 139.0 Potassium 4.6 Chloride 104 106.0 Carbon Dioxide 17 L Anion Gap 17 BUN 39 H Creatinine 3.4 H Est GFR ( Amer) 21 Est GFR (Non-Af Amer) 18 Random Glucose 104 Lactic Acid Calcium 8.0 L Phosphorus Magnesium Total Bilirubin 1.4 H AST 60 H D ALT 23 Alkaline Phosphatase 334 H Troponin I < 0.0120 NT-Pro-B Natriuret Pep 1530 H Total Protein 6.8 Albumin 3.2 L D Globulin 3.5 Albumin/Globulin Ratio 0.9 L Venous Blood Potassium 5.3 H Urine Color Urine Clarity Urine pH Ur Specific [place] Urine Protein Urine Glucose (UA) Urine Ketones Urine Blood Urine Nitrate Urine Bilirubin Urine Urobilinogen Ur Leukocyte Esterase Urine WBC (Auto) Urine RBC (Auto) Ur Squamous Epith Cells Urine Bacteria Ur Random Sodium 08/24/18 08/24/18 08/24/18 15:51 16:22 18:01 WBC RBC Hgb Hct MCV MCH MCHC RDW Plt Count MPV Neut % (Auto) Lymph % (Auto) [place] % (Auto) Eos % (Auto) Baso % (Auto) Neut # (Auto) Lymph # (Auto) [place] # (Auto) Eos # (Auto) Baso # (Auto) PT 12.1 INR 1.1 APTT 34 pO2 VBG pH VBG pCO2 VBG HCO3 VBG Total CO2 VBG O2 Sat (Calc) VBG Base Excess VBG Potassium Glucose Lactate FiO2 Crit Value Called To Crit Value Called By Crit Value Read Back Blood Gas Notified Time Sodium Potassium Chloride Carbon Dioxide Anion Gap BUN Creatinine Est GFR ( Amer) Est GFR (Non-Af Amer) Random Glucose Lactic Acid Calcium Phosphorus 4.1 Magnesium 1.3 L Total Bilirubin AST ALT Alkaline Phosphatase Troponin I NT-Pro-B Natriuret Pep Total Protein Albumin Globulin Albumin/Globulin Ratio Venous Blood Potassium Urine Color Yellow Urine Clarity Clear Urine pH 5.0 Ur Specific [place] 1.012 Urine Protein 1+ H Urine Glucose (UA) Normal Urine Ketones Negative Urine Blood Negative Urine Nitrate Negative Urine Bilirubin Negative Urine Urobilinogen Normal Ur Leukocyte Esterase Neg Urine WBC (Auto) 10 H Urine RBC (Auto) 5 H Ur Squamous Epith Cells 1 Urine Bacteria Few H Ur Random Sodium 08/24/18 08/25/18 08/25/18 18:05 09:00 09:19 WBC 5.8 RBC 2.86 L Hgb 9.4 L Hct 26.9 L MCV 94.0 D MCH 32.9 H MCHC 35.0 RDW 14.6 H Plt Count 99 L MPV 12.3 H Neut % (Auto) Lymph % (Auto) [place] % (Auto) Eos % (Auto) Baso % (Auto) Neut # (Auto) Lymph # (Auto) [place] # (Auto) Eos # (Auto) Baso # (Auto) PT INR APTT pO2 19 L VBG pH 7.33 VBG pCO2 33 L VBG HCO3 17.1 VBG Total CO2 18.4 L VBG O2 Sat (Calc) 30.4 L VBG Base Excess -7.5 L VBG Potassium 4.6 Glucose 197 H Lactate 3.8 H FiO2 21.0 Crit Value Called To Crit Value Called By Crit Value Read Back Blood Gas Notified Time Sodium 136.0 Potassium Chloride 108.0 H Carbon Dioxide Anion Gap BUN Creatinine Est GFR ( Amer) Est GFR (Non-Af Amer) Random Glucose Lactic Acid 2.5 H Calcium Phosphorus Magnesium Total Bilirubin AST ALT Alkaline Phosphatase Troponin I NT-Pro-B Natriuret Pep Total Protein Albumin Globulin Albumin/Globulin Ratio Venous Blood Potassium 4.6 Urine Color Urine Clarity Urine pH Ur Specific [place] Urine Protein Urine Glucose (UA) Urine Ketones Urine Blood Urine Nitrate Urine Bilirubin Urine Urobilinogen Ur Leukocyte Esterase Urine WBC (Auto) Urine RBC (Auto) Ur Squamous Epith Cells Urine Bacteria Ur Random Sodium 08/25/18 08/25/18 09:19 10:47 WBC RBC Hgb Hct MCV MCH MCHC RDW Plt Count MPV Neut % (Auto) Lymph % (Auto) [place] % (Auto) Eos % (Auto) Baso % (Auto) Neut # (Auto) Lymph # (Auto) [place] # (Auto) Eos # (Auto) Baso # (Auto) PT INR APTT pO2 VBG pH VBG pCO2 VBG HCO3 VBG Total CO2 VBG O2 Sat (Calc) VBG Base Excess VBG Potassium Glucose Lactate FiO2 Crit Value Called To Crit Value Called By Crit Value Read Back Blood Gas Notified Time Sodium 133 Potassium 4.8 Chloride 105 Carbon Dioxide 17 L Anion Gap 16 BUN 39 H Creatinine 3.5 H Est GFR ( Amer) 21 Est GFR (Non-Af Amer) 17 Random Glucose 99 Lactic Acid Calcium 7.1 L Phosphorus Magnesium Total Bilirubin 1.5 H AST 43 ALT 23 Alkaline Phosphatase 222 H D Troponin I NT-Pro-B Natriuret Pep Total Protein 5.4 L Albumin 2.5 L D Globulin 2.9 Albumin/Globulin Ratio 0.9 L Venous Blood Potassium Urine Color Urine Clarity Urine pH Ur Specific [place] Urine Protein Urine Glucose (UA) Urine Ketones Urine Blood Urine Nitrate Urine Bilirubin Urine Urobilinogen Ur Leukocyte Esterase Urine WBC (Auto) Urine RBC (Auto) Ur Squamous Epith Cells Urine Bacteria Ur Random Sodium 35 previous labs reviewd by me, his base line s.cr was 0.8 in 05/2018 - Imaging and Cardiology US - abdomen Status: Report reviewed by me Additional comment: from 05/2018 Chest x-ray Status: Report reviewed by me Assessment & Plan - Assessment and Plan (Free Text) Assessment: 77 yo Male with pmh/o hypertension, DM, hyperlipidemia, arthritis , cirrhosis of liver,ex thoh abuse, ex smoker about 40 ppyear histoty, s/p fall fx left femur and left UE, prostate ca s/p seed implants was admitted with slurred speach, severe hypoglycemia, accuchecks 26 and sx improved after giving D50 1amp by EMS, pt with elevated bun/cr. base line s.cr was 0.8 in may 2018 1. KRISS most likely sec to ATn sec to drugs ACEI, Aldactone, metformin 2. Hypoglycemia 3. HTN 4. DM check urine lytes, osm, creatinine repeat u/s kidneys and bladder if renal function does not improve ivf 1/2 ns at 80 ml/hr check u/a, c/s daily bmp check PSA level avoid ACEI, Aldactone and metformin until renal function is improved Plan: As above
--- NOTE | 2018-08-25 18:15 | CP.PCM.CON ---
History of Present Illness - History of Present Illness History of Present Illness: 77 y/o male pt with hx of DM brought to the ER by EMS with and daughter for c/o hypoglycemic at home. . Accuchek with EMS was 26, EMS administered Dextrose 50 and accuchek became 241. Slurring has improved in ER referred for ID eval for possible infection AMS \ - Medical History PMH: Anemia, Arthritis, HTN, Hypercholesterolemia, Hyperlipidemia, ? cirrhosis Surgical History: Endoscopy - [facility] Procedures EXCISION OF STOMACH, ENDO, DIAGN (06/02/16) OCCLUSION ESOPHAGEAL VEIN W EXTRALUM DEV, PERC ENDO (06/02/16) REPOSITION LEFT FEMORAL SHAFT WITH INT FIX, OPEN APPROACH (05/22/18) TRANSFUSE NONAUT RED BLOOD CELLS IN PERIPH VEIN, PERC (05/22/18) Review of Systems - Review of Systems Systems not reviewed;Unavailable: Altered Mental Status All systems: reviewed and no additional remarkable complaints except - Constitutional Constitutional: As Per HPI - EENT Eyes: absent: As Per HPI, Blind Spots, Blurred Vision, Change in Vision, Decreased Night Vision, Diplopia, Discharge, Dry Eye, Exophthalmos, Floaters, Irritation, Itchy Eyes, Loss of Peripheral Vision, Pain, Photophobia, Requires Corrective Lenses, Sees Flashes, Spots in Vision, Tunnel Vision, Other Visual Disturbances, Loss of Vision, Other Ears: absent: As Per HPI, Decreased Hearing, Ear Discharge, Ear Pain, Tinnitus, Abnormal Hearing, Disequilibrium, Dizziness, Other Nose/Mouth/Throat: absent: As Per HPI, Epistaxis, Nasal Congestion, Nasal Discharge, Nasal Obstruction, Nasal Trauma, Nose Pain, Post Nasal Drip, Sinus Pain, Sinus Pressure, Bleeding Gums, Change in Voice, Dental Pain, Dry Mouth, Dysphagia, Halitosis, Hoarsness, Lip Swelling, Mouth Lesions, Mouth Pain, Odynophagia, Sore Throat, Throat Swelling, Tongue Swelling, Facial Pain, Neck Pain, Neck Mass, Other - Cardiovascular Cardiovascular: absent: As Per HPI, Acrocyanosis, Chest Pain, Chest Pain at Rest, Chest Pain with Activity, Claudication, Diaphoresis, Dyspnea, Dyspnea on Exertion, Edema, Irregular Heart Rhythm, Pain Radiating to Arm/Neck/Jaw, Leg Edema, Leg Ulcers, Lightheadedness, Orthopnea, Palpitations, Paroxysmal Noct urnal Dyspnea, Pedal Edema, Radiating Pain, Rapid Heart Rate, Slow Heart Rate, Syncope, Other - Respiratory Respiratory: absent: As Per HPI, Cough, Dyspnea, Hemoptysis, Dyspnea on Exertion, Wheezing, Snoring, Stridor, Pain on Inspiration, Chest Congestion, Excessive Mucous Production, Change in Mucous Color, Pain with Coughing, Other - Gastrointestinal Gastrointestinal: absent: As Per HPI, Abdominal Pain, Belching, Bloating, Change in Bowel Habits, Change in Stool Character, Coffee Ground Emesis, Constipation, Cramping, Diarrhea, Dyspepsia, Dysphagia, Early Satiety, Excessive Flatus, Fecal Incontinence, Heartburn, Hematemesis, Hematochezia, Loose Stools, Melena, Nausea, Odynophagia, Temesmus, Vomiting, Other - Genitourinary Genitourinary: absent: As Per HPI, Change in Urinary Stream, Difficulty Urinating, Dysuria, Flank Pain, Hematuria, Pyuria, Nocturia, Urinary Incontin ence, Urinary Frequency, Urinary Hesitance, Urinary Urgency, Voiding Freq/Small Amts, Freq UTI, Hx Renal/Bladder Calculi, Hx /Renal Surgery, Bladder Distension, Other - Musculoskeletal Musculoskeletal: As Per HPI - Integumentary Integumentary: absent: As Per HPI, Acne, Alopecia, Bleeding Lesions, Change in Hair, Change in Nails, Change in Pigmentation, Changing Lesions, Dry Skin, Erythema, Furuncle, Hirsutism, Lesions, New Lesions, Non-Healing Lesions, Photosensitivity, Pruritus, Rash, Skin Pain, Skin Ulcer, Sores, Striae, Swelling, Unusual Bruising, Wounds, Jaundice, Other - Neurological Neurological: As Per HPI - Psychiatric Psychiatric: absent: As Per HPI, Abnormal Sleep Pattern, Anhedonia, Anxiety, Auditory Hallucinations, Behavioral Changes, Change in Appetite, Change in Libido, Confusion, Depression, Difficulty Concentrating, Hallucinations, Homicidal Ideation, Hopelessness, Irritability, Memory Loss, Mood Swings, Panic Attacks, Paranoia, Suicidal Ideation, Visual Hallucinations, Tactile Hallucinations, Other - Endocrine Endocrine: As Per HPI - Hematologic/Lymphatic Hematologic: absent: As Per HPI, Easy Bleeding, Easy Bruising, Lymphadenopathy, Other Past Patient History - Infectious Disease Hx of Infectious Diseases: None - Past Medical History & Family History Past Medical History?: Yes - Past Social History Smoking Status: Never Smoked - CARDIAC Hx Cardiac Disorders: Yes Hx Cardia Arrhythmia: Yes Hx Hypercholesterolemia: Yes Hx Hypertension: Yes - PULMONARY Hx Respiratory Disorders: Yes Hx Pneumonia: Yes - NEUROLOGICAL Hx Neurological Disorder: No Hx Transient Ischemic Attacks (TIA): No - HEENT Hx HEENT Problems: Yes Hx Deafness: Yes Other/Comment: left ear [place] - RENAL Hx Chronic Kidney Disease: No - ENDOCRINE/METABOLIC Hx Endocrine Disorders: Yes Hx Diabetes Mellitus Type 2: Yes - HEMATOLOGICAL/ONCOLOGICAL Hx Blood Disorders: Yes Hx Anemia: Yes - INTEGUMENTARY Hx Dermatological Problems: No - MUSCULOSKELETAL/RHEUMATOLOGICAL Hx Falls: Yes - GASTROINTESTINAL Hx Gastrointestinal Disorders: Yes Hx Esophageal Varices: Yes (BANDING DONE) Hx Ulcer: Yes Other/Comment: HX:IRREGULAR CONTOUR OF LIVER WITH CIRRRHOSIS. HX: [id number] DONE. HX: MELENA - GENITOURINARY/GYNECOLOGICAL Hx Genitourinary Disorders: Yes Hx Prostate Cancer: Yes - PSYCHIATRIC Hx Substance Use: No - SURGICAL HISTORY Hx Surgeries: Yes Hx Musculoskeletal Surgery: Yes (left hip, left shoulder, left knee) Other/Comment: HX: ESOPHAGEAL VARICES-BANDING DONE - ANESTHESIA Hx Anesthesia: Yes Hx Anesthesia Reactions: No Hx Malignant Hyperthermia: No Meds Allergies/Adverse Reactions: Allergies Allergy/AdvReac Type Severity Reaction Status Date / Time No Known Allergies Allergy Verified 05/22/18 07:32 - Medications Medications: Current Medications Heparin Sodium (Porcine) (Heparin) 5,000 units SC Q8 ANGEL Last Admin: 08/25/18 14:35 Dose: 5,000 units Cefepime HCl 1 gm/ Dextrose 50 mls @ 100 mls/hr IVPB Q12H ANGEL; Protocol Last Admin: 08/25/18 07:01 Dose: 100 mls/hr Sodium Chloride (Sodium Chloride 0.9%) 1,000 mls @ 100 mls/hr IV .Q10H ANGEL Last Admin: 08/25/18 16:06 Dose: Not Given Insulin Human Regular (Novolin R) 0 unit SC ACHS ANGEL; Protocol Last Admin: 08/25/18 17:06 Dose: Not Given Montelukast Sodium (Singulair) 10 mg PO HS ANGEL Physical Exam - Constitutional Appears: Confused, Cachectic, Chronically Ill - Head Exam Head Exam: ATRAUMATIC, NORMOCEPHALIC - Eye Exam Eye Exam: PERRL. absent: Scleral icterus - ENT Exam ENT Exam: Mucous Membranes Dry, Normal External Ear Exam - Neck Exam Neck exam: Negative for: Lymphadenopathy - Respiratory Exam Respiratory Exam: Decreased Breath Sounds, Prolonged Expiratory Phase, Rhonchi - Cardiovascular Exam Cardiovascular Exam: REGULAR RHYTHM, +S1, +S2 - GI/Abdominal Exam GI & Abdominal Exam: Diminished Bowel Sounds, Soft. absent: Tenderness - Rectal Exam Rectal Exam: Deferred - Exam Exam: NORMAL INSPECTION - Extremities Exam Extremities exam: Positive for: pedal pulses present. Negative for: calf tenderness, pedal edema, tenderness - Back Exam Back exam: absent: CVA tenderness (L), CVA tenderness (R), paraspinal tenderness - Neurological Exam Neurological exam: Alert, CN II-XII Intact, Oriented x3, Reflexes Normal - Psychiatric Exam Psychiatric exam: Depressed - Skin Skin Exam: Dry Additional comments: + edema bilaterally Results - Vital Signs Recent Vital Signs: Last Vital Signs Temp 98 F 08/25/18 15:19 Pulse 83 08/25/18 16:00 Resp 20 08/25/18 15:19 BP 118/66 08/25/18 15:19 Pulse Ox 99 08/25/18 15:19 - Labs Result Diagrams: 08/25/18 09:19 08/25/18 09:19 Labs: Laboratory Results - last 24 hr 08/24/18 08/25/18 08/25/18 18:01 09:00 09:19 WBC 5.8 RBC 2.86 L Hgb 9.4 L Hct 26.9 L MCV 94.0 D MCH 32.9 H MCHC 35.0 RDW 14.6 H Plt Count 99 L MPV 12.3 H Sodium Potassium Chloride Carbon Dioxide Anion Gap BUN Creatinine Est GFR ( Amer) Est GFR (Non-Af Amer) Random Glucose Lactic Acid 2.5 H Calcium Phosphorus 4.1 Magnesium 1.3 L Total Bilirubin AST ALT Alkaline Phosphatase Total Protein Albumin Globulin Albumin/Globulin Ratio Ur Random Sodium 08/25/18 08/25/18 09:19 10:47 WBC RBC Hgb Hct MCV MCH MCHC RDW Plt Count MPV Sodium 133 Potassium 4.8 Chloride 105 Carbon Dioxide 17 L Anion Gap 16 BUN 39 H Creatinine 3.5 H Est GFR ( Amer) 21 Est GFR (Non-Af Amer) 17 Random Glucose 99 Lactic Acid Calcium 7.1 L Phosphorus Magnesium Total Bilirubin 1.5 H AST 43 ALT 23 Alkaline Phosphatase 222 H D Total Protein 5.4 L Albumin 2.5 L D Globulin 2.9 Albumin/Globulin Ratio 0.9 L Ur Random Sodium 35 Assessment & Plan (1) Cirrhosis of liver Status: Acute (2) Diabetes 1.5, managed as type 2 Status: Acute - Assessment and Plan (Free Text) Assessment: admitted for AMS, hypoglycemia at home ? hx of cirrhosis, CKD with KRISS , dehydration, ? possible UTI cultures sent IV antibiotics started empirically
[2018-08-25 19:01] LABS: SQUAMOUS EPITHIAL 1 /hpf (0-5); URINE BACTERIA MANY (<OCC); URINE BILIRUBIN NEGATIVE (NEGATIVE); URINE BLOOD 1+ (NEGATIVE); URINE CLARITY Clear (Clear); URINE COLOR Yellow (YELLOW); URINE GLUCOSE (UA) NORMAL (Normal); URINE LEUKOCYTE ESTERASE NEG Leu/uL (Negative); URINE PROTEIN NEGATIVE (NEGATIVE); URINE UROBILINOGEN NORMAL mg/dL (0.2-1.0)
--- NOTE | 2018-08-25 21:18 | CP.PCM.CON ---
History of Present Illness - History of Present Illness History of Present Illness: Reason for consultation: Chest Pain Hx obtained from the daughter 77 y/o male pt with hx of DM brought to the ER by EMS with and daughter for c/o hypoglycemic at home. Prior to onset pt took his daily medication and was eating oatmeal. Patient later was slurring his words. Accuchek with EMS was 26, EMS administered Dextrose 50 and accuchek became 241. Slurring has improved in ER and accuchek is currently 129. notes pt fell and broke his left shoulder and hip a while ago. Pt denies chest pain, SOB, vomiting, fever, chills and nausea. Chief Complaint (Nursing): Altered Mental Status History Per: Patient, Family, History/Exam Limitations: None Onset/Duration Of Symptoms: Mins Current Symptoms Are (Timing): Gone - Medical History PMH: Anemia, Arthritis, HTN, Hypercholesterolemia, Hyperlipidemia Surgical History: Endoscopy - [facility] Procedures EXCISION OF STOMACH, ENDO, DIAGN (06/02/16) OCCLUSION ESOPHAGEAL VEIN W EXTRALUM DEV, PERC ENDO (06/02/16) REPOSITION LEFT FEMORAL SHAFT WITH INT FIX, OPEN APPROACH (05/22/18) TRANSFUSE NONAUT RED BLOOD CELLS IN PERIPH VEIN, PERC (05/22/18) Family History: States: Unknown Family Hx - Social History Hx Alcohol Use: No Hx Substance Use: No - Immunization History Hx Tetanus Toxoid Vaccination: No Hx Influenza Vaccination: No Hx Pneumococcal Vaccination: No Review Of Systems Except As Marked, All Systems Reviewed And Found Negative. Constitutional: Positive for: Other (hypoglycemic ). Negative for: Fever, Chills Cardiovascular: Negative for: Chest Pain Respiratory: Negative for: Shortness of Breath Gastrointestinal: Negative for: Nausea, Vomiting Neurological: Positive for: Other (slurring words; now improved) Physical Exam - Physical Exam Appears: Well, Non-toxic, No Acute Distress Skin: Normal Color, Warm, Dry, No Rash Head: Atraumatic, Normacephalic, No Tenderness, No Swelling, Other (no facial symmetry ) Eye(s): bilateral: Normal Inspection, PERRL, EOMI Nose: Normal Oral Mucosa: Moist Tongue: Normal Appearing, Other (midline) Throat: Normal Neck: Normal ROM, Trachea Midline, Supple Chest: Symmetrical, No Deformity Cardiovascular: Other (intermittently tachycardic ) Respiratory: Normal Breath Sounds Gastrointestinal/Abdominal: Soft, No Tenderness, Distention (nml per ) Back: No CVA Tenderness Extremity: Normal ROM (x4), Pedal Edema (b/l 3+), Other (can lift leg but cannot leave keep it lifted) Extremity: Bilateral: Atraumatic, Normal Color And Temperature Pulses: Left Dorsalis Pedis: Normal, Right Dorsalis Pedis: Normal Neurological/Psych: Oriented x3, Normal Speech, Normal Cognition, Normal Motor, Normal Sensation, Normal Reflexes Past Patient History - Infectious Disease Hx of Infectious Diseases: None - Past Medical History & Family History Past Medical History?: Yes - Past Social History Smoking Status: Never Smoked - CARDIAC Hx Cardiac Disorders: Yes Hx Cardia Arrhythmia: Yes Hx Hypercholesterolemia: Yes Hx Hypertension: Yes - PULMONARY Hx Respiratory Disorders: Yes Hx Pneumonia: Yes - NEUROLOGICAL Hx Neurological Disorder: No Hx Transient Ischemic Attacks (TIA): No - HEENT Hx HEENT Problems: Yes Hx Deafness: Yes Other/Comment: left ear [place] - RENAL Hx Chronic Kidney Disease: No - ENDOCRINE/METABOLIC Hx Endocrine Disorders: Yes Hx Diabetes Mellitus Type 2: Yes - HEMATOLOGICAL/ONCOLOGICAL Hx Blood Disorders: Yes Hx Anemia: Yes - INTEGUMENTARY Hx Dermatological Problems: No - MUSCULOSKELETAL/RHEUMATOLOGICAL Hx Falls: Yes - GASTROINTESTINAL Hx Gastrointestinal Disorders: Yes Hx Esophageal Varices: Yes (BANDING DONE) Hx Ulcer: Yes Other/Comment: HX:IRREGULAR CONTOUR OF LIVER WITH CIRRRHOSIS. HX: [id number] DONE. HX: MELENA - GENITOURINARY/GYNECOLOGICAL Hx Genitourinary Disorders: Yes Hx Prostate Cancer: Yes - PSYCHIATRIC Hx Substance Use: No - SURGICAL HISTORY Hx Surgeries: Yes Hx Musculoskeletal Surgery: Yes (left hip, left shoulder, left knee) Other/Comment: HX: ESOPHAGEAL VARICES-BANDING DONE - ANESTHESIA Hx Anesthesia: Yes Hx Anesthesia Reactions: No Hx Malignant Hyperthermia: No Meds Allergies/Adverse Reactions: Allergies Allergy/AdvReac Type Severity Reaction Status Date / Time No Known Allergies Allergy Verified 05/22/18 07:32 - Medications Medications: Current Medications Heparin Sodium (Porcine) (Heparin) 5,000 units SC Q8 ANGEL Last Admin: 08/25/18 14:35 Dose: 5,000 units Cefepime HCl 1 gm/ Dextrose 50 mls @ 100 mls/hr IVPB Q12H ANGEL; Protocol Last Admin: 08/25/18 18:38 Dose: 100 mls/hr Sodium Chloride (Sodium Chloride 0.9%) 1,000 mls @ 100 mls/hr IV .Q10H [facility] Last Admin: 08/25/18 18:39 Dose: 100 mls/hr Insulin Human Regular (Novolin R) 0 unit SC [facility]; Protocol Last Admin: 08/25/18 17:06 Dose: Not Given Montelukast Sodium (Singulair) 10 mg PO [facility] Results - Vital Signs Recent Vital Signs: Last Vital Signs Temp 98 F 08/25/18 15:19 Pulse 83 08/25/18 16:00 Resp 20 08/25/18 15:19 BP 118/66 08/25/18 15:19 Pulse Ox 99 08/25/18 15:19 - Labs Result Diagrams: 08/25/18 09:19 08/25/18 09:19 Labs: Laboratory Results - last 24 hr 08/25/18 08/25/18 08/25/18 09:00 09:19 09:19 WBC 5.8 RBC 2.86 L Hgb 9.4 L Hct 26.9 L MCV 94.0 D MCH 32.9 H MCHC 35.0 RDW 14.6 H Plt Count 99 L MPV 12.3 H Sodium 133 Potassium 4.8 Chloride 105 Carbon Dioxide 17 L Anion Gap 16 BUN 39 H Creatinine 3.5 H Est GFR ( Amer) 21 Est GFR (Non-Af Amer) 17 Random Glucose 99 Lactic Acid 2.5 H Calcium 7.1 L Total Bilirubin 1.5 H AST 43 ALT 23 Alkaline Phosphatase 222 H D Total Protein 5.4 L Albumin 2.5 L D Globulin 2.9 Albumin/Globulin Ratio 0.9 L Urine Color Urine Clarity Urine pH Ur Specific [place] Urine Protein Urine Glucose (UA) Urine Ketones Urine Blood Urine Nitrate Urine Bilirubin Urine Urobilinogen Ur Leukocyte Esterase Urine WBC (Auto) Urine RBC (Auto) Ur Squamous Epith Cells Urine Bacteria Ur Random Creatinine Ur Random Sodium Ur Random Potassium 08/25/18 08/25/18 08/25/18 10:47 18:48 18:48 WBC RBC Hgb Hct MCV MCH MCHC RDW Plt Count MPV Sodium Potassium Chloride Carbon Dioxide Anion Gap BUN Creatinine Est GFR ( Amer) Est GFR (Non-Af Amer) Random Glucose Lactic Acid Calcium Total Bilirubin AST ALT Alkaline Phosphatase Total Protein Albumin Globulin Albumin/Globulin Ratio Urine Color Yellow Urine Clarity Clear Urine pH 5.0 Ur Specific [place] 1.010 Urine Protein Negative Urine Glucose (UA) Normal Urine Ketones Negative Urine Blood 1+ H Urine Nitrate Negative Urine Bilirubin Negative Urine Urobilinogen Normal Ur Leukocyte Esterase Neg Urine WBC (Auto) 19 H Urine RBC (Auto) 6 H Ur Squamous Epith Cells 1 Urine Bacteria Many H Ur Random Creatinine 75.0 Ur Random Sodium 35 38 Ur Random Potassium 08/25/18 18:48 WBC RBC Hgb Hct MCV MCH MCHC RDW Plt Count MPV Sodium Potassium Chloride Carbon Dioxide Anion Gap BUN Creatinine Est GFR ( Amer) Est GFR (Non-Af Amer) Random Glucose Lactic Acid Calcium Total Bilirubin AST ALT Alkaline Phosphatase Total Protein Albumin Globulin Albumin/Globulin Ratio Urine Color Urine Clarity Urine pH Ur Specific [place] Urine Protein Urine Glucose (UA) Urine Ketones Urine Blood Urine Nitrate Urine Bilirubin Urine Urobilinogen Ur Leukocyte Esterase Urine WBC (Auto) Urine RBC (Auto) Ur Squamous Epith Cells Urine Bacteria Ur Random Creatinine Ur Random Sodium Ur Random Potassium 22.4 Assessment & Plan - Assessment and Plan (Free Text) Assessment: 77 yo Male with pmh/o hypertension, DM, hyperlipidemia, arthritis , cirrhosis of liver,ex thoh abuse, ex smoker about 40 ppyear histoty, s/p fall fx left femur and left UE, prostate ca s/p seed implants was admitted with slurred speach, severe hypoglycemia, accuchecks 26 and sx improved after giving D50 1amp by EMS, pt with elevated bun/cr. base line s.cr was 0.8 in may 2018 1. KRISS most likely sec to ATn sec to drugs ACEI, Aldactone, metformin 2. Hypoglycemia 3. HTN 4. DM Check ECHO Stress test prior to discharge
--- NOTE | 2018-08-25 22:43 | CP.PCM.HP ---
History of Present Illness - History of Present Illness History of Present Illness: dictated Past Patient History - Infectious Disease Hx of Infectious Diseases: None - Past Medical History & Family History Past Medical History?: Yes - Past Social History Smoking Status: Never Smoked - CARDIAC Hx Cardiac Disorders: Yes Hx Cardia Arrhythmia: Yes Hx Hypercholesterolemia: Yes Hx Hypertension: Yes - PULMONARY Hx Respiratory Disorders: Yes Hx Pneumonia: Yes - NEUROLOGICAL Hx Neurological Disorder: No Hx Transient Ischemic Attacks (TIA): No - HEENT Hx HEENT Problems: Yes Hx Deafness: Yes Other/Comment: left ear [place] - RENAL Hx Chronic Kidney Disease: No - ENDOCRINE/METABOLIC Hx Endocrine Disorders: Yes Hx Diabetes Mellitus Type 2: Yes - HEMATOLOGICAL/ONCOLOGICAL Hx Blood Disorders: Yes Hx Anemia: Yes - INTEGUMENTARY Hx Dermatological Problems: No - MUSCULOSKELETAL/RHEUMATOLOGICAL Hx Falls: Yes - GASTROINTESTINAL Hx Gastrointestinal Disorders: Yes Hx Esophageal Varices: Yes (BANDING DONE) Hx Ulcer: Yes Other/Comment: HX:IRREGULAR CONTOUR OF LIVER WITH CIRRRHOSIS. HX: [id number]-[id number]- TREATMENT DONE. HX: MELENA - GENITOURINARY/GYNECOLOGICAL Hx Genitourinary Disorders: Yes Hx Prostate Cancer: Yes - PSYCHIATRIC Hx Substance Use: No - SURGICAL HISTORY Hx Surgeries: Yes Hx Musculoskeletal Surgery: Yes (left hip, left shoulder, left knee) Other/Comment: HX: ESOPHAGEAL VARICES-BANDING DONE - ANESTHESIA Hx Anesthesia: Yes Hx Anesthesia Reactions: No Hx Malignant Hyperthermia: No Meds Allergies/Adverse Reactions: Allergies Allergy/AdvReac Type Severity Reaction Status Date / Time No Known Allergies Allergy Verified 05/22/18 07:32 Results - Vital Signs Recent Vital Signs: Last Vital Signs Temp 98 F 08/25/18 15:19 Pulse 83 08/25/18 16:00 Resp 20 08/25/18 15:19 BP 118/66 08/25/18 15:19 Pulse Ox 99 08/25/18 15:19 - Labs Result Diagrams: 08/25/18 09:19 08/25/18 09:19 Labs: Laboratory Results - last 24 hr 08/25/18 08/25/18 08/25/18 09:00 09:19 09:19 WBC 5.8 RBC 2.86 L Hgb 9.4 L Hct 26.9 L MCV 94.0 D MCH 32.9 H MCHC 35.0 RDW 14.6 H Plt Count 99 L MPV 12.3 H Sodium 133 Potassium 4.8 Chloride 105 Carbon Dioxide 17 L Anion Gap 16 BUN 39 H Creatinine 3.5 H Est GFR ( Amer) 21 Est GFR (Non-Af Amer) 17 Random Glucose 99 Lactic Acid 2.5 H Calcium 7.1 L Total Bilirubin 1.5 H AST 43 ALT 23 Alkaline Phosphatase 222 H D Total Protein 5.4 L Albumin 2.5 L D Globulin 2.9 Albumin/Globulin Ratio 0.9 L Urine Color Urine Clarity Urine pH Ur Specific [place] Urine Protein Urine Glucose (UA) Urine Ketones Urine Blood Urine Nitrate Urine Bilirubin Urine Urobilinogen Ur Leukocyte Esterase Urine WBC (Auto) Urine RBC (Auto) Ur Squamous Epith Cells Urine Bacteria Ur Random Creatinine Ur Random Sodium Ur Random Potassium 08/25/18 08/25/18 08/25/18 10:47 18:48 18:48 WBC RBC Hgb Hct MCV MCH MCHC RDW Plt Count MPV Sodium Potassium Chloride Carbon Dioxide Anion Gap BUN Creatinine Est GFR ( Amer) Est GFR (Non-Af Amer) Random Glucose Lactic Acid Calcium Total Bilirubin AST ALT Alkaline Phosphatase Total Protein Albumin Globulin Albumin/Globulin Ratio Urine Color Yellow Urine Clarity Clear Urine pH 5.0 Ur Specific [place] 1.010 Urine Protein Negative Urine Glucose (UA) Normal Urine Ketones Negative Urine Blood 1+ H Urine Nitrate Negative Urine Bilirubin Negative Urine Urobilinogen Normal Ur Leukocyte Esterase Neg Urine WBC (Auto) 19 H Urine RBC (Auto) 6 H Ur Squamous Epith Cells 1 Urine Bacteria Many H Ur Random Creatinine 75.0 Ur Random Sodium 35 38 Ur Random Potassium 08/25/18 18:48 WBC RBC Hgb Hct MCV MCH MCHC RDW Plt Count MPV Sodium Potassium Chloride Carbon Dioxide Anion Gap BUN Creatinine Est GFR ( Amer) Est GFR (Non-Af Amer) Random Glucose Lactic Acid Calcium Total Bilirubin AST ALT Alkaline Phosphatase Total Protein Albumin Globulin Albumin/Globulin Ratio Urine Color Urine Clarity Urine pH Ur Specific [place] Urine Protein Urine Glucose (UA) Urine Ketones Urine Blood Urine Nitrate Urine Bilirubin Urine Urobilinogen Ur Leukocyte Esterase Urine WBC (Auto) Urine RBC (Auto) Ur Squamous Epith Cells Urine Bacteria Ur Random Creatinine Ur Random Sodium Ur Random Potassium 22.4
[2018-08-26] MEDS: Sodium Chloride 0.9% 1,000 ML IV SCH ×3 (04:59→21:46)
--- NOTE | 2018-08-26 07:04 | HP ---
CHIEF COMPLAINT: Altered mental status. HISTORY OF PRESENT ILLNESS: This is a 77-year-old male with history of diabetes, hypertension, and hyperlipemia. He is on oral antidiabetic medication with congestive heart failure, on diuretic. According to daughter and , at home, the patient was found to be confused, altered. According to the family, they did watch him taking his medications and he also had an oatmeal this morning. Later on, during the course of the day, he developed swelling of . Weakness continued. Family got worried. They called ambulance. Upon arrival, blood sugar was found to be 26. The patient was given D50 IV push, and his blood sugar went upto 241. His symptoms started improving. The patient in the ER, blood sugar was 125. According to the patient, he has a prior history of a fall with left shoulder and hip fracture. The patient denies any chest pain, shortness of breath, nausea, vomiting, fever, chills, cough, or sore throat. The patient denies any polyuria, polydipsia, or polyphagia. He denies any hematuria or pyuria. He denies any sneezing, itchy eyes, or itchy nose. PAST MEDICAL HISTORY: Diabetes, hypertension, congestive heart failure, and hyperlipemia. SOCIAL HISTORY: He is nonsmoker, non-EtOH user. CURRENT MEDICATIONS: At home, he takes Singulair, Zestril, glipizide, Lasix, Aldactone, and Glucophage. PHYSICAL EXAMINATION: GENERAL: An elderly male with abdominal pain. VITAL SIGNS: BP 118/66, pulse 79, respiratory rate 20, and temperature 98. SKIN: Senile turgor. No bruises. No purpura. No petechiae. No ecchymosis. HEENT: Atraumatic, normocephalic. Negative pallor. Negative jaundice. Extraocular movements are intact. NECK: Supple. No JVD. No lymph node. No thyromegaly. No carotid bruit. CHEST WALL: Bilateral symmetrical expansion. No tenderness. No deformity. LUNGS: Bilaterally Clear. No rales. No rhonchi. CARDIOPULMONARY: S1 and S2, regular. No heave. No thrill. ABDOMEN: Distended. Nontender. Bowel sounds are present. RECTAL: No masses. No blood. No fecal matter. GENITALS: The patient has a Slater's in place with descended testicle. EXTREMITIES: No clubbing, cyanosis, or edema. CENTRAL NERVOUS SYSTEMS: Awake, alert, and oriented x3. He is answering my questions. He is appropriate. He moves all extremities. Power is 5/5 x4. Plantars are downgoing. Decreased sensation in the feet. ASSESSMENT: 1. Acute abdominal distention. Rule out intestinal obstruction. Rule out . 2. Severe hypothermia, rule out septicemia with shock. 3. Type 2 diabetes. Rule out septicemia. 4. Acute kidney injury with acute renal failure which has a combination of medications. He could have obstructive uropathy with enlarged prostate which could be benign versus malignant. 5. Diabetes, poorly controlled with hypoglycemia. 6. Hypertension. PLAN: The patient's orders are written. Monitor the patient. Selvin Mooney MD
[2018-08-26 08:10] LABS: HEPATITIS B SURFACE AG Negative (NEGATIVE)
[2018-08-26 08:16] LABS: HEPATITIS A IGM NEGATIVE (NEGATIVE); HEPATITIS B CORE AB NEGATIVE (NEGATIVE)
[2018-08-26 08:28] LABS: HEPATITIS C ANTIBODY NEGATIVE (NEGATIVE)
[2018-08-26] MEDS: (Novolin R) Insulin Human Regular 100 units/ml vial SC SCH ×4 (08:40→21:42)
--- NOTE | 2018-08-26 10:58 | CP.PCM.PN ---
Subjective - Date & Time of Evaluation Date of Evaluation: 08/26/18 Time of Evaluation: 10:58 - Subjective Subjective: pt was seen and examine dby me this moring in the waiting area for stress test pt c/o nausea and vomitings last night ,many times, no cp, no palpitation, c/o mild - moderate epigastric pain and tenderness+ Objective - Vital Signs/Intake and Output Vital Signs (last 24 hours): Temp Pulse Resp BP Pulse Ox 98.1 F 88 20 147/77 96 08/26/18 07:00 08/26/18 07:00 08/26/18 07:00 08/26/18 07:00 08/26/18 07:00 Intake and Output: 08/26/18 08/26/18 06:59 18:59 Intake Total 1650 Output Total 650 Balance 1000 - Medications Medications: Current Medications Heparin Sodium (Porcine) (Heparin) 5,000 units SC Q8 ANGEL Last Admin: 08/26/18 06:12 Dose: 5,000 units Cefepime HCl 1 gm/ Dextrose 50 mls @ 100 mls/hr IVPB Q12H ANGEL; Protocol Last Admin: 08/26/18 06:31 Dose: 100 mls/hr Sodium Chloride (Sodium Chloride 0.9%) 1,000 mls @ 100 mls/hr IV .Q10H ANGEL Last Admin: 08/26/18 06:14 Dose: 100 mls/hr Insulin Human Regular (Novolin R) 0 unit SC ACHS ANGEL; Protocol Last Admin: 08/26/18 08:40 Dose: Not Given Montelukast Sodium (Singulair) 10 mg PO HS ANGEL Last Admin: 08/25/18 22:15 Dose: 10 mg - Labs Labs: 08/25/18 09:19 08/25/18 09:19 PT 12.1 SECONDS (9.7-12.2) 08/24/18 15:51 INR 1.1 08/24/18 15:51 APTT 34 SECONDS (21-34) 08/24/18 15:51 - Constitutional Appears: Well, Non-toxic, No Acute Distress - Head Exam Head Exam: ATRAUMATIC, NORMAL INSPECTION, NORMOCEPHALIC - Eye Exam Eye Exam: EOMI, Normal appearance, PERRL Pupil Exam: NORMAL ACCOMODATION - ENT Exam ENT Exam: Mucous Membranes Moist - Neck Exam Neck Exam: Full ROM, Normal Inspection - Respiratory Exam Respiratory Exam: Clear to Ausculation Bilateral, NORMAL BREATHING PATTERN - Cardiovascular Exam Cardiovascular Exam: REGULAR RHYTHM, +S1, +S2 - GI/Abdominal Exam GI & Abdominal Exam: Distended, Soft, Tenderness, Hypoactive Bowel Sounds - Rectal Exam Rectal Exam: Deferred - Neurological Exam Neurological Exam: Alert, Awake, CN II-XII Intact, Oriented x3 - Psychiatric Exam Psychiatric exam: Normal Affect - Skin Skin Exam: Normal Color Assessment and Plan - Assessment and Plan (Free Text) Assessment: 77 yo Male with pmh/o hypertension, DM, hyperlipidemia, arthritis , cirrhosis of liver,ex thoh abuse, ex smoker about 40 ppyear histoty, s/p fall fx left femur and left UE, prostate ca s/p seed implants was admitted with slurred speach, severe hypoglycemia, accuchecks 26 and sx improved after giving D50 1amp by EMS, pt with elevated bun/cr. base line s.cr was 0.8 in may 2018 1. KRISS most likely sec to ATn sec to drugs ACEI, Aldactone, metformin 2. Hypoglycemia 3. HTN 4. DM 5. vomitings, abdominal distention,sluggish BS , r/o SBO check urine lytes, osm, creatinine repeat u/s kidneys and bladder if renal function does not improve ivf 1/2 ns at 80 ml/hr check u/a, c/s daily bmp check PSA level avoid ACEI, Aldactone and metformin until renal function is improved surgery evaluation, consider ct scan of abdomen if not done, Small bowel series Plan:
--- NOTE | 2018-08-26 15:06 | CT ---
PROCEDURE: CT Abdomen and Pelvis without Oral or IV contrast. HISTORY: incarcerated hernia COMPARISON: CT abdomen and pelvis without contrast performed 05/30/18 TECHNIQUE: Contiguous axial images of the abdomen and pelvis. No oral or IV contrast administered. Coronal and Sagittal reformats generated and reviewed. Radiation dose: Total exam DLP = 1161.89 mGy-cm. This CT exam was performed using one or more of the following dose reduction techniques: Automated exposure control, adjustment of the mA and/or kV according to patient size, and/or use of iterative reconstruction technique. FINDINGS: There is limited evaluation of the solid organs without the administration of IV contrast. LOWER THORAX: Trace bilateral pleural effusions. Bibasilar atelectasis. No visible pneumothorax. Small hiatal hernia with gastroesophageal reflux. LIVER: Nodular hepatic contour. Diminutive liver. Heterogeneous hepatic parenchyma. Recannulized umbilical vein. GALLBLADDER AND BILE DUCTS: Unremarkable unenhanced appearance. PANCREAS: Pancreatic atrophy. SPLEEN: Unremarkable unenhanced appearance. ADRENALS: Unremarkable unenhanced appearance. KIDNEYS AND URETERS: No hydronephrosis or obstructing renal calculus. There is a complex appearing cyst anterior mid to lower pole left kidney with incomplete linear peripheral calcification. There are also noted at least 2 with 3 partially exophytic cysts posterior aspect midpole left kidney. BLADDER: Thick-walled under distended urinary bladder containing multiple foci of air. Slater catheter present. REPRODUCTIVE: Prostate calcifications/clips present. APPENDIX: Not definitively identified. BOWEL: Stomach is incompletely distended containing fluid and air. Lack of oral contrast limits evaluation for bowel pathology. The bowel loops appear within normal limits of caliber without evidence of intestinal obstruction. Thickened loops of small and large bowel raise concern for enteritis/colitis. Correlate clinically. PERITONEUM: Moderate abdominal and small pelvic free fluid. No definite free air. LYMPH NODES: No bulky lymphadenopathy identified. VASCULATURE: Atherosclerotic calcifications of the aorta present. No aortic aneurysm. BONES: Osseous demineralization. Degenerative changes. Mild compression fracture deformity of L3, chronic. Left hip corey and screw fixation with resultant streak artifact. OTHER FINDINGS: Anasarca. Bilateral gynecomastia. IMPRESSION: Thickened loops of small and large bowel raise concern for enteritis/colitis. Correlate clinically. Findings consistent with cirrhosis and portal venous hypertension as above. Moderate abdominal and small pelvic ascites. Complex appearing cyst anterior mid to lower pole left kidney with incomplete linear peripheral calcification. There are also noted at least 2 with 3 partially exophytic cysts posterior aspect midpole left kidney. Slater catheter within a thick-walled decompressed urinary bladder which also contains air. Appearance may be secondary to recent instrumentation however alternatives such as cystitis are not excluded. Recommend clinical correlation with urinalysis. Anasarca. Trace bilateral pleural effusions. Bibasilar atelectasis. Small hiatal hernia with gastroesophageal reflux. Additional findings as above.
[2018-08-26 15:26] LABS: CALCIUM 8.2 mg/dl (8.6-10.4)
[2018-08-26 15:42] LABS: INR 1.2; PROTHROMBIN TIME 12.7 SECONDS (9.7-12.2)
--- NOTE | 2018-08-26 16:33 | CP.PCM.CON ---
History of Present Illness - History of Present Illness History of Present Illness: SURGERY CONSULT NOTE FOR DR. HAIR 72 Y/O M PMHX DM, HTN, Prostate CA S/P Brachytherapy, cirrhosis, portal hypertension, esophageal varices, and ETOH abuse is being consulted for abdominal distension. He was admitted to [facility] on 08/24/18 for AMS and is currently being treated for hypoglycemia. He reports 3 episodes of watery diarrhea onset, one day ago. Pt denies bloody stools and weight loss. He has not passed gas in the past couple of days and states that he is not currently ambulating. Per pt, he vomited several times over night, but no nausea or vomiting since. He denies headache, fever, chills, nausea, abdominal pain, trouble with urination, constipation, chest pain, and shortness of breath. His history is significant for Prostate CA diagnosis in 2011. He was treated and completed radiation in January 2013. His most recent colonoscopy( SEP 2016) was significant for diverticulosis ,tubular adenoma. Pt also had EGD (08/30) which showed grade 1 esophageal varices . PMHX: HTN DM, Cirrhosis, ETOH abuse, arthritis, CHF,Prostate Ca (2011) S/P Radiation (2012) FAMHX: Mother :Unknown, Father:Unknown Previous Surgeries: Denies left femur fracture ETOH use: Abuse per EMR, but pt currently denies Smokin Pack year smoker Home Medications: Metformin Glyburide Lisinopril Vitals:T:97.8 HR: 89, BP: 138/74, RR:20, O2 Sat 99 RA PE: General: No acute distress HEENT: EOMI, No scleral icterus Cardiac: Normal S1, Nml S2, Extremities: 2 + pitting edema bilateral lower extremities Respiratory: No Wheezes, Rales, Rhonchi GI: Dullness to percussion, moderate abdominal distension, non-tender to palpation in all four quadrants, Bowel sounds present,negative rebound, prominent abdominal vasculature : Slater catheter in place Labs: Positive Stool occult test Imaging: Abdominal Pelvis CT W/O contrast: Stomach is incompletely distended containing air and fluid, bowel loops WNL. no evidence of intestinal obstruction , thickened loops of small bowel, possible enteritis/colitis. Liver nodular hepatic contour, diminutive liver EGD (08/2016): Grade 1 Esophageal varicies, Portal hypertensive gastropathy ,erythematous duodenopathy Colonoscopy(09/2016): Diverticulosis in the sigmoid colon, transverse, and cecum. Non-bleeding Hemorrhoids Past Patient History - Infectious Disease Hx of Infectious Diseases: None - Past Medical History & Family History Past Medical History?: Yes - Past Social History Smoking Status: Never Smoked - CARDIAC Hx Cardiac Disorders: Yes Hx Cardia Arrhythmia: Yes Hx Hypercholesterolemia: Yes Hx Hypertension: Yes - PULMONARY Hx Respiratory Disorders: Yes Hx Pneumonia: Yes - NEUROLOGICAL Hx Neurological Disorder: No Hx Transient Ischemic Attacks (TIA): No - HEENT Hx HEENT Problems: Yes Hx Deafness: Yes Other/Comment: left ear [place] - RENAL Hx Chronic Kidney Disease: No - ENDOCRINE/METABOLIC Hx Endocrine Disorders: Yes Hx Diabetes Mellitus Type 2: Yes - HEMATOLOGICAL/ONCOLOGICAL Hx Blood Disorders: Yes Hx Anemia: Yes - INTEGUMENTARY Hx Dermatological Problems: No - MUSCULOSKELETAL/RHEUMATOLOGICAL Hx Falls: Yes - GASTROINTESTINAL Hx Gastrointestinal Disorders: Yes Hx Esophageal Varices: Yes (BANDING DONE) Hx Ulcer: Yes Other/Comment: HX:IRREGULAR CONTOUR OF LIVER WITH CIRRRHOSIS. HX: [id number] DONE. HX: [place] - GENITOURINARY/GYNECOLOGICAL Hx Genitourinary Disorders: Yes Hx Prostate Cancer: Yes - PSYCHIATRIC Hx Substance Use: No - SURGICAL HISTORY Hx Surgeries: Yes Hx Musculoskeletal Surgery: Yes (left hip, left shoulder, left knee) Other/Comment: HX: ESOPHAGEAL VARICES-BANDING DONE - ANESTHESIA Hx Anesthesia: Yes Hx Anesthesia Reactions: No Hx Malignant Hyperthermia: No Meds Allergies/Adverse Reactions: Allergies Allergy/AdvReac Type Severity Reaction Status Date / Time No Known Allergies Allergy Verified 05/22/18 07:32 - Medications Medications: Current Medications Heparin Sodium (Porcine) (Heparin) 5,000 units SC Q8 [facility] Last Admin: 08/26/18 14:04 Dose: Not Given Cefepime HCl 1 gm/ Dextrose 50 mls @ 100 mls/hr IVPB Q12H [facility]; Protocol Last Admin: 08/26/18 06:31 Dose: 100 mls/hr Sodium Chloride (Sodium Chloride 0.9%) 1,000 mls @ 100 mls/hr IV .Q10H [facility] Last Admin: 08/26/18 06:14 Dose: 100 mls/hr Insulin Human Regular (Novolin R) 0 unit SC ACHS ANGEL; Protocol Last Admin: 08/26/18 14:04 Dose: Not Given Montelukast Sodium (Singulair) 10 mg PO HS [facility] Last Admin: 08/25/18 22:15 Dose: 10 mg Physical Exam - Constitutional Appears: Non-toxic, No Acute Distress - Head Exam Head Exam: ATRAUMATIC, NORMAL INSPECTION - Eye Exam Eye Exam: EOMI, Normal appearance. absent: Scleral icterus - ENT Exam ENT Exam: Mucous Membranes Moist - Respiratory Exam Respiratory Exam: Clear to Auscultation Bilateral, NORMAL BREATHING PATTERN. absent: Respiratory Distress - Cardiovascular Exam Cardiovascular Exam: +S1, +S2. absent: Tachycardia - GI/Abdominal Exam GI & Abdominal Exam: Distended, Soft. absent: Firm, Guarding, Rebound, Rigid, Tenderness - Neurological Exam Neurological exam: Alert, CN II-XII Intact, Oriented x3 - Psychiatric Exam Psychiatric exam: Normal Affect, Normal Mood - Skin Skin Exam: Dry, Intact Results - Vital Signs Recent Vital Signs: Last Vital Signs Temp 97.8 F 08/26/18 14:34 Pulse 89 08/26/18 14:34 Resp 20 08/26/18 14:34 BP 138/74 08/26/18 14:34 Pulse Ox 99 08/26/18 14:34 - Labs Result Diagrams: 08/25/18 09:19 08/26/18 15:10 Labs: Laboratory Results - last 24 hr 08/24/18 08/24/18 08/24/18 15:08 17:31 17:32 PT INR APTT Sodium Potassium Chloride Carbon Dioxide Anion Gap BUN Creatinine Est GFR ( Amer) Est GFR (Non-Af Amer) POC Glucose (mg/dL) 129 H 44 L 36 L* Random Glucose Calcium Carcinoembryonic Ag CA 19-9 Antigen Prostate Specific Ag TSH 3rd Generation Urine Color Urine Clarity Urine pH Ur Specific [place] Urine Protein Urine Glucose (UA) Urine Ketones Urine Blood Urine Nitrate Urine Bilirubin Urine Urobilinogen Ur Leukocyte Esterase Urine WBC (Auto) Urine RBC (Auto) Ur Squamous Epith Cells Urine Bacteria Ur Random Creatinine Ur Random Sodium Ur Random Potassium Stool Occult Blood Hepatitis A IgM Ab Hep Bs Antigen Hep B Core IgM Ab Hepatitis C Antibody 08/24/18 08/24/18 08/24/18 18:11 20:32 22:20 PT INR APTT Sodium Potassium Chloride Carbon Dioxide Anion Gap BUN Creatinine Est GFR ( Amer) Est GFR (Non-Af Amer) POC Glucose (mg/dL) 137 H 105 149 H Random Glucose Calcium Carcinoembryonic Ag CA 19-9 Antigen Prostate Specific Ag TSH 3rd Generation Urine Color Urine Clarity Urine pH Ur Specific [place] Urine Protein Urine Glucose (UA) Urine Ketones Urine Blood Urine Nitrate Urine Bilirubin Urine Urobilinogen Ur Leukocyte Esterase Urine WBC (Auto) Urine RBC (Auto) Ur Squamous Epith Cells Urine Bacteria Ur Random Creatinine Ur Random Sodium Ur Random Potassium Stool Occult Blood Hepatitis A IgM Ab Hep Bs Antigen Hep B Core IgM Ab Hepatitis C Antibody 08/25/18 08/25/18 08/25/18 06:19 17:00 18:48 PT INR APTT Sodium Potassium Chloride Carbon Dioxide Anion Gap BUN Creatinine Est GFR ( Amer) Est GFR (Non-Af Amer) POC Glucose (mg/dL) 76 121 H Random Glucose Calcium Carcinoembryonic Ag CA 19-9 Antigen Prostate Specific Ag TSH 3rd Generation Urine Color Urine Clarity Urine pH Ur Specific [place] Urine Protein Urine Glucose (UA) Urine Ketones Urine Blood Urine Nitrate Urine Bilirubin Urine Urobilinogen Ur Leukocyte Esterase Urine WBC (Auto) Urine RBC (Auto) Ur Squamous Epith Cells Urine Bacteria Ur Random Creatinine 75.0 Ur Random Sodium 38 Ur Random Potassium Stool Occult Blood Hepatitis A IgM Ab Hep Bs Antigen Hep B Core IgM Ab Hepatitis C Antibody 08/25/18 08/25/18 08/25/18 18:48 18:48 21:15 PT INR APTT Sodium Potassium Chloride Carbon Dioxide Anion Gap BUN Creatinine Est GFR ( Amer) Est GFR (Non-Af Amer) POC Glucose (mg/dL) 139 H Random Glucose Calcium Carcinoembryonic Ag CA 19-9 Antigen Prostate Specific Ag TSH 3rd Generation Urine Color Yellow Urine Clarity Clear Urine pH 5.0 Ur Specific [place] 1.010 Urine Protein Negative Urine Glucose (UA) Normal Urine Ketones Negative Urine Blood 1+ H Urine Nitrate Negative Urine Bilirubin Negative Urine Urobilinogen Normal Ur Leukocyte Esterase Neg Urine WBC (Auto) 19 H Urine RBC (Auto) 6 H Ur Squamous Epith Cells 1 Urine Bacteria Many H Ur Random Creatinine Ur Random Sodium Ur Random Potassium 22.4 Stool Occult Blood Hepatitis A IgM Ab Hep Bs Antigen Hep B Core IgM Ab Hepatitis C Antibody 08/25/18 08/26/18 08/26/18 23:14 06:35 07:11 PT INR APTT Sodium Potassium Chloride Carbon Dioxide Anion Gap BUN Creatinine Est GFR ( Amer) Est GFR (Non-Af Amer) POC Glucose (mg/dL) 181 H Random Glucose Calcium Carcinoembryonic Ag CA 19-9 Antigen Prostate Specific Ag TSH 3rd Generation Urine Color Urine Clarity Urine pH Ur Specific [place] Urine Protein Urine Glucose (UA) Urine Ketones Urine Blood Urine Nitrate Urine Bilirubin Urine Urobilinogen Ur Leukocyte Esterase Urine WBC (Auto) Urine RBC (Auto) Ur Squamous Epith Cells Urine Bacteria Ur Random Creatinine Ur Random Sodium Ur Random Potassium Stool Occult Blood Positive H Hepatitis A IgM Ab Negative Hep Bs Antigen Negative Hep B Core IgM Ab Negative Hepatitis C Antibody Negative 08/26/18 08/26/18 08/26/18 07:11 15:10 15:10 PT 12.7 H INR 1.2 APTT 38 H Sodium 135 Potassium 4.8 Chloride 107 Carbon Dioxide 16 L Anion Gap 17 BUN 45 H Creatinine 4.0 H Est GFR ( Amer) 18 Est GFR (Non-Af Amer) 15 POC Glucose (mg/dL) Random Glucose 197 H Calcium 8.2 L Carcinoembryonic Ag 3.4 H CA 19-9 Antigen 23.4 Prostate Specific Ag < 0.064 TSH 3rd Generation 5.40 H Urine Color Urine Clarity Urine pH Ur Specific [place] Urine Protein Urine Glucose (UA) Urine Ketones Urine Blood Urine Nitrate Urine Bilirubin Urine Urobilinogen Ur Leukocyte Esterase Urine WBC (Auto) Urine RBC (Auto) Ur Squamous Epith Cells Urine Bacteria Ur Random Creatinine Ur Random Sodium Ur Random Potassium Stool Occult Blood Hepatitis A IgM Ab Hep Bs Antigen Hep B Core IgM Ab Hepatitis C Antibody Assessment & Plan - Assessment and Plan (Free Text) Assessment: 72 Y/O M PMHX DM, HTN, Prostate CA S/P Brachytherapy, cirrhosis, portal hypertension, esophageal varices, and ETOH abuse who has abdominal distention likely secondary to ascites, no obstruction present, mildly thickened small and large bowel loops, possible enteritis /colitis Plan: - If Pt becomes symptomatic, Thoracentesis may alleviate symptoms - Order C.Diff - Advance Diet as tolerated - Pt going for EGD tomorrow, will follow up results - Discussed plan with Dr. Claude Rosado PGY-4
--- NOTE | 2018-08-26 17:02 | RAD ---
Date of service: 08/26/2018 PROCEDURE: Radiographs of the chest and abdomen (obstructive series) HISTORY: r/o SBO COMPARISON: No prior. TECHNIQUE: AP radiograph of the chest, with upright and supine radiographs of the abdomen. FINDINGS: CHEST: Lungs: Atelectatic changes/consolidation left lower lobe Cardiovascular: Normal size heart. No pulmonary vascular congestion. Atherosclerotic calcifications identified primarily aortic arch. Pleura: No pleural fluid. No pneumothorax. Other findings: None. ABDOMEN AND PELVIS: Bowel: Gastric distension without obstruction or free air. Free air: None. Bones: Unremarkable. Other findings: None. IMPRESSION: Gastric distension, node visible distal obstruction or free air.
--- NOTE | 2018-08-26 23:17 | CP.PCM.PN ---
Subjective - Subjective Subjective: dictated Objective - Vital Signs/Intake and Output Vital Signs (last 24 hours): Temp Pulse Resp BP Pulse Ox 98 F 91 H 20 124/70 99 08/26/18 15:00 08/26/18 17:00 08/26/18 15:00 08/26/18 15:00 08/26/18 15:00 Intake and Output: 08/26/18 08/27/18 18:59 06:59 Intake Total 600 Output Total 300 Balance 300 - Medications Medications: Current Medications Heparin Sodium (Porcine) (Heparin) 5,000 units SC Q8 [facility] Last Admin: 08/26/18 21:41 Dose: 5,000 units Cefepime HCl 1 gm/ Dextrose 50 mls @ 100 mls/hr IVPB Q12H [facility]; Protocol Last Admin: 08/26/18 18:48 Dose: 100 mls/hr Sodium Chloride (Sodium Chloride 0.9%) 1,000 mls @ 100 mls/hr IV .Q10H [facility] Last Admin: 08/26/18 21:46 Dose: Not Given Insulin Human Regular (Novolin R) 0 unit SC ACHS [facility]; Protocol Last Admin: 08/26/18 21:42 Dose: Not Given Montelukast Sodium (Singulair) 10 mg PO HS [facility] Last Admin: 08/26/18 21:41 Dose: 10 mg - Labs Labs: 08/25/18 09:19 08/26/18 15:10 PT 12.7 SECONDS (9.7-12.2) H 08/26/18 15:10 INR 1.2 08/26/18 15:10 APTT 38 SECONDS (21-34) H 08/26/18 15:10
[2018-08-27] MEDS: Sodium Chloride 0.9% 1,000 ML IV SCH ×3 (02:52→17:52)
--- NOTE | 2018-08-27 03:56 | PN ---
DATE: 08/26/2018 SUBJECTIVE: The patient, Rickey, has some abdominal distention. He is afebrile. No fever. No chills. BUN and creatinine are not going down. PHYSICAL EXAMINATION: VITAL SIGNS: BP 124/70, pulse 89, respiratory rate 20, temperature 98. LUNGS: Clear. CARDIOVASCULAR: S1 and S2 are regular. ABDOMEN: Distended with ascites. ASSESSMENT: 1. Ascites, portal hypertension, cirrhosis of liver, versus alcohol induced end-stage liver disease. 2. Acute on chronic kidney failure, etiology obstructive uropathy. 3. Enlarged prostate . 4. Hypertension. 5. Hypoglycemia. PLAN: Continue current medications. Monitor the patient. Selvin Mooney MD
--- NOTE | 2018-08-27 05:58 | CP.PCM.PN ---
Subjective - Date & Time of Evaluation Date of Evaluation: 08/26/18 Time of Evaluation: 19:35 - Subjective Subjective: Atypical chest pain Normal Stress test Medical management Review Of Systems Except As Marked, All Systems Reviewed And Found Negative. Constitutional: Positive for: Other (hypoglycemic ). Negative for: Fever, Chills Cardiovascular: Negative for: Chest Pain Respiratory: Negative for: Shortness of Breath Gastrointestinal: Negative for: Nausea, Vomiting Neurological: Positive for: Other (slurring words; now improved) Physical Exam - Physical Exam Appears: Well, Non-toxic, No Acute Distress Skin: Normal Color, Warm, Dry, No Rash Head: Atraumatic, Normacephalic, No Tenderness, No Swelling, Other (no facial symmetry ) Eye(s): bilateral: Normal Inspection, PERRL, EOMI Nose: Normal Oral Mucosa: Moist Tongue: Normal Appearing, Other (midline) Throat: Normal Neck: Normal ROM, Trachea Midline, Supple Chest: Symmetrical, No Deformity Cardiovascular: Other (intermittently tachycardic ) Respiratory: Normal Breath Sounds Gastrointestinal/Abdominal: Soft, No Tenderness, Distention (nml per ) Back: No CVA Tenderness Extremity: Normal ROM (x4), Pedal Edema (b/l 3+), Other (can lift leg but cannot leave keep it lifted) Extremity: Bilateral: Atraumatic, Normal Color And Temperature Pulses: Left Dorsalis Pedis: Normal, Right Dorsalis Pedis: Normal Neurological/Psych: Oriented x3, Normal Speech, Normal Cognition, Normal Motor, Normal Sensation, Normal Reflexes Assessment & Plan - Assessment and Plan (Free Text) Assessment: 77 yo Male with pmh/o hypertension, DM, hyperlipidemia, arthritis , cirrhosis of liver,ex thoh abuse, ex smoker about 40 ppyear histoty, s/p fall fx left femur and left UE, prostate ca s/p seed implants was admitted with slurred speach, severe hypoglycemia, accuchecks 26 and sx improved after giving D50 1amp by EMS, pt with elevated bun/cr. base line s.cr was 0.8 in may 2018 1. KRISS most likely sec to ATn sec to drugs ACEI, Aldactone, metformin 2. Hypoglycemia 3. HTN 4. DM Stress test Normal ECHO: Pending Objective - Vital Signs/Intake and Output Vital Signs (last 24 hours): Temp Pulse Resp BP Pulse Ox 98.5 F 92 H 20 172/77 H 98 08/26/18 23:05 08/27/18 01:00 08/26/18 23:05 08/26/18 23:05 08/26/18 23:05 Intake and Output: 08/26/18 08/27/18 18:59 06:59 Intake Total 600 Output Total 300 Balance 300 - Medications Medications: Current Medications Heparin Sodium (Porcine) (Heparin) 5,000 units SC Q8 [facility] Last Admin: 08/26/18 21:41 Dose: 5,000 units Cefepime HCl 1 gm/ Dextrose 50 mls @ 100 mls/hr IVPB Q12H [facility]; Protocol Last Admin: 08/26/18 18:48 Dose: 100 mls/hr Sodium Chloride (Sodium Chloride 0.9%) 1,000 mls @ 100 mls/hr IV .Q10H [facility] Last Admin: 08/27/18 02:52 Dose: 100 mls/hr Insulin Human Regular (Novolin R) 0 unit SC ACHS [facility]; Protocol Last Admin: 08/26/18 21:42 Dose: Not Given Montelukast Sodium (Singulair) 10 mg PO HS [facility] Last Admin: 08/26/18 21:41 Dose: 10 mg - Labs Labs: 08/25/18 09:19 08/26/18 15:10 PT 12.7 SECONDS (9.7-12.2) H 08/26/18 15:10 INR 1.2 08/26/18 15:10 APTT 38 SECONDS (21-34) H 08/26/18 15:10
[2018-08-27 07:55] LABS: BASO % 0.2 % (0.0-2.0); EOS % 0.1 % (0.0-4.0); HEMOGLOBIN 9.3 g/dL (12.0-18.0); LYMPH # 0.6 K/uL (1.0-4.3); LYMPH % 7.2 % (20.0-40.0); MEAN CELL VOLUME 95.9 fL (80.0-94.0); MEAN CORPUSCULAR HEMOGLOBIN 33.2 pg (27.0-31.0); MEAN CORPUSCULAR HGB CONC 34.6 g/dL (33.0-37.0); MEAN PLATELET VOLUME 11.4 fL (7.2-11.7); MONO # 0.6 K/uL (0.0-0.8); MONO % 7.5 % (0.0-10.0); NEUT # 6.7 K/uL (1.8-7.0); RBC 2.79 Mil/uL (4.40-5.90); RED CELL DISTRIBUTION WIDTH 14.2 % (11.5-14.5); WHITE BLOOD COUNT 7.8 K/uL (4.8-10.8)
[2018-08-27 08:05] LABS: PLATELET COUNT 121 K/uL (130-400)
[2018-08-27] MEDS: (Novolin R) Insulin Human Regular 100 units/ml vial SC SCH ×5 (08:18→22:51)
[2018-08-27] MEDS ORDERED: Propofol 10 mg/ml Inj (20 ML) ONE ×2 (08:24→08:35)
[2018-08-27 08:36] LABS: LYMPHOCYTE 7 % (20-40); MONOCYTE 6 % (0-10); NEUTROPHIL 87 % (50-75); TOTAL CELLS COUNTED 100
[2018-08-27 08:37] LABS: OVALOCYTES SLIGHT; PLATELET ESTIMATE SLIGHTLY DECREASED (NORMAL)
[2018-08-27] MEDS ORDERED: Phytonadione 10 mg/ml Inj (Adult) SC STA (08:41)
[2018-08-27 09:15] LABS: ALB/GLOB RATIO 0.8 (1.0-2.1); ALBUMIN 2.6 g/dL (3.5-5.0); CALCIUM 7.9 mg/dl (8.6-10.4)
--- NOTE | 2018-08-27 10:24 | CP.PCM.PN ---
Subjective - Date & Time of Evaluation Date of Evaluation: 08/27/18 Time of Evaluation: 10:23 - Subjective Subjective: 77 yo HM with pmh/o HTN, dm, prostate ca s/p seed implants, esophageal varices, s/p banding, s/p Gi bleed, cirrhosis of liver, s/p tx H.pylori s/p fall fx left femur and left humerus, s/p IM corey in femur in05/2018 was admitted with hypog lycemia and Kriss and vomitings no sob, occ nausea, occ vomitings, no abd. pain for EGD today Objective - Vital Signs/Intake and Output Vital Signs (last 24 hours): Temp Pulse Resp BP Pulse Ox 98.2 F 86 20 134/68 100 08/27/18 08:41 08/27/18 09:11 08/27/18 09:11 08/27/18 09:11 08/27/18 09:11 Intake and Output: 08/27/18 08/27/18 06:59 18:59 Intake Total 600 350 Output Total 550 Balance 50 350 - Medications Medications: Current Medications Bisacodyl (Dulcolax) 10 mg PO ONCE ONE Stop: 08/27/18 17:01 Heparin Sodium (Porcine) (Heparin) 5,000 units SC Q8 [facility] Last Admin: 08/26/18 21:41 Dose: 5,000 units Cefepime HCl 1 gm/ Dextrose 50 mls @ 100 mls/hr IVPB Q12H [facility]; Protocol Last Admin: 08/27/18 06:34 Dose: 100 mls/hr Sodium Chloride (Sodium Chloride 0.9%) 1,000 mls @ 100 mls/hr IV .Q10H [facility] Last Admin: 08/27/18 02:52 Dose: 100 mls/hr Insulin Human Regular (Novolin R) 0 unit SC ACHS [facility]; Protocol Last Admin: 08/27/18 08:18 Dose: Not Given Metoclopramide HCl (Reglan) 5 mg IVP Q6H [facility]EL Montelukast Sodium (Singulair) 10 mg PO HS [facility] Last Admin: 08/26/18 21:41 Dose: 10 mg Phytonadione (Vitamin K Inj) 10 mg SC ONCE ONE Stop: 08/28/18 06:01 Polyethylene Glycol/Electrolytes (Golytely) 4,000 ml PO ONCE ONE Stop: 08/27/18 11:01 - Labs Labs: 08/27/18 07:32 08/27/18 07:32 PT 12.7 SECONDS (9.7-12.2) H 08/26/18 15:10 INR 1.2 08/26/18 15:10 APTT 38 SECONDS (21-34) H 08/26/18 15:10 Assessment and Plan - Assessment and Plan (Free Text) Assessment: 77 yo HM with pmh/o htn, dm, cirrhosis of liver, prostate ca s/p seed implants, s/p gi bleed, s/p banding of esophageal varices , s/p fall fx left femur and IM nailing, fx left humeral neck was admitted with hypoglycemia 1.KRISS , r/o ATN 2.cirrhosis of liver 3.HTN 4.colitis 5.Ascitis check stool for c. diff, c/s, wbc continue gentle iv hydration
[2018-08-27 10:50] LABS: ALPHA-1-GLOBULIN (PEP) 0.2 g/dL (0.2-0.3)
[2018-08-27] MEDS ORDERED: Peg-Electrolyte Oral Soln 4L (Golytely) PO ONE (11:00)
--- NOTE | 2018-08-27 12:41 | CP.PCM.PN ---
Subjective - Date & Time of Evaluation Date of Evaluation: 08/27/18 Time of Evaluation: 08:00 - Subjective Subjective: comfortable NAD Objective - Vital Signs/Intake and Output Vital Signs (last 24 hours): Temp Pulse Resp BP Pulse Ox 98.3 F 93 H 20 146/57 L 98 08/27/18 09:52 08/27/18 09:52 08/27/18 09:52 08/27/18 09:52 08/27/18 09:52 Intake and Output: 08/27/18 08/27/18 06:59 18:59 Intake Total 600 350 Output Total 550 Balance 50 350 - Medications Medications: Current Medications Bisacodyl (Dulcolax) 10 mg PO ONCE ONE Stop: 08/27/18 17:01 Heparin Sodium (Porcine) (Heparin) 5,000 units SC Q8 [facility] Last Admin: 08/26/18 21:41 Dose: 5,000 units Cefepime HCl 1 gm/ Dextrose 50 mls @ 100 mls/hr IVPB Q12H [facility]; Protocol Last Admin: 08/27/18 06:34 Dose: 100 mls/hr Sodium Chloride (Sodium Chloride 0.9%) 1,000 mls @ 100 mls/hr IV .Q10H [facility] Last Admin: 08/27/18 10:26 Dose: Not Given Insulin Human Regular (Novolin R) 0 unit SC ACHS [facility]; Protocol Last Admin: 08/27/18 12:28 Dose: 2 unit Metoclopramide HCl (Reglan) 5 mg IVP Q6H [facility] Last Admin: 08/27/18 09:52 Dose: 5 mg Montelukast Sodium (Singulair) 10 mg PO HS [facility] Last Admin: 08/26/18 21:41 Dose: 10 mg Phytonadione (Vitamin K Inj) 10 mg SC ONCE ONE Stop: 08/28/18 06:01 - Labs Labs: 08/27/18 07:32 08/27/18 07:32 PT 12.7 SECONDS (9.7-12.2) H 08/26/18 15:10 INR 1.2 08/26/18 15:10 APTT 38 SECONDS (21-34) H 08/26/18 15:10 - Constitutional Appears: Non-toxic, Chronically Ill - Head Exam Head Exam: NORMOCEPHALIC - Eye Exam Eye Exam: absent: Scleral icterus - ENT Exam ENT Exam: Mucous Membranes Dry - Neck Exam Neck Exam: absent: Lymphadenopathy - Respiratory Exam Respiratory Exam: Decreased Breath Sounds - Cardiovascular Exam Cardiovascular Exam: REGULAR RHYTHM - GI/Abdominal Exam GI & Abdominal Exam: Distended, Soft - Rectal Exam Rectal Exam: Deferred - Exam Exam: NORMAL INSPECTION Assessment and Plan (1) Cirrhosis of liver Status: Acute (2) Diabetes 1.5, managed as type 2 Status: Acute - Assessment and Plan (Free Text) Assessment: cont iv rx as ordered
[2018-08-27 15:20] LABS: TOTAL PSA <0.1 ng/mL (< or = 4.0)
[2018-08-27] MEDS ORDERED: Bisacodyl 5mg EC Tab PO ONE (17:00)
--- NOTE | 2018-08-27 19:34 | CP.PCM.PN ---
Subjective - Date & Time of Evaluation Date of Evaluation: 08/27/18 Time of Evaluation: 07:00 - Subjective Subjective: GENERAL SURGERY PROGRESS NOTE FOR DR. HAIR Patient seen and examined at bedside. He states that he vomited 3-4 times overnight. Denies flatus or BM. Denies abdominal pain. Objective - Vital Signs/Intake and Output Vital Signs (last 24 hours): Temp Pulse Resp BP Pulse Ox 98.5 F 88 20 115/68 95 08/27/18 15:05 08/27/18 15:15 08/27/18 15:05 08/27/18 15:05 08/27/18 15:05 Intake and Output: 08/27/18 08/28/18 18:59 06:59 Intake Total 830 Output Total 120 Balance 710 - Medications Medications: Current Medications Heparin Sodium (Porcine) (Heparin) 5,000 units SC Q8 [facility] Last Admin: 08/27/18 14:34 Dose: 5,000 units Sodium Chloride (Sodium Chloride 0.9%) 1,000 mls @ 100 mls/hr IV .Q10H [facility] Last Admin: 08/27/18 17:52 Dose: 100 mls/hr Insulin Human Regular (Novolin R) 0 unit SC ACHS [facility]; Protocol Last Admin: 08/27/18 17:30 Dose: 2 unit Metoclopramide HCl (Reglan) 5 mg IVP Q6H [facility] Last Admin: 08/27/18 14:25 Dose: 5 mg Montelukast Sodium (Singulair) 10 mg PO HS [facility] Last Admin: 08/26/18 21:41 Dose: 10 mg Phytonadione (Vitamin K Inj) 10 mg SC ONCE ONE Stop: 08/28/18 06:01 - Labs Labs: 08/27/18 07:32 08/27/18 07:32 PT 12.7 SECONDS (9.7-12.2) H 08/26/18 15:10 INR 1.2 08/26/18 15:10 APTT 38 SECONDS (21-34) H 08/26/18 15:10 - Constitutional Appears: Non-toxic, No Acute Distress - Head Exam Head Exam: ATRAUMATIC, NORMAL INSPECTION - Eye Exam Eye Exam: EOMI, Normal appearance - Respiratory Exam Respiratory Exam: NORMAL BREATHING PATTERN. absent: Respiratory Distress - Cardiovascular Exam Cardiovascular Exam: +S1, +S2 - GI/Abdominal Exam GI & Abdominal Exam: Distended, Soft. absent: Guarding, Rigid, Tenderness, Rebound - Neurological Exam Neurological Exam: Alert, Awake, Oriented x3 - Psychiatric Exam Psychiatric exam: Normal Affect, Normal Mood - Skin Skin Exam: Normal Color, Warm Assessment and Plan - Assessment and Plan (Free Text) Assessment: 72 Y/O M PMHX DM, HTN, Prostate CA S/P Brachytherapy, cirrhosis, portal hypertension, esophageal varices, and ETOH abuse who has abdominal distention likely secondary to ascites, mildly thickened small and large bowel loops, possible enteritis /colitis Plan: - Pt went for EGD today with Dr. Forde: found esophageal varices, hematin in entire stomach, non bleeding erosive gastropathy, multiple non bleeding duodenal ulcers, gastroparesis - Going for colonoscopy tomorrow - Will FU results - Discussed plan with Dr. Claude Rosado PGY-4
--- NOTE | 2018-08-27 23:05 | CP.PCM.PN ---
Subjective - Subjective Subjective: dictated Objective - Vital Signs/Intake and Output Vital Signs (last 24 hours): Temp Pulse Resp BP Pulse Ox 98.5 F 88 20 115/68 95 08/27/18 15:05 08/27/18 15:15 08/27/18 15:05 08/27/18 15:05 08/27/18 15:05 Intake and Output: 08/27/18 08/28/18 18:59 06:59 Intake Total 830 Output Total 120 Balance 710 - Medications Medications: Current Medications Insulin Human Regular (Novolin R) 0 unit SC [facility]; Protocol Last Admin: 08/27/18 22:51 Dose: Not Given Metoclopramide HCl (Reglan) 5 mg IVP Q6H [facility] Last Admin: 08/27/18 21:05 Dose: 5 mg Montelukast Sodium (Singulair) 10 mg PO HS [facility] Last Admin: 08/27/18 21:07 Dose: 10 mg Phytonadione (Vitamin K Inj) 10 mg SC ONCE ONE Stop: 08/28/18 06:01 - Labs Labs: 08/27/18 07:32 08/27/18 07:32 PT 12.7 SECONDS (9.7-12.2) H 08/26/18 15:10 INR 1.2 08/26/18 15:10 APTT 38 SECONDS (21-34) H 08/26/18 15:10
--- NOTE | 2018-08-27 23:42 | PQF ---
PROVIDER RESPONSE TEXT: Metabolic Encephalopathy in the setting of Hypoglycemia w/ BS=26,and elevated Bun/Crea, manifested by AMS, Confusion ,slurred speech treated with D 50 IV and IVF w/ NS 100ml/hr REVIEWER QUERY TEXT: Clarification of Clinical Diagnostic Findings Please clarify documentation or clinical relevance for the clinical / diagnostic findings or whether those are insignificant or unable to be further specified. Metabolic Encephalopathy in the setting of Hypoglycemia w/ BS=26,and elevated Bun/Crea, manifested b y AMS, Confusion ,slurred speech treated with D 50 IV and IVF w/ NS 100ml/hr . -Other Explanation. -Unable to Determine. The patient's Clinical Indicators include: Clinical Findings: AMS, Confused, Altered, slurred speech. Found to have blood sugar=26 , Elevated B un/Crea ; GFR=15ml . Treatment D 50 IV , IVF w/ NS 100ml/hr Risk factor: DM w/ Hypoglycemia , KRISS on CKD ,Dehydration Query created by: Luna Liriano on 08/27/2018 4:42 PM Electronically signed by: Selvin Mooney MD 08/27/2018 11:39 PM
--- NOTE | 2018-08-28 00:30 | PN ---
DATE: 08/27/2018 SUBJECTIVE: Rickey is feeling better. He has decreased distention. He is seen by GI. He is for colonoscopy in the a.m. No fever. No chills. The patient's creatinine is holding. He has a Slater in place. PHYSICAL EXAMINATION: VITAL SIGNS: Blood pressure 115/68, pulse 56, respiratory rate 20, temperature 98.5. LUNGS: Clear. CARDIOVASCULAR SYSTEM: S1 and S2 are regular. ABDOMEN: Soft. ASSESSMENT: 1. Obstructive uropathy with acute on chronic kidney disease. 2. Diabetes. 3. Ascites with cirrhosis of liver with portal hypertension. 4. Gastrointestinal bleed. PLAN: Medical management. Colonoscopy in the a.m. Selvin Mooney MD
[2018-08-28] MEDS ORDERED: Phytonadione 10 mg/ml Inj (Adult) SC ONE (06:00)
[2018-08-28] MEDS ORDERED: Lactated Ringer's 1,000 ML IV ONE (07:25)
[2018-08-28] MEDS: (Novolin R) Insulin Human Regular 100 units/ml vial SC SCH ×4 (07:30→21:45)
[2018-08-28] MEDS ORDERED: Propofol 10 mg/ml Inj (20 ML) ONE (07:35)
[2018-08-28] MEDS ORDERED: Lidocaine Hydrochloride 5 ML INJ ONE (07:36)
[2018-08-28] MEDS ORDERED: Belladonna-Phenobarbital PO STA (07:46)
[2018-08-28] MEDS: Lactated Ringer's 500 ML IV SCH ×2 (10:00→14:21)
[2018-08-28] MEDS: metroNIDAZOLE IV 500 mg/100 ml 250 MG in Premixed IV 1 EA IVPB SCH ×2 (10:15→17:35)
--- NOTE | 2018-08-28 10:37 | CARD ---
APPROVED REPORT Date of service: 08/26/2018 Protocol: LEXISCAN Test Type: LEXISCAN STRESS Test Indications: CHEST PAIN Medications: LIST Target HR: 145 bpm Resting ECG: NSR Resting Heart Rate: 85 bpm Resting Blood Pressure: 100/64mmHg submaximum (85%): 123 bpm TEST SUMMARY [id number].00:[id number]. INFUSIONDOSE 100:[id number]/64.0. [id number]/70.0. PROCEDURE Pharmacologic stress testing was performed using 0.4mg per 5ml of regadenoson given intravenously over 7-10 seconds. POST EXERCISE Reason for Termination: Protocol Completed Target HR: No Max HR: 86 bpm 68% of Maximum Predicted HR: 145 bpm Exercise duration: 00:30 min:sec, 0 Stage Exercise capacity: 1.0METs Max Blood Pressure: 118/70mmHg Blood Pressure response to exercise: normal resting BP - appropriate response Heart Rate response to exercise: appropriate Chest Pain: No, none Angina index: 0 Arrhythmia: No, none ST Change: No, none Deviation: 0 mm INTERPRETATION Stress EKG Conclusion: NEGATIVE LEXISCAN STRESS TEST NORMAL BP RESPONSE TO LEXISCAN NUCLEAR STUDIES TO BE READ SEPARATELY EXAM: Myocardial Perfusion STRESS/REST Imaging Protocol The imaging protocol used to acquire images was Stress Tc-99m/rest Tc-99m 1 day Rest Spect myocardial perfusion imaging was performed in supine position 45 minutes following the injection of 30.7 mCi of Tc-99 Myoview. Gated Stress Spect was performed 45 minutes after intravenous 8.9 mCi Tc-99 Myoview injection. The images were gated to evaluate regional wall motion and calculate ventricular ejection fraction.Images were reconstructed using backfilter projection method in short horizontal and verticle long axis. Spect slices were generated. RESTING DATA EDV51.85wlYT6.30L/min ESV1.00mlMyocardial Mass99.00g Av. Heart Rate85.00bpm EF98.00% STRESS DATA EDV36.14fwEY5.80L/min ESV4.00mlMyocardial Mass83.00g EF89.00% Regional WT score at stress:0.00 Regional WM score at stress:0.00 Summed WT score at stress:0.00 Av. Heart Rate89.00bpmSummed WM score at stress:7.00 LV Perf. Quant 17 Seg. SSS1.00 17 Seg. SRS0.00 17 Seg. SDS1.00 Stress Defect Extent (% LAD)0.00Rest Defect Extent (% LAD)0.00Rev. Defect Extent (% LAD)0.00 Stress Defect Extent (% LCX)16.30Rest Defect Extent (% LCX)0.00Rev. Defect Extent (% LCX)5.00 Stress Defect Extent (% RCA)0.00Rest Defect Extent (% RCA)0.00Rev. Defect Extent (% RCA)0.00 Stress Defect Extent (% CLARITA)2.80Rest Defect Extent (% CLARITA)0.00Rev. Defect Extent (% CLARITA)0.90 Other Information Quality:Good IMPRESSION Normal Myocardial Perfusion exercise stress study Left Ventricle LV Function:Left ventricle systolic function is normal. The Ejection Fraction is >55%. Metabolism/Perfusion There are no perfusion/metabolism defects. Conclusion 1. Normal Lexiscan nuclear Stress test. Normal EF
[2018-08-28 11:09] LABS: BASO # 0.1 K/uL (0.0-0.2); BASO % 0.7 % (0.0-2.0); EOS # 0.3 K/uL (0.0-0.7); EOS % 4.1 % (0.0-4.0); HEMOGLOBIN 9.3 g/dL (12.0-18.0); LYMPH # 1.1 K/uL (1.0-4.3); LYMPH % 14.1 % (20.0-40.0); MEAN CELL VOLUME 96.6 fL (80.0-94.0); MEAN CORPUSCULAR HEMOGLOBIN 32.8 pg (27.0-31.0); MONO # 0.8 K/uL (0.0-0.8); NEUT # 5.4 K/uL (1.8-7.0); NEUT % 71.1 % (50.0-75.0); NRBC % 0.2 % (0.0-2.0); RBC 2.84 Mil/uL (4.40-5.90); RED CELL DISTRIBUTION WIDTH 14.3 % (11.5-14.5); WHITE BLOOD COUNT 7.6 K/uL (4.8-10.8)
[2018-08-28 12:02] LABS: CALCIUM 7.2 mg/dl (8.6-10.4)
--- NOTE | 2018-08-28 12:32 | CP.PCM.PN ---
Subjective - Date & Time of Evaluation Date of Evaluation: 08/28/18 Time of Evaluation: 12:32 - Subjective Subjective: 77 yo HM with pmh/o HTN, dm, prostate ca s/p seed implants, esophageal varices, s/p banding, s/p Gi bleed, cirrhosis of liver, s/p tx H.pylori s/p fall fx left femur and left humerus, s/p IM corey in femur in05/2018 was admitted with hypog lycemia and Kriss and vomitings no sob, no abd. pain , s/p EGD and colonoscopy pt is feeling better today, increasing abdominal distention Objective - Vital Signs/Intake and Output Vital Signs (last 24 hours): Temp Pulse Resp BP Pulse Ox 97.9 F 65 18 130/70 100 08/28/18 07:50 08/28/18 09:00 08/28/18 08:20 08/28/18 08:20 08/28/18 08:20 Intake and Output: 08/28/18 08/28/18 06:59 18:59 Output Total 675 Balance -675 - Medications Medications: Current Medications Lactated Ringer's (Lactated Ringer's 500ml) 500 mls @ 75 mls/hr IV .Q6H40M [facility] Last Admin: 08/28/18 10:00 Dose: 75 mls/hr Metronidazole 250 mg/ (Miscellaneous) 50 mls @ 100 mls/hr IVPB Q8H [facility]; Protocol Last Admin: 08/28/18 10:15 Dose: 100 mls/hr Cefepime HCl (Maxipime Iv 1 Gm Premix) 1 gm in 50 mls @ 100 mls/hr IVPB Q24H [facility]; Protocol Insulin Human Regular (Novolin R) 0 unit SC A[facility]S [facility]; Protocol Last Admin: 08/28/18 07:30 Dose: Not Given Metoclopramide HCl (Reglan) 5 mg IVP Q6H [facility] Last Admin: 08/28/18 09:54 Dose: 5 mg Montelukast Sodium (Singulair) 10 mg PO HS [facility] Last Admin: 08/27/18 21:07 Dose: 10 mg Sucralfate (Carafate Oral Susp) 1 gm PO ACBHS [facility] - Labs Labs: 08/28/18 10:59 08/28/18 10:59 PT 12.7 SECONDS (9.7-12.2) H 08/26/18 15:10 INR 1.2 08/26/18 15:10 APTT 38 SECONDS (21-34) H 08/26/18 15:10 - Constitutional Appears: Well, Non-toxic - Head Exam Head Exam: ATRAUMATIC, NORMAL INSPECTION, NORMOCEPHALIC - Eye Exam Eye Exam: EOMI, Normal appearance, PERRL Pupil Exam: NORMAL ACCOMODATION - ENT Exam ENT Exam: Mucous Membranes Moist - Neck Exam Neck Exam: Full ROM - Cardiovascular Exam Cardiovascular Exam: REGULAR RHYTHM, +S1, +S2 - GI/Abdominal Exam GI & Abdominal Exam: Distended, Soft, Normal Bowel Sounds - Rectal Exam Rectal Exam: Deferred - Extremities Exam Additional comments: 2+ edema of legs - Neurological Exam Neurological Exam: Alert, Awake, CN II-XII Intact, Oriented x3 - Psychiatric Exam Psychiatric exam: Normal Affect, Normal Mood - Skin Skin Exam: Normal Color Assessment and Plan - Assessment and Plan (Free Text) Assessment: 77 yo HM with pmh/o htn, dm, cirrhosis of liver, prostate ca s/p seed implants, s/p gi bleed, s/p banding of esophageal varices , s/p fall fx left femur and IM nailing, fx left humeral neck was admitted with hypoglycemia, vomitings, abd. distention 1.KRISS , r/o ATN 2.cirrhosis of liver 3.HTN 4.colitis 5.Ascitis check stool for c. diff, c/s, wbc renal function is improving consider to d/c ivf check bmp daily
[2018-08-28] MEDS: Cefepime IV 1 gm in Dextrose 1 GM/50 ML BAG IVPB SCH (14:09)
--- NOTE | 2018-08-28 15:45 | US ---
Date of service: 08/28/2018 PROCEDURE: Ultrasound of the Kidneys HISTORY: cr/bun elevated hx of prostate cancer COMPARISON: None available. TECHNIQUE: Sonogram of the kidneys. FINDINGS: RIGHT KIDNEY: Measures: 11.8 x 6.7 x 5.6 cm. Right kidney is normal in size and contour with mild increased echogenicity throughout the parenchyma suggestive of potential intrinsic medical renal disease. No stone, solid mass lesion or hydronephrosis visualized. LEFT KIDNEY: Measures: 13.7 x 7.3 x 6.4 cm. Left kidney is normal in size and contour with mild increased echogenicity throughout the parenchyma suggestive of potential intrinsic medical renal disease. There is a simple cyst exophytic off the lower pole posteriorly, measuring 4.1 x 3.0 x 4.2 cm. A 2nd cyst measures 3.2 x 2.1 x 2.4 cm at the mid to the lower pole, also simple in appearance. No stone, solid mass lesion or hydronephrosis visualized. OTHER FINDINGS: None. IMPRESSION: No obstructive uropathy bilaterally. 2 simple cysts identified related to the left kidney. Echogenic parenchyma is seen bilaterally which may indicate intrinsic medical renal disease. Clinically correlate.
--- NOTE | 2018-08-28 18:43 | CP.PCM.PN ---
Subjective - Date & Time of Evaluation Date of Evaluation: 08/28/18 Time of Evaluation: 11:00 - Subjective Subjective: Surgery progress note for Dr. Arce Pt seen and examined this AM. patient states that his pain improved, denies any nausea, vomiting, but reports diarrhea--likely d/t prep for colonoscopy Objective - Vital Signs/Intake and Output Vital Signs (last 24 hours): Temp Pulse Resp BP Pulse Ox 98.1 F 83 20 120/69 100 08/28/18 15:00 08/28/18 15:00 08/28/18 15:00 08/28/18 15:00 08/28/18 15:37 Intake and Output: 08/28/18 08/28/18 06:59 18:59 Output Total 675 Balance -675 - Medications Medications: Current Medications Lactated Ringer's (Lactated Ringer's 500ml) 500 mls @ 75 mls/hr IV .Q6H40M [facility] Last Admin: 08/28/18 14:21 Dose: Not Given Metronidazole 250 mg/ (Miscellaneous) 50 mls @ 100 mls/hr IVPB Q8H [facility]; Protocol Last Admin: 08/28/18 17:35 Dose: 100 mls/hr Cefepime HCl (Maxipime Iv 1 Gm Premix) 1 gm in 50 mls @ 100 mls/hr IVPB Q24H [facility]; Protocol Last Admin: 08/28/18 14:09 Dose: 100 mls/hr Insulin Human Regular (Novolin R) 0 unit SC ACHS [facility]; Protocol Last Admin: 08/28/18 17:07 Dose: 1 unit Metoclopramide HCl (Reglan) 5 mg IVP Q6H [facility] Last Admin: 08/28/18 14:14 Dose: 5 mg Montelukast Sodium (Singulair) 10 mg PO HS [facility] Last Admin: 08/27/18 21:07 Dose: 10 mg Sucralfate (Carafate Oral Susp) 1 gm PO ACBHS [facility] - Labs Labs: 08/28/18 10:59 08/28/18 10:59 PT 12.7 SECONDS (9.7-12.2) H 08/26/18 15:10 INR 1.2 08/26/18 15:10 APTT 38 SECONDS (21-34) H 08/26/18 15:10 - Constitutional Appears: Well, Non-toxic, No Acute Distress - Head Exam Head Exam: ATRAUMATIC, NORMOCEPHALIC - Eye Exam Eye Exam: Normal appearance. absent: Conjunctival injection, Scleral icterus - ENT Exam ENT Exam: Mucous Membranes Moist, Normal Oropharynx - Respiratory Exam Respiratory Exam: NORMAL BREATHING PATTERN. absent: Accessory Muscle Use, Respiratory Distress - Cardiovascular Exam Cardiovascular Exam: RRR - GI/Abdominal Exam GI & Abdominal Exam: Distended, Soft. absent: Tenderness - Extremities Exam Extremities Exam: absent: Calf Tenderness, Pedal Edema, Tenderness - Neurological Exam Neurological Exam: Alert, Awake, Oriented x3 - Skin Skin Exam: Dry, Normal Color, Warm Assessment and Plan - Assessment and Plan (Free Text) Assessment: 77M with ascites, likely gastroenteritis/colitis, improving Plan: Colonoscopy was non-contributory No surgical intervention indicated--patient is improving with conservative management Advance diet as tolerated Medical management per primary Discussed with Dr. Claude Campos, PGY2
--- NOTE | 2018-08-28 21:15 | CP.PCM.PN ---
Subjective - Subjective Subjective: dictated Objective - Vital Signs/Intake and Output Vital Signs (last 24 hours): Temp Pulse Resp BP Pulse Ox 98.1 F 83 20 120/69 100 08/28/18 15:00 08/28/18 16:00 08/28/18 15:00 08/28/18 15:00 08/28/18 15:37 - Medications Medications: Current Medications Metronidazole 250 mg/ (Miscellaneous) 50 mls @ 100 mls/hr IVPB Q8H [facility]; Protocol Last Admin: 08/28/18 17:35 Dose: 100 mls/hr Cefepime HCl (Maxipime Iv 1 Gm Premix) 1 gm in 50 mls @ 100 mls/hr IVPB Q24H [facility]; Protocol Last Admin: 08/28/18 14:09 Dose: 100 mls/hr Insulin Human Regular (Novolin R) 0 unit SC [facility]; Protocol Last Admin: 08/28/18 17:07 Dose: 1 unit Metoclopramide HCl (Reglan) 5 mg IVP Q6H [facility] Last Admin: 08/28/18 14:14 Dose: 5 mg Montelukast Sodium (Singulair) 10 mg PO HS [facility] Last Admin: 08/27/18 21:07 Dose: 10 mg Sucralfate (Carafate Oral Susp) 1 gm PO ACBHS [facility] - Labs Labs: 08/28/18 10:59 08/28/18 10:59 PT 12.7 SECONDS (9.7-12.2) H 08/26/18 15:10 INR 1.2 08/26/18 15:10 APTT 38 SECONDS (21-34) H 08/26/18 15:10
[2018-08-28] MEDS: Sucralfate 1 gm/10 ml Oral Susp UD PO SCH (21:32)
--- NOTE | 2018-08-29 01:01 | CON ---
DATE: 08/28/2018 HISTORY OF PRESENT ILLNESS: The patient is a 77-year-old [place] gentleman, who was admitted to the hospital because of sepsis. The patient has rectal bleeding and abdominal pain. Slater inserted. The patient had colonoscopy and no evidence of any active bleeding. Apparently, the gentleman had prostatic radiation and seeds implant done many years ago and he was voiding frequently previously, but no gross hematuria. PHYSICAL EXAMINATION: ABDOMEN: Soft. No flank tenderness. No kidney palpable. No suprapubic fullness or tenderness. Slater catheter functioning well. RECTAL: 1.5+, firm. No induration. PSA done on this admission, which revealed low PSA of 0.1. IMPRESSION: Urinary retention, prostatic cancer, condition post radiation. We removed his Slater, started on Flomax. If he cannot void well, he needs to be discharged with the Slater or keep him in and I will do cystoscopy. I gave him my address to follow up as an outpatient. Genet Luis MD
[2018-08-29] MEDS: metroNIDAZOLE IV 500 mg/100 ml 250 MG in Premixed IV 1 EA IVPB SCH ×3 (02:28→18:20)
--- NOTE | 2018-08-29 06:28 | PN ---
DATE: 08/29/2018 Rickey is afebrile. No shortness of breath. Blood pressure 120/60, pulse 83, respiratory rate 20, temperature 98.1. The patient has cirrhosis of liver, portal hypertension, gastroesophageal varices. I spoke to the patient and his and explained to them the diagnoses. The patient is being seen by GI. The patient is not actively bleeding. He is status post EGD, colonoscopy. His recent ultrasound is consistent with chronic kidney disease. No obstruction. No mass. No malignancy. The patient currently remains essentially stable without any further drop. His ascites is getting worse, so we will discontinue the fluids. WBC is 7.6, hemoglobin 9.3, hematocrit 27.4, platelets 118. Sodium 138, potassium 3.8, chloride 109, bicarb 15, BUN 47, creatinine 3.1. Condition is stable for now. Monitor the patient. Selvin Mooney MD
[2018-08-29] MEDS: (Novolin R) Insulin Human Regular 100 units/ml vial SC SCH ×4 (08:31→21:41)
[2018-08-29] MEDS: Sucralfate 1 gm/10 ml Oral Susp UD PO SCH ×2 (08:40→21:25)
[2018-08-29 12:01] LABS: BASO % 0.5 % (0.0-2.0); EOS # 0.4 K/uL (0.0-0.7); EOS % 7.4 % (0.0-4.0); HEMOGLOBIN 8.2 g/dL (12.0-18.0); LYMPH # 0.8 K/uL (1.0-4.3); LYMPH % 14.8 % (20.0-40.0); MEAN CELL VOLUME 96.2 fL (80.0-94.0); MEAN CORPUSCULAR HEMOGLOBIN 32.9 pg (27.0-31.0); MEAN CORPUSCULAR HGB CONC 34.2 g/dL (33.0-37.0); MEAN PLATELET VOLUME 11.1 fL (7.2-11.7); MONO # 0.6 K/uL (0.0-0.8); MONO % 10.6 % (0.0-10.0); NEUT # 3.6 K/uL (1.8-7.0); NEUT % 66.7 % (50.0-75.0); NRBC % 0.1 % (0.0-2.0); RBC 2.49 Mil/uL (4.40-5.90); RED CELL DISTRIBUTION WIDTH 14.4 % (11.5-14.5); WHITE BLOOD COUNT 5.4 K/uL (4.8-10.8)
--- NOTE | 2018-08-29 12:09 | CP.PCM.PN ---
Subjective - Date & Time of Evaluation Date of Evaluation: 08/29/18 Time of Evaluation: 12:09 - Subjective Subjective: 77 yo HM with pmh/o HTN, dm, prostate ca s/p seed implants, esophageal varices, s/p banding, s/p Gi bleed, cirrhosis of liver, s/p tx H.pylori s/p fall fx left femur and left humerus, s/p IM corey in femur in05/2018 was admitted with hypoglycemia and Kriss and vomitings no sob, no abd. pain , s/p EGD and colonoscopy pt is feeling better today, increasing abdominal distention ivf discontinued , pt c/o scrotal swelling and leg edema Objective - Vital Signs/Intake and Output Vital Signs (last 24 hours): Temp Pulse Resp BP Pulse Ox 98.3 F 79 20 125/73 97 08/29/18 08:40 08/29/18 08:40 08/29/18 08:40 08/29/18 08:40 08/29/18 08:40 Intake and Output: 08/29/18 08/29/18 06:59 18:59 Output Total 450 Balance -450 - Medications Medications: Current Medications Metronidazole 250 mg/ (Miscellaneous) 50 mls @ 100 mls/hr IVPB Q8H [facility]; Protocol Last Admin: 08/29/18 11:28 Dose: 100 mls/hr Cefepime HCl (Maxipime Iv 1 Gm Premix) 1 gm in 50 mls @ 100 mls/hr IVPB Q24H [facility]; Protocol Last Admin: 08/28/18 14:09 Dose: 100 mls/hr Insulin Human Regular (Novolin R) 0 unit SC A[facility]S [facility]; Protocol Last Admin: 08/29/18 08:31 Dose: Not Given Metoclopramide HCl (Reglan) 5 mg IVP Q6H [facility] Last Admin: 08/29/18 08:40 Dose: 5 mg Montelukast Sodium (Singulair) 10 mg PO HS [facility] Last Admin: 08/28/18 21:33 Dose: 10 mg Sucralfate (Carafate Oral Susp) 1 gm PO ACBHS [facility] Last Admin: 08/29/18 08:40 Dose: 1 gm - Labs Labs: 08/29/18 11:15 08/28/18 10:59 PT 12.7 SECONDS (9.7-12.2) H 08/26/18 15:10 INR 1.2 08/26/18 15:10 APTT 38 SECONDS (21-34) H 08/26/18 15:10 - Constitutional Appears: Well, Non-toxic, No Acute Distress - Head Exam Head Exam: ATRAUMATIC, NORMAL INSPECTION, NORMOCEPHALIC - Eye Exam Eye Exam: EOMI, Normal appearance, PERRL Pupil Exam: NORMAL ACCOMODATION - ENT Exam ENT Exam: Mucous Membranes Moist - Neck Exam Neck Exam: Full ROM, Normal Inspection - Respiratory Exam Respiratory Exam: Clear to Ausculation Bilateral, NORMAL BREATHING PATTERN - Cardiovascular Exam Cardiovascular Exam: REGULAR RHYTHM, +S1, +S2 - GI/Abdominal Exam GI & Abdominal Exam: Distended, Soft, Normal Bowel Sounds - Rectal Exam Rectal Exam: Deferred - Extremities Exam Extremities Exam: Normal Inspection Additional comments: 2 + edema of legs - Neurological Exam Neurological Exam: Alert, Awake, CN II-XII Intact, Oriented x3 - Psychiatric Exam Psychiatric exam: Normal Affect, Normal Mood - Skin Skin Exam: Normal Color Assessment and Plan - Assessment and Plan (Free Text) Assessment: 77 yo HM with pmh/o htn, dm, cirrhosis of liver, prostate ca s/p seed implants, s/p gi bleed, s/p banding of esophageal varices , s/p fall fx left femur and IM nailing, fx left humeral neck was admitted with hypoglycemia, vomitings, abd. distention 1.KRISS , r/o ATN 2.cirrhosis of liver 3.HTN 4.colitis 5.Ascitis check stool for c. diff, c/s, wbc renal function is stable , s.cr 3.0 today check bmp daily will add lasix 40 mg ivp x1 toady and daily and titrate as needed
[2018-08-29] MEDS: Cefepime IV 1 gm in Dextrose 1 GM/50 ML BAG IVPB SCH (13:50)
[2018-08-29 14:26] LABS: CALCIUM 7.8 mg/dl (8.6-10.4)
--- NOTE | 2018-08-29 14:45 | PN ---
DATE: 08/29/2018 LOCATION: 662, bed B. SUBJECTIVE: This is a 77-year-old male, seen and examined in rounds without any significant clinical changes or reported active bleeding, seen in the presence of his , tolerating oral intake without reported nausea or vomiting, chest pain, palpitation, but still has some mild loose bowel movement. The entire chart is reviewed including but not limited to the most recent lab and radiology study results, current and the previous medication list, current and the previous medical events. Today's lab showed blood glucose level of 141. Rest of lab results still pending and the patient still has elevated however BUN and creatinine with low hemoglobin and hematocrit with thrombocytopenia. PHYSICAL EXAMINATION: GENERAL: A 77-year-old male. VITAL SIGNS: Afebrile with pulse of 76, respiratory rate 20 to 22 with blood pressure of 130/70. HEENT: Showed pale dry oral mucous membrane. Nonicteric sclerae. LUNGS: Few scattered crepitation. Decreased air entry at bases. HEART: Positive S1 and S2. ABDOMEN: Soft. Bowel sounds are present. No mass or organomegaly. No rebound tenderness or guarding. EXTREMITIES: Without significant clubbing, cyanosis, or edema. NEUROLOGIC: No reported new neurological deficits, sensory or motor. IMPRESSION: 1. Re-exacerbation of peptic ulcer disease. 2. Known history of recent gastrointestinal blood loss with anemia. 3. Known history of liver cirrhosis, esophageal varices, bradycardia, prostatic carcinoma, diabetes mellitus, as well as hypertension. 4. Renal insufficiency. 5. Status post left as well as left humerus fracture treated surgically. 6. Recurrent episode of hypoglycemia of unclear etiology. SUGGESTIONS: 1. Continue current management. 2. Repeat H and H. 3. Blood transfusion as needed to keep hemoglobin around 10 g percent. 4. Rest as per the nephrology licensed tax consultant on the case. 5. Further recommendation to follow. Lisa Granger MD
--- NOTE | 2018-08-29 21:28 | CP.PCM.PN ---
Subjective - Subjective Subjective: dictated Objective - Vital Signs/Intake and Output Vital Signs (last 24 hours): Temp Pulse Resp BP Pulse Ox 98.3 F 88 20 117/70 99 08/29/18 15:00 08/29/18 16:00 08/29/18 15:00 08/29/18 15:00 08/29/18 15:00 Intake and Output: 08/29/18 08/30/18 18:59 06:59 Output Total 600 Balance -600 - Medications Medications: Current Medications Metronidazole 250 mg/ (Miscellaneous) 50 mls @ 100 mls/hr IVPB Q8H [facility]; Protocol Last Admin: 08/29/18 18:20 Dose: 100 mls/hr Cefepime HCl (Maxipime Iv 1 Gm Premix) 1 gm in 50 mls @ 100 mls/hr IVPB Q24H [facility]; Protocol Last Admin: 08/29/18 13:50 Dose: 100 mls/hr Insulin Human Regular (Novolin R) 0 unit SC ACHS [facility]; Protocol Last Admin: 08/29/18 17:25 Dose: 2 unit Metoclopramide HCl (Reglan) 5 mg IVP Q6H [facility] Last Admin: 08/29/18 21:25 Dose: 5 mg Montelukast Sodium (Singulair) 10 mg PO HS [facility] Last Admin: 08/29/18 21:25 Dose: 10 mg Sucralfate (Carafate Oral Susp) 1 gm PO ACBHS [facility] Last Admin: 08/29/18 21:25 Dose: 1 gm - Labs Labs: 08/29/18 11:15 08/29/18 13:56 PT 12.7 SECONDS (9.7-12.2) H 08/26/18 15:10 INR 1.2 08/26/18 15:10 APTT 38 SECONDS (21-34) H 08/26/18 15:10
[2018-08-30] MEDS: metroNIDAZOLE IV 500 mg/100 ml 250 MG in Premixed IV 1 EA IVPB SCH ×3 (02:10→18:05)
--- NOTE | 2018-08-30 02:54 | PN ---
DATE: 08/29/2018 SUBJECTIVE: The patient, Rickey, is with decreased abdominal distension. He still has edema. He is afebrile. No shortness of breath. No chest pain. H and H are stable. PHYSICAL EXAMINATION VITAL SIGNS: BP 117/70, pulse 85, respiratory rate 20, temperature 98.3. LUNGS: Clear. No rales or rhonchi. CARDIOVASCULAR SYSTEM: S1 and S2 are regular. ABDOMEN: Massive ascites. EXTREMITIES: +3 pitting edema in the legs. ASSESSMENT: 1. Portal hypertension, cirrhosis of liver and ascites. 2. Gastrointestinal bleed, most likely recent esophageal varices, status post endoscopy and colonoscopy. 3. Acute kidney injury, rule out underlying chronic kidney disease. 4. Rule out obstructive uropathy. PLAN: Continue IV fluid. Accu-Chek, sliding scale. Monitor the patient. Selvin Mooney MD
[2018-08-30 07:35] LABS: CALCIUM 7.8 mg/dl (8.6-10.4)
[2018-08-30] MEDS: (Novolin R) Insulin Human Regular 100 units/ml vial SC SCH ×4 (08:30→21:49)
[2018-08-30] MEDS: Sucralfate 1 gm/10 ml Oral Susp UD PO SCH ×2 (08:56→21:34)
--- NOTE | 2018-08-30 12:11 | VASCLAB ---
Date of service: 08/29/2018 PROCEDURE: Lower Extremity Venous Duplex Exam. HISTORY: r/o DVT PRIORS: 05/28/2018, normal. TECHNIQUE: Bilateral common femoral, femoral, popliteal and posterior tibial, peroneal and great saphenous veins were evaluated. Flow was assessed with color Doppler, compressibility, assessment of phasic flow and augmentation response. Report prepared by BRENNAN Degroot FINDINGS: RIGHT: 1. Common Femoral Vein: 1.1. Compressibility - Fully compressible: Thrombus - None : Flow - Phasic: Augmentation -Normal: Reflux - None. 2. Femoral Vein: 2.1. Compressibility - Fully compressible: Thrombus - None : Flow - Phasic: Augmentation -Normal: Reflux - None. 3. Popliteal Vein: 3.1. Compressibility - Fully compressible: Thrombus - None : Flow - Phasic: Augmentation -Normal: Reflux - None. 4. Posterior Tibial Vein: 4.1. Compressibility - Fully compressible: Thrombus - None: Flow - Phasic: Augmentation -Normal: Reflux - None. 5. Peroneal Vein: 5.1. Compressibility - Fully compressible: Thrombus - None: Flow - Phasic: Augmentation -Normal: Reflux - None. 6. Great Saphenous Vein: 6.1. Compressibility - Fully compressible: Thrombus - None: Flow - Phasic: Augmentation - Normal: Reflux - None. LEFT: 1. Common Femoral Vein: 1.1. Compressibility - Fully compressible: Thrombus - None: Flow - Phasic: Augmentation -Normal: Reflux - None. 2. Femoral Vein: 2.1. Compressibility - Fully compressible: Thrombus - None: Flow - Phasic: Augmentation -Normal: Reflux - None. 3. Popliteal Vein: 3.1. Compressibility - Fully compressible: Thrombus - None : Flow - Phasic: Augmentation -Normal: Reflux - None. 4. Posterior Tibial Vein: 4.1. Compressibility - Fully compressible: Thrombus - None: Flow - Phasic: Augmentation -Normal: Reflux - None. 5. Peroneal Vein: 5.1. Compressibility - Fully compressible: Thrombus - None: Flow - Phasic: Augmentation -Normal: Reflux - None. 6. Great Saphenous Vein: 6.1. Compressibility - Partial: Thrombus - Chronic: Flow - Reduced : Augmentation - Normal: Reflux - None. OTHER FINDINGS: None. IMPRESSION: Right: No evidence of deep or superficial vein thrombosis of the right lower extremity. Normal valve function noted of the right side. Left: Chronic superficial phlebitis of the left great saphenous vein. No evidence of deep vein thrombosis of the left lower extremity. Normal valve function noted of the left side. Findings were reported to NERI Cronin at 11:11 AM.
--- NOTE | 2018-08-30 13:20 | PN ---
DATE: 08/30/2018 LOCATION: Room 662, bed B. SUBJECTIVE: This is a 77-year-old male seen and examined in rounds without significant clinical changes or reported active bleeding. No chest pain or palpitation. The patient still have complaint of intermittent period of mild abdominal discomfort with increased distention on and off as well as scrotal swelling and ____ edematous changes. The entire chart is reviewed including but not limited to most recent lab and radiology study results, current and the previous medication list, current and the previous medical events and today's lab showed CO2 content of 20, BUN of 47, creatinine 2.9. Blood glucose level 166 with calcium 7.8. The patient still has, however, low hemoglobin and hematocrit with thrombocytopenia. PHYSICAL EXAMINATION: GENERAL: A 77-year-old male, awake, alert. VITAL SIGNS: Afebrile with pulse of 84, respiratory rate 20-22, blood pressure 128/68. HEENT: Showed pale dry oral mucoid membrane. Nonicteric sclerae. LUNGS: Few scattered crepitation. Decreased air entry at bases. HEART: Positive S1 and S2. ABDOMEN: Soft with slight generalized tenderness and mildly distended. Bowel sounds are hyperactive. No mass or organomegaly. No rebound tenderness or guarding. RECTAL: The patient refused. EXTREMITIES: Without significant clubbing, cyanosis or edema. NEUROLOGIC: No reported new neurological deficits, sensory or motor. The patient is a status post upper and lower endoscopy. Full pathology report is still pending. IMPRESSION: 1. Re-exacerbation of peptic ulcer disease. 2. Diverticulosis with elements of mild diverticulitis with left-sided colitis. 3. Recent history of gastrointestinal blood loss with anemia. 4. Known history of liver cirrhosis, esophageal varices, prostatic cancer, hypertension, diabetes mellitus with periods of bradycardia before. 5. Renal insufficiency. The patient is followed up by Nephrology health analytics consultant. 6. Status post left humerus fracture, treated surgically, by history. 7. Reported episodes of hypoglycemia. SUGGESTIONS: 1. Continue current management. 2. Hepatitis profile. 3. Ammonia level. 4. Further recommendation to follow. Lisa Granger MD [facility] # [id number]
[2018-08-30] MEDS: Cefepime IV 1 gm in Dextrose 1 GM/50 ML BAG IVPB SCH (13:42)
--- NOTE | 2018-08-30 17:22 | CP.PCM.PN ---
Subjective - Date & Time of Evaluation Date of Evaluation: 08/30/18 Time of Evaluation: 17:22 - Subjective Subjective: 77 yo HM with pmh/o HTN, dm, prostate ca s/p seed implants, esophageal varices, s/p banding, s/p Gi bleed, cirrhosis of liver, s/p tx H.pylori s/p fall fx left femur and left humerus, s/p IM corey in femur in05/2018 was admitted with hypoglycemia and Kriss and vomitings no sob, no abd. pain , s/p EGD and colonoscopy pt is feeling better, no sob, no abd. pain + b/l LE edema and scrotal edema+ Objective - Vital Signs/Intake and Output Vital Signs (last 24 hours): Temp Pulse Resp BP Pulse Ox 98.0 F 85 20 130/69 98 08/30/18 15:00 08/30/18 16:00 08/30/18 15:00 08/30/18 15:00 08/30/18 15:00 Intake and Output: 08/30/18 08/30/18 06:59 18:59 Intake Total 50 Output Total 800 Balance -750 - Medications Medications: Current Medications Furosemide (Lasix) 40 mg PO BID ANGEL Last Admin: 08/30/18 10:22 Dose: 40 mg Metronidazole 250 mg/ (Miscellaneous) 50 mls @ 100 mls/hr IVPB Q8H ANGEL; Protocol Last Admin: 08/30/18 10:22 Dose: 100 mls/hr Cefepime HCl (Maxipime Iv 1 Gm Premix) 1 gm in 50 mls @ 100 mls/hr IVPB Q24H ANGEL; Protocol Last Admin: 08/30/18 13:42 Dose: 100 mls/hr Insulin Human Regular (Novolin R) 0 unit SC ACHS ANGEL; Protocol Last Admin: 08/30/18 12:47 Dose: 3 unit Metoclopramide HCl (Reglan) 5 mg IVP Q6H ANGEL Last Admin: 08/30/18 13:47 Dose: 5 mg Montelukast Sodium (Singulair) 10 mg PO HS ANGEL Last Admin: 08/29/18 21:25 Dose: 10 mg Sucralfate (Carafate Oral Susp) 1 gm PO ACBHS ANEGL Last Admin: 08/30/18 08:56 Dose: 1 gm - Labs Labs: 08/29/18 11:15 08/30/18 06:57 PT 12.7 SECONDS (9.7-12.2) H 08/26/18 15:10 INR 1.2 08/26/18 15:10 APTT 38 SECONDS (21-34) H 08/26/18 15:10 - Constitutional Appears: Well, Non-toxic, No Acute Distress - Head Exam Head Exam: ATRAUMATIC, NORMAL INSPECTION - Eye Exam Eye Exam: EOMI, Normal appearance, PERRL Pupil Exam: NORMAL ACCOMODATION - ENT Exam ENT Exam: Mucous Membranes Moist - Neck Exam Neck Exam: Full ROM - Respiratory Exam Respiratory Exam: Clear to Ausculation Bilateral, NORMAL BREATHING PATTERN - Cardiovascular Exam Cardiovascular Exam: REGULAR RHYTHM, +S1, +S2 - GI/Abdominal Exam GI & Abdominal Exam: Distended, Soft, Normal Bowel Sounds Additional comments: ascitis+ - Rectal Exam Rectal Exam: Deferred - Neurological Exam Neurological Exam: Alert, Awake, CN II-XII Intact, Oriented x3 - Psychiatric Exam Psychiatric exam: Normal Affect - Skin Skin Exam: Normal Color, Warm Assessment and Plan - Assessment and Plan (Free Text) Assessment: 77 yo HM with pmh/o htn, dm, cirrhosis of liver, prostate ca s/p seed implants, s/p gi bleed, s/p banding of esophageal varices , s/p fall fx left femur and IM nailing, fx left humeral neck was admitted with hypoglycemia, vomitings, abd. distention 1.KRISS , r/o ATN 2.cirrhosis of liver 3.HTN 4.colitis 5.Ascitis restrict fluids to 1 lit/day renal function is stable , s.cr 3.0 ---->2.9 today check bmp daily will add lasix 40 mg po BID
--- NOTE | 2018-08-30 20:57 | PN ---
DATE: 08/30/2018 The patient voiding well after removing the Slater catheter. PSA normal. He has history of prostatic CA. Today, he has scrotal swelling and penile swelling related to the congestive heart failure, also lower extremity swelling. I started Lasix. I will follow him. Need more Lasix to get rid of the edema. Genet Luis MD
[2018-08-31] MEDS: metroNIDAZOLE IV 500 mg/100 ml 250 MG in Premixed IV 1 EA IVPB SCH ×3 (02:28→17:22)
--- NOTE | 2018-08-31 03:31 | CP.PCM.PN ---
Subjective - Date & Time of Evaluation Date of Evaluation: 08/30/18 - Subjective Subjective: dictated Objective - Vital Signs/Intake and Output Vital Signs (last 24 hours): Temp Pulse Resp BP Pulse Ox 98.2 F 90 20 103/61 95 08/31/18 00:00 08/31/18 00:00 08/31/18 00:00 08/31/18 00:00 08/31/18 00:00 Intake and Output: 08/30/18 08/31/18 18:59 06:59 Intake Total 50 Output Total 550 Balance -500 - Medications Medications: Current Medications Furosemide (Lasix) 40 mg PO BID ANGEL Last Admin: 08/30/18 18:05 Dose: 40 mg Metronidazole 250 mg/ (Miscellaneous) 50 mls @ 100 mls/hr IVPB Q8H ANGEL; Protoc ol Last Admin: 08/31/18 02:28 Dose: 100 mls/hr Cefepime HCl (Maxipime Iv 1 Gm Premix) 1 gm in 50 mls @ 100 mls/hr IVPB Q24H ANGEL; Protocol Last Admin: 08/30/18 13:42 Dose: 100 mls/hr Insulin Human Regular (Novolin R) 0 unit SC ACHS ANGEL; Protocol Last Admin: 08/30/18 21:49 Dose: Not Given Metoclopramide HCl (Reglan) 5 mg IVP Q6H ANGEL Last Admin: 08/31/18 02:28 Dose: 5 mg Montelukast Sodium (Singulair) 10 mg PO HS ANGEL Last Admin: 08/30/18 21:34 Dose: 10 mg Sitagliptin Phosphate (Januvia) 25 mg PO DAILY ANGEL Sucralfate (Carafate Oral Susp) 1 gm PO ACBHS ANGEL Last Admin: 08/30/18 21:34 Dose: 1 gm - Labs Labs: 08/29/18 11:15 08/30/18 06:57 PT 12.7 SECONDS (9.7-12.2) H 08/26/18 15:10 INR 1.2 08/26/18 15:10 APTT 38 SECONDS (21-34) H 08/26/18 15:10
[2018-08-31] MEDS: (Novolin R) Insulin Human Regular 100 units/ml vial SC SCH ×4 (08:00→21:19)
[2018-08-31 08:21] LABS: BASO % 0.5 % (0.0-2.0); EOS # 0.6 K/uL (0.0-0.7); EOS % 10.5 % (0.0-4.0); HEMOGLOBIN 8.1 g/dL (12.0-18.0); LYMPH # 0.9 K/uL (1.0-4.3); MEAN CORPUSCULAR HEMOGLOBIN 32.7 pg (27.0-31.0); MEAN CORPUSCULAR HGB CONC 34.1 g/dL (33.0-37.0); MEAN PLATELET VOLUME 11.3 fL (7.2-11.7); MONO # 0.7 K/uL (0.0-0.8); MONO % 13.6 % (0.0-10.0); NEUT # 3.3 K/uL (1.8-7.0); NEUT % 59.4 % (50.0-75.0); NRBC % 0.1 % (0.0-2.0); RBC 2.49 Mil/uL (4.40-5.90); RED CELL DISTRIBUTION WIDTH 14.3 % (11.5-14.5); WHITE BLOOD COUNT 5.5 K/uL (4.8-10.8)
[2018-08-31 08:49] LABS: ALB/GLOB RATIO 0.8 (1.0-2.1); ALBUMIN 2.3 g/dL (3.5-5.0); CALCIUM 7.7 mg/dl (8.6-10.4)
[2018-08-31] MEDS: Sucralfate 1 gm/10 ml Oral Susp UD PO SCH ×2 (09:03→21:21)
--- NOTE | 2018-08-31 09:34 | PN ---
DATE: 08/31/2018 LOCATION: 2, bed B. SUBJECTIVE: This 77-year-old male post upper and lower endoscopy seen and examined in rounds, with a complaint of intermittent period of abdominal pain as well as scrotal edematous changes, but without any reported significant chest pain, palpitation, with intermittent period of shortness of breath as reported. No reported active GI bleeding. Today's lab results still pending; however, the patient reported to have increased BUN and creatinine with elevated blood glucose level through this admission. PHYSICAL EXAMINATION: GENERAL: A 77-year-old male. VITAL SIGNS: Afebrile with pulse of 90, respiratory rate 20 to 22, blood pressure 124/72. HEENT: Showed pale dry oral mucous membrane. Nonicteric sclerae. LUNGS: Few scattered crepitation. Decreased air entry at bases. HEART: Positive S1 and S2. ABDOMEN: Soft with mild generalized tenderness. No mass or organomegaly. No rebound tenderness or guarding, slightly edematous, slightly distended. EXTREMITIES: Lower extremities, mild edematous changes. No clubbing or cyanosis. NEUROLOGIC: No reported new neurological deficits, sensory or motor. SCROTUM: Edematous changes noted. IMPRESSION: 1. Recent history of gastrointestinal bleeding, subsided with stable hemoglobin and hematocrit. 2. Known history of liver cirrhosis, esophageal varices, prostatic carcinoma as well as left lower extremity fracture treated surgically. 3. Re-exacerbation of peptic ulcer disease. 4. Renal insufficiency. 5. Known history of diabetes mellitus, hypertension with period of hypoglycemia. SUGGESTIONS: 1. Continue current management. 2. Repeat H and H with blood transfusion as needed to keep hemoglobin around 10 g percent. 3. The patient may Inderal 10 mg one tablet p.o. daily. 4. Further recommendation to follow. Lisa Granger MD
--- NOTE | 2018-08-31 10:25 | CP.PCM.PN ---
Subjective - Date & Time of Evaluation Date of Evaluation: 08/30/18 Time of Evaluation: 16:15 - Subjective Subjective: Patient seen and evaluated denies chest pain and dyspnea Review Of Systems Except As Marked, All Systems Reviewed And Found Negative. Constitutional: Positive for: Other (hypoglycemic ). Negative for: Fever, Chills Cardiovascular: Negative for: Chest Pain Respiratory: Negative for: Shortness of Breath Gastrointestinal: Negative for: Nausea, Vomiting Neurological: Positive for: Other (slurring words; now improved) Physical Exam - Physical Exam Appears: Well, Non-toxic, No Acute Distress Skin: Normal Color, Warm, Dry, No Rash Head: Atraumatic, Normacephalic, No Tenderness, No Swelling, Other (no facial symmetry ) Eye(s): bilateral: Normal Inspection, PERRL, EOMI Nose: Normal Oral Mucosa: Moist Tongue: Normal Appearing, Other (midline) Throat: Normal Neck: Normal ROM, Trachea Midline, Supple Chest: Symmetrical, No Deformity Cardiovascular: Other (intermittently tachycardic ) Respiratory: Normal Breath Sounds Gastrointestinal/Abdominal: Soft, No Tenderness, Distention (nml per ) Back: No CVA Tenderness Extremity: Normal ROM (x4), Pedal Edema (b/l 3+), Other (can lift leg but cannot leave keep it lifted) Extremity: Bilateral: Atraumatic, Normal Color And Temperature Pulses: Left Dorsalis Pedis: Normal, Right Dorsalis Pedis: Normal Neurological/Psych: Oriented x3, Normal Speech, Normal Cognition, Normal Motor, Normal Sensation, Normal Reflexes Assessment & Plan - Assessment and Plan (Free Text) Assessment: 77 yo Male with pmh/o hypertension, DM, hyperlipidemia, arthritis , cirrhosis of liver,ex thoh abuse, ex smoker about 40 ppyear histoty, s/p fall fx left femur and left UE, prostate ca s/p seed implants was admitted with slurred speach, severe hypoglycemia, accuchecks 26 and sx improved after giving D50 1amp by EMS, pt with elevated bun/cr. base line s.cr was 0.8 in may 2018 1. KRISS most likely sec to ATn sec to drugs ACEI, Aldactone, metformin 2. Hypoglycemia 3. HTN 4. DM Stress test Normal ECHO: Normal EF Medical management Objective - Vital Signs/Intake and Output Vital Signs (last 24 hours): Temp Pulse Resp BP Pulse Ox 97.9 F 82 20 124/71 97 08/31/18 07:35 08/31/18 07:35 08/31/18 07:35 08/31/18 09:06 08/31/18 07:35 Intake and Output: 08/31/18 08/31/18 06:59 18:59 Intake Total 100 Output Total 850 Balance -750 - Medications Medications: Current Medications Furosemide (Lasix) 40 mg PO BID ANGEL Last Admin: 08/31/18 09:06 Dose: 40 mg Metronidazole 250 mg/ (Miscellaneous) 50 mls @ 100 mls/hr IVPB Q8H ANGEL; Protocol Last Admin: 08/31/18 02:28 Dose: 100 mls/hr Cefepime HCl (Maxipime Iv 1 Gm Premix) 1 gm in 50 mls @ 100 mls/hr IVPB Q24H ANGEL; Protocol Last Admin: 08/30/18 13:42 Dose: 100 mls/hr Insulin Human Regular (Novolin R) 0 unit SC ACHS ANGEL; Protocol Last Admin: 08/31/18 08:00 Dose: Not Given Metoclopramide HCl (Reglan) 5 mg IVP Q6H ANGEL Last Admin: 08/31/18 09:05 Dose: 5 mg Montelukast Sodium (Singulair) 10 mg PO HS ANGEL Last Admin: 08/30/18 21:34 Dose: 10 mg Sitagliptin Phosphate (Januvia) 25 mg PO DAILY ANGEL Last Admin: 08/31/18 09:04 Dose: 25 mg Sucralfate (Carafate Oral Susp) 1 gm PO ACBHS ANGEL Last Admin: 08/31/18 09:03 Dose: 1 gm - Labs Labs: 08/31/18 08:11 08/31/18 08:11 PT 12.7 SECONDS (9.7-12.2) H 08/26/18 15:10 INR 1.2 08/26/18 15:10 APTT 38 SECONDS (21-34) H 08/26/18 15:10
[2018-08-31] MEDS: Cefepime IV 1 gm in Dextrose 1 GM/50 ML BAG IVPB SCH (14:12)
--- NOTE | 2018-08-31 15:43 | CP.PCM.PN ---
Subjective - Date & Time of Evaluation Date of Evaluation: 08/31/18 Time of Evaluation: 15:43 - Subjective Subjective: 77 yo HM with pmh/o HTN, dm, prostate ca s/p seed implants, esophageal varices, s/p banding, s/p Gi bleed, cirrhosis of liver, s/p tx H.pylori s/p fall fx left femur and left humerus, s/p IM corey in femur in05/2018 was admitted with hypoglycemia and Kriss and vomitings no sob, no abd. pain , s/p EGD and colonoscopy pt is feeling better, no sob, no abd. pain, b/l LE edema and scrotal edema is improving, no complaints, wants to go home Objective - Vital Signs/Intake and Output Vital Signs (last 24 hours): Temp Pulse Resp BP Pulse Ox 97.9 F 82 20 124/71 97 08/31/18 07:35 08/31/18 07:35 08/31/18 07:35 08/31/18 09:06 08/31/18 07:35 Intake and Output: 08/31/18 08/31/18 06:59 18:59 Intake Total 100 Output Total 850 Balance -750 - Medications Medications: Current Medications Furosemide (Lasix) 40 mg PO BID ANGEL Last Admin: 08/31/18 09:06 Dose: 40 mg Metronidazole 250 mg/ (Miscellaneous) 50 mls @ 100 mls/hr IVPB Q8H ANGEL; Protocol Last Admin: 08/31/18 10:40 Dose: 100 mls/hr Cefepime HCl (Maxipime Iv 1 Gm Premix) 1 gm in 50 mls @ 100 mls/hr IVPB Q24H ANGEL; Protocol Last Admin: 08/31/18 14:12 Dose: 100 mls/hr Insulin Human Regular (Novolin R) 0 unit SC ACHS ANGEL; Protocol Last Admin: 08/31/18 11:56 Dose: 2 unit Metoclopramide HCl (Reglan) 5 mg IVP Q6H ANGEL Last Admin: 08/31/18 14:25 Dose: 5 mg Montelukast Sodium (Singulair) 10 mg PO HS ANGEL Last Admin: 08/30/18 21:34 Dose: 10 mg Sitagliptin Phosphate (Januvia) 25 mg PO DAILY ANGEL Last Admin: 08/31/18 09:04 Dose: 25 mg Sucralfate (Carafate Oral Susp) 1 gm PO [facility] Last Admin: 08/31/18 09:03 Dose: 1 gm - Labs Labs: 08/31/18 08:11 08/31/18 08:11 PT 12.7 SECONDS (9.7-12.2) H 08/26/18 15:10 INR 1.2 08/26/18 15:10 APTT 38 SECONDS (21-34) H 08/26/18 15:10 - Constitutional Appears: Well, Non-toxic, No Acute Distress - Head Exam Head Exam: ATRAUMATIC, NORMAL INSPECTION - Eye Exam Eye Exam: EOMI, Normal appearance, PERRL Pupil Exam: NORMAL ACCOMODATION - ENT Exam ENT Exam: Mucous Membranes Moist - Neck Exam Neck Exam: Full ROM - Cardiovascular Exam Cardiovascular Exam: REGULAR RHYTHM, +S1, +S2 - GI/Abdominal Exam GI & Abdominal Exam: Distended, Soft, Normal Bowel Sounds - Rectal Exam Rectal Exam: Deferred - Extremities Exam Additional comments: 2+ edema - Neurological Exam Neurological Exam: Alert, Awake, CN II-XII Intact, Oriented x3 - Skin Skin Exam: Normal Color Assessment and Plan - Assessment and Plan (Free Text) Assessment: 77 yo HM with pmh/o htn, dm, cirrhosis of liver, prostate ca s/p seed implants, s/p gi bleed, s/p banding of esophageal varices , s/p fall fx left femur and IM nailing, fx left humeral neck was admitted with hypoglycemia, vomitings, abd. distention 1.KRISS , can't r/o ATN 2.cirrhosis of liver 3.HTN 4.colitis 5.Ascitis restrict fluids to 1 lit/day renal function is stable , s.cr 3.0 ---->2.9---->2.9 today check bmp daily will add lasix 40 mg po BID check urine for eosinophils
--- NOTE | 2018-08-31 23:32 | CP.PCM.PN ---
Subjective - Subjective Subjective: dictated Objective - Vital Signs/Intake and Output Vital Signs (last 24 hours): Temp Pulse Resp BP Pulse Ox 97.7 F 88 20 117/68 99 08/31/18 15:23 08/31/18 15:23 08/31/18 15:23 08/31/18 17:23 08/31/18 15:23 - Medications Medications: Current Medications Furosemide (Lasix) 40 mg PO BID [facility] Last Admin: 08/31/18 17:23 Dose: 40 mg Metronidazole 250 mg/ (Miscellaneous) 50 mls @ 100 mls/hr IVPB Q8H ANGEL; Protocol Last Admin: 08/31/18 17:22 Dose: 100 mls/hr Cefepime HCl (Maxipime Iv 1 Gm Premix) 1 gm in 50 mls @ 100 mls/hr IVPB Q24H ANGEL; Protocol Last Admin: 08/31/18 14:12 Dose: 100 mls/hr Insulin Human Regular (Novolin R) 0 unit SC ACHS ANGEL; Protocol Last Admin: 08/31/18 21:19 Dose: Not Given Metoclopramide HCl (Reglan) 5 mg IVP Q6H ANGEL Last Admin: 08/31/18 21:20 Dose: 5 mg Montelukast Sodium (Singulair) 10 mg PO HS [facility] Last Admin: 08/31/18 21:21 Dose: 10 mg Sitagliptin Phosphate (Januvia) 25 mg PO DAILY [facility] Last Admin: 08/31/18 09:04 Dose: 25 mg Sucralfate (Carafate Oral Susp) 1 gm PO ACBHS [facility] Last Admin: 08/31/18 21:21 Dose: 1 gm - Labs Labs: 08/31/18 08:11 08/31/18 08:11 PT 12.7 SECONDS (9.7-12.2) H 08/26/18 15:10 INR 1.2 08/26/18 15:10 APTT 38 SECONDS (21-34) H 08/26/18 15:10
[2018-09-01] MEDS: metroNIDAZOLE IV 500 mg/100 ml 250 MG in Premixed IV 1 EA IVPB SCH ×3 (02:11→17:58)
--- NOTE | 2018-09-01 04:08 | PN ---
DATE: 08/31/2018 SUBJECTIVE: The patient, Rickey, is feeling better. He has some edema. I explained to him in detail that he has cirrhosis of liver with portal hypertension with ascites with scrotal and leg edema. He feels better. He denies any shortness of breath or chest pain. PHYSICAL EXAMINATION: VITAL SIGNS: Blood pressure 117/68, pulse 88, respiratory rate 20, temperature 97.7. LUNGS: Clear. CARDIOVASCULAR SYSTEM: S1 and S2 are regular. ABDOMEN: Distended with ascites. EXTREMITIES: Legs, +3 pitting edema. ASSESSMENT: Portal hypertension; cirrhosis of liver with ascites; acute kidney injury, resolving; improving creatinine gradually; type 2 diabetes; hypertension. PLAN: Medical management. Monitor the patient. Selvin Mooney MD
[2018-09-01] MEDS: (Novolin R) Insulin Human Regular 100 units/ml vial SC SCH ×4 (07:30→22:13)
[2018-09-01] MEDS: Sucralfate 1 gm/10 ml Oral Susp UD PO SCH ×2 (09:42→21:47)
[2018-09-01 09:49] LABS: CALCIUM 7.4 mg/dl (8.6-10.4)
--- NOTE | 2018-09-01 12:31 | PN ---
DATE: 09/01/2018 LOCATION: 662, bed B. SUBJECTIVE: This is a 77-year-old male seen and examined in rounds, post recent upper and lower endoscopy with a complaint of scrotal edema, again with mild intermittent period of abdominal pain, but no reported active bleeding. The entire chart is reviewed including but not limited to the most recent lab and radiology study results, current and the previous medication list, current and the previous medical events. The patient denied any actual chest pain, palpitation, significant shortness of breath or evidence of active bleeding. The most recent lab result showed low hemoglobin and hematocrit with thrombocytopenia, but still elevated blood glucose level with low calcium, low albumin, and low total protein. PHYSICAL EXAMINATION: GENERAL: A 77-year-old male. VITAL SIGNS: Afebrile with pulse of 82, respiratory rate 20 to 22, blood pressure 114/62. HEENT: Showed pale dry oral mucous membrane. Nonicteric sclerae. LUNGS: Few scattered crepitation. Decreased air entry at bases. ABDOMEN: Soft. Bowel sounds are present. No mass or organomegaly. No rebound tenderness or guarding. EXTREMITIES: Without significant clubbing or cyanosis, but with lower extremity edematous changes. NEUROLOGIC: No new reported neurological deficit, sensory or motor. IMPRESSION: 1. Re-exacerbation of peptic ulcer disease. 2. Known history of liver cirrhosis, esophageal varices, prostatic carcinoma. 3. Recent history of gastrointestinal blood loss, none. The patient is stable clinically with normal borderline hemoglobin and hematocrit, his anemia most likely secondary to above as well as his renal failure. 4. Known history of hypertension, diabetes mellitus. SUGGESTIONS: 1. Continue current management. 2. Again, the patient may need Inderal 10 mg p.o. one daily. 3. Follow up cancer markers. Further recommendation to follow. Lisa Granger MD
[2018-09-01] MEDS: Cefepime IV 1 gm in Dextrose 1 GM/50 ML BAG IVPB SCH (13:30)
--- NOTE | 2018-09-01 17:05 | CP.PCM.PN ---
Subjective - Date & Time of Evaluation Date of Evaluation: 09/01/18 Time of Evaluation: 07:00 - Subjective Subjective: 77 yo HM remains weak and bedridden scrotal and leg swelling persist Objective - Vital Signs/Intake and Output Vital Signs (last 24 hours): Temp Pulse Resp BP Pulse Ox 98.0 F 88 20 101/60 98 09/01/18 15:02 09/01/18 15:02 09/01/18 15:02 09/01/18 15:02 09/01/18 15:02 Intake and Output: 09/01/18 09/01/18 06:59 18:59 Intake Total 500 Output Total 600 Balance -100 - Medications Medications: Current Medications Furosemide (Lasix) 40 mg PO BID [facility] Last Admin: 09/01/18 09:44 Dose: 40 mg Metronidazole 250 mg/ (Miscellaneous) 50 mls @ 100 mls/hr IVPB Q8H [facility]; Protocol Last Admin: 09/01/18 09:50 Dose: 100 mls/hr Cefepime HCl (Maxipime Iv 1 Gm Premix) 1 gm in 50 mls @ 100 mls/hr IVPB Q24H [facility]; Protocol Last Admin: 09/01/18 13:30 Dose: 100 mls/hr Insulin Human Regular (Novolin R) 0 unit SC ACHS [facility]; Protocol Last Admin: 09/01/18 12:31 Dose: 2 unit Metoclopramide HCl (Reglan) 5 mg IVP Q6H [facility] Last Admin: 09/01/18 14:33 Dose: 5 mg Montelukast Sodium (Singulair) 10 mg PO HS [facility] Last Admin: 08/31/18 21:21 Dose: 10 mg Sitagliptin Phosphate (Januvia) 25 mg PO DAILY [facility] Last Admin: 09/01/18 09:41 Dose: 25 mg Sucralfate (Carafate Oral Susp) 1 gm PO ACBHS [facility] Last Admin: 09/01/18 09:42 Dose: 1 gm - Labs Labs: 08/31/18 08:11 09/01/18 09:24 PT 12.7 SECONDS (9.7-12.2) H 08/26/18 15:10 INR 1.2 08/26/18 15:10 APTT 38 SECONDS (21-34) H 08/26/18 15:10 - Constitutional Appears: Non-toxic, Chronically Ill - Head Exam Head Exam: NORMOCEPHALIC - Eye Exam Eye Exam: absent: Scleral icterus - ENT Exam ENT Exam: Mucous Membranes Dry - Neck Exam Neck Exam: absent: Lymphadenopathy - Respiratory Exam Respiratory Exam: Decreased Breath Sounds - Cardiovascular Exam Cardiovascular Exam: REGULAR RHYTHM - GI/Abdominal Exam GI & Abdominal Exam: Distended, Soft - Rectal Exam Rectal Exam: Deferred - Exam Exam: NORMAL INSPECTION - Extremities Exam Extremities Exam: Pedal Edema. absent: Calf Tenderness, Tenderness - Back Exam Back Exam: absent: CVA tenderness (L), CVA tenderness (R) - Neurological Exam Neurological Exam: Alert, Awake, CN II-XII Intact - Psychiatric Exam Psychiatric exam: Depressed - Skin Skin Exam: Dry Assessment and Plan (1) Cirrhosis of liver Status: Acute (2) Diabetes 1.5, managed as type 2 Status: Acute - Assessment and Plan (Free Text) Assessment: 77 yo HM with pmh/o HTN, dm, prostate ca s/p seed implants, esophageal varices, s/p banding, s/p Gi bleed, cirrhosis of liver, s/p tx H.pylori s/p fall fx left femur and left humerus, s/p IM corey in femur in05/2018 was admitted with hypoglycemia and Hansa and vomitings cant r/o SBP rx in progress poor prognosis
--- NOTE | 2018-09-01 17:19 | CP.PCM.PN ---
Subjective - Date & Time of Evaluation Date of Evaluation: 09/01/18 Time of Evaluation: 17:19 - Subjective Subjective: 77 yo HM with pmh/o HTN, dm, prostate ca s/p seed implants, esophageal varices, s/p banding, s/p Gi bleed, cirrhosis of liver, s/p tx H.pylori s/p fall fx left femur and left humerus, s/p IM corey in femur in05/2018 was admitted with hypoglycemia and Kriss and vomitings no sob, no abd. pain , s/p EGD and colonoscopy c/o b/l leg swelling and severe scrotal swelling, + ascitis Objective - Vital Signs/Intake and Output Vital Signs (last 24 hours): Temp Pulse Resp BP Pulse Ox 98.0 F 88 20 101/60 98 09/01/18 15:02 09/01/18 15:02 09/01/18 15:02 09/01/18 15:02 09/01/18 15:02 Intake and Output: 09/01/18 09/01/18 06:59 18:59 Intake Total 500 Output Total 600 Balance -100 - Medications Medications: Current Medications Furosemide (Lasix) 40 mg PO BID [facility] Last Admin: 09/01/18 09:44 Dose: 40 mg Metronidazole 250 mg/ (Miscellaneous) 50 mls @ 100 mls/hr IVPB Q8H [facility]; Protocol Last Admin: 09/01/18 09:50 Dose: 100 mls/hr Cefepime HCl (Maxipime Iv 1 Gm Premix) 1 gm in 50 mls @ 100 mls/hr IVPB Q24H [facility]; Protocol Last Admin: 09/01/18 13:30 Dose: 100 mls/hr Insulin Human Regular (Novolin R) 0 unit SC ACHS [facility]; Protocol Last Admin: 09/01/18 12:31 Dose: 2 unit Metoclopramide HCl (Reglan) 5 mg IVP Q6H [facility] Last Admin: 09/01/18 14:33 Dose: 5 mg Montelukast Sodium (Singulair) 10 mg PO HS [facility] Last Admin: 08/31/18 21:21 Dose: 10 mg Sitagliptin Phosphate (Januvia) 25 mg PO DAILY [facility] Last Admin: 09/01/18 09:41 Dose: 25 mg Sucralfate (Carafate Oral Susp) 1 gm PO ACBHS [facility] Last Admin: 09/01/18 09:42 Dose: 1 gm - Labs Labs: 08/31/18 08:11 09/01/18 09:24 PT 12.7 SECONDS (9.7-12.2) H 08/26/18 15:10 INR 1.2 08/26/18 15:10 APTT 38 SECONDS (21-34) H 08/26/18 15:10 - Constitutional Appears: Well, Non-toxic, No Acute Distress - Head Exam Head Exam: ATRAUMATIC, NORMAL INSPECTION, NORMOCEPHALIC - Eye Exam Eye Exam: EOMI, Normal appearance, PERRL Pupil Exam: NORMAL ACCOMODATION - ENT Exam ENT Exam: Mucous Membranes Moist - Neck Exam Neck Exam: Full ROM - Respiratory Exam Respiratory Exam: Clear to Ausculation Bilateral, NORMAL BREATHING PATTERN - Cardiovascular Exam Cardiovascular Exam: REGULAR RHYTHM, +S1, +S2 - GI/Abdominal Exam GI & Abdominal Exam: Distended, Firm, Soft, Normal Bowel Sounds Additional comments: +ascitis, dullness on percusion on both flanks - Rectal Exam Rectal Exam: Deferred - Exam Exam: Scrotal Swelling - Extremities Exam Additional comments: 2-3+ edema - Neurological Exam Neurological Exam: Alert, Awake, CN II-XII Intact, Oriented x3 - Psychiatric Exam Psychiatric exam: Normal Mood - Skin Skin Exam: Normal Color Assessment and Plan - Assessment and Plan (Free Text) Assessment: 77 yo HM with pmh/o htn, dm, cirrhosis of liver, prostate ca s/p seed implants, s/p gi bleed, s/p banding of esophageal varices , s/p fall fx left femur and IM nailing, fx left humeral neck was admitted with hypoglycemia, vomitings, abd. distention 1.KRISS , can't r/o ATN 2.cirrhosis of liver 3.HTN 4.colitis 5.Ascitis restrict fluids to 1 lit/day renal function is stable , s.cr 3.0 ---->2.9---->2.9 ---->2.8 today check bmp daily check urine for eosinophils will add albumin 25 % 50 ml q 12 hrs 1/2 hr before lasix change lasix po to ivp 40 mg q 12 hrs will add midodrine 5 mg po tid
[2018-09-01] MEDS: Albumin Human 25% (12.5 gm/50 ml) IV SCH (21:48)
--- NOTE | 2018-09-01 21:51 | CP.PCM.PN ---
Subjective - Date & Time of Evaluation Date of Evaluation: 08/31/18 Time of Evaluation: 08:15 - Subjective Subjective: Patient seen and evaluated denies chest pain and dyspnea Review Of Systems Except As Marked, All Systems Reviewed And Found Negative. Constitutional: Positive for: Other (hypoglycemic ). Negative for: Fever, Chills Cardiovascular: Negative for: Chest Pain Respiratory: Negative for: Shortness of Breath Gastrointestinal: Negative for: Nausea, Vomiting Neurological: Positive for: Other (slurring words; now improved) Physical Exam - Physical Exam Appears: Well, Non-toxic, No Acute Distress Skin: Normal Color, Warm, Dry, No Rash Head: Atraumatic, Normacephalic, No Tenderness, No Swelling, Other (no facial symmetry ) Eye(s): bilateral: Normal Inspection, PERRL, EOMI Nose: Normal Oral Mucosa: Moist Tongue: Normal Appearing, Other (midline) Throat: Normal Neck: Normal ROM, Trachea Midline, Supple Chest: Symmetrical, No Deformity Cardiovascular: Other (intermittently tachycardic ) Respiratory: Normal Breath Sounds Gastrointestinal/Abdominal: Soft, No Tenderness, Distention (nml per ) Back: No CVA Tenderness Extremity: Normal ROM (x4), Pedal Edema (b/l 3+), Other (can lift leg but cannot leave keep it lifted) Extremity: Bilateral: Atraumatic, Normal Color And Temperature Pulses: Left Dorsalis Pedis: Normal, Right Dorsalis Pedis: Normal Neurological/Psych: Oriented x3, Normal Speech, Normal Cognition, Normal Motor, Normal Sensation, Normal Reflexes Assessment & Plan - Assessment and Plan (Free Text) Assessment: 77 yo Male with pmh/o hypertension, DM, hyperlipidemia, arthritis , cirrhosis of liver,ex thoh abuse, ex smoker about 40 ppyear histoty, s/p fall fx left femur and left UE, prostate ca s/p seed implants was admitted with slurred speach, severe hypoglycemia, accuchecks 26 and sx improved after giving D50 1amp by EMS, pt with elevated bun/cr. base line s.cr was 0.8 in may 2018 1. KRISS most likely sec to ATn sec to drugs ACEI, Aldactone, metformin 2. Hypoglycemia 3. HTN 4. DM Stress test Normal ECHO: Normal EF Medical management Objective - Vital Signs/Intake and Output Vital Signs (last 24 hours): Temp Pulse Resp BP Pulse Ox 98.0 F 88 20 135/73 97 09/01/18 15:02 09/01/18 17:20 09/01/18 15:02 09/01/18 17:20 09/01/18 17:20 - Medications Medications: Current Medications Albumin Human (Albumin Human 25% (12.5 Gm/50 Ml)) 12.5 gm IV Q12 [facility] Furosemide (Lasix) 40 mg IVP Q12 [facility] Metronidazole 250 mg/ (Miscellaneous) 50 mls @ 100 mls/hr IVPB Q8H [facility]; Protocol Last Admin: 09/01/18 17:58 Dose: 100 mls/hr Cefepime HCl (Maxipime Iv 1 Gm Premix) 1 gm in 50 mls @ 100 mls/hr IVPB Q24H [facility]; Protocol Last Admin: 09/01/18 13:30 Dose: 100 mls/hr Insulin Human Regular (Novolin R) 0 unit SC ACHS [facility]; Protocol Last Admin: 09/01/18 18:24 Dose: Not Given Metoclopramide HCl (Reglan) 5 mg IVP Q6H [facility] Last Admin: 09/01/18 14:33 Dose: 5 mg Midodrine (Proamatine) 5 mg PO TID [facility] Last Admin: 09/01/18 19:00 Dose: 5 mg Montelukast Sodium (Singulair) 10 mg PO HS [facility] Last Admin: 08/31/18 21:21 Dose: 10 mg Sitagliptin Phosphate (Januvia) 25 mg PO DAILY [facility] Last Admin: 09/01/18 09:41 Dose: 25 mg Sucralfate (Carafate Oral Susp) 1 gm PO ACBHS [facility] Last Admin: 09/01/18 09:42 Dose: 1 gm - Labs Labs: 08/31/18 08:11 09/01/18 09:24 PT 12.7 SECONDS (9.7-12.2) H 08/26/18 15:10 INR 1.2 08/26/18 15:10 APTT 38 SECONDS (21-34) H 08/26/18 15:10
--- NOTE | 2018-09-01 21:53 | CP.PCM.PN ---
Subjective - Date & Time of Evaluation Date of Evaluation: 09/01/18 Time of Evaluation: 07:45 - Subjective Subjective: Patient without cardiac events Review Of Systems Except As Marked, All Systems Reviewed And Found Negative. Constitutional: Positive for: Other (hypoglycemic ). Negative for: Fever, Chills Cardiovascular: Negative for: Chest Pain Respiratory: Negative for: Shortness of Breath Gastrointestinal: Negative for: Nausea, Vomiting Neurological: Positive for: Other (slurring words; now improved) Physical Exam - Physical Exam Appears: Well, Non-toxic, No Acute Distress Skin: Normal Color, Warm, Dry, No Rash Head: Atraumatic, Normacephalic, No Tenderness, No Swelling, Other (no facial symmetry ) Eye(s): bilateral: Normal Inspection, PERRL, EOMI Nose: Normal Oral Mucosa: Moist Tongue: Normal Appearing, Other (midline) Throat: Normal Neck: Normal ROM, Trachea Midline, Supple Chest: Symmetrical, No Deformity Cardiovascular: Other (intermittently tachycardic ) Respiratory: Normal Breath Sounds Gastrointestinal/Abdominal: Soft, No Tenderness, Distention (nml per ) Back: No CVA Tenderness Extremity: Normal ROM (x4), Pedal Edema (b/l 3+), Other (can lift leg but cannot leave keep it lifted) Extremity: Bilateral: Atraumatic, Normal Color And Temperature Pulses: Left Dorsalis Pedis: Normal, Right Dorsalis Pedis: Normal Neurological/Psych: Oriented x3, Normal Speech, Normal Cognition, Normal Motor, Normal Sensation, Normal Reflexes Assessment & Plan - Assessment and Plan (Free Text) Assessment: 77 yo Male with pmh/o hypertension, DM, hyperlipidemia, arthritis , cirrhosis of liver,ex thoh abuse, ex smoker about 40 ppyear histoty, s/p fall fx left femur and left UE, prostate ca s/p seed implants was admitted with slurred speach, severe hypoglycemia, accuchecks 26 and sx improved after giving D50 1amp by EMS, pt with elevated bun/cr. base line s.cr was 0.8 in may 2018 1. KRISS most likely sec to ATn sec to drugs ACEI, Aldactone, metformin 2. Hypoglycemia 3. HTN 4. DM Stress test Normal ECHO: Normal EF No further cardiac work up at this time Objective - Vital Signs/Intake and Output Vital Signs (last 24 hours): Temp Pulse Resp BP Pulse Ox 98.0 F 88 20 135/73 97 09/01/18 15:02 09/01/18 17:20 09/01/18 15:02 09/01/18 17:20 09/01/18 17:20 - Medications Medications: Current Medications Albumin Human (Albumin Human 25% (12.5 Gm/50 Ml)) 12.5 gm IV Q12 [facility] Furosemide (Lasix) 40 mg IVP Q12 [facility] Metronidazole 250 mg/ (Miscellaneous) 50 mls @ 100 mls/hr IVPB Q8H [facility]; Protocol Last Admin: 09/01/18 17:58 Dose: 100 mls/hr Cefepime HCl (Maxipime Iv 1 Gm Premix) 1 gm in 50 mls @ 100 mls/hr IVPB Q24H [facility]; Protocol Last Admin: 09/01/18 13:30 Dose: 100 mls/hr Insulin Human Regular (Novolin R) 0 unit SC ACHS [facility]; Protocol Last Admin: 09/01/18 18:24 Dose: Not Given Metoclopramide HCl (Reglan) 5 mg IVP Q6H [facility] Last Admin: 09/01/18 14:33 Dose: 5 mg Midodrine (Proamatine) 5 mg PO TID [facility] Last Admin: 09/01/18 19:00 Dose: 5 mg Montelukast Sodium (Singulair) 10 mg PO HS [facility] Last Admin: 08/31/18 21:21 Dose: 10 mg Sitagliptin Phosphate (Januvia) 25 mg PO DAILY [facility] Last Admin: 09/01/18 09:41 Dose: 25 mg Sucralfate (Carafate Oral Susp) 1 gm PO ACBHS [facility] Last Admin: 09/01/18 09:42 Dose: 1 gm - Labs Labs: 08/31/18 08:11 09/01/18 09:24 PT 12.7 SECONDS (9.7-12.2) H 08/26/18 15:10 INR 1.2 08/26/18 15:10 APTT 38 SECONDS (21-34) H 08/26/18 15:10
--- NOTE | 2018-09-01 22:27 | CP.PCM.PN ---
Subjective - Subjective Subjective: dictated Objective - Vital Signs/Intake and Output Vital Signs (last 24 hours): Temp Pulse Resp BP Pulse Ox 98.0 F 88 20 135/73 97 09/01/18 15:02 09/01/18 17:20 09/01/18 15:02 09/01/18 17:20 09/01/18 17:20 - Medications Medications: Current Medications Albumin Human (Albumin Human 25% (12.5 Gm/50 Ml)) 12.5 gm IV Q12 [facility] Last Admin: 09/01/18 21:48 Dose: 12.5 gm Furosemide (Lasix) 40 mg IVP Q12 [facility] Metronidazole 250 mg/ (Miscellaneous) 50 mls @ 100 mls/hr IVPB Q8H [facility]; Protocol Last Admin: 09/01/18 17:58 Dose: 100 mls/hr Cefepime HCl (Maxipime Iv 1 Gm Premix) 1 gm in 50 mls @ 100 mls/hr IVPB Q24H [facility]; Protocol Last Admin: 09/01/18 13:30 Dose: 100 mls/hr Insulin Human Regular (Novolin R) 0 unit SC ACHS [facility]; Protocol Last Admin: 09/01/18 22:13 Dose: Not Given Metoclopramide HCl (Reglan) 5 mg IVP Q6H [facility] Last Admin: 09/01/18 21:47 Dose: 5 mg Midodrine (Proamatine) 5 mg PO TID [facility] Last Admin: 09/01/18 19:00 Dose: 5 mg Montelukast Sodium (Singulair) 10 mg PO HS [facility] Last Admin: 09/01/18 21:47 Dose: 10 mg Sitagliptin Phosphate (Januvia) 25 mg PO DAILY [facility] Last Admin: 09/01/18 09:41 Dose: 25 mg Sucralfate (Carafate Oral Susp) 1 gm PO ACBHS [facility] Last Admin: 09/01/18 21:47 Dose: 1 gm - Labs Labs: 08/31/18 08:11 09/01/18 09:24 PT 12.7 SECONDS (9.7-12.2) H 08/26/18 15:10 INR 1.2 08/26/18 15:10 APTT 38 SECONDS (21-34) H 08/26/18 15:10
[2018-09-02] MEDS: metroNIDAZOLE IV 500 mg/100 ml 250 MG in Premixed IV 1 EA IVPB SCH ×3 (03:00→17:40)
--- NOTE | 2018-09-02 04:07 | PN ---
DATE: 09/02/2018 SUBJECTIVE: Rickey is feeling better. He is awake and alert. He has ascites. He has +3 pitting edema of the leg. He is not in distress. No nausea or vomiting. His BUN and creatinine are coming down. He has been seen by Nephrology. PHYSICAL EXAMINATION: VITAL SIGNS: Blood pressure 135/73, pulse 88, respiratory rate 20, and temperature 98.0. LUNGS: Bilaterally clear. No rale. No rhonchi. CARDIOVASCULAR SYSTEM: S1 and S2 regular. ABDOMEN: Positive ascites. Positive fluids. EXTREMITIES: There is +3 pitting edema. CENTRAL NERVOUS SYSTEM: Awake, alert, and oriented x3. ASSESSMENT: 1. Acute on chronic kidney disease, etiology of acute kidney injury, unclear. Rule out obstructive uropathy. Rule out benign prostatic hyperplasia. 2. End-stage liver disease. 3. Hypertension. 4. Type II diabetes, status post hypoglycemia. PLAN: Continue current medication. Monitor the patient. Selvin Mooney MD
--- NOTE | 2018-09-02 06:54 | CON ---
DATE: 08/26/[address] Granger to Dr. Jesica Montalvo. I was called for GI consultation by the Admitting Medical Team. The patient is seen and fully examined on 08/26/2018 as requested by the admitting medical staff. A short handwritten consultation sheet left in the chart at the time of my consultation on 09/01/2018. The entire chart is reviewed including but not limited to the most recent lab and radiology study results, current and the previous medication list, current and the previous medical events. Case discussed with the staff at length at the time of my physical examination. HISTORY OF PRESENT ILLNESS: This is a 77-year-old male, who was admitted to the hospital through the Emergency Room with an episode of hypoglycemia associated with generalized weakness, malaise, little oral intake with recent nausea, dyspepsia with recent change of bowel movement habit of unclear etiology. No reported active bleeding, chills, fever, chest pain, palpitation, or significant shortness of breath. PAST MEDICAL HISTORY: Including but not limited to; 1. Hyperlipidemia. 2. Hypertension. 3. Osteoarthritis. 4. Liver cirrhosis with possible GI varices, associated with GI bleeding, with status post esophageal banding as reported done on 06/02/2016 by another supervisor [employer]. FAMILY HISTORY: Unknown. SOCIAL HISTORY: No recent history of cigarette smoking or alcohol intake but previous history of alcoholism with liver cirrhosis. CURRENT MEDICATIONS: Post admission medication lists were reviewed. ALLERGIES TO MEDICATIONS: UNCLEAR. LABORATORY DATA: After being admitted to the hospital, the patient was found to have low hemoglobin of 9.3, hematocrit 27.4 with thrombocytopenia of 118. Blood glucose level 208 with BUN of 47, creatinine 3.1 with low CO2 content of 15 indicative of severe metabolic acidosis. PHYSICAL EXAMINATION: GENERAL: The patient is a 77-year-old male, appears to be somewhat pale but awake, alert, oriented. VITALS: Blood pressure of 136/54, pulse of 82, respiratory rate 20 to 22. The patient is afebrile. HEENT: Showed pale dry oral mucoid membrane. Nonicteric sclerae. LYMPH NODES: No lymphadenitis or lymphadenopathy. LUNGS: Few scattered crepitations with decreased air entry at bases. HEART: Positive S1 and S2. ABDOMEN: Soft with mild distention. Bowel sounds are present but mildly hypoactive. No mass or organomegaly. No rebound tenderness or guarding. No focal deficits. IMPRESSION: 1. Gastrointestinal bleeding, to rule out recurrent bleeding esophageal varices versus lower gastrointestinal blood loss. 2. Anemia, most likely secondary to above. 3. Multiple past medical history as reported above. 4. Poorly controlled diabetes mellitus. 5. To rule out occult gastrointestinal malignancy. SUGGESTIONS: 1. Agree with your plan. 2. Correct any underlying electrolyte imbalance and coagulopathy. 3. Platelet transfusion and/or blood transfusion as needed. 4. Endoscopic evaluation of the GI tract when the patient is more stable clinically. 5. Surgical consultation. Thank you for letting me participate in your patient's case management. Lisa Granger MD
[2018-09-02] MEDS: (Novolin R) Insulin Human Regular 100 units/ml vial SC SCH ×4 (08:17→21:07)
[2018-09-02] MEDS: Sucralfate 1 gm/10 ml Oral Susp UD PO SCH ×2 (08:45→22:07)
[2018-09-02] MEDS: Albumin Human 25% (12.5 gm/50 ml) IV SCH ×2 (10:18→22:14)
--- NOTE | 2018-09-02 12:13 | CP.PCM.PN ---
Subjective - Date & Time of Evaluation Date of Evaluation: 09/02/18 Time of Evaluation: 12:12 - Subjective Subjective: c/o swelling of legs and scrotal swelling, no sob, non compliance with fluid intake Objective - Vital Signs/Intake and Output Vital Signs (last 24 hours): Temp Pulse Resp BP Pulse Ox 98.2 F 80 20 110/65 95 09/02/18 07:00 09/02/18 07:00 09/02/18 07:00 09/02/18 10:14 09/02/18 07:00 Intake and Output: 09/02/18 09/02/18 06:59 18:59 Output Total 400 Balance -400 - Medications Medications: Current Medications Albumin Human (Albumin Human 25% (12.5 Gm/50 Ml)) 12.5 gm IV Q12 [facility] Last Admin: 09/02/18 10:18 Dose: 12.5 gm Furosemide (Lasix) 40 mg IVP Q12 [facility] Last Admin: 09/02/18 10:14 Dose: 40 mg Metronidazole 250 mg/ (Miscellaneous) 50 mls @ 100 mls/hr IVPB Q8H [facility]; Protocol Last Admin: 09/02/18 10:16 Dose: 100 mls/hr Cefepime HCl (Maxipime Iv 1 Gm Premix) 1 gm in 50 mls @ 100 mls/hr IVPB Q24H [facility]; Protocol Last Admin: 09/01/18 13:30 Dose: 100 mls/hr Insulin Human Regular (Novolin R) 0 unit SC ACHS [facility]; Protocol Last Admin: 09/02/18 08:17 Dose: Not Given Metoclopramide HCl (Reglan) 5 mg IVP Q6H [facility] Last Admin: 09/02/18 09:15 Dose: 5 mg Midodrine (Proamatine) 5 mg PO TID [facility] Last Admin: 09/02/18 10:16 Dose: 5 mg Montelukast Sodium (Singulair) 10 mg PO HS [facility] Last Admin: 09/01/18 21:47 Dose: 10 mg Sitagliptin Phosphate (Januvia) 25 mg PO DAILY [facility] Last Admin: 09/02/18 10:16 Dose: 25 mg Sucralfate (Carafate Oral Susp) 1 gm PO ACBHS [facility] Last Admin: 09/02/18 08:45 Dose: 1 gm - Labs Labs: 08/31/18 08:11 09/01/18 09:24 PT 12.7 SECONDS (9.7-12.2) H 08/26/18 15:10 INR 1.2 08/26/18 15:10 APTT 38 SECONDS (21-34) H 08/26/18 15:10 - Constitutional Appears: Well, Non-toxic, No Acute Distress - Head Exam Head Exam: ATRAUMATIC, NORMAL INSPECTION - Eye Exam Eye Exam: EOMI, Normal appearance, PERRL Pupil Exam: NORMAL ACCOMODATION - ENT Exam ENT Exam: Mucous Membranes Moist - Neck Exam Neck Exam: Full ROM - Respiratory Exam Respiratory Exam: Clear to Ausculation Bilateral, NORMAL BREATHING PATTERN - Cardiovascular Exam Cardiovascular Exam: REGULAR RHYTHM, +S1, +S2 - GI/Abdominal Exam GI & Abdominal Exam: Distended, Soft, Normal Bowel Sounds - Exam Exam: Scrotal Swelling - Extremities Exam Additional comments: 2-3 + edema - Neurological Exam Neurological Exam: Alert, Awake, CN II-XII Intact, Oriented x3 - Psychiatric Exam Psychiatric exam: Normal Affect, Normal Mood - Skin Skin Exam: Normal Color, Warm Assessment and Plan - Assessment and Plan (Free Text) Assessment: 77 yo HM with pmh/o htn, dm, cirrhosis of liver, prostate ca s/p seed implants, s/p gi bleed, s/p banding of esophageal varices , s/p fall fx left femur and IM nailing, fx left humeral neck was admitted with hypoglycemia, vomitings, abd. distention 1.KRISS , can't r/o ATN 2.cirrhosis of liver 3.HTN 4.colitis 5.Ascitis restrict fluids to 1 lit/day renal function is stable , s.cr 3.0 ---->2.9---->2.9 ---->2.8--->2.9 today check bmp daily urine eosinophils are negative c/walbumin 25 % 50 ml q 12 hrs 1/2 hr before lasix Lasix ivp 40 mg q 12 hrs c/w midodrine 5 mg po tid
--- NOTE | 2018-09-02 13:16 | PN ---
DATE: 09/02/2018 LOCATION: 662, bed B. SUBJECTIVE: This 77-year-old male seen and examined early in rounds today without significant clinical changes. The patient had no specific new complaint this morning. No reported chest pain or palpitation. Somewhat tolerating oral intake well, but with slight generalized weakness and malaise. The entire chart is reviewed including but not limited to the most recent lab and radiology study results, current and the previous medication list, current and the previous medical events. Case discussed with the staff at length. Today's blood glucose level is 139. PHYSICAL EXAMINATION: GENERAL: A 77-year-old male. VITAL SIGNS: Afebrile with pulse of 80, respiratory rate 20 to 22, blood pressure of 116/68. HEENT: Showed pale, dry oral mucous membrane. Nonicteric sclerae. LUNGS: Few scattered crepitation. Decreased air entry at bases. HEART: Positive S1 and S2. ABDOMEN: Soft with mild generalized tenderness. No mass or organomegaly. No rebound, tenderness, or guarding. EXTREMITIES: Without significant clubbing, cyanosis, or edema. IMPRESSION: 1. Re-exacerbation of peptic ulcer disease. 2. Left-sided colitis, reported recent history of gastrointestinal blood loss. 3. Known history of hypertension with diabetes mellitus. 4. Diverticulosis without clear evidence of recent episode of diverticulitis as per recent endoscopic evaluation of the lower gastrointestinal tract. SUGGESTIONS: 1. Agree with your plan. 2. High fiber, no citrus, no seeds. 3. rectal apply. 4. Further recommendations to follow. Lisa Granger MD
[2018-09-02] MEDS: Cefepime IV 1 gm in Dextrose 1 GM/50 ML BAG IVPB SCH (14:00)
[2018-09-02 15:06] LABS: CALCIUM 7.7 mg/dl (8.6-10.4)
--- NOTE | 2018-09-02 21:55 | CP.PCM.PN ---
Subjective - Date & Time of Evaluation Date of Evaluation: 09/02/18 Time of Evaluation: 18:25 - Subjective Subjective: Patient seen and evaluated No cardiac events noted Objective - Vital Signs/Intake and Output Vital Signs (last 24 hours): Temp Pulse Resp BP Pulse Ox 98.0 F 90 20 123/66 100 09/02/18 15:00 09/02/18 15:00 09/02/18 15:00 09/02/18 15:00 09/02/18 15:00 - Medications Medications: Current Medications Albumin Human (Albumin Human 25% (12.5 Gm/50 Ml)) 12.5 gm IV Q12 [facility] Last Admin: 09/02/18 10:18 Dose: 12.5 gm Furosemide (Lasix) 40 mg IVP Q12 [facility] Last Admin: 09/02/18 10:14 Dose: 40 mg Metronidazole 250 mg/ (Miscellaneous) 50 mls @ 100 mls/hr IVPB Q8H [facility]; Protocol Last Admin: 09/02/18 17:40 Dose: 100 mls/hr Cefepime HCl (Maxipime Iv 1 Gm Premix) 1 gm in 50 mls @ 100 mls/hr IVPB Q24H [facility]; Protocol Last Admin: 09/02/18 14:00 Dose: 100 mls/hr Insulin Human Regular (Novolin R) 0 unit SC ACHS [facility]; Protocol Last Admin: 09/02/18 21:07 Dose: Not Given Metoclopramide HCl (Reglan) 5 mg IVP Q6H [facility] Last Admin: 09/02/18 19:45 Dose: 5 mg Midodrine (Proamatine) 5 mg PO TID [facility] Last Admin: 09/02/18 18:14 Dose: 5 mg Montelukast Sodium (Singulair) 10 mg PO HS [facility] Last Admin: 09/01/18 21:47 Dose: 10 mg Sitagliptin Phosphate (Januvia) 25 mg PO DAILY [facility] Last Admin: 09/02/18 10:16 Dose: 25 mg Sucralfate (Carafate Oral Susp) 1 gm PO ACBHS [facility] Last Admin: 09/02/18 08:45 Dose: 1 gm - Labs Labs: 08/31/18 08:11 09/02/18 14:08 PT 12.7 SECONDS (9.7-12.2) H 08/26/18 15:10 INR 1.2 11/12/18 15:10 APTT 38 SECONDS (21-34) H 08/26/18 15:10
--- NOTE | 2018-09-02 22:15 | CP.PCM.PN ---
Subjective - Subjective Subjective: dictated Objective - Vital Signs/Intake and Output Vital Signs (last 24 hours): Temp Pulse Resp BP Pulse Ox 98.0 F 90 20 123/66 100 09/02/18 15:00 09/02/18 15:00 09/02/18 15:00 09/02/18 15:00 09/02/18 15:00 - Medications Medications: Current Medications Albumin Human (Albumin Human 25% (12.5 Gm/50 Ml)) 12.5 gm IV Q12 [facility] Last Admin: 09/02/18 10:18 Dose: 12.5 gm Furosemide (Lasix) 40 mg IVP Q12 [facility] Last Admin: 09/02/18 10:14 Dose: 40 mg Metronidazole 250 mg/ (Miscellaneous) 50 mls @ 100 mls/hr IVPB Q8H [facility]; Protocol Last Admin: 09/02/18 17:40 Dose: 100 mls/hr Cefepime HCl (Maxipime Iv 1 Gm Premix) 1 gm in 50 mls @ 100 mls/hr IVPB Q24H [facility]; Protocol Last Admin: 09/02/18 14:00 Dose: 100 mls/hr Insulin Human Regular (Novolin R) 0 unit SC ACHS [facility]; Protocol Last Admin: 09/02/18 21:07 Dose: Not Given Metoclopramide HCl (Reglan) 5 mg IVP Q6H [facility] Last Admin: 09/02/18 19:45 Dose: 5 mg Midodrine (Proamatine) 5 mg PO TID [facility] Last Admin: 09/02/18 18:14 Dose: 5 mg Montelukast Sodium (Singulair) 10 mg PO HS [facility] Last Admin: 09/02/18 22:08 Dose: 10 mg Sitagliptin Phosphate (Januvia) 25 mg PO DAILY [facility] Last Admin: 09/02/18 10:16 Dose: 25 mg Sucralfate (Carafate Oral Susp) 1 gm PO ACBHS [facility] Last Admin: 09/02/18 22:07 Dose: 1 gm - Labs Labs: 08/31/18 08:11 09/02/18 14:08 PT 12.7 SECONDS (9.7-12.2) H 08/26/18 15:10 INR 1.2 08/26/18 15:10 APTT 38 SECONDS (21-34) H 08/26/18 15:10
--- NOTE | 2018-09-03 00:21 | PN ---
DATE: 09/02/2018 SUBJECTIVE: The patient feels better. She has swelling of the legs. She has abdominal distention. She denies any fever or chills. She is on intake, output, diuretics. Renal has seen the patient. PHYSICAL EXAMINATION: VITAL SIGNS: Blood pressure 113/50, pulse 90, respiratory rate 20, and temperature 98. LUNGS: Clear. CVS: S1 and S2 regular. ABDOMEN: Massive ascites. ASSESSMENT: 1. Ascites, end-stage liver disease. 2. Chronic kidney disease. 3. Type 2 diabetes. 4. Hypertension. PLAN: Diuretics, intake and output. Daily body weight. Monitor the patient. Selvin Mooney MD
[2018-09-03] MEDS: metroNIDAZOLE IV 500 mg/100 ml 250 MG in Premixed IV 1 EA IVPB SCH ×2 (02:34→11:01)
[2018-09-03 08:10] LABS: BASO % 0.5 % (0.0-2.0); EOS # 0.6 K/uL (0.0-0.7); EOS % 9.2 % (0.0-4.0); HEMOGLOBIN 8.2 g/dL (12.0-18.0); LYMPH # 0.7 K/uL (1.0-4.3); LYMPH % 11.6 % (20.0-40.0); MEAN CELL VOLUME 96.3 fL (80.0-94.0); MEAN CORPUSCULAR HEMOGLOBIN 33.5 pg (27.0-31.0); MEAN CORPUSCULAR HGB CONC 34.7 g/dL (33.0-37.0); MEAN PLATELET VOLUME 11.2 fL (7.2-11.7); MONO % 15.9 % (0.0-10.0); NEUT # 3.8 K/uL (1.8-7.0); NEUT % 62.8 % (50.0-75.0); RBC 2.44 Mil/uL (4.40-5.90); RED CELL DISTRIBUTION WIDTH 14.7 % (11.5-14.5)
[2018-09-03] MEDS: (Novolin R) Insulin Human Regular 100 units/ml vial SC SCH ×4 (08:15→21:37)
[2018-09-03 08:21] LABS: ALB/GLOB RATIO 0.8 (1.0-2.1); ALBUMIN 2.4 g/dL (3.5-5.0); CALCIUM 7.8 mg/dl (8.6-10.4)
[2018-09-03] MEDS: Sucralfate 1 gm/10 ml Oral Susp UD PO SCH ×2 (08:35→21:27)
--- NOTE | 2018-09-03 09:25 | CP.PCM.PN ---
Subjective - Date & Time of Evaluation Date of Evaluation: 09/03/18 Time of Evaluation: 09:24 - Subjective Subjective: pt is c/o b/l leg swelling , scrotal swelling, no sob no cp, no palpitation,no nausea, no vomitings Objective - Vital Signs/Intake and Output Vital Signs (last 24 hours): Temp Pulse Resp BP Pulse Ox 98.4 F 81 20 112/62 98 09/03/18 07:00 09/03/18 07:00 09/03/18 07:00 09/03/18 07:00 09/03/18 07:00 Intake and Output: 09/03/18 09/03/18 06:59 18:59 Intake Total 340 Output Total 600 Balance -260 - Medications Medications: Current Medications Albumin Human (Albumin Human 25% (12.5 Gm/50 Ml)) 12.5 gm IV Q8 [facility] Stop: 09/05/18 14:01 Metronidazole 250 mg/ (Miscellaneous) 50 mls @ 100 mls/hr IVPB Q8H [facility]; Protocol Last Admin: 09/03/18 02:34 Dose: 100 mls/hr Cefepime HCl (Maxipime Iv 1 Gm Premix) 1 gm in 50 mls @ 100 mls/hr IVPB Q24H [facility]; Protocol Last Admin: 09/02/18 14:00 Dose: 100 mls/hr Furosemide 100 mg/ Sodium (Chloride) 100 mls @ 10 mls/hr IVP .Q10H [facility] Stop: 09/04/18 09:31 Insulin Human Regular (Novolin R) 0 unit SC ACHS [facility]; Protocol Last Admin: 09/03/18 08:15 Dose: Not Given Midodrine (Proamatine) 5 mg PO TID [facility] Last Admin: 09/02/18 18:14 Dose: 5 mg Montelukast Sodium (Singulair) 10 mg PO HS [facility] Last Admin: 09/02/18 22:08 Dose: 10 mg Sitagliptin Phosphate (Januvia) 25 mg PO DAILY [facility] Last Admin: 09/02/18 10:16 Dose: 25 mg Sucralfate (Carafate Oral Susp) 1 gm PO ACBHS [facility] Last Admin: 09/03/18 08:35 Dose: 1 gm - Labs Labs: 09/03/18 07:56 09/03/18 07:56 PT 12.7 SECONDS (9.7-12.2) H 08/26/18 15:10 INR 1.2 08/26/18 15:10 APTT 38 SECONDS (21-34) H 08/26/18 15:10 Assessment and Plan - Assessment and Plan (Free Text) Assessment: 77 yo HM with pmh/o htn, dm, cirrhosis of liver, prostate ca s/p seed implants, s/p gi bleed, s/p banding of esophageal varices , s/p fall fx left femur and IM nailing, fx left humeral neck was admitted with hypoglycemia, vomitings, abd. distention 1.KRISS , can't r/o ATN 2.cirrhosis of liver 3.HTN 4.colitis 5.Ascitis restrict fluids to 1 lit/day renal function is stable , s.cr 3.0 ---->2.9---->2.9 ---->2.8--->2.9 ---->2.8 today check bmp daily urine eosinophils are negative c/w midodrine 5 mg po tid will d/c iv lasix and start on iv lasix drip at 10 mg/hr c/w albumin 25 % 50 ml q 8h bmp at 5 pm
[2018-09-03] MEDS ORDERED: Furosemide 100 MG in Sodium Chloride 0.9% 90 ML IVP SCH (09:30)
[2018-09-03] MEDS: Albumin Human 25% (12.5 gm/50 ml) IV SCH ×2 (14:12→21:27)
[2018-09-03 17:02] LABS: CALCIUM 7.6 mg/dl (8.6-10.4)
--- NOTE | 2018-09-03 20:45 | CP.PCM.PN ---
Subjective - Date & Time of Evaluation Date of Evaluation: 09/03/18 Time of Evaluation: 14:10 - Subjective Subjective: Patient without cardiac events Review Of Systems Except As Marked, All Systems Reviewed And Found Negative. Constitutional: Positive for: Other (hypoglycemic ). Negative for: Fever, Chills Cardiovascular: Negative for: Chest Pain Respiratory: Negative for: Shortness of Breath Gastrointestinal: Negative for: Nausea, Vomiting Neurological: Positive for: Other (slurring words; now improved) Physical Exam - Physical Exam Appears: Well, Non-toxic, No Acute Distress Skin: Normal Color, Warm, Dry, No Rash Head: Atraumatic, Normacephalic, No Tenderness, No Swelling, Other (no facial symmetry ) Eye(s): bilateral: Normal Inspection, PERRL, EOMI Nose: Normal Oral Mucosa: Moist Tongue: Normal Appearing, Other (midline) Throat: Normal Neck: Normal ROM, Trachea Midline, Supple Chest: Symmetrical, No Deformity Cardiovascular: Other (intermittently tachycardic ) Respiratory: Normal Breath Sounds Gastrointestinal/Abdominal: Soft, No Tenderness, Distention (nml per ) Back: No CVA Tenderness Extremity: Normal ROM (x4), Pedal Edema (b/l 3+), Other (can lift leg but cannot leave keep it lifted) Extremity: Bilateral: Atraumatic, Normal Color And Temperature Pulses: Left Dorsalis Pedis: Normal, Right Dorsalis Pedis: Normal Neurological/Psych: Oriented x3, Normal Speech, Normal Cognition, Normal Motor, Normal Sensation, Normal Reflexes Assessment & Plan - Assessment and Plan (Free Text) Assessment: 77 yo Male with pmh/o hypertension, DM, hyperlipidemia, arthritis , cirrhosis of liver,ex thoh abuse, ex smoker about 40 ppyear histoty, s/p fall fx left femur and left UE, prostate ca s/p seed implants was admitted with slurred speach, severe hypoglycemia, accuchecks 26 and sx improved after giving D50 1amp by EMS, pt with elevated bun/cr. base line s.cr was 0.8 in may 2018 1. KRISS most likely sec to ATn sec to drugs ACEI, Aldactone, metformin 2. Hypoglycemia 3. HTN 4. DM Stress test Normal ECHO: Normal EF No further cardiac work up at this time Objective - Vital Signs/Intake and Output Vital Signs (last 24 hours): Temp Pulse Resp BP Pulse Ox 98.0 F 80 20 125/65 99 09/03/18 15:05 09/03/18 15:05 09/03/18 15:05 09/03/18 15:05 09/03/18 15:05 - Medications Medications: Current Medications Albumin Human (Albumin Human 25% (12.5 Gm/50 Ml)) 12.5 gm IV Q8 [facility] Stop: 09/05/18 14:01 Last Admin: 09/03/18 14:12 Dose: 12.5 gm Furosemide 100 mg/ Sodium (Chloride) 100 mls @ 10 mls/hr IV .Q10H [facility] Stop: 09/04/18 09:31 Insulin Human Regular (Novolin R) 0 unit SC ACHS [facility]; Protocol Last Admin: 09/03/18 17:25 Dose: 1 unit Midodrine (Proamatine) 5 mg PO TID [facility] Last Admin: 09/03/18 17:35 Dose: 5 mg Montelukast Sodium (Singulair) 10 mg PO HS [facility] Last Admin: 09/02/18 22:08 Dose: 10 mg Sitagliptin Phosphate (Januvia) 25 mg PO DAILY [facility] Last Admin: 09/03/18 11:01 Dose: 25 mg Sucralfate (Carafate Oral Susp) 1 gm PO ACBHS [facility] Last Admin: 09/03/18 08:35 Dose: 1 gm - Labs Labs: 09/03/18 07:56 09/03/18 16:43 PT 12.7 SECONDS (9.7-12.2) H 08/26/18 15:10 INR 1.2 08/26/18 15:10 APTT 38 SECONDS (21-34) H 08/26/18 15:10
[2018-09-04] MEDS ORDERED: Furosemide 100 MG in Sodium Chloride 0.9% 90 ML IV SCH (05:30)
[2018-09-04] MEDS: Albumin Human 25% (12.5 gm/50 ml) IV SCH ×3 (05:54→21:31)
[2018-09-04 07:39] LABS: HEMOGLOBIN 7.7 g/dL (12.0-18.0); MEAN CELL VOLUME 95.6 fL (80.0-94.0); MEAN CORPUSCULAR HEMOGLOBIN 33.1 pg (27.0-31.0); MEAN CORPUSCULAR HGB CONC 34.6 g/dL (33.0-37.0); MEAN PLATELET VOLUME 11.6 fL (7.2-11.7); RBC 2.32 Mil/uL (4.40-5.90); RED CELL DISTRIBUTION WIDTH 15.2 % (11.5-14.5); WHITE BLOOD COUNT 5.4 K/uL (4.8-10.8)
[2018-09-04 07:43] LABS: CALCIUM 7.8 mg/dl (8.6-10.4)
[2018-09-04] MEDS: Sucralfate 1 gm/10 ml Oral Susp UD PO SCH ×2 (08:30→21:31)
[2018-09-04] MEDS: (Novolin R) Insulin Human Regular 100 units/ml vial SC SCH ×3 (08:30→21:30)
--- NOTE | 2018-09-04 09:37 | CP.PCM.PN ---
<Mirna Perry - Last Filed: 09/04/18 09:33> Subjective - Date & Time of Evaluation Date of Evaluation: 09/04/18 Time of Evaluation: 09:00 - Subjective Subjective: Cardiology Follow Up Note Patient was seen and examined at bedside. Patient reports he feels "okay" today. Denied any chest pain, shortness of breath, palpitations. Objective - Vital Signs/Intake and Output Vital Signs (last 24 hours): Temp Pulse Resp BP Pulse Ox 98.1 F 72 18 116/65 97 09/04/18 07:02 09/04/18 07:02 09/04/18 07:02 09/04/18 07:02 09/04/18 07:02 Intake and Output: 09/04/18 09/04/18 06:59 18:59 Intake Total 120 Balance 120 - Medications Medications: Current Medications Albumin Human (Albumin Human 25% (12.5 Gm/50 Ml)) 12.5 gm IV Q8 [facility] Stop: 09/05/18 14:01 Last Admin: 09/04/18 05:54 Dose: 12.5 gm Insulin Human Regular (Novolin R) [address] [facility]; Protocol Last Admin: 09/04/18 08:30 Dose: Not Given Midodrine (Proamatine) 5 mg PO TID [facility] Last Admin: 09/04/18 09:26 Dose: 5 mg Montelukast Sodium (Singulair) 10 mg PO HS [facility] Last Admin: 09/03/18 21:27 Dose: 10 mg Sitagliptin Phosphate (Januvia) 25 mg PO DAILY [facility] Last Admin: 09/04/18 09:26 Dose: 25 mg Sucralfate (Carafate Oral Susp) 1 gm PO ACS [facility] Last Admin: 09/04/18 08:30 Dose: 1 gm - Labs Labs: 09/04/18 07:11 09/04/18 07:11 PT 12.7 SECONDS (9.7-12.2) H 08/26/18 15:10 INR 1.2 08/26/18 15:10 APTT 38 SECONDS (21-34) H 08/26/18 15:10 - Constitutional Appears: No Acute Distress - Head Exam Head Exam: NORMAL INSPECTION, NORMOCEPHALIC - Eye Exam Eye Exam: EOMI, Normal appearance, PERRL Pupil Exam: NORMAL ACCOMODATION - ENT Exam ENT Exam: Mucous Membranes Moist - Respiratory Exam Respiratory Exam: Clear to Ausculation Bilateral, NORMAL BREATHING PATTERN - Cardiovascular Exam Cardiovascular Exam: +S1, +S2. absent: Tachycardia - GI/Abdominal Exam GI & Abdominal Exam: Soft, Normal Bowel Sounds - Extremities Exam Extremities Exam: Normal Inspection. absent: Pedal Edema, Tenderness - Neurological Exam Neurological Exam: Alert, Awake, CN II-XII Intact, Oriented x3 - Psychiatric Exam Psychiatric exam: Normal Affect, Normal Mood - Skin Skin Exam: Dry, Intact, Normal Color, Warm Assessment and Plan - Assessment and Plan (Free Text) Plan: Chest pain r/o ACS - ruled out Comorbid conditions: Hypertension, type 2 diabetes, hyperlipidemia, tobacco history (40+ PPY history) - ECHO: normal EF - Stress test: normal - No further cardiac workup at this time Case discussed with Mirna Snyder DO, PGY2 <Christoph Nielsen - Last Filed: 09/04/18 19:12> Objective - Vital Signs/Intake and Output Vital Signs (last 24 hours): Temp Pulse Resp BP Pulse Ox 97.9 F 69 18 150/74 97 09/04/18 16:43 09/04/18 16:43 09/04/18 16:43 09/04/18 16:43 09/04/18 15:00 Intake and Output: 09/04/18 09/05/18 18:59 06:59 Intake Total 875 Output Total 200 Balance 675 - Medications Medications: Current Medications Albumin Human (Albumin Human 25% (12.5 Gm/50 Ml)) 12.5 gm IV Q8 [facility] Stop: 09/05/18 14:01 Last Admin: 09/04/18 14:30 Dose: 12.5 gm Insulin Human Regular (Novolin R) 0 unit SC ACHS [facility]; Protocol Last Admin: 09/04/18 17:03 Dose: Not Given Midodrine (Proamatine) 5 mg PO TID [facility] Last Admin: 09/04/18 17:32 Dose: 5 mg Montelukast Sodium (Singulair) 10 mg PO HS [facility] Last Admin: 09/03/18 21:27 Dose: 10 mg Sitagliptin Phosphate (Januvia) 25 mg PO DAILY [facility] Last Admin: 09/04/18 09:26 Dose: 25 mg Sucralfate (Carafate Oral Susp) 1 gm PO ACBHS [facility] Last Admin: 09/04/18 08:30 Dose: 1 gm - Labs Labs: 09/04/18 07:11 09/04/18 07:11 PT 12.7 SECONDS (9.7-12.2) H 08/26/18 15:10 INR 1.2 08/26/18 15:10 APTT 38 SECONDS (21-34) H 08/26/18 15:10 Assessment and Plan - Assessment and Plan (Free Text) Plan: Patient seen and evaluated personally by me Plan of care d/w the medical referral coordinator and as documented
--- NOTE | 2018-09-04 10:19 | CP.PCM.PN ---
Subjective - Date & Time of Evaluation Date of Evaluation: 09/04/18 Time of Evaluation: 10:19 - Subjective Subjective: pt is feeling better, no sob, no cp + abd distention, + b/l leg swelling Objective - Vital Signs/Intake and Output Vital Signs (last 24 hours): Temp Pulse Resp BP Pulse Ox 98.1 F 72 18 116/65 97 09/04/18 07:02 09/04/18 07:02 09/04/18 07:02 09/04/18 07:02 09/04/18 07:02 Intake and Output: 09/04/18 09/04/18 06:59 18:59 Intake Total 120 Balance 120 - Medications Medications: Current Medications Albumin Human (Albumin Human 25% (12.5 Gm/50 Ml)) 12.5 gm IV Q8 [facility] Stop: 09/05/18 14:01 Last Admin: 09/04/18 05:54 Dose: 12.5 gm Insulin Human Regular (Novolin R) 0 unit SC ACHS [facility]; Protocol Last Admin: 09/04/18 08:30 Dose: Not Given Midodrine (Proamatine) 5 mg PO TID [facility] Last Admin: 09/04/18 09:26 Dose: 5 mg Montelukast Sodium (Singulair) 10 mg PO HS [facility] Last Admin: 09/03/18 21:27 Dose: 10 mg Sitagliptin Phosphate (Januvia) 25 mg PO DAILY [facility] Last Admin: 09/04/18 09:26 Dose: 25 mg Sucralfate (Carafate Oral Susp) 1 gm PO ACBHS [facility] Last Admin: 09/04/18 08:30 Dose: 1 gm - Labs Labs: 09/04/18 07:11 09/04/18 07:11 PT 12.7 SECONDS (9.7-12.2) H 08/26/18 15:10 INR 1.2 08/26/18 15:10 APTT 38 SECONDS (21-34) H 08/26/18 15:10 - Constitutional Appears: Well, Non-toxic, No Acute Distress - Head Exam Head Exam: ATRAUMATIC, NORMAL INSPECTION - Eye Exam Eye Exam: EOMI, Normal appearance, PERRL Pupil Exam: NORMAL ACCOMODATION - ENT Exam ENT Exam: Mucous Membranes Moist - Neck Exam Neck Exam: Full ROM - Respiratory Exam Respiratory Exam: Clear to Ausculation Bilateral, NORMAL BREATHING PATTERN - Cardiovascular Exam Cardiovascular Exam: REGULAR RHYTHM, +S1, +S2 - GI/Abdominal Exam GI & Abdominal Exam: Distended, Soft, Normal Bowel Sounds - Rectal Exam Rectal Exam: Deferred - Exam Exam: Scrotal Swelling - Extremities Exam Additional comments: 2- 3+ edema - Neurological Exam Neurological Exam: Alert, Awake, Oriented x3 - Psychiatric Exam Psychiatric exam: Normal Affect, Normal Mood - Skin Skin Exam: Intact, Normal Color, Warm Assessment and Plan - Assessment and Plan (Free Text) Assessment: 77 yo HM with pmh/o htn, dm, cirrhosis of liver, prostate ca s/p seed implants, s/p gi bleed, s/p banding of esophageal varices , s/p fall fx left femur and IM nailing, fx left humeral neck was admitted with hypoglycemia, vomitings, abd. distention 1.KRISS , can't r/o ATN 2.cirrhosis of liver 3.HTN 4.colitis 5.Ascitis restrict fluids to 1 lit/day renal function is stable , s.cr 3.0 ---->2.9---->2.9 ---->2.8--->2.9 ---->2.8-->2.6 ---->2.7 today check bmp daily urine eosinophils are negative c/w midodrine 5 mg po tid c/w iv lasix drip at 10 mg/hr c/w albumin 25 % 50 ml q 8h
--- NOTE | 2018-09-04 15:33 | PN ---
DATE: 09/04/2018 LOCATION: 657, bed B. SUBJECTIVE: This is a 77-year-old male seen and examined in rounds early today without significant clinical changes or reported active bleeding. No chest pain or palpitation. The entire chart is reviewed including but not limited to the most recent lab and radiology study results, current and the previous medication list, current and the previous medical events. Today's lab showed drop of hemoglobin 7.7, hematocrit 22.2 with thrombocytopenia of 75, BUN of 42, creatinine 2.7 with blood glucose level 122, calcium 7.8 with recently reported low albumin and low total protein. No reported chest pain, hematemesis or evidence of active GI bleeding this morning. PHYSICAL EXAMINATION: GENERAL: A 77-year-old male. VITAL SIGNS: Afebrile with pulse of 70, respiratory rate 20 to 22, blood pressure 124/68. HEENT: Showed pale, dry oral mucous membrane. Nonicteric sclerae. LUNGS: Few scattered crepitation. Decreased air entry at bases. HEART: Positive S1 and S2. ABDOMEN: Soft with mild generalized tenderness. No mass or organomegaly. No rebound tenderness or guarding. EXTREMITIES: Without significant clubbing, cyanosis or edema. IMPRESSION: 1. Anemia. 2. Peptic ulcer disease with known history of liver cirrhosis and esophageal varices. 3. Thrombocytopenia secondary to above. 4. Diverticulosis. 5. Renal insufficiency. 6. Known history of hypertension with diabetes mellitus. SUGGESTIONS: 1. Continue current management. 2. The patient will need blood transfusion in the meantime. 3. Further recommendation to follow. Lisa Granger MD
--- NOTE | 2018-09-04 16:32 | CARD ---
APPROVED REPORT Date of service: 08/24/2018 EKG Measurement Heart [id number] NM 144P [id number] <Conclusion> Porbable arm leads reversal Normal sinus rhythm Incomplete right bundle branch block Low voltage in precordial leads Possible Lateral infarct, age undetermined Prolonged QT Abnormal ECG PLEASE REPEAT
--- NOTE | 2018-09-04 18:57 | PN ---
DATE: 09/04/[address] Selvin Mooney. SUBJECTIVE: The patient denies chest pain. He is still complaining of bilateral leg as well as scrotal swelling. PHYSICAL EXAMINATION VITAL SIGNS: Blood pressure 106/60, heart rate 68, temperature 98.4, respirations 18. HEENT: Mild facial edema. CHEST: Diminished breath sounds at the bases. HEART: S1 and S2 regular. ABDOMEN: Soft. EXTREMITIES: 3+ thigh edema with significant scrotal edema. DIAGNOSTIC DATA: EKG revealed sinus rhythm, incomplete right bundle-branch block with poor R-wave progression. Chest x-ray revealed normal cardiac silhouette, consider left pleural effusion. LABORATORY DATA: Today's SMA-7: Sodium 135, potassium 3.6, chloride 102, CO2 of 22, glucose 131, BUN 42, creatinine 2.7, calcium 7.8. Today's hemoglobin and hematocrit are 7.7 and 22.2, white count 5.4, platelet count 75,000. Hepatitis profile is negative. Venous Doppler of the lower extremities: On the right side, no evidence of DVT; on the left side, chronic superficial phlebitis of the left great saphenous vein, no evidence of deep venous thrombosis. Renal ultrasound, no obstructive uropathy bilaterally. Recent Lexiscan study 10 days ago was a normal study. Abdomen and pelvis CT scan was consistent with thickened loops of small and large bowel, concern of enteritis/colitis, cirrhosis and portal venous hypertension, moderate abdominal and small pelvic ascites, anasarca, trace bilateral pleural effusion, small hiatal hernia with gastroesophageal reflux. ASSESSMENT: 1. Liver cirrhosis. 2. Chronic renal insufficiency. 3. Anemia and thrombocytopenia. 4. Uncontrolled diabetes mellitus. PLAN: Continue current albumin infusion and oral Carafate. Continue Januvia 25 mg once a day. Aldactone is contraindicated in view of creatinine is above 2.5, and beta-blockers will not be justified in view of borderline hypotension. Martin Manrique MD
[2018-09-05] MEDS: Albumin Human 25% (12.5 gm/50 ml) IV SCH ×2 (05:18→14:27)
[2018-09-05] MEDS: (Novolin R) Insulin Human Regular 100 units/ml vial SC SCH ×4 (08:49→21:45)
[2018-09-05 08:52] LABS: BASO % 0.5 % (0.0-2.0); EOS # 0.5 K/uL (0.0-0.7); EOS % 8.5 % (0.0-4.0); HEMOGLOBIN 9.3 g/dL (12.0-18.0); LYMPH # 0.8 K/uL (1.0-4.3); LYMPH % 12.6 % (20.0-40.0); MEAN CELL VOLUME 94.2 fL (80.0-94.0); MEAN PLATELET VOLUME 11.7 fL (7.2-11.7); MONO # 0.9 K/uL (0.0-0.8); MONO % 14.6 % (0.0-10.0); NEUT # 3.8 K/uL (1.8-7.0); NEUT % 63.8 % (50.0-75.0); NRBC % 0.1 % (0.0-2.0); RBC 2.82 Mil/uL (4.40-5.90); RED CELL DISTRIBUTION WIDTH 15.7 % (11.5-14.5)
[2018-09-05] MEDS: Sucralfate 1 gm/10 ml Oral Susp UD PO SCH ×2 (09:19→21:45)
--- NOTE | 2018-09-05 12:52 | CP.PCM.PN ---
Subjective - Date & Time of Evaluation Date of Evaluation: 09/05/18 Time of Evaluation: 12:52 - Subjective Subjective: pt is not in acute distress, still c/o b/l leg swelling ,severe scrotal swelling and abdominal distention Objective - Vital Signs/Intake and Output Vital Signs (last 24 hours): Temp Pulse Resp BP Pulse Ox 98.3 F 71 20 137/76 98 09/05/18 10:10 09/05/18 10:10 09/05/18 10:10 09/05/18 10:10 09/05/18 10:10 Intake and Output: 09/05/18 09/05/18 06:59 18:59 Intake Total 50 Output Total 800 Balance -750 - Medications Medications: Current Medications Albumin Human (Albumin Human 25% (12.5 Gm/50 Ml)) 12.5 gm IV Q8 [facility] Stop: 09/05/18 14:01 Last Admin: 09/05/18 05:18 Dose: 12.5 gm Insulin Human Regular (Novolin R) 0 unit SC [facility]; Protocol Last Admin: 09/05/18 08:49 Dose: Not Given Midodrine (Proamatine) 5 mg PO TID [facility] Last Admin: 09/05/18 09:19 Dose: 5 mg Montelukast Sodium (Singulair) 10 mg PO HS [facility] Last Admin: 09/04/18 21:31 Dose: 10 mg Sitagliptin Phosphate (Januvia) 25 mg PO DAILY [facility] Last Admin: 09/05/18 09:19 Dose: 25 mg Sucralfate (Carafate Oral Susp) 1 gm PO ACS [facility] Last Admin: 09/05/18 09:19 Dose: 1 gm - Labs Labs: 09/05/18 08:43 09/05/18 08:43 PT 12.7 SECONDS (9.7-12.2) H 08/26/18 15:10 INR 1.2 08/26/18 15:10 APTT 38 SECONDS (21-34) H 08/26/18 15:10 - Constitutional Appears: Well, Non-toxic, No Acute Distress - Head Exam Head Exam: ATRAUMATIC, NORMAL INSPECTION - Eye Exam Eye Exam: EOMI, Normal appearance, PERRL Pupil Exam: NORMAL ACCOMODATION - ENT Exam ENT Exam: Mucous Membranes Moist - Neck Exam Neck Exam: Full ROM - Respiratory Exam Respiratory Exam: Clear to Ausculation Bilateral - Cardiovascular Exam Cardiovascular Exam: REGULAR RHYTHM, +S1, +S2 - GI/Abdominal Exam GI & Abdominal Exam: Distended, Soft, Normal Bowel Sounds - Rectal Exam Rectal Exam: Deferred - Extremities Exam Additional comments: 2+ edema - Neurological Exam Neurological Exam: Alert, Awake, CN II-XII Intact, Oriented x3 Additional comments: bed ridden since admission - Psychiatric Exam Psychiatric exam: Normal Affect, Normal Mood - Skin Skin Exam: Normal Color Assessment and Plan - Assessment and Plan (Free Text) Assessment: 77 yo HM with pmh/o htn, dm, cirrhosis of liver, prostate ca s/p seed implants, s/p gi bleed, s/p banding of esophageal varices , s/p fall fx left femur and IM nailing, fx left humeral neck was admitted with hypoglycemia, vomitings, abd. distention 1.KRISS , can't r/o ATN 2.cirrhosis of liver 3.HTN 4.colitis 5.Ascitis restrict fluids to 1 lit/day renal function is stable , s.cr 3.0 ---->2.9---->2.9 ---->2.8--->2.9 ---->2.8-->2.6 ---->2.7 today check bmp daily urine eosinophils are negative c/w midodrine 5 mg po tid will add lasix 60 mg ivp bid, c/w albumin 25 % 50 ml bid 1/2 hr before lasix
--- NOTE | 2018-09-05 12:57 | PN ---
DATE: 09/05/2018 SUBJECTIVE: This is a 77-year-old male seen and examined in rounds, post recent blood transfusion due to the subsequent drop of hemoglobin and hematocrit despite no reported active bleeding for the last two to three days. Post blood transfusion results still pending and today's blood glucose level of 92. No chest pain, palpitation, significant shortness of breath, chills or fever. PHYSICAL EXAMINATION: GENERAL: A 77-year-old male mildly pale. VITAL SIGNS: Afebrile with pulse of 76, respiratory rate 20-22, blood pressure of 140/72. HEENT: Showed pale dry oral mucoid membrane. Nonicteric sclerae. LUNGS: Few scattered crepitation. Decreased air entry at bases. HEART: Positive S1 and S2. ABDOMEN: Soft with mild generalized tenderness. No mass or organomegaly. No rebound tenderness or guarding, but with mild abdominal distention. EXTREMITIES: Lower extremity edematous changes. No clubbing, cyanosis, or reported edematous changes significantly. NEUROLOGIC: No reported new neurological deficit. IMPRESSION: 1. Liver cirrhosis with esophageal varices by history. 2. Diffuse erosive esophagitis and gastritis. 3. Thrombocytopenia secondary to above. 4. Diverticulosis by recent colonoscopy with internal hemorrhoids. 5. Renal insufficiency. 6. Known history of hypertension with diabetes mellitus. 7. Anemia secondary to above with status post blood transfusion. SUGGESTIONS: 1. Continue current management. 2. Antireflux measure. 3. Follow up in cancer markers including alpha fetoprotein, PSA, CEA and CA 19-9. 4. If there is subsequent drop of hemoglobin and hematocrit, then repeat upper endoscopy to be kept in mind. Lisa Granger MD
--- NOTE | 2018-09-05 16:31 | PN ---
DATE: 09/05/2018 SUBJECTIVE: The patient is experiencing bilateral leg and scrotal swelling. He denies any shortness of breath or chest pain. PHYSICAL EXAMINATION: VITAL SIGNS: Blood pressure 137/76, heart rate 71, temperature 98.3, respirations 20. HEENT: Pale conjunctivae. CHEST: Diminished breath sounds over the bases. HEART: S1 and S2 regular. ABDOMEN: Significant scrotal edema. EXTREMITIES: 2 to 3+ thigh edema. LABORATORY DATA: Hemoglobin and hematocrit 9.3 and 26.6. White count 6.2, platelet count 76,000. Today's BUN and creatinine 43 and 2.7 respectively. Calcium is below normal at 8.0. ASSESSMENT: 1. Liver cirrhosis. 2. Chronic insufficiency. 4. Anemia and thrombocytopenia. 5. Diabetes mellitus. PLAN: I did review Dr. Granger's evaluation and his impression was peptic ulcer disease with known history of liver cirrhosis and esophageal varices with thrombocytopenia, diverticulosis and renal insufficiency. Continue current Carafate 1 g twice a day, ProAmatine 5 mg t.i.d., Singulair 10 mg once a day, albumin at 12.5 g intravenously every 8 hours. Martin Manrique MD
[2018-09-06 07:49] LABS: HEMOGLOBIN 9.4 g/dL (12.0-18.0); MEAN CORPUSCULAR HEMOGLOBIN 32.7 pg (27.0-31.0); MEAN CORPUSCULAR HGB CONC 34.5 g/dL (33.0-37.0); MEAN PLATELET VOLUME 11.6 fL (7.2-11.7); RBC 2.88 Mil/uL (4.40-5.90); RED CELL DISTRIBUTION WIDTH 15.7 % (11.5-14.5); WHITE BLOOD COUNT 5.8 K/uL (4.8-10.8)
[2018-09-06] MEDS: (Novolin R) Insulin Human Regular 100 units/ml vial SC SCH ×5 (08:04→22:00)
[2018-09-06 08:09] LABS: CALCIUM 7.2 mg/dl (8.6-10.4)
[2018-09-06] MEDS: Sucralfate 1 gm/10 ml Oral Susp UD PO SCH ×2 (09:22→22:46)
[2018-09-06] MEDS ORDERED: Albumin Human 25% (12.5 gm/50 ml) IV SCH (10:00)
--- NOTE | 2018-09-06 12:02 | CP.PCM.PN ---
Subjective - Date & Time of Evaluation Date of Evaluation: 09/06/18 Time of Evaluation: 12:02 - Subjective Subjective: pt is feeling better, less leg swelling, claims he has good uop Objective - Vital Signs/Intake and Output Vital Signs (last 24 hours): Temp Pulse Resp BP Pulse Ox 97.8 F 70 20 146/72 97 09/06/18 08:49 09/06/18 08:49 09/06/18 08:49 09/06/18 10:36 09/06/18 08:49 Intake and Output: 09/06/18 09/06/18 06:59 18:59 Output Total 300 Balance -300 - Medications Medications: Current Medications Furosemide (Lasix) 60 mg IVP BID [facility] Last Admin: 09/06/18 10:36 Dose: 60 mg Insulin Human Regular (Novolin R) [address] [facility]; Protocol Last Admin: 09/06/18 08:04 Dose: Not Given Midodrine (Proamatine) 5 mg PO TID [facility] Last Admin: 09/06/18 09:23 Dose: 5 mg Montelukast Sodium (Singulair) [address] [facility] Last Admin: 09/05/18 21:45 Dose: 10 mg Sitagliptin Phosphate (Januvia) 25 mg PO DAILY [facility] Last Admin: 09/06/18 09:23 Dose: 25 mg Sucralfate (Carafate Oral Susp) 1 gm PO ACS [facility] Last Admin: 09/06/18 09:22 Dose: 1 gm - Labs Labs: 09/06/18 07:38 09/06/18 07:38 PT 12.7 SECONDS (9.7-12.2) H 08/26/18 15:10 INR 1.2 08/26/18 15:10 APTT 38 SECONDS (21-34) H 08/26/18 15:10 - Constitutional Appears: Well, Non-toxic, No Acute Distress - Head Exam Head Exam: ATRAUMATIC - Eye Exam Eye Exam: EOMI, Normal appearance, PERRL Pupil Exam: NORMAL ACCOMODATION - ENT Exam ENT Exam: Mucous Membranes Moist - Neck Exam Neck Exam: Full ROM - Respiratory Exam Respiratory Exam: Clear to Ausculation Bilateral, NORMAL BREATHING PATTERN - Cardiovascular Exam Cardiovascular Exam: REGULAR RHYTHM, +S1, +S2 - GI/Abdominal Exam GI & Abdominal Exam: Distended, Soft, Normal Bowel Sounds - Exam Exam: Scrotal Swelling - Extremities Exam Additional comments: 2+ edema, improving - Neurological Exam Neurological Exam: Alert, Awake, CN II-XII Intact, Oriented x3 - Psychiatric Exam Psychiatric exam: Normal Mood - Skin Skin Exam: Normal Color, Warm Assessment and Plan - Assessment and Plan (Free Text) Assessment: 77 yo HM with pmh/o htn, dm, cirrhosis of liver, prostate ca s/p seed implants, s/p gi bleed, s/p banding of esophageal varices , s/p fall fx left femur and IM nailing, fx left humeral neck was admitted with hypoglycemia, vomitings, abd. distention 1.KRISS , can't r/o ATN 2.cirrhosis of liver 3.HTN 4.colitis 5.Ascitis restrict fluids to 1 lit/day renal function is stable , s.cr 3.0 ---->2.9---->2.9 ---->2.8--->2.9 ---->2.8-->2.6 ---->2.7 ---->2.3 today check bmp daily urine eosinophils are negative c/w midodrine 5 mg po tid will c/w lasix 60 mg ivp bid, c/w albumin 25 % 50 ml bid 1/2 hr before lasix leg edema and scrotal swelling is improving
--- NOTE | 2018-09-06 14:39 | US ---
Moderate ascites in all 4 quadrants.
--- NOTE | 2018-09-06 14:50 | US ---
Date of service: 09/06/2018 PROCEDURE: HISTORY: scortal swelling COMPARISON: TECHNIQUE: FINDINGS: The right testicle measures 2.5 x 2.0 x 2.1 centimeters. There is a hydrocele. The the epididymis on the right is normal. There is scrotal wall edema. The left testicle measures 2.1 x 1.8 x 2.7 centimeters. There is a left hydrocele. There is an epididymal head cyst measuring 1.6 centimeters on left. There is a small hydrocele. Microlithiasis is noted on the left as well.. There is a a scrotal swelling present IMPRESSION: Extensive bilateral scrotal wall swelling. No intra testicular mass. Left epididymal head cyst measuring 1.6 centimeters. Bilateral hydroceles. No gross intra testicular mass. Left testicular microlithiasis. Correlate with MRI with contrast if clinically indicated.
--- NOTE | 2018-09-06 15:39 | PN ---
DATE: 09/06/2018 LOCATION: [facility], bed B. SUBJECTIVE: This is a 77-year-old male seen and examined in rounds with the staff in the floor without reported evidence of active bleeding without reported nausea or vomiting or significant complaint of chest pain. The entire chart is reviewed including but not limited to the most recent lab and radiology study results, current and the previous medication list, current and the previous medical events. The patient had low hemoglobin of 9.24, hematocrit at 27.3 with thrombocytopenia of 83, BUN of 44, creatinine 2.3. Blood glucose level 135, calcium 7.2. PHYSICAL EXAMINATION: GENERAL: A 77-year-old male. VITAL SIGNS: Afebrile with pulse of 74, respiratory rate 20-22, blood pressure 140/68. HEENT: Showed pale dry oral mucous membrane. Nonicteric sclerae. LUNGS: Few scattered crepitation. Decreased air entry at bases. HEART: Positive S1 and S2. ABDOMEN: Soft with mild generalized tenderness. No mass or organomegaly. No rebound tenderness or guarding. EXTREMITIES: With edematous changes including severe scrotal edema with reported abdominal distention. NEUROLOGIC: No reported new neurological deficits, sensory or motor. IMPRESSION: 1. Liver cirrhosis. 2. Esophageal varices by history with reexacerbation of peptic ulcer disease. 3. Known history of prostatic cancer. 4. Malnutrition with hypoalbuminemia, hypoproteinemia. 5. Renal insufficiency. 6. History of hypertension with diabetes mellitus. SUGGESTIONS: 1. Agree with your plan. 2. Follow up in cancer markers. 3. If there is subsequent drop of hemoglobin and hematocrit, then repeat upper endoscopy to be considered. Further recommendation to follow. Lisa Granger MD
--- NOTE | 2018-09-06 18:34 | PN ---
DATE: 09/06/2018 SUBJECTIVE: The patient is still experiencing significant scrotal as well as leg swelling and he is unhappy today for lack of improvement. He denies any shortness of breath. PHYSICAL EXAMINATION: VITAL SIGNS: Blood pressure 136/65, heart rate 78, temperature 97.8, respirations 20. HEENT: Pale conjunctivae. CHEST: Diminished breath sounds at the bases. HEART: S1 and S2, regular. ABDOMEN: Mild ascites and moderate scrotal edema. EXTREMITIES: 2 to 3+ thigh edema. LABORATORY DATA: Hemoglobin and hematocrit 9.4 and 27.3. White count 5.8, platelet count 83,000. Today's BUN and creatinine 44 and 2.3 respectively. Glucose 135, calcium is 7.2. ASSESSMENT: 1. Liver cirrhosis and portal hypertension. 2. Chronic insufficiency. 3. Anemia and thrombocytopenia. 4. Uncontrolled diabetes mellitus. 5. Esophageal varices. PLAN: Lasix was increased to 60 mg twice a day. Continue albumin infusion. Continue ProAmatine at 5 mg t.i.d. I will start Aldactone at 25 mg once a day and Inderal at 10 mg twice a day. Martin Manrique MD
[2018-09-06] MEDS: Albumin Human 25% (12.5 gm/50 ml) IV SCH (19:52)
--- NOTE | 2018-09-06 20:37 | CP.PCM.PN ---
Subjective - Date & Time of Evaluation Date of Evaluation: 09/06/18 Time of Evaluation: 10:20 - Subjective Subjective: Patient was seen and examined at bedside. Denies chest pain and dyspnea Objective - Constitutional Appears: No Acute Distress - Head Exam Head Exam: NORMAL INSPECTION, NORMOCEPHALIC - Eye Exam Eye Exam: EOMI, Normal appearance, PERRL Pupil Exam: NORMAL ACCOMODATION - ENT Exam ENT Exam: Mucous Membranes Moist - Respiratory Exam Respiratory Exam: Clear to Ausculation Bilateral, NORMAL BREATHING PATTERN - Cardiovascular Exam Cardiovascular Exam: +S1, +S2. absent: Tachycardia - GI/Abdominal Exam GI & Abdominal Exam: Soft, Normal Bowel Sounds - Extremities Exam Extremities Exam: Normal Inspection. absent: Pedal Edema, Tenderness - Neurological Exam Neurological Exam: Alert, Awake, CN II-XII Intact, Oriented x3 - Psychiatric Exam Psychiatric exam: Normal Affect, Normal Mood - Skin Skin Exam: Dry, Intact, Normal Color, Warm Assessment and Plan - Assessment and Plan (Free Text) Plan: Chest pain r/o ACS - ruled out Comorbid conditions: Hypertension, type 2 diabetes, hyperlipidemia, tobacco history (40+ PPY history) - ECHO: normal EF - Stress test: normal - No further cardiac workup at this time Objective - Vital Signs/Intake and Output Vital Signs (last 24 hours): Temp Pulse Resp BP Pulse Ox 97.8 F 73 20 146/72 100 09/06/18 15:17 09/06/18 15:17 09/06/18 15:17 09/06/18 20:32 09/06/18 15:17 Intake and Output: 09/06/18 09/07/18 18:59 06:59 Intake Total 254 Output Total 600 Balance -346 - Medications Medications: Current Medications Albumin Human (Albumin Human 25% (12.5 Gm/50 Ml)) 12.5 gm IV BID [facility] Last Admin: 09/06/18 19:52 Dose: 12.5 gm Furosemide (Lasix) 60 mg IVP BID [facility] Last Admin: 09/06/18 20:32 Dose: 60 mg Insulin Human Regular (Novolin R) 0 unit SC [facility]; Protocol Last Admin: 09/06/18 17:00 Dose: Not Given Midodrine (Proamatine) 5 mg PO TID [facility] Last Admin: 09/06/18 18:22 Dose: 5 mg Montelukast Sodium (Singulair) 10 mg PO HS [facility] Last Admin: 09/05/18 21:45 Dose: 10 mg Propranolol HCl (Inderal) 10 mg PO BID [facility] Last Admin: 09/06/18 18:21 Dose: 10 mg Sitagliptin Phosphate (Januvia) 25 mg PO DAILY [facility] Last Admin: 09/06/18 09:23 Dose: 25 mg Spironolactone (Aldactone) 25 mg PO DAILY [facility] Last Admin: 09/06/18 14:34 Dose: 25 mg Sucralfate (Carafate Oral Susp) 1 gm PO [facility] Last Admin: 09/06/18 09:22 Dose: 1 gm - Labs Labs: 09/06/18 07:38 09/06/18 07:38 PT 12.7 SECONDS (9.7-12.2) H 08/26/18 15:10 INR 1.2 08/26/18 15:10 APTT 38 SECONDS (21-34) H 08/26/18 15:10
[2018-09-07] MEDS: Sucralfate 1 gm/10 ml Oral Susp UD PO SCH ×2 (06:57→22:44)
[2018-09-07 08:27] LABS: BASO % 0.7 % (0.0-2.0); EOS # 0.5 K/uL (0.0-0.7); EOS % 8.9 % (0.0-4.0); HEMOGLOBIN 9.2 g/dL (12.0-18.0); LYMPH # 0.9 K/uL (1.0-4.3); LYMPH % 17.8 % (20.0-40.0); MEAN CELL VOLUME 94.7 fL (80.0-94.0); MEAN CORPUSCULAR HEMOGLOBIN 32.6 pg (27.0-31.0); MEAN CORPUSCULAR HGB CONC 34.5 g/dL (33.0-37.0); MEAN PLATELET VOLUME 11.1 fL (7.2-11.7); MONO # 0.8 K/uL (0.0-0.8); MONO % 14.7 % (0.0-10.0); NEUT % 57.9 % (50.0-75.0); RBC 2.82 Mil/uL (4.40-5.90); RED CELL DISTRIBUTION WIDTH 15.7 % (11.5-14.5); WHITE BLOOD COUNT 5.2 K/uL (4.8-10.8)
[2018-09-07 08:56] LABS: CALCIUM 7.8 mg/dl (8.6-10.4)
[2018-09-07] MEDS: Magnesium Sulfate 1 gm in D5W 1 GM/100 ML BAG IVPB SCH ×4 (10:00→11:33)
[2018-09-07] MEDS: Albumin Human 25% (12.5 gm/50 ml) IV SCH ×2 (10:05→17:52)
--- NOTE | 2018-09-07 11:04 | PN ---
DATE: 09/07/2018 LOCATION: [facility], bed B. SUBJECTIVE: This is a 77-year-old male, seen and examined in rounds without significant clinical changes, but still complained of lower abdominal pain and scrotal edematous changes. No reported chest pain, palpitation or evidence of active GI bleeding. Today's lab results showed blood glucose level at 118. PHYSICAL EXAMINATION: GENERAL: This is a 77-year-old male, afebrile, awake, alert, oriented. VITAL SIGNS: Pulse of 68, respiratory rate 20 to 22, blood pressure 132/68. HEENT: Showed pale, dry oral mucous membrane. Nonicteric sclerae. LUNGS: Clear scattered crepitation, decreased air entry at bases. HEART: Positive S1 and S2. ABDOMEN: Soft. Bowel sounds are present. No mass or organomegaly. No rebound tenderness or guarding. EXTREMITIES: Significant clubbing, cyanosis or edema. NEUROLOGICAL: No reported new neurological deficits. LABORATORY DATA: It has to be mentioned that most recent done abdominal ultrasound showed moderate ascites and testicular ultrasound also performed yesterday indicative of extensive bilateral scrotal edema. Rest of the report is seen. IMPRESSION: 1. Liver cirrhosis with known history of esophageal varices. 2. Recent history of gastrointestinal bleeding. 3. Exacerbation of peptic ulcer disease. 4. Malnutrition with hypoalbuminemia, hypoproteinemia, renal insufficiency. 5. Known history of diabetes mellitus, hypertension. 6. Known history of prostatic carcinoma. 7. Diverticulosis with left-sided colitis by recent colonoscopy. SUGGESTION: 1. Continue current management. 2. Blood transfusion as needed to keep hemoglobin around 10 g%. 3. Further recommendation to follow. Lisa Granger MD
[2018-09-07] MEDS: (Novolin R) Insulin Human Regular 100 units/ml vial SC SCH ×4 (11:33→22:46)
--- NOTE | 2018-09-07 16:19 | CP.PCM.PN ---
Subjective - Date & Time of Evaluation Date of Evaluation: 09/07/18 Time of Evaluation: 16:19 - Subjective Subjective: pt is feeling better, no sob, less scrotal swelling, less edema Objective - Vital Signs/Intake and Output Vital Signs (last 24 hours): Temp Pulse Resp BP Pulse Ox 98.2 F 58 L 18 125/65 98 09/07/18 15:38 09/07/18 15:38 09/07/18 15:38 09/07/18 15:38 09/07/18 15:38 Intake and Output: 09/07/18 09/07/18 06:59 18:59 Intake Total 400 654 Output Total 2150 700 Balance -1750 -46 - Medications Medications: Current Medications Albumin Human (Albumin Human 25% (12.5 Gm/50 Ml)) 12.5 gm IV BID [facility] Last Admin: 09/07/18 10:05 Dose: 12.5 gm Furosemide (Lasix) 60 mg IVP BID [facility] Last Admin: 09/07/18 11:30 Dose: 60 mg Insulin Human Regular (Novolin R) 0 unit SC [facility]; Protocol Last Admin: 09/07/18 11:47 Dose: Not Given Midodrine (Proamatine) 5 mg PO TID [facility] Last Admin: 09/07/18 14:18 Dose: 5 mg Montelukast Sodium (Singulair) 10 mg PO HS [facility] Last Admin: 09/06/18 22:47 Dose: 10 mg Propranolol HCl (Inderal) 10 mg PO BID [facility] Last Admin: 09/07/18 12:13 Dose: 10 mg Sitagliptin Phosphate (Januvia) 25 mg PO DAILY [facility] Last Admin: 09/07/18 11:30 Dose: 25 mg Spironolactone (Aldactone) 25 mg PO DAILY [facility] Last Admin: 09/07/18 11:30 Dose: 25 mg Sucralfate (Carafate Oral Susp) 1 gm PO ACS [facility] Last Admin: 09/07/18 06:57 Dose: 1 gm - Labs Labs: 09/07/18 08:13 09/07/18 08:13 PT 12.7 SECONDS (9.7-12.2) H 08/26/18 15:10 INR 1.2 08/26/18 15:10 APTT 38 SECONDS (21-34) H 11/12/18 15:10 - Constitutional Appears: Well, Non-toxic, Toxic, No Acute Distress - Head Exam Head Exam: ATRAUMATIC, NORMAL INSPECTION - Eye Exam Eye Exam: EOMI, Normal appearance, PERRL Pupil Exam: NORMAL ACCOMODATION - ENT Exam ENT Exam: Mucous Membranes Moist, Normal Exam - Neck Exam Neck Exam: Full ROM - Respiratory Exam Respiratory Exam: Clear to Ausculation Bilateral, NORMAL BREATHING PATTERN - Cardiovascular Exam Cardiovascular Exam: REGULAR RHYTHM, +S1, +S2 - GI/Abdominal Exam GI & Abdominal Exam: Distended, Soft, Normal Bowel Sounds - Rectal Exam Rectal Exam: Deferred - Exam Exam: Scrotal Swelling - Extremities Exam Additional comments: 2+ edmea - Neurological Exam Neurological Exam: Alert, Awake, CN II-XII Intact, Oriented x3 - Psychiatric Exam Psychiatric exam: Normal Affect, Normal Mood - Skin Skin Exam: Normal Color, Warm Assessment and Plan - Assessment and Plan (Free Text) Assessment: 77 yo HM with pmh/o htn, dm, cirrhosis of liver, prostate ca s/p seed implants, s/p gi bleed, s/p banding of esophageal varices , s/p fall fx left femur and IM nailing, fx left humeral neck was admitted with hypoglycemia, vomitings, abd. distention 1.KRISS , can't r/o ATN 2.cirrhosis of liver 3.HTN 4.colitis 5.Ascitis restrict fluids to 1 lit/day renal function is stable , s.cr 3.0 ---->2.9---->2.9 ---->2.8--->2.9 ---->2.8-->2.6 ---->2.7 ---->2.3 --->2.3 today check bmp daily urine eosinophils are negative c/w midodrine 5 mg po tid will c/w lasix 60 mg ivp bid, c/w albumin 25 % 50 ml bid 1/2 hr before lasix leg edema and scrotal swelling is improving d/c albumin stable from renal stand point
[2018-09-07] MEDS ORDERED: Magnesium Sulfate 1 gm in D5W 1 GM/100 ML BAG IVPB ONE (16:20)
--- NOTE | 2018-09-07 21:38 | CP.PCM.PN ---
Subjective - Date & Time of Evaluation Date of Evaluation: 09/07/18 Time of Evaluation: 15:30 - Subjective Subjective: Patient was seen and examined Denies chest pain and dyspnea Objective - Constitutional Appears: No Acute Distress - Head Exam Head Exam: NORMAL INSPECTION, NORMOCEPHALIC - Eye Exam Eye Exam: EOMI, Normal appearance, PERRL Pupil Exam: NORMAL ACCOMODATION - ENT Exam ENT Exam: Mucous Membranes Moist - Respiratory Exam Respiratory Exam: Clear to Ausculation Bilateral, NORMAL BREATHING PATTERN - Cardiovascular Exam Cardiovascular Exam: +S1, +S2. absent: Tachycardia - GI/Abdominal Exam GI & Abdominal Exam: Soft, Normal Bowel Sounds - Extremities Exam Extremities Exam: Normal Inspection. absent: Pedal Edema, Tenderness - Neurological Exam Neurological Exam: Alert, Awake, CN II-XII Intact, Oriented x3 - Psychiatric Exam Psychiatric exam: Normal Affect, Normal Mood - Skin Skin Exam: Dry, Intact, Normal Color, Warm Assessment and Plan - Assessment and Plan (Free Text) Plan: Chest pain r/o ACS - ruled out Comorbid conditions: Hypertension, type 2 diabetes, hyperlipidemia, tobacco history (40+ PPY history) - ECHO: normal EF - Stress test: normal Medical management Objective - Vital Signs/Intake and Output Vital Signs (last 24 hours): Temp Pulse Resp BP Pulse Ox 98.2 F 58 L 18 117/62 98 09/07/18 15:38 09/07/18 15:38 09/07/18 15:38 09/07/18 19:19 09/07/18 15:38 Intake and Output: 09/07/18 09/08/18 18:59 06:59 Intake Total 654 Output Total 700 Balance -46 - Medications Medications: Current Medications Albumin Human (Albumin Human 25% (12.5 Gm/50 Ml)) 12.5 gm IV BID [facility] Last Admin: 09/07/18 17:52 Dose: 12.5 gm Furosemide (Lasix) 60 mg IVP BID [facility] Last Admin: 09/07/18 19:19 Dose: 60 mg Insulin Human Regular (Novolin R) 0 unit SC ACHS [facility]; Protocol Last Admin: 09/07/18 17:30 Dose: 1 unit Midodrine (Proamatine) 5 mg PO TID [facility] Last Admin: 09/07/18 14:18 Dose: 5 mg Montelukast Sodium (Singulair) 10 mg PO HS [facility] Last Admin: 09/06/18 22:47 Dose: 10 mg Propranolol HCl (Inderal) 10 mg PO BID [facility] Last Admin: 09/07/18 12:13 Dose: 10 mg Sitagliptin Phosphate (Januvia) 25 mg PO DAILY [facility] Last Admin: 09/07/18 11:30 Dose: 25 mg Spironolactone (Aldactone) 25 mg PO DAILY [facility] Last Admin: 09/07/18 11:30 Dose: 25 mg Sucralfate (Carafate Oral Susp) 1 gm PO [facility] Last Admin: 09/07/18 06:57 Dose: 1 gm - Labs Labs: 09/07/18 08:13 09/07/18 08:13 PT 12.7 SECONDS (9.7-12.2) H 08/26/18 15:10 INR 1.2 08/26/18 15:10 APTT 38 SECONDS (21-34) H 08/26/18 15:10
--- NOTE | 2018-09-07 23:16 | PN ---
DATE: 09/07/2018 FOLLOWUP SUBJECTIVE: The patient still has significant abdominal, scrotal and neck swelling. He denies any shortness of breath. PHYSICAL EXAMINATION: VITAL SIGNS: Blood pressure 125/65, heart rate 58, temperature 98.2, respirations 18. HEENT: Pale conjunctivae. CHEST: Diminished breath sounds at the bases. HEART: S1 and S2 are regular. ABDOMEN: Mild ascites. GENITOURINARY: Significant scrotal edema. EXTREMITIES: 3+ thigh edema. LABORATORY DATA: Today's BUN and creatinine are 40 and 2.3 respectively. Glucose 122. Magnesium is below normal at 1.4. Today's hemoglobin and hematocrit 9.2 and 26.7, white count 5.2, platelet count 96,000. Abdominal ultrasound, moderate ascites in all four quadrants. Testicular ultrasound, extensive bilateral scrotal wall swelling, no intratesticular mass, left epididymal head cyst measuring 1.6 cm, bilateral hydroceles. No gross intratesticular mass. ASSESSMENT: 1. Liver cirrhosis and portal hypertension. 2. Chronic renal insufficiency. 3. Uncontrolled diabetes mellitus. 4. Esophageal varices. 5. Anemia and mild thrombocytopenia. 6. Hypomagnesemia and hypocalcemia. PLAN: Continue albumin infusion. Continue Aldactone 25 mg once a day, Inderal at 10 mg twice a day, Lasix 60 mg intravenously twice a day. The patient did receive magnesium sulfate intravenous replacement today and will follow magnesium level tomorrow. Martin Manrique MD
[2018-09-08] MEDS: Sucralfate 1 gm/10 ml Oral Susp UD PO SCH ×2 (07:00→21:27)
[2018-09-08] MEDS: (Novolin R) Insulin Human Regular 100 units/ml vial SC SCH ×4 (08:02→22:13)
--- NOTE | 2018-09-08 08:20 | PN ---
DATE: 09/08/2018LOCATION: 671, bed B. SUBJECTIVE: This 77-year-old male, seen and examined in rounds early in the morning with the staff in the floor without reported significant clinical changes or active bleeding, however, the latest hemoglobin reported to be 9.2 post blood transfusion with hematocrit 26.7 with thrombocytopenia of 96. Today's blood glucose level is 123. The patient still has increased BUN and creatinine with low magnesium and low calcium. PHYSICAL EXAMINATION: GENERAL: A 77-year-old male, denying any actual chest pain, palpitation, or significant shortness of breath with no evidence of active bleeding at the time of my physical examination. VITAL SIGNS: The patient is afebrile with pulse of 62, respiratory rate 20-22, blood pressure of 118/60. HEENT: Showed pale dry oral mucous membrane. Nonicteric sclerae. LUNGS: Few scattered crepitation. Decreased air entry at bases. HEART: Positive S1 and S2. ABDOMEN: Soft with mild generalized tenderness. No mass or organomegaly. No rebound tenderness or guarding. EXTREMITIES: Without significant clubbing or cyanosis, but edematous changes. NEUROLOGIC: No reported new neurological deficits, sensory or motor. IMPRESSION: 1. Liver cirrhosis with esophageal varices. 2. Re-exacerbation of peptic ulcer disease. 3. Recent history of gastrointestinal blood loss. 4. Known history of prostatic carcinoma. 5. Diverticulosis with left-sided colitis by a recent colonoscopy. 6. Known history of hypertension, diabetes mellitus. 7. Malnutrition, renal insufficiency. SUGGESTIONS: 1. Continue current management. 2. If there is subsequent drop of hemoglobin and hematocrit, then repeat upper endoscopy is to be considered. Otherwise, close followup with medical adjustment and treatment to continue. Lisa Granger MD
[2018-09-08 10:17] LABS: CALCIUM 8.1 mg/dl (8.6-10.4)
[2018-09-08] MEDS: Albumin Human 25% (12.5 gm/50 ml) IV SCH ×2 (10:30→18:13)
--- NOTE | 2018-09-08 13:28 | CP.PCM.PN ---
Subjective - Date & Time of Evaluation Date of Evaluation: 09/08/18 Time of Evaluation: 13:28 - Subjective Subjective: pt is feeling better, o sob, no pain, decreased abdominal distention, less edema Objective - Vital Signs/Intake and Output Vital Signs (last 24 hours): Temp Pulse Resp BP Pulse Ox 98.2 F 59 L 20 120/74 99 09/08/18 07:00 09/08/18 07:00 09/08/18 07:00 09/08/18 10:48 09/08/18 07:00 Intake and Output: 09/08/18 09/08/18 06:59 18:59 Intake Total 300 Output Total 1300 Balance -1000 - Medications Medications: Current Medications Albumin Human (Albumin Human 25% (12.5 Gm/50 Ml)) 12.5 gm IV BID [facility] Last Admin: 09/08/18 10:30 Dose: 12.5 gm Furosemide (Lasix) 60 mg IVP BID [facility] Last Admin: 09/08/18 10:48 Dose: 60 mg Insulin Human Regular (Novolin R) 0 unit SC [facility]; Protocol Last Admin: 09/08/18 08:02 Dose: Not Given Midodrine (Proamatine) 5 mg PO TID [facility] Last Admin: 09/08/18 10:50 Dose: 5 mg Montelukast Sodium (Singulair) 10 mg PO HS [facility] Last Admin: 09/07/18 22:47 Dose: 10 mg Propranolol HCl (Inderal) 10 mg PO BID [facility] Last Admin: 09/08/18 10:50 Dose: 10 mg Sitagliptin Phosphate (Januvia) 25 mg PO DAILY [facility] Last Admin: 09/08/18 10:48 Dose: 25 mg Spironolactone (Aldactone) 25 mg PO DAILY [facility] Last Admin: 09/08/18 10:48 Dose: 25 mg Sucralfate (Carafate Oral Susp) 1 gm PO ACS [facility] Last Admin: 09/08/18 07:00 Dose: 1 gm - Labs Labs: 09/07/18 08:13 09/08/18 09:21 PT 12.7 SECONDS (9.7-12.2) H 08/26/18 15:10 INR 1.2 08/26/18 15:10 APTT 38 SECONDS (21-34) H 08/26/18 15:10 - Constitutional Appears: Well, Non-toxic, Toxic, No Acute Distress - Head Exam Head Exam: ATRAUMATIC, NORMAL INSPECTION - Eye Exam Eye Exam: EOMI, Normal appearance, PERRL Pupil Exam: NORMAL ACCOMODATION - ENT Exam ENT Exam: Mucous Membranes Moist - Neck Exam Neck Exam: Full ROM - Respiratory Exam Respiratory Exam: Clear to Ausculation Bilateral, NORMAL BREATHING PATTERN - Cardiovascular Exam Cardiovascular Exam: REGULAR RHYTHM, +S1, +S2 - GI/Abdominal Exam GI & Abdominal Exam: Distended, Soft, Normal Bowel Sounds - Exam Exam: Scrotal Swelling - Extremities Exam Extremities Exam: Normal Inspection Additional comments: 2+ edema - Neurological Exam Neurological Exam: Alert, Awake, CN II-XII Intact, Oriented x3 - Psychiatric Exam Psychiatric exam: Normal Affect, Normal Mood - Skin Skin Exam: Dry, Normal Color, Warm Assessment and Plan - Assessment and Plan (Free Text) Assessment: 77 yo HM with pmh/o htn, dm, cirrhosis of liver, prostate ca s/p seed implants, s/p gi bleed, s/p banding of esophageal varices , s/p fall fx left femur and IM nailing, fx left humeral neck was admitted with hypoglycemia, vomitings, abd. distention 1.KRISS , can't r/o ATN 2.cirrhosis of liver 3.HTN 4.colitis 5.Ascitis restrict fluids to 1 lit/day renal function is stable , s.cr 3.0 ---->2.9---->2.9 ---->2.8--->2.9 ---->2.8-->2.6 ---->2.7 ---->2.3 --->2.3 --->2.1today check bmp daily urine eosinophils are negative c/w midodrine 5 mg po tid will c/w lasix 60 mg ivp bid, c/w albumin 25 % 50 ml bid 1/2 hr before lasix leg edema and scrotal swelling is improving d/c albumin stable from renal stand point to d/c and follow up as an out pt
--- NOTE | 2018-09-08 15:58 | CP.PCM.PN ---
Subjective - Date & Time of Evaluation Date of Evaluation: 09/08/18 Time of Evaluation: 07:00 - Subjective Subjective: afeb nad alert awake still swollen Objective - Vital Signs/Intake and Output Vital Signs (last 24 hours): Temp Pulse Resp BP Pulse Ox 98.2 F 59 L 20 120/74 99 09/08/18 07:00 09/08/18 07:00 09/08/18 07:00 09/08/18 10:48 09/08/18 07:00 Intake and Output: 09/08/18 09/08/18 06:59 18:59 Intake Total 300 254 Output Total 1300 750 Balance -1000 -496 - Medications Medications: Current Medications Albumin Human (Albumin Human 25% (12.5 Gm/50 Ml)) 12.5 gm IV BID [facility] Last Admin: 09/08/18 10:30 Dose: 12.5 gm Furosemide (Lasix) 60 mg IVP BID [facility] Last Admin: 09/08/18 10:48 Dose: 60 mg Insulin Human Regular (Novolin R) [address] [facility]; Protocol Last Admin: 09/08/18 14:12 Dose: Not Given Midodrine (Proamatine) 5 mg PO TID [facility] Last Admin: 09/08/18 14:11 Dose: 5 mg Montelukast Sodium (Singulair) 10 mg PO HS [facility] Last Admin: 09/07/18 22:47 Dose: 10 mg Propranolol HCl (Inderal) 10 mg PO BID [facility] Last Admin: 09/08/18 10:50 Dose: 10 mg Sitagliptin Phosphate (Januvia) 25 mg PO DAILY [facility] Last Admin: 09/08/18 10:48 Dose: 25 mg Spironolactone (Aldactone) 25 mg PO DAILY [facility] Last Admin: 09/08/18 10:48 Dose: 25 mg Sucralfate (Carafate Oral Susp) 1 gm PO ACBHS [facility] Last Admin: 09/08/18 07:00 Dose: 1 gm - Labs Labs: 09/07/18 08:13 09/08/18 09:21 PT 12.7 SECONDS (9.7-12.2) H 08/26/18 15:10 INR 1.2 08/26/18 15:10 APTT 38 SECONDS (21-34) H 08/26/18 15:10 - Constitutional Appears: Non-toxic, Chronically Ill - Head Exam Head Exam: NORMOCEPHALIC - Eye Exam Eye Exam: absent: Scleral icterus - ENT Exam ENT Exam: Mucous Membranes Dry - Neck Exam Neck Exam: absent: Lymphadenopathy - Respiratory Exam Respiratory Exam: Decreased Breath Sounds - Cardiovascular Exam Cardiovascular Exam: REGULAR RHYTHM - GI/Abdominal Exam GI & Abdominal Exam: Distended, Soft - Rectal Exam Rectal Exam: Deferred - Exam Exam: Scrotal Swelling - Extremities Exam Extremities Exam: Pedal Edema - Back Exam Back Exam: absent: CVA tenderness (L), CVA tenderness (R) - Neurological Exam Neurological Exam: Alert, Awake Assessment and Plan (1) Cirrhosis of liver Status: Acute (2) Diabetes 1.5, managed as type 2 Status: Acute - Assessment and Plan (Free Text) Assessment: poor prognosis
--- NOTE | 2018-09-08 16:41 | PN ---
DATE: 09/08/2018 SUBJECTIVE: The patient is slightly satisfied today because of subsidence of his scrotal swelling. He denies any shortness of breath. PHYSICAL EXAMINATION: VITAL SIGNS: Blood pressure 118/53, heart rate 59, temperature 98.2, and respirations 20. HEENT: Pale conjunctivae. CHEST: Diminished breath sounds over the bases. HEART: S1 and S2 regular. ABDOMEN: Moderate ascites with improved scrotal edema. EXTREMITIES: 2 to 3+ bilateral thigh edema. LABORATORY DATA: Today's BUN and creatinine are 39 and 2.1, glucose 139, and calcium is 8.1. Rest of his SMA-7 is within normal limit. ASSESSMENT: 1. Liver cirrhosis and portal hypertension. 2. . 3. Chronic renal insufficiency. 4. Uncontrolled diabetes mellitus. 5. Anemia and thrombocytopenia. 6. Improved hypokalemia with persistent hypocalcemia. PLAN: Continue Aldactone 25 mg orally daily, Lasix at 60 mg intravenously twice a day, ProAmatine 5 mg t.i.d., Singulair 10 mg once a day, and Januvia 25 mg once a day. Martin Manrique MD
--- NOTE | 2018-09-08 18:48 | CP.PCM.PN ---
Subjective - Date & Time of Evaluation Date of Evaluation: 09/08/18 Time of Evaluation: 07:20 - Subjective Subjective: Patient was seen and examined No cardiac events noted Objective - Constitutional Appears: No Acute Distress - Head Exam Head Exam: NORMAL INSPECTION, NORMOCEPHALIC - Eye Exam Eye Exam: EOMI, Normal appearance, PERRL Pupil Exam: NORMAL ACCOMODATION - ENT Exam ENT Exam: Mucous Membranes Moist - Respiratory Exam Respiratory Exam: Clear to Ausculation Bilateral, NORMAL BREATHING PATTERN - Cardiovascular Exam Cardiovascular Exam: +S1, +S2. absent: Tachycardia - GI/Abdominal Exam GI & Abdominal Exam: Soft, Normal Bowel Sounds - Extremities Exam Extremities Exam: Normal Inspection. absent: Pedal Edema, Tenderness - Neurological Exam Neurological Exam: Alert, Awake, CN II-XII Intact, Oriented x3 - Psychiatric Exam Psychiatric exam: Normal Affect, Normal Mood - Skin Skin Exam: Dry, Intact, Normal Color, Warm Assessment and Plan - Assessment and Plan (Free Text) Plan: Chest pain r/o ACS - ruled out Comorbid conditions: Hypertension, type 2 diabetes, hyperlipidemia, tobacco history (40+ PPY history) - ECHO: normal EF - Stress test: normal Medical management Objective - Vital Signs/Intake and Output Vital Signs (last 24 hours): Temp Pulse Resp BP Pulse Ox 97.5 F L 56 L 18 122/67 100 09/08/18 16:14 09/08/18 18:27 09/08/18 18:27 09/08/18 18:27 09/08/18 16:14 Intake and Output: 09/08/18 09/08/18 06:59 18:59 Intake Total 300 254 Output Total 1300 750 Balance -1000 -496 - Medications Medications: Current Medications Albumin Human (Albumin Human 25% (12.5 Gm/50 Ml)) 12.5 gm IV BID [facility] Last Admin: 09/08/18 18:13 Dose: 12.5 gm Furosemide (Lasix) 60 mg IVP BID [facility] Last Admin: 09/08/18 10:48 Dose: 60 mg Insulin Human Regular (Novolin R) 0 unit SC [facility]; Protocol Last Admin: 09/08/18 18:14 Dose: 1 unit Midodrine (Proamatine) 5 mg PO TID [facility] Last Admin: 09/08/18 18:26 Dose: 5 mg Montelukast Sodium (Singulair) 10 mg PO HS [facility] Last Admin: 09/07/18 22:47 Dose: 10 mg Propranolol HCl (Inderal) 10 mg PO BID [facility] Last Admin: 09/08/18 18:25 Dose: Not Given Sitagliptin Phosphate (Januvia) 25 mg PO DAILY [facility] Last Admin: 09/08/18 10:48 Dose: 25 mg Spironolactone (Aldactone) 25 mg PO DAILY [facility] Last Admin: 09/08/18 10:48 Dose: 25 mg Sucralfate (Carafate Oral Susp) 1 gm PO AC[facility]HS [facility] Last Admin: 09/08/18 07:00 Dose: 1 gm - Labs Labs: 09/07/18 08:13 09/08/18 09:21 PT 12.7 SECONDS (9.7-12.2) H 08/26/18 15:10 INR 1.2 08/26/18 15:10 APTT 38 SECONDS (21-34) H 08/26/18 15:10
[2018-09-09 01:40] VITALS: PULSE 61; RESP 20; O2SAT 98
[2018-09-09 06:41] LABS: BASO % 0.5 % (0.0-2.0); EOS # 0.4 K/uL (0.0-0.7); EOS % 8.3 % (0.0-4.0); LYMPH % 20.6 % (20.0-40.0); MEAN CELL VOLUME 94.9 fL (80.0-94.0); MEAN CORPUSCULAR HEMOGLOBIN 32.4 pg (27.0-31.0); MEAN CORPUSCULAR HGB CONC 34.2 g/dL (33.0-37.0); MEAN PLATELET VOLUME 10.7 fL (7.2-11.7); MONO # 0.6 K/uL (0.0-0.8); MONO % 13.6 % (0.0-10.0); NEUT # 2.7 K/uL (1.8-7.0); NRBC % 0.1 % (0.0-2.0); RBC 2.76 Mil/uL (4.40-5.90); RED CELL DISTRIBUTION WIDTH 15.7 % (11.5-14.5); WHITE BLOOD COUNT 4.8 K/uL (4.8-10.8)
[2018-09-09 07:01] LABS: CALCIUM 7.4 mg/dl (8.6-10.4)
[2018-09-09] MEDS: Sucralfate 1 gm/10 ml Oral Susp UD PO SCH (08:00)
[2018-09-09 08:24] VITALS: TEMP 98.2
[2018-09-09] MEDS: (Novolin R) Insulin Human Regular 100 units/ml vial SC SCH ×2 (08:24→12:09)
[2018-09-09] MEDS: Albumin Human 25% (12.5 gm/50 ml) IV SCH (09:53)
[2018-09-09 11:06] VITALS: BP 120/66
--- NOTE | 2018-09-09 12:04 | CP.PCM.PN ---
<VickyMirna - Last Filed: 09/09/18 12:03> Subjective - Date & Time of Evaluation Date of Evaluation: 09/09/18 Time of Evaluation: 10:00 - Subjective Subjective: Cardiology Follow Up Note Patient was seen and examined at bedside. Patient denied any chest pain, shortness of breath, or palpitations. Objective - Vital Signs/Intake and Output Vital Signs (last 24 hours): Temp Pulse Resp BP Pulse Ox 98.2 F 61 20 120/66 98 09/09/18 08:23 09/09/18 08:23 09/09/18 08:23 09/09/18 11:01 09/09/18 08:23 Intake and Output: 09/09/18 09/09/18 06:59 18:59 Output Total 300 Balance -300 - Medications Medications: Current Medications Albumin Human (Albumin Human 25% (12.5 Gm/50 Ml)) 12.5 gm IV BID [facility] Last Admin: 09/09/18 09:53 Dose: 12.5 gm Furosemide (Lasix) 60 mg IVP BID [facility] Last Admin: 09/09/18 11:01 Dose: 60 mg Insulin Human Regular (Novolin R) 0 unit SC [facility]; Protocol Last Admin: 09/09/18 08:24 Dose: Not Given Midodrine (Proamatine) 5 mg PO TID [facility] Last Admin: 09/09/18 10:06 Dose: 5 mg Montelukast Sodium (Singulair) 10 mg PO HS [facility] Last Admin: 09/08/18 21:27 Dose: 10 mg Propranolol HCl (Inderal) 10 mg PO BID [facility] Last Admin: 09/09/18 10:04 Dose: 10 mg Sitagliptin Phosphate (Januvia) 25 mg PO DAILY [facility] Last Admin: 09/09/18 09:54 Dose: 25 mg Spironolactone (Aldactone) 25 mg PO DAILY [facility] Last Admin: 09/09/18 09:54 Dose: 25 mg Sucralfate (Carafate Oral Susp) 1 gm PO ACS [facility] Last Admin: 09/09/18 08:00 Dose: 1 gm - Labs Labs: 09/09/18 06:36 09/09/18 06:36 PT 12.7 SECONDS (9.7-12.2) H 08/26/18 15:10 INR 1.2 08/26/18 15:10 APTT 38 SECONDS (21-34) H 08/26/18 15:10 - Additional Findings Additional findings: - Constitutional Appears: No Acute Distress - Head Exam Head Exam: NORMAL INSPECTION, NORMOCEPHALIC - Eye Exam Eye Exam: EOMI, Normal appearance, PERRL Pupil Exam: NORMAL ACCOMODATION - ENT Exam ENT Exam: Mucous Membranes Moist - Respiratory Exam Respiratory Exam: Clear to Ausculation Bilateral, NORMAL BREATHING PATTERN - Cardiovascular Exam Cardiovascular Exam: +S1, +S2. absent: Tachycardia - GI/Abdominal Exam GI & Abdominal Exam: Soft, Normal Bowel Sounds - Extremities Exam Extremities Exam: Normal Inspection. absent: Pedal Edema, Tenderness - Neurological Exam Neurological Exam: Alert, Awake, CN II-XII Intact, Oriented x3 - Psychiatric Exam Psychiatric exam: Normal Affect, Normal Mood - Skin Skin Exam: Dry, Intact, Normal Color, Warm Assessment and Plan - Assessment and Plan (Free Text) Plan: Chest pain r/o ACS - ruled out Comorbid conditions: Hypertension, type 2 diabetes, hyperlipidemia, tobacco history (40+ PPY history) - ECHO: normal EF - Stress test: normal - No further cardiac workup at this time - Medical Management Case discussed with Dr. Nielsen, Mirna Perry DO, PGY2 <Christoph Nielsen - Last Filed: 09/09/18 23:41> Objective - Vital Signs/Intake and Output Vital Signs (last 24 hours): Temp Pulse Resp BP Pulse Ox 98.2 F 61 20 120/66 98 09/09/18 08:23 09/09/18 08:23 09/09/18 08:23 09/09/18 11:01 09/09/18 08:23 - Labs Labs: 09/09/18 06:36 09/09/18 06:36 PT 12.7 SECONDS (9.7-12.2) H 08/26/18 15:10 INR 1.2 08/26/18 15:10 APTT 38 SECONDS (21-34) H 08/26/18 15:10 Assessment and Plan - Assessment and Plan (Free Text) Plan: Patient seen and evaluated personally by ne Plan of care d/w the medical and scientific illustrator and as documented
--- NOTE | 2018-09-09 12:07 | CP.PCM.PN ---
Subjective - Date & Time of Evaluation Date of Evaluation: 09/09/18 Time of Evaluation: 12:06 - Subjective Subjective: pt denies any sob, less abd. distention decreasing leg and scrotal edema Objective - Vital Signs/Intake and Output Vital Signs (last 24 hours): Temp Pulse Resp BP Pulse Ox 98.2 F 61 20 120/66 98 09/09/18 08:23 09/09/18 08:23 09/09/18 08:23 09/09/18 11:01 09/09/18 08:23 Intake and Output: 09/09/18 09/09/18 06:59 18:59 Output Total 300 Balance -300 - Medications Medications: Current Medications Albumin Human (Albumin Human 25% (12.5 Gm/50 Ml)) 12.5 gm IV BID [facility] Last Admin: 09/09/18 09:53 Dose: 12.5 gm Furosemide (Lasix) 60 mg IVP BID [facility] Last Admin: 09/09/18 11:01 Dose: 60 mg Insulin Human Regular (Novolin R) 0 unit SC [facility]; Protocol Last Admin: 09/09/18 08:24 Dose: Not Given Midodrine (Proamatine) 5 mg PO TID [facility] Last Admin: 09/09/18 10:06 Dose: 5 mg Montelukast Sodium (Singulair) 10 mg PO HS [facility] Last Admin: 09/08/18 21:27 Dose: 10 mg Propranolol HCl (Inderal) 10 mg PO BID [facility] Last Admin: 09/09/18 10:04 Dose: 10 mg Sitagliptin Phosphate (Januvia) 25 mg PO DAILY [facility] Last Admin: 09/09/18 09:54 Dose: 25 mg Spironolactone (Aldactone) 25 mg PO DAILY [facility] Last Admin: 09/09/18 09:54 Dose: 25 mg Sucralfate (Carafate Oral Susp) 1 gm PO ACBHS [facility] Last Admin: 09/09/18 08:00 Dose: 1 gm - Labs Labs: 09/09/18 06:36 09/09/18 06:36 PT 12.7 SECONDS (9.7-12.2) H 08/26/18 15:10 INR 1.2 08/26/18 15:10 APTT 38 SECONDS (21-34) H 08/26/18 15:10 - Constitutional Appears: Well, Non-toxic, No Acute Distress - Head Exam Head Exam: NORMAL INSPECTION - Eye Exam Eye Exam: EOMI, Normal appearance, PERRL Pupil Exam: NORMAL ACCOMODATION - ENT Exam ENT Exam: Mucous Membranes Moist - Respiratory Exam Respiratory Exam: Clear to Ausculation Bilateral, NORMAL BREATHING PATTERN - Cardiovascular Exam Cardiovascular Exam: REGULAR RHYTHM, +S1, +S2 - Rectal Exam Rectal Exam: Deferred - Exam Exam: Scrotal Swelling - Extremities Exam Extremities Exam: Normal Inspection Additional comments: 1-2+ edema - Back Exam Back Exam: NORMAL INSPECTION, rash noted - Neurological Exam Neurological Exam: Alert, Awake, CN II-XII Intact, Normal Gait, Oriented x3 - Psychiatric Exam Psychiatric exam: Normal Mood - Skin Skin Exam: Normal Color, Warm Assessment and Plan - Assessment and Plan (Free Text) Assessment: 77 yo HM with pmh/o htn, dm, cirrhosis of liver, prostate ca s/p seed implants, s/p gi bleed, s/p banding of esophageal varices , s/p fall fx left femur and IM nailing, fx left humeral neck was admitted with hypoglycemia, vomitings, abd. distention 1.KRISS , can't r/o ATN 2.cirrhosis of liver 3.HTN 4.colitis 5.Ascitis 6. hypokalemia ,hypomagnesemia restrict fluids to 1 lit/day renal function is stable , s.cr 3.4--->4.0--->3.0 ---->2.9 ---->2.8-->2.6 ---- >2.7 ---->2.3 --->2.3 --->2.1---->1.9 today check bmp daily urine eosinophils are negative c/w midodrine 5 mg po tid will c/w lasix 60 mg ivp bid, c/w albumin 25 % 50 ml bid 1/2 hr before lasix leg edema and scrotal swelling is improving d/c albumin stable from renal stand point to d/c and follow up as an out pt supplement k+ c/w lasix 60 mg po bid, d/c albumin f/u as an out pt
[2018-09-09] MEDS ORDERED: Potassium Chloride 20 mEq ER Tab PO SCH (13:00)
--- NOTE | 2018-09-09 13:07 | CP.PCM.PN ---
Subjective - Date & Time of Evaluation Date of Evaluation: 09/09/18 Time of Evaluation: 11:00 - Subjective Subjective: Patient seen today states feels better today , LE edema and scortal edema improved , denies any chest pain, sob, abdominal pain, dysuria vss and labs - reviewed - hgb - stable - 9-9.2-9.4->7.7 cr- improved - 1.9<2.1<2.7<3.4 Objective - Vital Signs/Intake and Output Vital Signs (last 24 hours): Temp Pulse Resp BP Pulse Ox 98.2 F 61 20 120/66 98 09/09/18 08:23 09/09/18 08:23 09/09/18 08:23 09/09/18 11:01 09/09/18 08:23 Intake and Output: 09/09/18 09/09/18 06:59 18:59 Output Total 300 Balance -300 - Medications Medications: Current Medications Albumin Human (Albumin Human 25% (12.5 Gm/50 Ml)) 12.5 gm IV BID [facility] Last Admin: 09/09/18 09:53 Dose: 12.5 gm Furosemide (Lasix) 60 mg IVP BID [facility] Last Admin: 09/09/18 11:01 Dose: 60 mg Insulin Human Regular (Novolin R) 0 unit [facility]; Protocol Last Admin: 09/09/18 12:09 Dose: 1 unit Midodrine (Proamatine) 5 mg PO TID [facility] Last Admin: 09/09/18 10:06 Dose: 5 mg Montelukast Sodium (Singulair) 10 mg PO HS [facility] Last Admin: 09/08/18 21:27 Dose: 10 mg Potassium Chloride (K-Dur 20 Meq Er Tab) 40 meq PO DAILY [facility] Propranolol HCl (Inderal) 10 mg PO BID [facility] Last Admin: 09/09/18 10:04 Dose: 10 mg Sitagliptin Phosphate (Januvia) 25 mg PO DAILY [facility] Last Admin: 09/09/18 09:54 Dose: 25 mg Spironolactone (Aldactone) 25 mg PO DAILY [facility] Last Admin: 09/09/18 09:54 Dose: 25 mg Sucralfate (Carafate Oral Susp) 1 gm PO ACBHS [facility] Last Admin: 09/09/18 08:00 Dose: 1 gm - Labs Labs: 09/09/18 06:36 09/09/18 06:36 PT 12.7 SECONDS (9.7-12.2) H 08/26/18 15:10 INR 1.2 08/26/18 15:10 APTT 38 SECONDS (21-34) H 08/26/18 15:10 Assessment and Plan - Assessment and Plan (Free Text) Assessment: A/P 72 Y/O M PMHX DM, HTN, Prostate CA S/P Brachytherapy, cirrhosis, portal hypertension, esophageal varices, admitted with Sepsis, acute kidney injury and Hypoglycemia started on IVf AND ANTIBIOTICS duplex scan - negative for DVT s/p EGD and colonoscopy ( see report for details0) blood culture and urine culture - negative for 5 days cr- improved from 3.5- 1.9 mild hypokalemia noted - replaced today patient clinically improved D/w Dr. Talbot , cleared fro discharge from nephrology standpoint with lasix 60 mg po bid and close monitoring of labs D/w Dr. Mooney, cleared for discharge home today an df/u with Dr. Mooney office on for repeat blood work Discharge plan discussed with patient and at bed fareed e , and f/u visit with Dr. Luis and Dr. Mooney and the repeat labs on , who understands and agrees with plan Patient instructed to returns to ED if symptoms worsen or any other concerning symptoms
[2018-09-09] MEDS ORDERED: Potassium Chloride 20 mEq ER Tab PO ONE (13:18)
--- NOTE | 2018-09-09 15:12 | PN ---
DATE: 09/09/2018 LOCATION: 653, bed A. SUBJECTIVE: This 77-year-old male seen and examined in rounds without reported significant clinical changes or active bleeding, with reported electrolyte imbalance for which he had received magnesium IV component. The patient denied any actual chest pain, palpitation, or significant shortness of breath but scrotal edematous changes with much less abdominal pain and this abdominal distention. His most recent lab results today showed hemoglobin 9, hematocrit 26.2 with thrombocytopenia of 107. Potassium 3.5, BUN 34, creatinine 1.9, blood glucose level 126, calcium 7.4. PHYSICAL EXAMINATION: GENERAL: A 77-year-old male awake, alert. VITAL SIGNS: Afebrile with pulse of 64, respiratory rate 20-22, blood pressure 118/66. HEENT: Showed pale, dry, oral mucous membrane. Nonicteric sclerae. LUNGS: Few scattered crepitations. Decreased air entry at bases. HEART: Positive S1 and S2. ABDOMEN: Soft with mild generalized tenderness. No mass or organomegaly. No rebound tenderness or guarding. EXTREMITIES: Lower extremities hyper erythematous changes with edematous changes, but less cellulitis. IMPRESSION: 1. Liver cirrhosis with esophageal varices. 2. Peptic ulcer disease. 3. Renal failure. 4. Diverticulosis with left-sided colitis. 5. Known history of diabetes mellitus, hypertension. 6. Renal insufficiency. SUGGESTIONS: 1. Continue current management. 2. Antireflux measures. 3. Further recommendation to follow and if there is any significant drop in hemoglobin and hematocrit then repeat upper endoscopy to be kept in mind. Lisa Granger MD
--- NOTE | 2018-09-10 02:11 | CP.PCM.PN ---
Subjective - Date & Time of Evaluation Date of Evaluation: 09/03/18 - Subjective Subjective: dictated Objective - Vital Signs/Intake and Output Vital Signs (last 24 hours): Temp Pulse Resp BP Pulse Ox 98.2 F 61 20 120/66 98 09/09/18 08:23 09/09/18 08:23 09/09/18 08:23 09/09/18 11:01 09/09/18 08:23 - Labs Labs: 09/09/18 06:36 09/09/18 06:36 PT 12.7 SECONDS (9.7-12.2) H 08/26/18 15:10 INR 1.2 08/26/18 15:10 APTT 38 SECONDS (21-34) H 08/26/18 15:10
--- NOTE | 2018-09-10 02:11 | CP.PCM.DIS ---
Provider - Provider Date of Admission: 08/24/18 16:40 Attending physician: Selvin Mooney MD Hospital Course - Lab Results Lab Results: Micro Results 08/24/18 16:15 Blood Blood Culture - Final NO GROWTH AFTER 5 DAYS 08/24/18 16:15 Blood Gram Stain - Final TEST NOT PERFORMED 08/24/18 14:45 Blood Blood Culture - Final NO GROWTH AFTER 5 DAYS 08/24/18 14:45 Blood Gram Stain - Final TEST NOT PERFORMED 08/25/18 Unknown Urine,Slater Urine Culture - Final No Growth (<1,000 CFU/ML) 08/25/18 07:19 Urine,Clean Catch Urine Culture - Final No Growth (<1,000 CFU/ML) Most Recent Lab Values WBC 4.8 K/uL (4.8-10.8) 09/09/18 06:36 RBC 2.76 Mil/uL (4.40-5.90) L 09/09/18 06:36 Hgb 9.0 g/dL (12.0-18.0) L 09/09/18 06:36 Hct 26.2 % (35.0-51.0) L 09/09/18 06:36 MCV 94.9 fL (80.0-94.0) H 09/09/18 06:36 MCH 32.4 pg (27.0-31.0) H 09/09/18 06:36 MCHC 34.2 g/dL (33.0-37.0) 09/09/18 06:36 RDW 15.7 % (11.5-14.5) H 09/09/18 06:36 Plt Count 107 K/uL (130-400) L 09/09/18 06:36 MPV 10.7 fL (7.2-11.7) 09/09/18 06:36 Neut % (Auto) 57.0 % (50.0-75.0) 09/09/18 06:36 Lymph % (Auto) 20.6 % (20.0-40.0) 09/09/18 06:36 [place] % (Auto) 13.6 % (0.0-10.0) H 09/09/18 06:36 Eos % (Auto) 8.3 % (0.0-4.0) H 09/09/18 06:36 Baso % (Auto) 0.5 % (0.0-2.0) 09/09/18 06:36 Neut # (Auto) 2.7 K/uL (1.8-7.0) 09/09/18 06:36 Lymph # (Auto) 1.0 K/uL (1.0-4.3) 09/09/18 06:36 [place] # (Auto) 0.6 K/uL (0.0-0.8) 09/09/18 06:36 Eos # (Auto) 0.4 K/uL (0.0-0.7) 09/09/18 06:36 Baso # (Auto) 0.0 K/uL (0.0-0.2) 09/09/18 06:36 Neutrophils % (Manual) 87 % (50-75) H 08/27/18 07:32 Lymphocytes % (Manual) 7 % (20-40) L 08/27/18 07:32 Monocytes % (Manual) 6 % (0-10) 08/27/18 07:32 Differential Comment 08/29/18 11:15 Platelet Estimate Slightly decreased (NORMAL) L 08/27/18 07:32 Ovalocytes Slight 08/27/18 07:32 PT 12.7 SECONDS (9.7-12.2) H 08/26/18 15:10 INR 1.2 08/26/18 15:10 APTT 38 SECONDS (21-34) H 08/26/18 15:10 pO2 19 mm/Hg (30-55) L 08/24/18 18:05 VBG pH 7.33 (7.32-7.43) 08/24/18 18:05 VBG pCO2 33 mmHg (40-60) L 08/24/18 18:05 VBG HCO3 17.1 mmol/L 08/24/18 18:05 VBG Total CO2 18.4 mmol/L (22-28) L 08/24/18 18:05 VBG O2 Sat (Calc) 30.4 % (40-65) L 08/24/18 18:05 VBG Base Excess -7.5 mmol/L (0.0-2.0) L 08/24/18 18:05 VBG Potassium 4.6 mmol/L (3.6-5.2) 08/24/18 18:05 Sodium 136.0 mmol/l (132-148) 08/24/18 18:05 Chloride 108.0 mmol/L (98-107) H 08/24/18 18:05 Glucose 197 mg/dl (75-110) H 08/24/18 18:05 Lactate 3.8 mmol/L (0.7-2.1) H 08/24/18 18:05 FiO2 21.0 % 08/24/18 18:05 Crit Value Called To Dr salgado 08/24/18 15:50 Crit Value Called By [facility] 08/24/18 15:50 Crit Value Read Back Y 08/24/18 15:50 Blood Gas Notified Time 1600 08/24/18 15:50 Sodium 137 mmol/L (132-148) 09/09/18 06:36 Potassium 3.5 mmol/L (3.6-5.2) L 09/09/18 06:36 Chloride 100 mmol/L (98-107) 09/09/18 06:36 Carbon Dioxide 25 mmol/L (22-30) 09/09/18 06:36 Anion Gap 15 (10-20) 09/09/18 06:36 BUN 34 mg/dL (9-20) H 09/09/18 06:36 Creatinine 1.9 mg/dL (0.8-1.5) H 09/09/18 06:36 Est GFR ( Amer) 42 09/09/18 06:36 Est GFR (Non-Af Amer) 35 09/09/18 06:36 POC Glucose (mg/dL) 174 mg/dL (65-110) H 09/09/18 11:27 Random Glucose 126 mg/dL (75-110) H 09/09/18 06:36 Lactic Acid 2.5 mmol/L (0.7-2.1) H 08/25/18 09:00 Calcium 7.4 mg/dl (8.6-10.4) L 09/09/18 06:36 Phosphorus 3.6 mg/dL (2.5-4.5) 09/08/18 09:21 Magnesium 1.7 mg/dL (1.6-2.3) 09/09/18 06:36 Total Bilirubin 1.0 mg/dL (0.2-1.3) 09/03/18 07:56 AST 34 U/L (17-59) 09/03/18 07:56 ALT 24 U/L (21-72) 09/03/18 07:56 Alkaline Phosphatase 231 U/L (38-126) H 09/03/18 07:56 Troponin I < 0.0120 ng/mL (0.00-0.120) 08/24/18 15:36 NT-Pro-B Natriuret Pep 1530 pg/mL (0-900) H 08/24/18 15:36 Total Protein 5.4 g/dL (6.3-8.3) L 09/03/18 07:56 Total Protein (PEP) 6.1 g/dL (6.1-8.1) 08/26/18 07:11 Albumin 2.4 g/dL (3.5-5.0) L 09/03/18 07:56 Albumin (PEP) 3.0 g/dL (3.8-4.8) L 08/26/18 07:11 Globulin 2.9 gm/dL (2.2-3.9) 09/03/18 07:56 Albumin/Globulin Ratio 0.8 (1.0-2.1) L 09/03/18 07:56 Dcdge-7-Urfhetfoy 0.2 g/dL (0.2-0.3) 08/26/18 07:11 Dkvtc-4-Ccokisxvi 0.6 g/dL (0.5-0.9) 08/26/18 07:11 Hreh-2-Rlikdpln 0.4 g/dL (0.4-0.6) 08/26/18 07:11 Kydw-0-Nuuwubys 0.6 g/dL (0.2-0.5) H 08/26/18 07:11 Gamma Globulins 1.4 g/dL (0.8-1.7) 08/26/18 07:11 Abnorm Protein Band 1 TEST NOT PERFORMED 08/26/18 07:11 Abnorm Protein Band 2 TEST NOT PERFORMED 08/26/18 07:11 Abnorm Protein Band 3 TEST NOT PERFORMED 08/26/18 07:11 Alpha Fetoprotein 3.3 ng/mL (0.0-7.5) 08/26/18 15:10 Carcinoembryonic Ag 3.4 ng/mL (0-3.0) H 08/26/18 15:10 CA 19-9 Antigen 23.4 U/mL (0-37) 08/26/18 15:10 Prostate Specific Ag < 0.064 ng/mL (0.00-4.0) 08/26/18 07:11 Free PSA <0.1 ng/mL 08/25/18 20:10 % Free PSA Unable to calculate % (calc) (>25) 08/25/18 20:10 Total PSA <0.1 ng/mL (< or = 4.0) 08/25/18 20:10 TSH 3rd Generation 5.40 mIU/L (0.46-4.68) H 08/26/18 07:11 Venous Blood Potassium 4.6 mmol/L (3.6-5.2) 08/24/18 18:05 Urine Color Yellow (YELLOW) 08/25/18 18:48 Urine Clarity Clear (Clear) 08/25/18 18:48 Urine pH 5.0 (5.0-8.0) 08/25/18 18:48 Ur Specific [place] 1.010 (1.003-1.030) 08/25/18 18:48 Urine Protein Negative mg/dL (NEGATIVE) 08/25/18 18:48 Urine Glucose (UA) Normal mg/dL (Normal) 08/25/18 18:48 Urine Ketones Negative mg/dL (NEGATIVE) 08/25/18 18:48 Urine Blood 1+ (NEGATIVE) H 08/25/18 18:48 Urine Nitrate Negative (NEGATIVE) 08/25/18 18:48 Urine Bilirubin Negative (NEGATIVE) 08/25/18 18:48 Urine Urobilinogen Normal mg/dL (0.2-1.0) 08/25/18 18:48 Ur Leukocyte Esterase Neg [place]/uL (Negative) 08/25/18 18:48 Urine WBC (Auto) 19 /hpf (0-5) H 08/25/18 18:48 Urine RBC (Auto) 6 /hpf (0-3) H 08/25/18 18:48 Ur Squamous Epith Cells 1 /hpf (0-5) 08/25/18 18:48 Urine Bacteria Many (<OCC) H 08/25/18 18:48 Urine Eosinophils Negative (NEGATIVE) 09/01/18 14:45 Ur Random Creatinine 75.0 mg/dL 08/25/18 18:48 Ur Random Sodium 38 mmol/L 08/25/18 18:48 Ur Random Potassium 22.4 mmol/L 08/25/18 18:48 Urine Chloride 45 mmol/L (32-290) 08/25/18 10:47 Stool Occult Blood Positive (NEGATIVE) H 08/25/18 23:14 JANNETH & SPEP Interp See note 08/26/18 07:11 Hepatitis A IgM Ab Negative (NEGATIVE) 08/26/18 07:11 Hep Bs Antigen Negative (NEGATIVE) 08/26/18 07:11 Hep B Core IgM Ab Negative (NEGATIVE) 08/26/18 07:11 Hepatitis C Antibody Negative (NEGATIVE) 08/26/18 07:11 Blood Type O POSITIVE 09/04/18 10:58 Antibody Screen Negative 09/04/18 10:58 Discharge Exam - Head Exam Head Exam: NORMAL INSPECTION Discharge Plan - Discharge Medications Prescriptions: Sucralfate [Carafate Oral Susp] 1 gm PO ACBHS 30 Days #90 udc Propranolol [Inderal] 10 mg PO BID #60 tab SITagliptin [Januvia] 25 mg PO DAILY #30 tab Furosemide [Lasix] 60 mg PO BID 15 Days tab Potassium Chloride 8 meq PO DAILY #15 tablet.er Midodrine [Proamatine] 5 mg PO TID #90 tab Montelukast Sodium [Singulair] 10 mg PO DAILY #30 tablet - Follow Up Plan Condition: STABLE Disposition: HOME/ ROUTINE Instructions: Sepsis (DC), Sepsis (GEN) Additional Instructions: Por favor, comunquese con la oficina del Dr. Mooney el jueves (la visita de F / u necesita anlisis de marisela y ajuste de medicamentos) - 8 [facility] Por favor, llame a la oficina del Dr. Luis (visita) y alvaro [place] elana. Continuar la medicacin segn med. rec. Por favor elevar el escort y las extremidades inferiores Please f/u with Dr. Mooney office on ( f/u visit needs blood work and adjust medications ) - 8 [facility] Please f/u with Dr. Luis office ( f/u visit) call and make appointment Continue medication as per med. rec. Please elevate scortum and lower extremities
--- NOTE | 2018-09-10 02:11 | CP.PCM.PN ---
Subjective - Date & Time of Evaluation Date of Evaluation: 09/09/18 - Subjective Subjective: dictated Objective - Vital Signs/Intake and Output Vital Signs (last 24 hours): Temp Pulse Resp BP Pulse Ox 98.2 F 61 20 120/66 98 09/09/18 08:23 09/09/18 08:23 09/09/18 08:23 09/09/18 11:01 09/09/18 08:23 - Labs Labs: 09/09/18 06:36 09/09/18 06:36 PT 12.7 SECONDS (9.7-12.2) H 08/26/18 15:10 INR 1.2 08/26/18 15:10 APTT 38 SECONDS (21-34) H 08/26/18 15:10
--- NOTE | 2018-09-10 06:51 | PN ---
DATE: 09/10/2018 SUBJECTIVE: The patient is evaluated. The patient is feeling better. He has edema. He has been started on Lasix drip today by Nephrology, and the patient is being diuresed. The patient's BUN and creatinine were improving. He has stenosis of liver. He denies any rales or rigor. PHYSICAL EXAMINATION: VITAL SIGNS: Blood pressure 132/70, pulse 74, respiratory rate 16, and temperature 99. LUNGS: Clear. CARDIOVASCULAR SYSTEM: S1 and S2 regular. ABDOMEN: Extensive ascites with fluids still positive. EXTREMITIES: pitting edema +3. CENTRAL NERVOUS SYSTEM: Awake, alert, and oriented x3. ASSESSMENT: 1. Cirrhosis of liver, end-stage liver disease with ascites. 2. Type 2 diabetes. 3. Hypertension. 4. Acute on chronic kidney disease. PLAN: The patient is for discharge on Aldactone, Lasix. He will follow me in about 3 days to repeat his electrolytes. The patient's medications have been written, and he is being discharged with outpatient followup. Condition upon discharge is stable. Selvin Mooney MD
--- NOTE | 2018-09-12 08:25 | DS ---
DISCHARGE DIAGNOSES: 1. Cirrhosis of liver, end-stage liver disease. 2. Type 2 diabetes. 3. Acute on chronic kidney disease. 4. Hypertension. HISTORY OF PRESENT ILLNESS: This is a 77-year-old male with history of diabetes, hypertension, hyperlipidemia who is compliant with the diet, medication, and followup. The patient was brought into the emergency room because of low blood sugar, altered mental status, not feeling well, not eating well, slurring of speech. In the field, blood sugar was 26. The patient received D50 and his sugar improved. His symptoms improved. He was brought into the emergency room with elevated BUN and creatinine, found to be in acute kidney failure. He was started on IV fluids, found to have massive ascites with cirrhosis of liver on workup, and he had GI bleed and underwent EGD and a colonoscopy. H and H were stabilized. He felt better. The patient subsequently had to be diuresed with intravenous Lasix drip and the patient did well. His BUN and creatinine improved. He felt better and he was discharged. PHYSICAL EXAMINATION: VITAL SIGNS: Blood pressure 120/66, pulse 61, respiratory rate 20, temperature 98.2. LABORATORY DATA: WBC ____, hemoglobin 9, hematocrit 26.2, platelets 107. Sodium 137, potassium 3.5, chloride 100, bicarb 25, BUN 34, creatinine 1.9. ASSESSMENT AND PLAN: The patient is going home on diuretics, different blood sugar medication. Monitor the patient. Selvin Mooney MD
== END 2018-09-09 14:00 | disposition home health service (06) | DRG 73 ==
LOC: C.ER 14:56 → C.9E 16:40 → C.6T 22:38
PROVIDERS: ADMIT Internal Medicine; ATTEND Internal Medicine
PROC: 0DBE8ZX Excision of Large Intestine, Via Natural or Artificial Opening Endoscopic, Diagnostic (ICD-10-PCS; principal; 2018-08-27 08:25)
PROC: 0DB68ZX Excision of Stomach, Via Natural or Artificial Opening Endoscopic, Diagnostic (ICD-10-PCS; 2018-08-28)
DX: E11.43 Type 2 diabetes mellitus with diabetic autonomic (poly)neuropathy (principal); N17.0 Acute kidney failure with tubular necrosis; E46 Unspecified protein-calorie malnutrition; I13.0 Hypertensive heart and chronic kidney disease with heart failure and stage 1 through stage 4 chronic kidney disease, or unspecified chronic kidney disease; K76.6 Portal hypertension; R18.8 Other ascites; E11.65 Type 2 diabetes mellitus with hyperglycemia; K31.84 Gastroparesis; Z79.4 Long term (current) use of insulin; E11.22 Type 2 diabetes mellitus with diabetic chronic kidney disease; E11.649 Type 2 diabetes mellitus with hypoglycemia without coma; E78.5 Hyperlipidemia, unspecified; E83.42 Hypomagnesemia; E87.6 Hypokalemia; I50.9 Heart failure, unspecified; K29.70 Gastritis, unspecified, without bleeding; K74.60 Unspecified cirrhosis of liver; N18.9 Chronic kidney disease, unspecified; Z74.01 Bed confinement status; Z85.46 Personal history of malignant neoplasm of prostate; K52.89 Other specified noninfective gastroenteritis and colitis; K64.8 Other hemorrhoids; D69.59 Other secondary thrombocytopenia; Z87.891 Personal history of nicotine dependence; Z92.3 Personal history of irradiation

== ENCOUNTER 2019-01-03 07:42 | Outpatient (CLI) | payer MEDICARE | END 2019-01-03 07:43 | disposition home or self-care (01) | LOC: C.USIC 07:43 | DX: K74.60 Unspecified cirrhosis of liver (principal) ==

== ENCOUNTER 2019-01-27 15:39 | Emergency (ER) | payer MEDICARE ==
[2019-01-27 17:12] VITALS: BMI 25.0
[2019-01-27 17:24] VITALS: BP 144/84; PULSE 77; TEMP 97.9; O2SAT 100
--- NOTE | 2019-01-27 17:54 | C.PDOC ---
History Of Present Illness 78y/o male presents to the ED for evaluation of left hip pain which occurred this morning. Patient has history of left hip replacement. He took Tylenol, which resolved his symptoms. Patient presents to the ED requesting medicine in case the pain returns. He denies any symptoms currently. Patient denies recent injuries/trauma. Time Seen by Provider: 01/27/19 17:47 Chief Complaint (Nursing): Hip Pain History Per: Patient History/Exam Limitations: no limitations Onset/Duration Of Symptoms: Hrs Current Symptoms Are (Timing): Gone Additional History Per: Patient Past Medical History Reviewed: Historical Data, Nursing Documentation, Vital Signs Vital Signs: Last Vital Signs Temp 97.9 F 01/27/19 17:14 Pulse 77 01/27/19 17:14 Resp 17 01/27/19 17:14 BP 144/84 01/27/19 17:14 Pulse Ox 100 01/27/19 17:14 - Medical History PMH: Anemia, Arthritis, Cardia Arrhythmia, HTN, Hypercholesterolemia, Hyperlipidemia, Pneumonia Denies: Colonic Polyps, Fractures, Chronic Kidney Disease, TIA Surgical History[place] [facility] EXCISION OF LARGE INTESTINE, ENDO, DIAGN (08/24/18) EXCISION OF STOMACH, ENDO, DIAGN (08/24/18) OCCLUSION ESOPHAGEAL VEIN W EXTRALUM DEV, PERC ENDO (06/02/16) REPOSITION LEFT FEMORAL SHAFT WITH INT FIX, OPEN APPROACH (05/22/18) TRANSFUSE NONAUT RED BLOOD CELLS IN PERIPH VEIN, PERC (05/22/18) Family History: States: Unknown Family Hx - Social History Hx Alcohol Use: No (Former) Hx Substance Use: No - Immunization History Hx Tetanus Toxoid Vaccination: No Hx Influenza Vaccination: No Hx Pneumococcal Vaccination: No Review Of Systems Musculoskeletal: Positive for: Other (left hip pain, atraumatic ) Physical Exam - Physical Exam Appears: Non-toxic, No Acute Distress Skin: Normal Color, Warm, Dry Extremity: Normal ROM (left hip ), No Tenderness, Capillary Refill (less than 2 seconds ), No Deformity, No Swelling Extremity: Left: Hips Non-Tender Neurological/Psych: Normal Speech, Normal Cognition ED Course And Treatment O2 Sat by Pulse Oximetry: 100 (on RA) Pulse Ox Interpretation: Normal Progress Note: Patient instructed to take Tylenol/Motrin as per his own supply. Medical Decision Making Medical Decision Making: normal exam discomfort relieved w Tylenol this AM no discomfort now opt f/u with Ortho PRN Disposition Doctor Will See Patient In The: Office Counseled Patient/Family Regarding: Studies Performed, Diagnosis - Disposition Referrals: [facility] [Outside] [facility] [Outside] [facility] [Outside] [facility] [Outside] Disposition: HOME/ ROUTINE Disposition Time: 17:54 Condition: GOOD Additional Instructions: sigue Tylenol o' Ibuprofeno long necessario para haile del cadera, de vez en cuando Sigue con marie Orthopedico long necessario Instructions: Hip Pain in Older People Forms: [facility] (Icelandic) Print Language: MALTESE - Clinical Impression Clinical Impression: Hip pain - Scribe Statement The provider has reviewed the documentation as recorded by the Scribe (Irene Reardon) Provider Attestation: All medical record entries made by the Scribe were at my direction and personally dictated by me. I have reviewed the chart and agree that the record accurately reflects my personal performance of the history, physical exam, medical decision making, and the department course for this patient. I have also personally directed, reviewed, and agree with the discharge instructions and disposition.
[2019-01-27 18:01] VITALS: RESP 18
== END 2019-01-27 18:01 | disposition home or self-care (01) ==
LOC: C.ER 15:39
DX: M25.552 Pain in left hip (principal); E78.00 Pure hypercholesterolemia, unspecified; I10 Essential (primary) hypertension; E78.5 Hyperlipidemia, unspecified